=== PATIENT | female | born 1940 | race Caucasian/White ===

== ENCOUNTER → 2017-02-06 | Outpatient (REF) | payer MEDICARE ==
[2017-02-07 13:09] LABS: MEAN CORPUSCULAR HEMOGLOBIN 27.6 pg (27.0-33.0); MEAN CORPUSCULAR HGB CONC 31.8 g/dl (32.0-36.5); MEAN CORPUSCULAR VOLUME 86.9 fl (80.0-96.0); RED CELL DISTRIBUTION WIDTH 17.8 % (11.5-14.5); WHITE BLOOD COUNT 10.5 K/mm3 (4.0-10.0)
[2017-02-07 13:48] LABS: CALCIUM LEVEL 8.9 MG/DL (8.8-10.2); CREATININE FOR GFR 1.57 MG/DL (0.55-1.02); GLOMERULAR FILTRATION RATE 34.2 (>39); POTASSIUM SERUM 4.4 MEQ/L (3.5-5.1)
== END ==
LOC: M SFHCCLAY 14:14
PROVIDERS: ATTEND Family Medicine
DX: E11.9 Type 2 diabetes mellitus without complications (principal); I10 Essential (primary) hypertension; D50.9 Iron deficiency anemia, unspecified

== ENCOUNTER → 2017-02-07 | Outpatient (REF) | payer MEDICARE | LOC: M SFHCCLAY 17:15 | PROVIDERS: ATTEND Family Medicine | DX: E11.9 Type 2 diabetes mellitus without complications (principal); I10 Essential (primary) hypertension; D50.9 Iron deficiency anemia, unspecified ==

== ENCOUNTER → 2017-05-24 | Outpatient (CLI) | payer MEDICARE ==
--- NOTE | 2017-05-24 15:13 | REP ---
LUMBAR SPINE, FIVE VIEWS: HISTORY: Back pain. There is no acute fracture. There is an old compression fracture of the L2 vertebral body with minimal height loss. The lumbar intervertebral discs are decreased in height. Vacuum phenomenon is present at the L2-3 and L4-5 levels. These findings are consistent with disc degeneration. Osteophytes are present throughout the lumbar spine. There is narrowing of the L4-5 and L5-S1 facet joints. There are 4 mm of grade 1 spondylolisthesis of L3 on 4. A laminectomy defect is present on the L2-3 level. IMPRESSION: Degenerative change as described above.
== END ==
LOC: M CLY 13:57
PROVIDERS: ATTEND Family Medicine
DX: M25.78 Osteophyte, vertebrae (principal); M48.56XD Collapsed vertebra, not elsewhere classified, lumbar region, subsequent encounter for fracture with routine healing
CPT/HCPCS: 72110; G0463

== ENCOUNTER → 2017-05-28 | Outpatient (CLI) | payer MEDICARE, BC, OTHER | LOC: M SMT 10:37 | PROVIDERS: ATTEND Family Medicine | DX: M54.5 Low back pain (principal); Z53.8 Procedure and treatment not carried out for other reasons ==

== ENCOUNTER 2017-07-10 08:58 | Outpatient (RCR) | payer MEDICARE | END 2017-07-18 | LOC: M PT 08:58 | PROVIDERS: ATTEND Family Medicine | DX: Z51.89 Encounter for other specified aftercare (principal); M51.46 Schmorl's nodes, lumbar region | CPT/HCPCS: 97110; 97163; G8978; G8979 ==

== ENCOUNTER → 2017-07-15 | Outpatient (REF) | payer MEDICARE | LOC: M LAB REF 17:16 | PROVIDERS: ATTEND Physician Assistant | DX: N39.0 Urinary tract infection, site not specified (principal); R30.0 Dysuria ==

== ENCOUNTER 2017-07-16 09:01 | Emergency (ER) | payer MEDICARE ==
[~2017-07-16] VITALS: Ht 160 cm; Wt 102.3 kg
[2017-07-16 09:52] LABS: BASO # 0.1 10^3/uL (0.0-0.2); BASO % 0.9 % (0.0-1.0); EOS # 0.4 10^3/uL (0.0-0.50); EOS % 3.7 % (0.0-3.0); IMMATURE GRANULOCYTE % 0.4 % (0-0); LYMPH # 1.2 10^3/uL (1.5-4.5); LYMPH % 11.3 % (24.0-44.0); MEAN CORPUSCULAR HEMOGLOBIN 27.9 pg (27.0-33.0); MEAN CORPUSCULAR HGB CONC 32.5 g/dl (32.0-36.5); MEAN CORPUSCULAR VOLUME 85.7 fl (80.0-96.0); MONO # 0.9 10^3/uL (0.0-0.8); MONO % 8.4 % (0.0-5.0); NEUTROPHILS # 7.9 10^3/uL (1.8-7.7); NEUTROPHILS % 75.3 % (36.0-66.0); PLATELET COUNT, AUTOMATED 315 10^3/uL (150-450); RED CELL DISTRIBUTION WIDTH 13.7 % (11.5-14.5); WHITE BLOOD COUNT 10.5 10^3/uL (4.0-10.0)
[2017-07-16] MEDS ORDERED: ISOVUE-370 76% 100ML VIAL (Q9967) As Ordered ONE (10:02)
[2017-07-16 10:26] LABS: ALBUMIN 3.3 GM/DL (3.2-5.2); ALBUMIN/GLOBULIN RATIO 0.73 (1.00-1.93); BILIRUBIN,DIRECT 0.2 MG/DL (0.0-0.2); BILIRUBIN,TOTAL 0.7 MG/DL (0.2-1.0); CALCIUM LEVEL 9.1 MG/DL (8.8-10.2); CREATININE FOR GFR 1.32 MG/DL (0.55-1.02); GLOMERULAR FILTRATION RATE 41.8 (>39); POTASSIUM SERUM 3.2 MEQ/L (3.5-5.1); TOTAL PROTEIN 7.8 GM/DL (6.4-8.2)
--- NOTE | 2017-07-16 11:04 | REP ---
Clinical: Chest pain . Comparison: 07/27/2016 . Findings: The mediastinum and cardiac silhouette are stable and within normal limits for portable technique. The lung morgan are clear without acute consolidation, effusion, or pneumothorax. Skeletal structures are intact. Impression: No acute cardiopulmonary process appreciated. Signed by Ventura Griggs MD 07/16/2017 10:56 A
--- NOTE | 2017-07-16 11:09 | REP ---
Clinical: Diffuse abdominal and back pain. Technique: Axial contrast enhanced images from the lung bases to the pubic symphysis using the 100 ml Isovue 370 intravenous contrast material with coronal and sagittal re-formations. Findings: Lung bases demonstrate minimal lingular atelectasis and dependent changes. Cardiomegaly suggested. Liver, spleen, pancreas, bilateral adrenal glands and kidneys are relatively normal. Age-related renal cortical thinning and few small bilateral renal cysts identified measuring up to 2.3 cm. No perinephric stranding or hydroureteronephrosis. Cholelithiasis. The enteric system is without obstruction or acute inflammatory process. Colonic diverticula noted without acute diverticulitis. Pelvis demonstrates normal bladder and evidence for prior hysterectomy. No pelvic fluid or ascites. No adenopathy. No solitary mass lesion. Atherosclerotic changes of the aorta and vasculature without aneurysm. Musculoskeletal structures demonstrate age-related degenerative changes without focal osseous abnormality. Left hip replacement noted. Impression: 1. Trace lingular atelectasis. 2. Cholelithiasis without acute cholecystitis. 3. Chronic renal findings. 4. Colonic diverticula without acute diverticulitis. 5. No acute abdominopelvic pathology appreciated. No free fluid. Signed by Ventura Griggs MD 07/16/2017 11:00 A
--- NOTE | 2017-07-16 11:14 | REP ---
Clinical: Severe thoracic back pain. Technique: Axial contrast enhanced images from the thoracic inlet to the upper abdomen using 100 ml Isovue 370 intravenous contrast material using angiographic technique for maximal enhancement of the aorta with multiplanar MIP re-formations. Findings: Atherosclerotic changes of the aorta noted without evidence for aneurysm or dissection. Cardiomegaly is suggested without pericardial effusion. Pulmonary vasculature is satisfactorily enhanced and no filling defects are identified to suggest pulmonary embolus. Lung morgan demonstrate prominent pulmonary vasculature with subtle scattered ground-glass opacifications suggesting mild pulmonary vascular congestion. No consolidation, significant nodule or mass lesion. No pleural effusion/reaction or pneumothorax. Tracheobronchial tree is patent. No adenopathy. Musculoskeletal structures demonstrate degenerative changes. Impression: 1. Cardiomegaly and atherosclerotic changes of the aorta and branch vessels. 2. Mild possibly chronic pulmonary vascular congestion. 3. No pulmonary embolus. 4. No further acute mediastinal or pleuroparenchymal process. Signed by Ventura Griggs MD 07/16/2017 11:05 A
[2017-07-16] MEDS ORDERED: FUROSEMIDE 100 MG/10 ML VIAL (J1940) IV ONE (11:15)
[2017-07-16] MEDS ORDERED: POTASSIUM CHLORIDE 10 MEQ SR TABLET PO ONE (13:45)
[2017-07-16 15:40] VITALS: BP 123/69
--- NOTE | 2017-07-17 08:06 | ECGEPIP ---
Stationary ECG Study [facility] - ED Test Date: 2017-07-16 Pat Name: CHARLY TURCIOS Department: Room: - Gender: F Trade Analyst: REED : 1940 Requested By: CARMELINA Lange Order Number: [id number] Reading MD: Zaida Ravi Measurements Intervals [place] Rate: 100 P: [place]: 0 QRS: -2 QRSD: 93 T: -2 QT: 346 QTc: 448 Interpretive Statements ATRIAL FIBRILLATION WITH RAPID VENTRICULAR RESPONSE INFERIOR MYOCARDIAL INFARCTION, PROBABLY OLD NO PRIOR FOR COMPARISON Electronically Signed On 07-17-2017 8:06:35 EST by Zaida Ravi
== END 2017-07-16 15:45 | disposition home or self-care (01) ==
LOC: M ED 09:01 → EDBD 09:01 → M ED 15:45
DX: M54.9 Dorsalgia, unspecified (principal); R60.0 Localized edema; I48.91 Unspecified atrial fibrillation; E11.9 Type 2 diabetes mellitus without complications; I10 Essential (primary) hypertension; Z79.01 Long term (current) use of anticoagulants
CPT/HCPCS: 36415; 71010; 71275; 74177; 80048; 80076; 81001; 83690; 83880; 85025; 93005; 93041; 94760; 96374; 99285; J1940; Q9967

== ENCOUNTER → 2017-07-18 | Outpatient (REF) | payer MEDICARE ==
[2017-07-18 20:25] LABS: CALCIUM LEVEL 8.5 MG/DL (8.8-10.2); CREATININE FOR GFR 1.41 MG/DL (0.55-1.02); GLOMERULAR FILTRATION RATE 38.7 (>39); POTASSIUM SERUM 3.6 MEQ/L (3.5-5.1)
== END ==
LOC: M SFHCCLAY 12:16
PROVIDERS: ATTEND Nurse Practitioner Family
DX: R60.9 Edema, unspecified (principal); M54.9 Dorsalgia, unspecified
CPT/HCPCS: 80048; 83880; G0463

== ENCOUNTER → 2017-08-06 | Outpatient (REF) | payer MEDICARE ==
[2017-08-06 10:29] LABS: BASO # 0.1 10^3/uL (0.0-0.2); BASO % 0.8 % (0.0-1.0); EOS # 0.4 10^3/uL (0.0-0.50); EOS % 4.4 % (0.0-3.0); IMMATURE GRANULOCYTE % 0.2 % (0-0); LYMPH # 1.3 10^3/uL (1.5-4.5); LYMPH % 15.4 % (24.0-44.0); MEAN CORPUSCULAR HEMOGLOBIN 27.5 pg (27.0-33.0); MEAN CORPUSCULAR HGB CONC 31.7 g/dl (32.0-36.5); MEAN CORPUSCULAR VOLUME 86.6 fl (80.0-96.0); MONO # 0.9 10^3/uL (0.0-0.8); MONO % 10.4 % (0.0-5.0); NEUTROPHILS # 5.7 10^3/uL (1.8-7.7); NEUTROPHILS % 68.8 % (36.0-66.0); PLATELET COUNT, AUTOMATED 332 10^3/uL (150-450); RED CELL DISTRIBUTION WIDTH 13.8 % (11.5-14.5); WHITE BLOOD COUNT 8.3 10^3/uL (4.0-10.0)
[2017-08-06 10:53] LABS: ALBUMIN 3.4 GM/DL (3.2-5.2); ALBUMIN/GLOBULIN RATIO 0.97 (1.00-1.93); BILIRUBIN,TOTAL 0.6 MG/DL (0.2-1.0); CALCIUM LEVEL 8.9 MG/DL (8.8-10.2); CREATININE FOR GFR 1.36 MG/DL (0.55-1.02); GLOMERULAR FILTRATION RATE 40.4 (>39); POTASSIUM SERUM 3.7 MEQ/L (3.5-5.1); THYROXINE (T4) 8.3 UG/DL (4.5-12.0); TOTAL PROTEIN 6.9 GM/DL (6.4-8.2)
[2017-08-06 10:54] LABS: PERCENT SATURATION 15.6 % (13.2-45.0)
== END ==
PROVIDERS: ATTEND Nurse Practitioner Family
DX: N18.3 Chronic kidney disease, stage 3 (moderate) (principal); D50.9 Iron deficiency anemia, unspecified; E78.4 Other hyperlipidemia; E11.9 Type 2 diabetes mellitus without complications

== ENCOUNTER → 2017-09-18 | Outpatient (REF) | payer MEDICARE ==
[2017-09-18 09:26] LABS: FREE T4 0.99 NG/DL (0.76-1.46)
== END ==
DX: R94.6 Abnormal results of thyroid function studies (principal)
CPT/HCPCS: 84443

== ENCOUNTER → 2017-11-05 | Outpatient (REF) | payer MEDICARE ==
[2017-11-05 10:31] LABS: ALBUMIN 3.4 GM/DL (3.2-5.2); ALBUMIN/GLOBULIN RATIO 0.94 (1.00-1.93); ALKALINE PHOSPHATASE 122 U/L (45-117); ALT/SGPT 10 U/L (12-78); ANION GAP 6 MEQ/L (8-16); AST/SGOT 17 U/L (7-37); BILIRUBIN,TOTAL 0.4 MG/DL (0.2-1.0); BLOOD UREA NITROGEN 24 MG/DL (7-18); CALCIUM LEVEL 9.3 MG/DL (8.8-10.2); CARBON DIOXIDE LEVEL 35 MEQ/L (21-32); CHLORIDE LEVEL 98 MEQ/L (98-107); CREATININE FOR GFR 1.56 MG/DL (0.55-1.30); GLOMERULAR FILTRATION RATE 34.4 (>39); GLUCOSE, FASTING 194 MG/DL (70-100); POTASSIUM SERUM 4.4 MEQ/L (3.5-5.1); SODIUM LEVEL 139 MEQ/L (136-145)
[2017-11-05 11:52] LABS: ESTIMATED AVERAGE GLUCOSE 217 MG/DL (60-110); HEMOGLOBIN A1c 9.2 %
== END ==
DX: E11.9 Type 2 diabetes mellitus without complications (principal)
CPT/HCPCS: 80053

== ENCOUNTER → 2017-11-11 | Outpatient (CLI) | payer MEDICARE | LOC: M SMT 11:39 | DX: M11.232 Other chondrocalcinosis, left wrist (principal); M20.032 Swan-neck deformity of left finger(s) | CPT/HCPCS: 73130 ==

== ENCOUNTER → 2017-12-17 | Outpatient (REF) | payer MEDICARE, MEDICAID ==
[2017-12-17 11:03] LABS: ALBUMIN 3.2 GM/DL (3.2-5.2); ANION GAP 9 MEQ/L (8-16); BLOOD UREA NITROGEN 18 MG/DL (7-18); CALCIUM LEVEL 8.8 MG/DL (8.8-10.2); CARBON DIOXIDE LEVEL 31 MEQ/L (21-32); CHLORIDE LEVEL 98 MEQ/L (98-107); CREATININE FOR GFR 1.47 MG/DL (0.55-1.30); GLOMERULAR FILTRATION RATE 36.8 (>39); GLUCOSE, FASTING 140 MG/DL (70-100); PHOSPHORUS LEVEL 4.4 MG/DL (2.5-4.9); POTASSIUM SERUM 4.2 MEQ/L (3.5-5.1); SODIUM LEVEL 138 MEQ/L (136-145)
== END ==
DX: N18.3 Chronic kidney disease, stage 3 (moderate) (principal)
CPT/HCPCS: 80069

== ENCOUNTER → 2018-01-10 | Outpatient (REF) | payer MEDICARE, MEDICAID ==
[2018-01-10 09:55] LABS: ALBUMIN 3.3 GM/DL (3.2-5.2); ALBUMIN/GLOBULIN RATIO 0.87 (1.00-1.93); ALKALINE PHOSPHATASE 127 U/L (45-117); ALT/SGPT 11 U/L (12-78); ANION GAP 7 MEQ/L (8-16); AST/SGOT 22 U/L (7-37); BILIRUBIN,TOTAL 0.5 MG/DL (0.2-1.0); BLOOD UREA NITROGEN 24 MG/DL (7-18); CARBON DIOXIDE LEVEL 31 MEQ/L (21-32); CHLORIDE LEVEL 102 MEQ/L (98-107); CREATININE FOR GFR 1.48 MG/DL (0.55-1.30); GLOMERULAR FILTRATION RATE 36.5 (>39); GLUCOSE, FASTING 173 MG/DL (70-100); POTASSIUM SERUM 4.2 MEQ/L (3.5-5.1); SODIUM LEVEL 140 MEQ/L (136-145); TOTAL PROTEIN 7.1 GM/DL (6.4-8.2)
[2018-01-10 10:50] LABS: ESTIMATED AVERAGE GLUCOSE 183 MG/DL (60-110)
[2018-01-10 13:27] LABS: CREATININE, URINE 25.3 MG/DL; MALB URINE SIEMENS < 5.0 MG/L; MAU/CREAT RATIO 19.7 MCG/MG (0.0-30.0)
== END ==
DX: E11.9 Type 2 diabetes mellitus without complications (principal); I10 Essential (primary) hypertension
CPT/HCPCS: 80053

== ENCOUNTER → 2018-02-04 | Outpatient (REF) | payer MEDICARE, MEDICAID ==
[2018-02-04 10:20] LABS: TOTAL 25(OH) VITAMIN D 24.7 NG/ML (30.0-100.0)
== END ==
DX: M81.0 Age-related osteoporosis without current pathological fracture (principal)
CPT/HCPCS: 82306

== ENCOUNTER → 2018-02-11 | Outpatient (REF) | payer MEDICARE, MEDICAID ==
[2018-02-11 11:57] LABS: BASO # 0.1 10^3/uL (0.0-0.2); BASO % 0.7 % (0.0-1.0); EOS # 0.3 10^3/uL (0.0-0.50); EOS % 4.2 % (0.0-3.0); HEMATOCRIT 36.7 % (36.0-47.0); HEMOGLOBIN 11.6 g/dl (12.0-15.5); IMMATURE GRANULOCYTE % 0.5 % (0-3.0); LYMPH # 1.3 10^3/uL (1.5-4.5); LYMPH % 15.6 % (24.0-44.0); MEAN CORPUSCULAR HEMOGLOBIN 27.3 pg (27.0-33.0); MEAN CORPUSCULAR HGB CONC 31.6 g/dl (32.0-36.5); MEAN CORPUSCULAR VOLUME 86.4 fl (80.0-96.0); MONO # 0.9 10^3/uL (0.0-0.8); MONO % 10.9 % (0.0-5.0); NEUTROPHILS # 5.6 10^3/uL (1.8-7.7); NEUTROPHILS % 68.1 % (36.0-66.0); PLATELET COUNT, AUTOMATED 299 10^3/uL (150-450); RED BLOOD COUNT 4.25 10^6/uL (4.00-5.40); RED CELL DISTRIBUTION WIDTH 14.5 % (11.5-14.5); WHITE BLOOD COUNT 8.2 10^3/uL (4.0-10.0)
[2018-02-11 12:23] LABS: ALBUMIN 3.5 GM/DL (3.2-5.2); ANION GAP 10 MEQ/L (8-16); BLOOD UREA NITROGEN 24 MG/DL (7-18); CARBON DIOXIDE LEVEL 29 MEQ/L (21-32); CHLORIDE LEVEL 99 MEQ/L (98-107); CREATININE FOR GFR 1.62 MG/DL (0.55-1.30); GLOMERULAR FILTRATION RATE 32.9 (>39); GLUCOSE, FASTING 175 MG/DL (70-100); MAGNESIUM LEVEL 1.7 MG/DL (1.8-2.4); PHOSPHORUS LEVEL 3.9 MG/DL (2.5-4.9); POTASSIUM SERUM 4.2 MEQ/L (3.5-5.1); SODIUM LEVEL 138 MEQ/L (136-145); URIC ACID 7.5 MG/DL (2.6-6.0)
[2018-02-11 12:29] LABS: TOTAL 25(OH) VITAMIN D 27.6 NG/ML (30.0-100.0)
[2018-02-12 10:33] LABS: APPEARANCE, URINE CLEAR (CLEAR); BACTERIA, URINE AUTO NEGATIVE (NEGATIVE); BILIRUBIN, URINE AUTO NEGATIVE (NEGATIVE); BLOOD, URINE BLOOD NEGATIVE (NEGATIVE); COLOR, URINE STRAW (YELLOW); GLUCOSE, URINE (UA) AUTO NEGATIVE (NEGATIVE); KETONE, URINE AUTO NEGATIVE (NEGATIVE); LEUKOCYTE ESTERASE, URINE AUTO TRACE (NEGATIVE); NITRITE, URINE AUTO NEGATIVE (NEGATIVE); PROTEIN, URINE AUTO NEGATIVE (NEGATIVE); RBC, URINE AUTO 0 /HPF (0-3); SPECIFIC GRAVITY URINE AUTO 1.005 (1.002-1.035); SQUAMOUS EPITHELIAL CELL UR AU 0 /HPF (0-6); UROBILINOGEN, URINE AUTO 0.2 mg/dL (0.0-2.0); WBC, URINE AUTO 1 /HPF (0-3)
[2018-02-12 11:07] LABS: CREATININE,RANDOM URINE 17.5 MG/DL; TOTAL PROTEIN,RANDOM URINE < 5.0 MG/DL (0.0-12.0)
== END ==
DX: N18.3 Chronic kidney disease, stage 3 (moderate) (principal); I12.9 Hypertensive chronic kidney disease with stage 1 through stage 4 chronic kidney disease, or unspecified chronic kidney disease
CPT/HCPCS: 83735

== ENCOUNTER → 2018-02-24 | Outpatient (REF) | payer MEDICARE, MEDICAID ==
[2018-02-24 18:04] LABS: BASO # 0.1 10^3/uL (0.0-0.2); BASO % 0.8 % (0.0-1.0); EOS # 0.3 10^3/uL (0.0-0.50); EOS % 3.3 % (0.0-3.0); HEMATOCRIT 36.3 % (36.0-47.0); HEMOGLOBIN 11.6 g/dl (12.0-15.5); IMMATURE GRANULOCYTE % 0.5 % (0-3.0); LYMPH # 1.7 10^3/uL (1.5-4.5); LYMPH % 20.2 % (24.0-44.0); MEAN CORPUSCULAR HEMOGLOBIN 27.6 pg (27.0-33.0); MEAN CORPUSCULAR VOLUME 86.4 fl (80.0-96.0); MONO # 0.9 10^3/uL (0.0-0.8); MONO % 10.5 % (0.0-5.0); NEUTROPHILS # 5.3 10^3/uL (1.8-7.7); NEUTROPHILS % 64.7 % (36.0-66.0); PLATELET COUNT, AUTOMATED 304 10^3/uL (150-450); RED CELL DISTRIBUTION WIDTH 14.4 % (11.5-14.5); WHITE BLOOD COUNT 8.3 10^3/uL (4.0-10.0)
[2018-02-24 19:25] LABS: ALBUMIN 3.5 GM/DL (3.2-5.2); ALBUMIN/GLOBULIN RATIO 0.92 (1.00-1.93); ALKALINE PHOSPHATASE 125 U/L (45-117); ALT/SGPT 20 U/L (12-78); ANION GAP 8 MEQ/L (8-16); AST/SGOT 18 U/L (7-37); BILIRUBIN,TOTAL 0.5 MG/DL (0.2-1.0); BLOOD UREA NITROGEN 28 MG/DL (7-18); C REACTIVE PROTEIN QUANTITATIV 0.76 MG/DL (0.00-0.30); CARBON DIOXIDE LEVEL 31 MEQ/L (21-32); CHLORIDE LEVEL 96 MEQ/L (98-107); GLOMERULAR FILTRATION RATE 33.4 (>39); GLUCOSE, FASTING 159 MG/DL (70-100); SODIUM LEVEL 135 MEQ/L (136-145); TOTAL PROTEIN 7.3 GM/DL (6.4-8.2); URIC ACID 7.3 MG/DL (2.6-6.0)
[2018-02-24 19:27] LABS: ERYTHROCYTE SEDIMENTATION RATE 70 mm/hr (0-30)
[2018-02-25 11:42] LABS: ALBUMIN 3.83 GM/DL (3.29-5.55); ALBUMIN % 52.4 % (55.8-66.1); ALPHA-1-GLOBULIN % 4.8 % (2.9-4.9); ALPHA-1-GLOBULINS 0.35 GM/DL (0.17-0.41); ALPHA-2-GLOBULINS 1.01 GM/DL (0.42-0.99); ALPHA-2-GLOBULINS % 13.8 % (7.1-11.8); BETA-1-GLOBULINS 0.45 GM/DL (0.28-0.60); BETA-1-GLOBULINS % 6.2 % (4.7-7.2); BETA-2-GLOBULINS 0.46 GM/DL (0.19-0.55); BETA-2-GLOBULINS % 6.3 % (3.2-6.5); GAMMA GLOBULIN % 16.5 % (11.1-18.8)
[2018-02-26 14:58] LABS: ANTINUCLEAR ANTIBODIES DIRECT Negative (Negative)
[2018-02-27 00:09] LABS: FREE KAPPA LIGHT CHAINS SERUM 54.1 mg/L (3.3-19.4); FREE LAMBDA LIGHT CHAINS SERUM 29.5 mg/L (5.7-26.3); KAPPA/LAMBDA RATIO SERUM 1.83 (0.26-1.65)
== END ==
LOC: M SFHCPLAZ 15:20
DX: M25.50 Pain in unspecified joint (principal); N18.3 Chronic kidney disease, stage 3 (moderate)
CPT/HCPCS: 84165

== ENCOUNTER → 2018-02-27 | Outpatient (CLI) | payer MEDICARE, MEDICAID | LOC: M SMT 12:23 | DX: M19.011 Primary osteoarthritis, right shoulder (principal); M85.811 Other specified disorders of bone density and structure, right shoulder; M25.511 Pain in right shoulder | CPT/HCPCS: 73030 ==

== ENCOUNTER → 2018-02-28 | Outpatient (REF) | payer MEDICARE, MEDICAID ==
[2018-02-28 15:56] LABS: URINE TOTAL PROTEIN 5.4 MG/DL (0-12)
[2018-03-05 14:54] LABS: UPEP INTERPRETATION NO M-SPIKE NOTED; URINE VOLUME RANDOM ML
== END ==
DX: M25.50 Pain in unspecified joint (principal); R52 Pain, unspecified
CPT/HCPCS: 84166

== ENCOUNTER → 2018-03-13 | Outpatient (REF) | payer MEDICARE, MEDICAID ==
[2018-03-17 00:11] LABS: CYCLIC CITRULLINATED PEPTIDE 9 units (0-19)
== END ==
LOC: M SFHCPLAZ 09:55
DX: M25.50 Pain in unspecified joint (principal)
CPT/HCPCS: 36415

== ENCOUNTER → 2018-04-08 | Outpatient (REF) | payer MEDICARE, MEDICAID, BC, OTHER | LOC: M SFHCPLAZ 15:17 | DX: L02.91 Cutaneous abscess, unspecified (principal) | CPT/HCPCS: 87186; 87205 ==

== ENCOUNTER → 2018-05-23 | Outpatient (REF) | payer MEDICARE, MEDICAID | LOC: M SFHCPLAZ 16:49 | DX: L02.91 Cutaneous abscess, unspecified (principal) | CPT/HCPCS: 87205 ==

== ENCOUNTER → 2018-05-27 | Outpatient (REF) | payer MEDICARE, MEDICAID ==
[2018-05-27 09:53] LABS: BASO # 0.1 10^3/uL (0.0-0.2); BASO % 1.3 % (0.0-1.0); EOS # 0.3 10^3/uL (0.0-0.50); EOS % 4.1 % (0.0-3.0); HEMATOCRIT 37.5 % (36.0-47.0); HEMOGLOBIN 11.6 g/dl (12.0-15.5); IMMATURE GRANULOCYTE % 0.3 % (0-3.0); LYMPH # 1.6 10^3/uL (1.5-4.5); MEAN CORPUSCULAR HEMOGLOBIN 27.8 pg (27.0-33.0); MEAN CORPUSCULAR HGB CONC 30.9 g/dl (32.0-36.5); MEAN CORPUSCULAR VOLUME 89.9 fl (80.0-96.0); NEUTROPHILS # 4.9 10^3/uL (1.8-7.7); NEUTROPHILS % 62.3 % (36.0-66.0); PLATELET COUNT, AUTOMATED 297 10^3/uL (150-450); RED BLOOD COUNT 4.17 10^6/uL (4.00-5.40); RED CELL DISTRIBUTION WIDTH 13.9 % (11.5-14.5); WHITE BLOOD COUNT 7.9 10^3/uL (4.0-10.0)
[2018-05-27 10:08] LABS: ALBUMIN 3.4 GM/DL (3.2-5.2); ANION GAP 5 MEQ/L (8-16); BLOOD UREA NITROGEN 19 MG/DL (7-18); CARBON DIOXIDE LEVEL 35 MEQ/L (21-32); CHLORIDE LEVEL 99 MEQ/L (98-107); FERRITIN 23 NG/ML (8-252); GLOMERULAR FILTRATION RATE 35.9 (>39); GLUCOSE, FASTING 121 MG/DL (70-100); IRON (FE) 45 UG/DL (50-170); MAGNESIUM LEVEL 1.8 MG/DL (1.8-2.4); PERCENT SATURATION 13.3 % (13.2-45.0); PHOSPHORUS LEVEL 3.8 MG/DL (2.5-4.9); POTASSIUM SERUM 4.2 MEQ/L (3.5-5.1); SODIUM LEVEL 139 MEQ/L (136-145); TOTAL IRON BINDING CAPACITY 338 UG/DL (250-450); URIC ACID 8.5 MG/DL (2.6-6.0)
[2018-05-27 11:18] LABS: PTH INTACT 172.9 PG/ML (18.5-88.0); TOTAL 25(OH) VITAMIN D 30.9 NG/ML (30.0-100.0)
== END ==
DX: N18.3 Chronic kidney disease, stage 3 (moderate) (principal); I12.9 Hypertensive chronic kidney disease with stage 1 through stage 4 chronic kidney disease, or unspecified chronic kidney disease; D63.1 Anemia in chronic kidney disease
CPT/HCPCS: 83550

== ENCOUNTER → 2018-05-30 | Outpatient (REF) | payer MEDICARE, MEDICAID ==
[2018-05-30 16:23] LABS: BASO # 0.1 10^3/uL (0.0-0.2); BASO % 0.8 % (0.0-1.0); EOS # 0.3 10^3/uL (0.0-0.50); EOS % 3.7 % (0.0-3.0); HEMATOCRIT 37.4 % (36.0-47.0); HEMOGLOBIN 11.7 g/dl (12.0-15.5); IMMATURE GRANULOCYTE % 0.4 % (0-3.0); LYMPH # 1.7 10^3/uL (1.5-4.5); LYMPH % 20.2 % (24.0-44.0); MEAN CORPUSCULAR HEMOGLOBIN 27.7 pg (27.0-33.0); MEAN CORPUSCULAR HGB CONC 31.3 g/dl (32.0-36.5); MEAN CORPUSCULAR VOLUME 88.4 fl (80.0-96.0); MONO % 11.8 % (0.0-5.0); NEUTROPHILS # 5.3 10^3/uL (1.8-7.7); NEUTROPHILS % 63.1 % (36.0-66.0); PLATELET COUNT, AUTOMATED 317 10^3/uL (150-450); RED BLOOD COUNT 4.23 10^6/uL (4.00-5.40); RED CELL DISTRIBUTION WIDTH 14.1 % (11.5-14.5); WHITE BLOOD COUNT 8.5 10^3/uL (4.0-10.0)
[2018-05-30 16:30] LABS: INR 2.65; PROTHROMBIN TIME 28.8 SECONDS (12.1-14.4)
[2018-05-30 16:31] LABS: PARTIAL THROMBOPLASTIN TIME 50.7 SECONDS (25.4-37.6)
[2018-05-30 16:44] LABS: ALBUMIN 3.3 GM/DL (3.2-5.2); ALBUMIN/GLOBULIN RATIO 0.85 (1.00-1.93); ALKALINE PHOSPHATASE 115 U/L (45-117); ALT/SGPT 24 U/L (12-78); ANION GAP 9 MEQ/L (8-16); AST/SGOT 21 U/L (7-37); BILIRUBIN,TOTAL 0.6 MG/DL (0.2-1.0); BLOOD UREA NITROGEN 21 MG/DL (7-18); CALCIUM LEVEL 8.9 MG/DL (8.8-10.2); CARBON DIOXIDE LEVEL 31 MEQ/L (21-32); CHLORIDE LEVEL 100 MEQ/L (98-107); CREATININE FOR GFR 1.51 MG/DL (0.55-1.30); FREE T4 0.96 NG/DL (0.76-1.46); GLOMERULAR FILTRATION RATE 35.7 (>39); GLUCOSE, FASTING 100 MG/DL (70-100); SODIUM LEVEL 140 MEQ/L (136-145); TOTAL PROTEIN 7.2 GM/DL (6.4-8.2)
== END ==
LOC: M SFHCPLAZ 12:47
DX: Z01.818 Encounter for other preprocedural examination (principal); G56.01 Carpal tunnel syndrome, right upper limb; I48.91 Unspecified atrial fibrillation; Z79.01 Long term (current) use of anticoagulants
CPT/HCPCS: 84443

== ENCOUNTER → 2018-06-02 | Outpatient (CLI) | payer MEDICARE, MEDICAID ==
[2018-06-02 13:16] LABS: BASO # 0.1 10^3/uL (0.0-0.2); BASO % 1.1 % (0.0-1.0); EOS # 0.3 10^3/uL (0.0-0.50); EOS % 3.2 % (0.0-3.0); HEMATOCRIT 37.1 % (36.0-47.0); HEMOGLOBIN 11.6 g/dl (12.0-15.5); IMMATURE GRANULOCYTE % 0.4 % (0-3.0); LYMPH # 1.4 10^3/uL (1.5-4.5); LYMPH % 17.8 % (24.0-44.0); MEAN CORPUSCULAR HEMOGLOBIN 27.6 pg (27.0-33.0); MEAN CORPUSCULAR HGB CONC 31.3 g/dl (32.0-36.5); MEAN CORPUSCULAR VOLUME 88.3 fl (80.0-96.0); MONO # 0.8 10^3/uL (0.0-0.8); MONO % 9.9 % (0.0-5.0); NEUTROPHILS # 5.4 10^3/uL (1.8-7.7); NEUTROPHILS % 67.6 % (36.0-66.0); PLATELET COUNT, AUTOMATED 311 10^3/uL (150-450); RED CELL DISTRIBUTION WIDTH 13.9 % (11.5-14.5); WHITE BLOOD COUNT 8.1 10^3/uL (4.0-10.0)
[2018-06-02 13:29] LABS: INR 1.14; PARTIAL THROMBOPLASTIN TIME 32.4 SECONDS (25.4-37.6); PROTHROMBIN TIME 14.8 SECONDS (12.1-14.4)
[2018-06-02 13:47] LABS: ALBUMIN 3.2 GM/DL (3.2-5.2); ALKALINE PHOSPHATASE 123 U/L (45-117); ALT/SGPT 21 U/L (12-78); ANION GAP 13 MEQ/L (8-16); AST/SGOT 22 U/L (7-37); BILIRUBIN,TOTAL 0.4 MG/DL (0.2-1.0); BLOOD UREA NITROGEN 21 MG/DL (7-18); CALCIUM LEVEL 8.6 MG/DL (8.8-10.2); CARBON DIOXIDE LEVEL 28 MEQ/L (21-32); CHLORIDE LEVEL 99 MEQ/L (98-107); CREATININE FOR GFR 1.64 MG/DL (0.55-1.30); FREE T4 0.95 NG/DL (0.76-1.46); GLOMERULAR FILTRATION RATE 32.4 (>39); GLUCOSE, FASTING 190 MG/DL (70-100); POTASSIUM SERUM 3.9 MEQ/L (3.5-5.1); SODIUM LEVEL 140 MEQ/L (136-145); TOTAL PROTEIN 7.2 GM/DL (6.4-8.2)
== END ==
LOC: M SMT 09:25
DX: Z01.818 Encounter for other preprocedural examination (principal); Z79.01 Long term (current) use of anticoagulants; E07.9 Disorder of thyroid, unspecified
CPT/HCPCS: 84443

== ENCOUNTER → 2018-06-12 | Outpatient (REF) | payer MEDICARE, MEDICAID ==
[2018-06-12 16:45] LABS: ESTIMATED AVERAGE GLUCOSE 177 MG/DL (60-110); HEMOGLOBIN A1c 7.8 %
== END ==
LOC: M SFHCPLAZ 12:24
DX: E11.9 Type 2 diabetes mellitus without complications (principal)
CPT/HCPCS: 83036

== ENCOUNTER 2018-06-16 08:24 | Outpatient (CLI) | payer MEDICARE, MEDICAID ==
[2018-06-16] MEDS ORDERED: IRON SUCROSE 300 MG in NS 250 ML IV (09:00)
[2018-06-16] MEDS: IRON SUCROSE 25 MG in NS 50 ML IV (09:35)
[2018-06-16] MEDS: IRON SUCROSE 275 MG in NS 250 ML IV (11:02)
== END 2018-06-16 15:15 | disposition home or self-care (01) ==
LOC: M INFU 08:24
DX: D50.9 Iron deficiency anemia, unspecified (principal); N18.3 Chronic kidney disease, stage 3 (moderate); I12.9 Hypertensive chronic kidney disease with stage 1 through stage 4 chronic kidney disease, or unspecified chronic kidney disease; N25.81 Secondary hyperparathyroidism of renal origin; R60.0 Localized edema; Z79.4 Long term (current) use of insulin; Z79.899 Other long term (current) drug therapy
CPT/HCPCS: J1756

== ENCOUNTER → 2018-07-01 | Outpatient (REF) | payer MEDICARE, MEDICAID ==
[2018-07-01 13:56] LABS: ALBUMIN 3.7 GM/DL (3.2-5.2); ANION GAP 9 MEQ/L (8-16); BLOOD UREA NITROGEN 34 MG/DL (7-18); CALCIUM LEVEL 9.6 MG/DL (8.8-10.2); CARBON DIOXIDE LEVEL 31 MEQ/L (21-32); CHLORIDE LEVEL 98 MEQ/L (98-107); CREATININE FOR GFR 1.95 MG/DL (0.55-1.30); GLOMERULAR FILTRATION RATE 26.6 (>39); GLUCOSE, FASTING 151 MG/DL (70-100); PHOSPHORUS LEVEL 3.9 MG/DL (2.5-4.9); POTASSIUM SERUM 4.5 MEQ/L (3.5-5.1); SODIUM LEVEL 138 MEQ/L (136-145)
== END ==
DX: R60.9 Edema, unspecified (principal)
CPT/HCPCS: 80069

== ENCOUNTER → 2018-07-08 | Outpatient (REF) | payer MEDICARE, MEDICAID ==
[2018-07-08 11:11] LABS: ALBUMIN 3.4 GM/DL (3.2-5.2); ANION GAP 8 MEQ/L (8-16); BLOOD UREA NITROGEN 30 MG/DL (7-18); CALCIUM LEVEL 9.4 MG/DL (8.8-10.2); CARBON DIOXIDE LEVEL 32 MEQ/L (21-32); CHLORIDE LEVEL 101 MEQ/L (98-107); CREATININE FOR GFR 1.91 MG/DL (0.55-1.30); GLOMERULAR FILTRATION RATE 27.2 (>39); GLUCOSE, FASTING 162 MG/DL (70-100); PHOSPHORUS LEVEL 4.2 MG/DL (2.5-4.9); POTASSIUM SERUM 4.1 MEQ/L (3.5-5.1); SODIUM LEVEL 141 MEQ/L (136-145)
== END ==
DX: R60.9 Edema, unspecified (principal)
CPT/HCPCS: 80069

== ENCOUNTER → 2018-08-26 | Outpatient (REF) | payer MEDICARE, MEDICAID ==
[~2018-08-26] MED LIST: ALBU83IN NEB; AMMO12CR4 TOP; ATOR80TA59 PO; BACI1CAP PO; BUPR1TAB53 PO; CAPS0.1C2 TOP; CARB25TA9 PO; CLAR10CA3 PO; COLA100C5 PO; DULC5TAB PO; FLON1SPR NARES; GABA-1171 PO; IMOD2CAP PO; LEVE250T5 PO; METO100T5 PO; MIRA3350 PO; NYST10CR TOP; OMEP40CA2 PO; POTA10CA32 PO; PROAAER10 INH; REQU2TAB3 PO; ROZE8TAB16 PO; SENN8.6T28 PO; TORS20TA2 PO; TOUJ1.2I SC; TRUL10IN SC; TYLE500T78 PO; VITA100067 PO; XARE15TA PO
[2018-08-26 10:05] LABS: BASO # 0.1 10^3/uL (0.0-0.2); BASO % 1.3 % (0.0-1.0); EOS # 0.4 10^3/uL (0.0-0.50); EOS % 5.5 % (0.0-3.0); HEMOGLOBIN 11.6 g/dl (12.0-15.5); LYMPH # 1.4 10^3/uL (1.5-4.5); LYMPH % 19.9 % (24.0-44.0); MEAN CORPUSCULAR HGB CONC 31.4 g/dl (32.0-36.5); MEAN CORPUSCULAR VOLUME 89.2 fl (80.0-96.0); MONO # 0.9 10^3/uL (0.0-0.8); MONO % 12.7 % (0.0-5.0); NEUTROPHILS # 4.2 10^3/uL (1.8-7.7); NEUTROPHILS % 60.3 % (36.0-66.0); PLATELET COUNT, AUTOMATED 241 10^3/uL (150-450); RED BLOOD COUNT 4.15 10^6/uL (4.00-5.40); WHITE BLOOD COUNT 6.9 10^3/uL (4.0-10.0)
[2018-08-26 10:27] LABS: ALBUMIN 3.4 GM/DL (3.2-5.2); CALCIUM LEVEL 9.2 MG/DL (8.8-10.2); CREATININE FOR GFR 1.69 MG/DL (0.55-1.30); GLOMERULAR FILTRATION RATE 31.3 (>39); PERCENT SATURATION 14.1 % (13.2-45.0); PHOSPHORUS LEVEL 3.9 MG/DL (2.5-4.9); POTASSIUM SERUM 3.8 MEQ/L (3.5-5.1)
[2018-08-26 10:34] LABS: PTH INTACT 185.2 PG/ML (18.5-88.0); TOTAL 25(OH) VITAMIN D 33.8 NG/ML (30.0-100.0)
== END ==
PROVIDERS: ATTEND Internal Medicine Nephrology
DX: N18.9 Chronic kidney disease, unspecified (principal); I12.9 Hypertensive chronic kidney disease with stage 1 through stage 4 chronic kidney disease, or unspecified chronic kidney disease; D63.1 Anemia in chronic kidney disease; Z79.899 Other long term (current) drug therapy

== ENCOUNTER → 2018-09-01 | Outpatient (REF) | payer MEDICARE, MEDICAID ==
[2018-09-01 13:57] LABS: HEMATOCRIT 38.2 % (36.0-47.0); HEMOGLOBIN 12.2 g/dl (12.0-15.5); MEAN CORPUSCULAR HEMOGLOBIN 28.8 pg (27.0-33.0); MEAN CORPUSCULAR HGB CONC 31.9 g/dl (32.0-36.5); MEAN CORPUSCULAR VOLUME 90.1 fl (80.0-96.0); PLATELET COUNT, AUTOMATED 257 10^3/uL (150-450); RED BLOOD COUNT 4.24 10^6/uL (4.00-5.40); WHITE BLOOD COUNT 6.9 10^3/uL (4.0-10.0)
[2018-09-01 14:26] LABS: ALBUMIN 3.2 GM/DL (3.2-5.2); BILIRUBIN,TOTAL 0.5 MG/DL (0.2-1.0); CALCIUM LEVEL 9.1 MG/DL (8.8-10.2); CREATININE FOR GFR 1.75 MG/DL (0.55-1.30); GLOMERULAR FILTRATION RATE 30.1 (>39); POTASSIUM SERUM 4.3 MEQ/L (3.5-5.1); THYROID STIMULATING HORMONE 2.5 uIU/ML (0.358-3.740); TOTAL 25(OH) VITAMIN D 31.6 NG/ML (30.0-100.0); TOTAL PROTEIN 7.1 GM/DL (6.4-8.2)
== END ==
LOC: M SFHCPLAZ 11:04
PROVIDERS: ATTEND Family Medicine
DX: R53.83 Other fatigue (principal); N18.3 Chronic kidney disease, stage 3 (moderate); E55.9 Vitamin D deficiency, unspecified
CPT/HCPCS: 36415; 80053; 82306; 84443; 85027; G0463

== ENCOUNTER → 2018-09-23 | Outpatient (REF) | payer MEDICARE, MEDICAID ==
[~2018-09-23] MED LIST changes: -AMMO12CR4 TOP; +AMMO12CR7 TOP
[2018-09-23 10:35] LABS: HEMOGLOBIN A1c 9.7 %
[2018-09-23 10:44] LABS: CHOLESTEROL RISK RATIO 3.666 (<5)
== END ==
PROVIDERS: ATTEND Nurse Practitioner Family
DX: E11.9 Type 2 diabetes mellitus without complications (principal); E78.00 Pure hypercholesterolemia, unspecified

== ENCOUNTER → 2018-12-17 | Outpatient (REF) | payer MEDICARE, MEDICAID ==
[2018-12-17 19:07] LABS: CALCIUM LEVEL 8.9 MG/DL (8.8-10.2); CREATININE FOR GFR 1.84 MG/DL (0.55-1.30); GLOMERULAR FILTRATION RATE 28.3 (>39); POTASSIUM SERUM 4.5 MEQ/L (3.5-5.1)
== END ==
LOC: M SFHCPLAZ 15:45
PROVIDERS: ATTEND Nurse Practitioner Family
DX: E11.9 Type 2 diabetes mellitus without complications (principal)

== ENCOUNTER 2019-01-16 10:10 | Outpatient (CLI) | payer MEDICARE, MEDICAID ==
[~2019-01-16] VITALS: Ht 157.5 cm; Wt 107.7 kg
[2019-01-16 10:32] VITALS: BP 161/74
[2019-01-16] MEDS ORDERED: IRON SUCROSE 25 MG in NS 50 ML IV ONE (11:00)
[2019-01-16 11:25] VITALS: BP 104/58
[2019-01-16] MEDS ORDERED: IRON SUCROSE 275 MG in NS 250 ML IV ONE (12:00)
[2019-01-16] MEDS ORDERED: IRON SUCROSE 300 MG in NS 250 ML IV ONE (12:00)
[2019-01-16 12:10] VITALS: BP 109/55
[2019-01-16 13:15] VITALS: BP 141/97
[2019-01-16 14:24] VITALS: BP 131/92
[2019-01-16 15:15] VITALS: BP 132/74
== END 2019-01-16 15:30 | disposition home or self-care (01) ==
LOC: M INFU 10:10
PROVIDERS: ATTEND Internal Medicine Nephrology
DX: D50.9 Iron deficiency anemia, unspecified (principal); Z79.899 Other long term (current) drug therapy
CPT/HCPCS: 96365; 96366; J1756

== ENCOUNTER → 2019-02-11 | Outpatient (REF) | payer MEDICARE, MEDICAID ==
[2019-02-11 09:07] LABS: BASO # 0.1 10^3/uL (0.0-0.2); BASO % 1.2 % (0.0-1.0); EOS # 0.4 10^3/uL (0.0-0.50); EOS % 5.4 % (0.0-3.0); HEMATOCRIT 37.3 % (36.0-47.0); HEMOGLOBIN 11.6 g/dl (12.0-15.5); LYMPH # 1.4 10^3/uL (1.5-4.5); MEAN CORPUSCULAR HEMOGLOBIN 28.8 pg (27.0-33.0); MEAN CORPUSCULAR HGB CONC 31.1 g/dl (32.0-36.5); MEAN CORPUSCULAR VOLUME 92.6 fl (80.0-96.0); MONO # 0.8 10^3/uL (0.0-0.8); MONO % 12.1 % (0.0-5.0); NEUTROPHILS # 3.8 10^3/uL (1.8-7.7); PLATELET COUNT, AUTOMATED 234 10^3/uL (150-450); RED BLOOD COUNT 4.03 10^6/uL (4.00-5.40); WHITE BLOOD COUNT 6.4 10^3/uL (4.0-10.0)
[2019-02-11 09:35] LABS: ALBUMIN 3.3 GM/DL (3.2-5.2); CALCIUM LEVEL 9.1 MG/DL (8.8-10.2); CREATININE FOR GFR 1.68 MG/DL (0.55-1.30); GLOMERULAR FILTRATION RATE 31.5 (>39); MAGNESIUM LEVEL 1.8 MG/DL (1.8-2.4); PERCENT SATURATION 15.6 % (13.2-45.0); PHOSPHORUS LEVEL 3.9 MG/DL (2.5-4.9); POTASSIUM SERUM 4.2 MEQ/L (3.5-5.1); URIC ACID 6.6 MG/DL (2.6-6.0)
[2019-02-11 09:53] LABS: PTH INTACT 154.2 PG/ML (18.5-88.0); TOTAL 25(OH) VITAMIN D 27.2 NG/ML (30.0-100.0)
== END ==
PROVIDERS: ATTEND Internal Medicine Nephrology
DX: I10 Essential (primary) hypertension (principal); N18.3 Chronic kidney disease, stage 3 (moderate); D63.1 Anemia in chronic kidney disease

== ENCOUNTER → 2019-02-24 | Outpatient (REF) | payer MEDICARE, MEDICAID ==
[2019-02-24 09:07] LABS: BASO # 0.1 10^3/uL (0.0-0.2); EOS # 0.3 10^3/uL (0.0-0.50); EOS % 4.3 % (0.0-3.0); HEMATOCRIT 36.5 % (36.0-47.0); HEMOGLOBIN 11.5 g/dl (12.0-15.5); LYMPH # 1.6 10^3/uL (1.5-4.5); LYMPH % 23.6 % (24.0-44.0); MEAN CORPUSCULAR HGB CONC 31.5 g/dl (32.0-36.5); MEAN CORPUSCULAR VOLUME 92.2 fl (80.0-96.0); MONO # 0.8 10^3/uL (0.0-0.8); MONO % 11.4 % (0.0-5.0); NEUTROPHILS % 59.3 % (36.0-66.0); PLATELET COUNT, AUTOMATED 273 10^3/uL (150-450); RED BLOOD COUNT 3.96 10^6/uL (4.00-5.40); WHITE BLOOD COUNT 6.8 10^3/uL (4.0-10.0)
[2019-02-24 09:30] LABS: ALBUMIN 3.3 GM/DL (3.2-5.2); ALT/SGPT 17 U/L (12-78); BILIRUBIN,TOTAL 0.4 MG/DL (0.2-1.0); BLOOD UREA NITROGEN 23 MG/DL (7-18); CALCIUM LEVEL 9.3 MG/DL (8.8-10.2); CARBON DIOXIDE LEVEL 32 MEQ/L (21-32); CHLORIDE LEVEL 106 MEQ/L (98-107); CREATININE FOR GFR 1.74 MG/DL (0.55-1.30); GLOMERULAR FILTRATION RATE 30.2 (>39); GLUCOSE, FASTING 129 MG/DL (70-100); LDH LACTATE DEHYDROGENASE 158 U/L (84-246); POTASSIUM SERUM 4.1 MEQ/L (3.5-5.1); SODIUM LEVEL 134 MEQ/L (136-145)
[2019-02-25 11:42] LABS: ALBUMIN 3.66 GM/DL (3.29-5.55); ALBUMIN % 52.3 % (55.8-66.1); ALPHA-1-GLOBULIN % 5.4 % (2.9-4.9); ALPHA-1-GLOBULINS 0.38 GM/DL (0.17-0.41); ALPHA-2-GLOBULINS 0.99 GM/DL (0.42-0.99); ALPHA-2-GLOBULINS % 14.2 % (7.1-11.8); BETA-1-GLOBULINS % 5.7 % (4.7-7.2); BETA-2-GLOBULINS 0.45 GM/DL (0.19-0.55); BETA-2-GLOBULINS % 6.4 % (3.2-6.5); GAMMA GLOBULINS 1.12 GM/DL (0.65-1.58)
== END ==
PROVIDERS: ATTEND Internal Medicine Hematology & Oncology
DX: D47.2 Monoclonal gammopathy (principal)

== ENCOUNTER → 2019-03-05 | Outpatient (REF) | payer MEDICARE, MEDICAID ==
[2019-03-05 17:37] LABS: BASO # 0.1 10^3/uL (0.0-0.2); BASO % 1.1 % (0.0-1.0); EOS # 0.3 10^3/uL (0.0-0.50); EOS % 3.2 % (0.0-3.0); HEMOGLOBIN 12.5 g/dl (12.0-15.5); LYMPH # 1.6 10^3/uL (1.5-4.5); LYMPH % 18.4 % (24.0-44.0); MEAN CORPUSCULAR HEMOGLOBIN 29.7 pg (27.0-33.0); MEAN CORPUSCULAR HGB CONC 31.3 g/dl (32.0-36.5); MONO % 11.6 % (0.0-5.0); NEUTROPHILS # 5.7 10^3/uL (1.8-7.7); NEUTROPHILS % 65.4 % (36.0-66.0); PLATELET COUNT, AUTOMATED 281 10^3/uL (150-450); RED BLOOD COUNT 4.21 10^6/uL (4.00-5.40); WHITE BLOOD COUNT 8.8 10^3/uL (4.0-10.0)
[2019-03-05 18:15] LABS: ALBUMIN 3.6 GM/DL (3.2-5.2); BILIRUBIN,TOTAL 0.5 MG/DL (0.2-1.0); CALCIUM LEVEL 9.5 MG/DL (8.8-10.2); CREATININE FOR GFR 1.59 MG/DL (0.55-1.30); GLOMERULAR FILTRATION RATE 33.5 (>39); POTASSIUM SERUM 4.4 MEQ/L (3.5-5.1); TOTAL PROTEIN 7.3 GM/DL (6.4-8.2)
== END ==
LOC: M SFHCPLAZ 13:57
PROVIDERS: ATTEND Family Medicine
DX: R52 Pain, unspecified (principal); T50.905A Adverse effect of unspecified drugs, medicaments and biological substances, initial encounter
CPT/HCPCS: 36415; 80053; 82550; 85025; G0463

== ENCOUNTER → 2019-04-08 | Outpatient (REF) | payer MEDICARE, MEDICAID ==
[2019-04-08 17:26] LABS: HEMOGLOBIN A1c 8.2 %
[2019-04-08 17:28] LABS: FREE T4 0.79 NG/DL (0.76-1.46); THYROID STIMULATING HORMONE 2.15 uIU/ML (0.358-3.740)
[2019-04-08 17:32] LABS: BASO # 0.1 10^3/uL (0.0-0.2); BASO % 1.3 % (0.0-1.0); EOS # 0.4 10^3/uL (0.0-0.50); EOS % 5.2 % (0.0-3.0); HEMATOCRIT 37.9 % (36.0-47.0); HEMOGLOBIN 11.8 g/dl (12.0-15.5); LYMPH # 1.6 10^3/uL (1.5-4.5); LYMPH % 21.7 % (24.0-44.0); MEAN CORPUSCULAR HEMOGLOBIN 29.4 pg (27.0-33.0); MEAN CORPUSCULAR HGB CONC 31.1 g/dl (32.0-36.5); MEAN CORPUSCULAR VOLUME 94.3 fl (80.0-96.0); MONO # 0.7 10^3/uL (0.0-0.8); MONO % 9.8 % (0.0-5.0); NEUTROPHILS # 4.6 10^3/uL (1.8-7.7); NEUTROPHILS % 61.7 % (36.0-66.0); PLATELET COUNT, AUTOMATED 264 10^3/uL (150-450); RED BLOOD COUNT 4.02 10^6/uL (4.00-5.40); WHITE BLOOD COUNT 7.5 10^3/uL (4.0-10.0)
== END ==
LOC: M SFHCPLAZ 14:02
PROVIDERS: ATTEND Nurse Practitioner Family
DX: E11.29 Type 2 diabetes mellitus with other diabetic kidney complication (principal); R53.83 Other fatigue
CPT/HCPCS: 36415; 83036; 84439; 84443; 85025; G0463

== ENCOUNTER → 2019-06-02 | Outpatient (CLI) | payer MEDICARE, MEDICAID ==
[~2019-06-02] MED LIST changes: -OMEP40CA2 PO; +OMEP40CA97 PO
[2019-06-02 14:41] LABS: HEMATOCRIT 37.2 % (36.0-47.0); HEMOGLOBIN 11.6 g/dl (12.0-15.5); MEAN CORPUSCULAR HGB CONC 31.2 g/dl (32.0-36.5); MEAN CORPUSCULAR VOLUME 96.1 fl (80.0-96.0); PLATELET COUNT, AUTOMATED 268 10^3/uL (150-450); RED BLOOD COUNT 3.87 10^6/uL (4.00-5.40); WHITE BLOOD COUNT 8.6 10^3/uL (4.0-10.0)
[2019-06-02 14:44] LABS: ALBUMIN 3.3 GM/DL (3.2-5.2); CREATININE FOR GFR 1.76 MG/DL (0.55-1.30); GLOMERULAR FILTRATION RATE 29.8 (>39); PHOSPHORUS LEVEL 3.6 MG/DL (2.5-4.9); POTASSIUM SERUM 4.2 MEQ/L (3.5-5.1); URIC ACID 6.2 MG/DL (2.6-6.0)
== END ==
LOC: M SMT 09:27
PROVIDERS: ATTEND Nurse Practitioner Family
DX: N18.4 Chronic kidney disease, stage 4 (severe) (principal); E79.0 Hyperuricemia without signs of inflammatory arthritis and tophaceous disease; N25.81 Secondary hyperparathyroidism of renal origin; D50.9 Iron deficiency anemia, unspecified

== ENCOUNTER → 2019-07-08 | Outpatient (REF) | payer MEDICARE, MEDICAID ==
[2019-07-08 13:55] LABS: HEMOGLOBIN A1c 7.9 %
== END ==
LOC: M SFHCPLAZ 11:17
PROVIDERS: ATTEND Family Medicine
DX: E11.29 Type 2 diabetes mellitus with other diabetic kidney complication (principal)
CPT/HCPCS: 36415; 83036; G0463

== ENCOUNTER → 2019-09-15 | Outpatient (REF) | payer MEDICARE, MEDICAID ==
[~2019-09-15] MED LIST changes: +ALLO100T PO; +FERR325T3 PO
[2019-09-15 10:15] LABS: BASO # 0.1 10^3/uL (0.0-0.2); BASO % 1.1 % (0.0-1.0); EOS # 0.3 10^3/uL (0.0-0.5); EOS % 4.3 % (0.0-3.0); HEMATOCRIT 38.9 % (36.0-47.0); HEMOGLOBIN 11.6 g/dl (12.0-15.5); LYMPH # 1.5 10^3/uL (1.5-5.0); MEAN CORPUSCULAR HEMOGLOBIN 29.4 pg (27.0-33.0); MEAN CORPUSCULAR HGB CONC 29.8 g/dl (32.0-36.5); MEAN CORPUSCULAR VOLUME 98.5 fl (80.0-96.0); MONO # 0.8 10^3/uL (0.0-0.8); MONO % 11.1 % (0.0-5.0); NEUTROPHILS # 4.8 10^3/uL (1.5-8.5); NEUTROPHILS % 63.1 % (36.0-66.0); PLATELET COUNT, AUTOMATED 226 10^3/uL (150-450); RED BLOOD COUNT 3.95 10^6/uL (4.00-5.40); WHITE BLOOD COUNT 7.6 10^3/uL (4.0-10.0)
[2019-09-15 10:45] LABS: ALBUMIN 3.3 GM/DL (3.2-5.2); CALCIUM LEVEL 8.8 MG/DL (8.8-10.2); CREATININE FOR GFR 1.73 MG/DL (0.55-1.30); GLOMERULAR FILTRATION RATE 30.4 (>39); PERCENT SATURATION 10.3 % (13.2-45.0); PHOSPHORUS LEVEL 3.8 MG/DL (2.5-4.9); POTASSIUM SERUM 4.5 MEQ/L (3.5-5.1); URIC ACID 5.9 MG/DL (2.6-6.0)
[2019-09-15 10:57] LABS: PTH INTACT 205.3 PG/ML (18.5-88.0)
== END ==
PROVIDERS: ATTEND Nurse Practitioner Family
DX: N18.4 Chronic kidney disease, stage 4 (severe) (principal); D50.9 Iron deficiency anemia, unspecified; E79.0 Hyperuricemia without signs of inflammatory arthritis and tophaceous disease; N25.81 Secondary hyperparathyroidism of renal origin
CPT/HCPCS: 36415; 80069; 83550; 83970; 84550; 85025; G0463

== ENCOUNTER → 2019-10-09 | Outpatient (REF) | payer MEDICARE, MEDICAID ==
[2019-10-09 11:56] LABS: HEMOGLOBIN A1c 7.5 %
== END ==
PROVIDERS: ATTEND Family Medicine
DX: E11.29 Type 2 diabetes mellitus with other diabetic kidney complication (principal)

== ENCOUNTER 2019-10-27 11:46 | Emergency (ER) | payer MEDICARE, MEDICAID ==
[~2019-10-27] VITALS: Ht 160 cm; Wt 108.8 kg
[2019-10-27] MEDS ORDERED: VITAD1000T PO (12:53)
[2019-10-27] MEDS ORDERED: DOK1CAP7 PO (12:53)
[2019-10-27] MEDS ORDERED: CALC1CAP31 PO (12:53)
[2019-10-27] MEDS ORDERED: MUCI600T31 PO (12:53)
[2019-10-27] MEDS ORDERED: ACET-683 PO (12:53)
[2019-10-27] MEDS ORDERED: TRUL0.5I SC (12:53)
[2019-10-27] MEDS ORDERED: LEVE750T5 PO (12:53)
[2019-10-27] MEDS ORDERED: ROPI2TAB3 PO (12:53)
[2019-10-27] MEDS ORDERED: LOPE1CAP5 PO (12:53)
[2019-10-27] MEDS ORDERED: FERR325T3 PO (12:53)
[2019-10-27] MEDS ORDERED: WELLTAB38 PO (13:15)
[2019-10-27] MEDS ORDERED: GABA-843 PO (13:15)
[2019-10-27 13:20] LABS: BASO # 0.1 10^3/uL (0.0-0.2); EOS # 0.3 10^3/uL (0.0-0.5); EOS % 4.2 % (0.0-3.0); HEMATOCRIT 38.9 % (36.0-47.0); HEMOGLOBIN 12.3 g/dl (12.0-15.5); LYMPH # 1.4 10^3/uL (1.5-5.0); LYMPH % 17.4 % (24.0-44.0); MEAN CORPUSCULAR HEMOGLOBIN 30.5 pg (27.0-33.0); MEAN CORPUSCULAR HGB CONC 31.6 g/dl (32.0-36.5); MEAN CORPUSCULAR VOLUME 96.5 fl (80.0-96.0); MONO # 0.8 10^3/uL (0.0-0.8); MONO % 10.6 % (0.0-5.0); NEUTROPHILS # 5.2 10^3/uL (1.5-8.5); NEUTROPHILS % 66.5 % (36.0-66.0); PLATELET COUNT, AUTOMATED 237 10^3/uL (150-450); RED BLOOD COUNT 4.03 10^6/uL (4.00-5.40); WHITE BLOOD COUNT 7.8 10^3/uL (4.0-10.0)
[2019-10-27 13:32] LABS: INR 2.71; PROTHROMBIN TIME 28.7 SECONDS (11.8-14.0)
[2019-10-27 13:33] LABS: PARTIAL THROMBOPLASTIN TIME 45.6 SECONDS (25.0-38.4)
[2019-10-27 14:37] LABS: ALBUMIN 3.4 GM/DL (3.2-5.2); BILIRUBIN,DIRECT 0.2 MG/DL (0.0-0.2); BILIRUBIN,TOTAL 0.4 MG/DL (0.2-1.0); CALCIUM LEVEL 9.3 MG/DL (8.8-10.2); CREATININE FOR GFR 1.82 MG/DL (0.55-1.30); GLOMERULAR FILTRATION RATE 28.6 (>39); POTASSIUM SERUM 4.2 MEQ/L (3.5-5.1); TOTAL PROTEIN 7.2 GM/DL (6.4-8.2)
[2019-10-27 15:31] VITALS: BP 120/70
--- NOTE | 2019-10-28 20:47 | ECGEPIP ---
[facility] - ED Test Date: 2019-10-27 Pat Name: CHARLY TURCIOS Department: Room: - Gender: Female Child Care Director: : 1940 Requested By: ANGIE Clarke Order Number: [id number] Reading MD: Zaida Ravi Measurements Intervals [place] Rate: 91 P: [place]: 0 QRS: -9 QRSD: 94 T: 4 QT: 368 QTc: 454 Interpretive Statements ATRIAL FIBRILLATION INFERIOR MYOCARDIAL INFARCTION, PROBABLY OLD SIMILAR 07/16/17 Electronically Signed on 10-28-2019 20:47:20 EDT by Zaida Ravi
== END 2019-10-27 16:22 | disposition home or self-care (01) ==
LOC: M ED 11:46
DX: R19.5 Other fecal abnormalities (principal); I10 Essential (primary) hypertension; I48.92 Unspecified atrial flutter; E78.5 Hyperlipidemia, unspecified; F32.9 Major depressive disorder, single episode, unspecified; F41.9 Anxiety disorder, unspecified; G47.00 Insomnia, unspecified; K21.9 Gastro-esophageal reflux disease without esophagitis; M81.8 Other osteoporosis without current pathological fracture; N18.9 Chronic kidney disease, unspecified; D63.8 Anemia in other chronic diseases classified elsewhere; Z79.4 Long term (current) use of insulin; Z79.51 Long term (current) use of inhaled steroids; Z79.899 Other long term (current) drug therapy; Z87.891 Personal history of nicotine dependence

== ENCOUNTER → 2019-12-29 | Outpatient (REF) | payer MEDICARE, MEDICAID ==
[~2019-12-29] MED LIST changes: +ACET-683 PO; +CALC1CAP31 PO; +DOK1CAP7 PO; +GABA-843 PO; +LEVE750T5 PO; +LOPE1CAP5 PO; +MUCI600T31 PO; +ROPI2TAB3 PO; +TRUL0.5I SC; +VITAD1000T PO; +WELLTAB38 PO
[2019-12-30 10:31] LABS: APPEARANCE, URINE CLEAR (CLEAR); BACTERIA, URINE AUTO NEGATIVE (NEGATIVE); BILIRUBIN, URINE AUTO NEGATIVE (NEGATIVE); BLOOD, URINE BLOOD NEGATIVE (NEGATIVE); COLOR, URINE STRAW (YELLOW); GLUCOSE, URINE (UA) AUTO NEGATIVE (NEGATIVE); KETONE, URINE AUTO NEGATIVE (NEGATIVE); LEUKOCYTE ESTERASE, URINE AUTO NEGATIVE (NEGATIVE); MUCUS, URINE SMALL (NEGATIVE); NITRITE, URINE AUTO NEGATIVE (NEGATIVE); PROTEIN, URINE AUTO NEGATIVE (NEGATIVE); RBC, URINE AUTO 0 /HPF (0-3); SPECIFIC GRAVITY URINE AUTO 1.009 (1.002-1.035); SQUAMOUS EPITHELIAL CELL UR AU 0 /HPF (0-6); UROBILINOGEN, URINE AUTO 0.2 mg/dL (0.0-2.0); WBC, URINE AUTO 1 /HPF (0-3)
== END ==
PROVIDERS: ATTEND Nurse Practitioner Family
DX: N18.4 Chronic kidney disease, stage 4 (severe) (principal); D63.1 Anemia in chronic kidney disease; N25.81 Secondary hyperparathyroidism of renal origin; E79.0 Hyperuricemia without signs of inflammatory arthritis and tophaceous disease

== ENCOUNTER → 2019-12-30 | Outpatient (REF) | payer MEDICARE, MEDICAID ==
[2019-12-30 10:15] LABS: BASO # 0.1 10^3/uL (0.0-0.2); EOS # 0.4 10^3/uL (0.0-0.5); HEMATOCRIT 37.4 % (36.0-47.0); HEMOGLOBIN 11.5 g/dl (12.0-15.5); LYMPH # 1.2 10^3/uL (1.5-5.0); LYMPH % 16.2 % (24.0-44.0); MEAN CORPUSCULAR HEMOGLOBIN 30.4 pg (27.0-33.0); MEAN CORPUSCULAR HGB CONC 30.7 g/dl (32.0-36.5); MEAN CORPUSCULAR VOLUME 98.9 fl (80.0-96.0); MONO % 14.1 % (0.0-5.0); NEUTROPHILS # 4.7 10^3/uL (1.5-8.5); NEUTROPHILS % 63.4 % (36.0-66.0); PLATELET COUNT, AUTOMATED 223 10^3/uL (150-450); RED BLOOD COUNT 3.78 10^6/uL (4.00-5.40); WHITE BLOOD COUNT 7.3 10^3/uL (4.0-10.0)
[2019-12-30 10:47] LABS: ALBUMIN 3.2 GM/DL (3.2-5.2); CALCIUM LEVEL 9.3 MG/DL (8.8-10.2); CREATININE FOR GFR 1.82 MG/DL (0.55-1.30); GLOMERULAR FILTRATION RATE 28.6 (>39); PHOSPHORUS LEVEL 4.1 MG/DL (2.5-4.9); POTASSIUM SERUM 4.1 MEQ/L (3.5-5.1); URIC ACID 5.5 MG/DL (2.6-6.0)
[2019-12-30 10:57] LABS: PTH INTACT 93.3 PG/ML (18.5-88.0)
== END ==
PROVIDERS: ATTEND Nurse Practitioner Family
DX: N18.4 Chronic kidney disease, stage 4 (severe) (principal); D63.1 Anemia in chronic kidney disease; N25.81 Secondary hyperparathyroidism of renal origin; E79.0 Hyperuricemia without signs of inflammatory arthritis and tophaceous disease

== ENCOUNTER → 2020-03-07 | Outpatient (REF) | payer MEDICARE, MEDICAID ==
[2020-03-07 13:22] LABS: HEMATOCRIT 39.7 % (36.0-47.0); HEMOGLOBIN 12.1 g/dl (12.0-15.5); MEAN CORPUSCULAR HEMOGLOBIN 30.6 pg (27.0-33.0); MEAN CORPUSCULAR HGB CONC 30.5 g/dl (32.0-36.5); MEAN CORPUSCULAR VOLUME 100.5 fl (80.0-96.0); PLATELET COUNT, AUTOMATED 225 10^3/uL (150-450); RED BLOOD COUNT 3.95 10^6/uL (4.00-5.40); WHITE BLOOD COUNT 8.2 10^3/uL (4.0-10.0)
[2020-03-07 13:45] LABS: HEMOGLOBIN A1c 6.8 %
[2020-03-07 13:47] LABS: CALCIUM LEVEL 9.7 MG/DL (8.8-10.2); CHOLESTEROL RISK RATIO 3.692 (<5); CREATININE FOR GFR 1.88 MG/DL (0.55-1.30); GLOMERULAR FILTRATION RATE 27.6 (>39); POTASSIUM SERUM 4.7 MEQ/L (3.5-5.1)
[2020-03-07 14:21] LABS: TOTAL 25(OH) VITAMIN D 34.3 NG/ML (30.0-100.0)
== END ==
LOC: M SFHCPLAZ 11:57
PROVIDERS: ATTEND Family Medicine
DX: M51.36 Other intervertebral disc degeneration, lumbar region (principal); D63.1 Anemia in chronic kidney disease; E11.29 Type 2 diabetes mellitus with other diabetic kidney complication; E78.2 Mixed hyperlipidemia; I10 Essential (primary) hypertension; M81.0 Age-related osteoporosis without current pathological fracture; E55.9 Vitamin D deficiency, unspecified

== ENCOUNTER → 2020-03-30 | Outpatient (REF) | payer MEDICARE, MEDICAID ==
[~2020-03-30] MED LIST changes: +D31000TA2 PO; -VITAD1000T PO
[2020-05-17 13:01] LABS: BASO # 0.1 10^3/uL (0.0-0.2); BASO % 1.2 % (0.0-1.0); EOS # 0.4 10^3/uL (0.0-0.5); EOS % 6.1 % (0.0-3.0); HEMATOCRIT 38.5 % (36.0-47.0); HEMOGLOBIN 12.1 g/dl (12.0-15.5); LYMPH # 1.2 10^3/uL (1.5-5.0); LYMPH % 16.7 % (24.0-44.0); MEAN CORPUSCULAR HEMOGLOBIN 31.7 pg (27.0-33.0); MEAN CORPUSCULAR HGB CONC 31.4 g/dl (32.0-36.5); MEAN CORPUSCULAR VOLUME 100.8 fl (80.0-96.0); MONO # 0.8 10^3/uL (0.0-0.8); MONO % 11.7 % (0.0-5.0); NEUTROPHILS # 4.4 10^3/uL (1.5-8.5); PLATELET COUNT, AUTOMATED 274 10^3/uL (150-450); RED BLOOD COUNT 3.82 10^6/uL (4.00-5.40); WHITE BLOOD COUNT 6.9 10^3/uL (4.0-10.0)
[2020-06-07 14:26] LABS: APPEARANCE, URINE CLEAR (CLEAR); BACTERIA, URINE AUTO 1+ (NEGATIVE); BILIRUBIN, URINE AUTO NEGATIVE (NEGATIVE); BLOOD, URINE BLOOD NEGATIVE (NEGATIVE); COLOR, URINE YELLOW (YELLOW); GLUCOSE, URINE (UA) AUTO NEGATIVE (NEGATIVE); KETONE, URINE AUTO NEGATIVE (NEGATIVE); LEUKOCYTE ESTERASE, URINE AUTO 1+ (NEGATIVE); MUCUS, URINE SMALL (NEGATIVE); NITRITE, URINE AUTO NEGATIVE (NEGATIVE); PROTEIN, URINE AUTO NEGATIVE (NEGATIVE); RBC, URINE AUTO 0 /HPF (0-3); SPECIFIC GRAVITY URINE AUTO 1.006 (1.002-1.035); SQUAMOUS EPITHELIAL CELL UR AU 1 /HPF (0-6); UROBILINOGEN, URINE AUTO 0.2 mg/dL (0.0-2.0); WBC, URINE AUTO 8 /HPF (0-3)
[2020-06-25 12:41] LABS: MAGNESIUM LEVEL 2.1 MG/DL (1.8-2.4); PTH INTACT 112.2 PG/ML (18.5-88.0); TOTAL 25(OH) VITAMIN D 40.3 NG/ML (30.0-100.0)
== END ==
PROVIDERS: ATTEND Nurse Practitioner Family
DX: N18.4 Chronic kidney disease, stage 4 (severe) (principal); D50.9 Iron deficiency anemia, unspecified; N25.81 Secondary hyperparathyroidism of renal origin; E83.42 Hypomagnesemia; D63.1 Anemia in chronic kidney disease

== ENCOUNTER → 2020-05-31 | Outpatient (REF) | payer MEDICARE, MEDICAID ==
[2020-05-31 11:53] LABS: BASO # 0.1 10^3/uL (0.0-0.2); BASO % 0.9 % (0.0-1.0); EOS # 0.5 10^3/uL (0.0-0.5); EOS % 5.7 % (0.0-3.0); HEMATOCRIT 40.8 % (36.0-47.0); HEMOGLOBIN 12.5 g/dl (12.0-15.5); LYMPH # 1.3 10^3/uL (1.5-5.0); LYMPH % 16.8 % (24.0-44.0); MEAN CORPUSCULAR HEMOGLOBIN 30.5 pg (27.0-33.0); MEAN CORPUSCULAR HGB CONC 30.6 g/dl (32.0-36.5); MEAN CORPUSCULAR VOLUME 99.5 fl (80.0-96.0); MONO # 0.9 10^3/uL (0.0-0.8); NEUTROPHILS # 5.2 10^3/uL (1.5-8.5); NEUTROPHILS % 65.1 % (36.0-66.0); PLATELET COUNT, AUTOMATED 241 10^3/uL (150-450); WHITE BLOOD COUNT 7.9 10^3/uL (4.0-10.0)
[2020-05-31 12:20] LABS: ALBUMIN 3.3 GM/DL (3.2-5.2); BILIRUBIN,TOTAL 0.5 MG/DL (0.2-1.0); CALCIUM LEVEL 9.6 MG/DL (8.8-10.2); CREATININE FOR GFR 1.96 MG/DL (0.55-1.30); GLOMERULAR FILTRATION RATE 26.3 (>39); POTASSIUM SERUM 4.1 MEQ/L (3.5-5.1)
[2020-05-31 12:29] LABS: FOLATE 9.3 NG/ML (>5.4)
[2020-05-31 13:08] LABS: CA15-3 ANTIGEN 15.1 U/ML (<32.4)
== END ==
PROVIDERS: ATTEND Internal Medicine Hematology & Oncology
DX: D64.9 Anemia, unspecified (principal)

== ENCOUNTER → 2020-06-09 | Outpatient (REF) | payer MEDICARE, MEDICAID | LOC: M SFHCPLAZ 11:54 | PROVIDERS: ATTEND Family Medicine | DX: E11.29 Type 2 diabetes mellitus with other diabetic kidney complication (principal) | CPT/HCPCS: 36415; 83036; G0463 ==

== ENCOUNTER → 2020-06-27 | Outpatient (REF) | payer MEDICARE, MEDICAID ==
[2020-06-27 10:19] LABS: BASO # 0.1 10^3/uL (0.0-0.2); BASO % 0.9 % (0.0-1.0); EOS # 0.4 10^3/uL (0.0-0.5); EOS % 5.5 % (0.0-3.0); HEMATOCRIT 39.5 % (36.0-47.0); HEMOGLOBIN 12.1 g/dl (12.0-15.5); LYMPH # 1.3 10^3/uL (1.5-5.0); LYMPH % 16.5 % (24.0-44.0); MEAN CORPUSCULAR HEMOGLOBIN 30.5 pg (27.0-33.0); MEAN CORPUSCULAR HGB CONC 30.6 g/dl (32.0-36.5); MEAN CORPUSCULAR VOLUME 99.5 fl (80.0-96.0); MONO # 0.9 10^3/uL (0.0-0.8); MONO % 11.1 % (0.0-5.0); NEUTROPHILS # 5.2 10^3/uL (1.5-8.5); NEUTROPHILS % 65.6 % (36.0-66.0); PLATELET COUNT, AUTOMATED 229 10^3/uL (150-450); RED BLOOD COUNT 3.97 10^6/uL (4.00-5.40); WHITE BLOOD COUNT 7.9 10^3/uL (4.0-10.0)
[2020-06-27 11:32] LABS: ALBUMIN 3.4 GM/DL (3.2-5.2); CALCIUM LEVEL 9.7 MG/DL (8.8-10.2); CREATININE FOR GFR 1.87 MG/DL (0.55-1.30); GLOMERULAR FILTRATION RATE 27.7 (>39); MAGNESIUM LEVEL 2.1 MG/DL (1.8-2.4); PHOSPHORUS LEVEL 3.2 MG/DL (2.5-4.9); POTASSIUM SERUM 4.7 MEQ/L (3.5-5.1); PTH INTACT 146.8 PG/ML (18.5-88.0); URIC ACID 5.7 MG/DL (2.6-6.0)
== END ==
PROVIDERS: ATTEND Nurse Practitioner Family
DX: N25.81 Secondary hyperparathyroidism of renal origin (principal); D63.1 Anemia in chronic kidney disease; E83.42 Hypomagnesemia; E79.0 Hyperuricemia without signs of inflammatory arthritis and tophaceous disease; E11.40 Type 2 diabetes mellitus with diabetic neuropathy, unspecified; N18.9 Chronic kidney disease, unspecified

== ENCOUNTER 2020-08-03 13:12 | Inpatient (IN) | payer MEDICARE, MEDICAID ==
[~2020-08-03] VITALS: Ht 160 cm; Wt 102.2 kg
[~2020-08-03 13:12] MED LIST changes: -ACET650T15 PO; -GABA600T4 PO; -TRAM50TA2 PO
[2020-08-03 13:54] LABS: BASO % 0.7 % (0.0-1.0); EOS # 0.2 10^3/uL (0.0-0.5); EOS % 3.2 % (0.0-3.0); HEMOGLOBIN 11.8 g/dl (12.0-15.5); LYMPH # 1.4 10^3/uL (1.5-5.0); LYMPH % 22.9 % (24.0-44.0); MEAN CORPUSCULAR HEMOGLOBIN 30.3 pg (27.0-33.0); MEAN CORPUSCULAR HGB CONC 30.3 g/dl (32.0-36.5); MEAN CORPUSCULAR VOLUME 100.3 fl (80.0-96.0); MONO % 16.2 % (0.0-5.0); NEUTROPHILS # 3.4 10^3/uL (1.5-8.5); NEUTROPHILS % 56.7 % (36.0-66.0); PLATELET COUNT, AUTOMATED 170 10^3/uL (150-450); RED BLOOD COUNT 3.89 10^6/uL (4.00-5.40)
--- NOTE | 2020-08-03 13:59 | REP ---
INDICATION: DYSPNEA/COUGH. COMPARISON: Comparison chest x-ray July 16, 2017. TECHNIQUE: Portable upright AP chest radiograph. FINDINGS: The lungs are symmetrically aerated. No infiltrate is seen. Cardiac enlargement is observed. The thoracic aorta is calcific. No free pleural effusion is noted. Pulmonary vasculature is slightly cephalized although less so than on the July 16, 2017 study.. IMPRESSION: Prominent heart. Vascular cephalization. Otherwise no active disease.. <Electronically signed by Jamie Bingham > 08/03/20 [id number]
[2020-08-03 14:10] LABS: INR 2.45; PROTHROMBIN TIME 27.1 SECONDS (12.5-14.3)
[2020-08-03 14:23] LABS: ALT/SGPT 14 U/L (12-78); BILIRUBIN,DIRECT 0.3 MG/DL (0.0-0.2); BILIRUBIN,TOTAL 0.6 MG/DL (0.2-1.0); BLOOD UREA NITROGEN 29 MG/DL (7-18); CALCIUM LEVEL 8.4 MG/DL (8.8-10.2); CARBON DIOXIDE LEVEL 38 MEQ/L (21-32); CHLORIDE LEVEL 98 MEQ/L (98-107); CK-MB VALUE MASS 1.2 NG/ML (<3.6); CPK CREATINE PHOSPHOKINASE 47 U/L (26-192); CREATININE FOR GFR 2.05 MG/DL (0.55-1.30); GLOMERULAR FILTRATION RATE 24.9 (>39); GLUCOSE, FASTING 77 MG/DL (70-100); MB/CK RELATIVE INDEX 2.55 (< OR =4); NT-PRO BNP 1141 PG/ML (<450); POTASSIUM SERUM 3.8 MEQ/L (3.5-5.1); SODIUM LEVEL 140 MEQ/L (136-145); TOTAL PROTEIN 6.7 GM/DL (6.4-8.2); TROPONIN I < 0.02 NG/ML (< 0.10)
[2020-08-03] MEDS ORDERED: ACET650T15 PO (15:13)
[2020-08-03] MEDS ORDERED: GABA600T4 PO (15:13)
[2020-08-03] MEDS ORDERED: TRAM50TA2 PO (15:13)
[2020-08-03 15:37] LABS: D-DIMER QUANT 372.72 ng/ml (<500)
[2020-08-03 15:50] LABS: ABG BASE EXCESS 5.8 (-2.0-2.0); ABG HCO3 32.6 MEQ/L (22.0-26.0); ABG O2 SATURATION 96.3 % (95.0-99.0); ABG PARTIAL PRESSURE CO2 57.9 mmHg (35.0-45.0); ABG PARTIAL PRESSURE O2 90.5 mmHg (75.0-100.0); ABG STANDARD HCO3 29.7 MEQ/L (22.0-26.0); ABG TOTAL CO2 34.4 MEQ/L (23.0-31.0); ABG pH (ARTERIAL) 7.369 UNITS (7.350-7.450)
[2020-08-03] MEDS ORDERED: GLUCOSE 4GM CHEW TABLET PO PRN (16:00)
[2020-08-03] MEDS ORDERED: GLUCAGON INJ 1MG VIAL SC PRN (16:00)
[2020-08-03] MEDS ORDERED: DEXTROSE 50% 50 ML SYRINGE IV PRN (16:00)
[2020-08-03 16:01] LABS: C REACTIVE PROTEIN QUANTITATIV 5.25 MG/DL (0.00-0.30); FERRITIN 1492 NG/ML (8-252); LDH LACTATE DEHYDROGENASE 169 U/L (84-246)
[2020-08-03] MEDS: dexameTHASONE 4 MG/ML 1ML VIAL (J1100 PER 1MG) IV SCH (16:55)
[2020-08-03] MEDS ORDERED: TORSEMIDE 20 MG TAB PO SCH (17:00)
--- NOTE | 2020-08-03 17:03 | HPEPDOC ---
General Date of Admission 08/03/20 Date of Service: Aug 03, 2020 Chief Complaint The patient is a 79-year-old female admitted with a reason for visit of Diff Breathing. Source: Patient, RN/MD History of Present Illness 79 year old female from [facility] assisted living with DM, CKD stage 4, Bronchiectasis, Obesity, Parkinson's disease and many other medical comorbidities has been having cough and cold and congestion for 1 week. This am she complained of Increased Shortness of breath and dyspnea on exertion. She was noted to be hypoxic at 83% in room air. She had COVID testing done today at the [facility] and found to be COVID-19 positive. She was sent to the ED. In the ED she was afebrile, was hypoxic to 87% in room iar and was going down further so was placed on 4 L of oxygen with improvement of oxygenation to 96%. Her bicarb has been high since last year that leads me to believe that she has some degree of chronic respiratory failure with hypercarbia. ABG showed acute on chronic respiratory failure with hypercarbia and hypoxia due to COVID -19 pneumonitis/ pneumonia. Home Medications Scheduled Acetaminophen (Acetaminophen ER) 650 Mg Tablet.er, 650 MG PO Q8H, (Reported) Allopurinol (Allopurinol) 100 Mg Tablet, 200 MG PO DAILY, (Reported) Ammonium Lactate (Ammonium Lactate) 12 % Cre, 1 APLCT TOP QAM, (Reported) BOTH FEET Atorvastatin Calcium (Atorvastatin Calcium) 80 Mg Tab, 80 MG PO QHS, (Reported) Bacillus Coagulans (Bacid with Lactospore) 1 Cap Cap, 1 CAP PO BID, (Reported) Bupropion HCl (Wellbutrin Xl) 150 Mg Tab.er.24h, 150 MG PO DAILY, (Reported) Calcitriol (Calcitriol) 0.25 Mcg Capsule, 0.5 MCG PO DAILY, (Reported) Carbidopa/Levodopa (Carbidopa-Levodopa 25-100 Tab) 1 Tab Tab, 1 TAB PO QPM, (Reported) 1929 Cholecalciferol (Vitamin D3) (Vitamin D3) 1,000 Unit Tablet, 1,000 UNIT PO DAILY, (Reported) Docusate Sodium (Dok) 100 Mg Capsule, 100 MG PO BID, (Reported) Dulaglutide (Trulicity) 1.5 Mg/0.5 Ml Pen.injctr, 1.5 MG SC QWEEK, (Reported) SATURDAY EVENING Ferrous Sulfate (Ferrous Sulfate) 325 Mg Tablet.dr, 325 MG PO BID, (Reported) Fluticasone Propionate (Flonase Allergy Relief) 50 Mcg/Act Spr, 1 SPRAY NARES B ID, (Reported) Gabapentin (Gabapentin) 600 Mg Tablet, 600 MG PO TID, (Reported) Insulin Glargine,Hum.rec.anlog (Toujeo Solostar) 300 Unit/Ml Inj, 50 UNIT SC BID, (Reported) Levetiracetam (Levetiracetam) 750 Mg Tablet, 750 MG PO QHS, (Reported) Metoprolol Tartrate (Metoprolol Tartrate) 100 Mg Tab, 100 MG PO BID, (Reported) Omeprazole (Omeprazole) 40 Mg Cap, 40 MG PO DAILY, (Reported) Potassium Chloride (Potassium Chloride) 10 Meq Cap, 10 MEQ PO DAILY, (Reported) Rivaroxaban (Xarelto) 15 Mg Tab, 15 MG PO DAILY, (Reported) Ropinirole HCl (Ropinirole HCl) 2 Mg Tablet, 2 MG PO BID, (Reported) 1200 AND 2000 Torsemide (Torsemide) 20 Mg Tab, 40 MG PO BID, (Reported) 600 AND 1200 Tramadol HCl (Tramadol HCl) 50 Mg Tablet, 50 MG PO BID, (Reported) Scheduled PRN Albuterol Sulf (Albuterol Sulfate) 2.5 Mg/3 Ml Nebu, 1 VIAL NEB QID PRN for SHORTNESS OF BREATH, (Reported) Albuterol Sulfate (Proair Hfa) 108 Mcg/Act Aer, 2 PUFF INH Q4H PRN for SHORTNESS OF BREATH, (Reported) Loperamide HCl (Loperamide) 2 Mg Capsule, 4 MG PO QID PRN for DIARRHEA, (Reported) Loratadine (Claritin) 10 Mg Cap, 10 MG PO DAILY PRN for ALLERGY, (Reported) Nystatin (Nystatin) 100,000 Unit/Gm Cre, 1 APLCT TOP BID PRN for EXCORIATION, (Reported) APPLY TO ABDOMINAL FOLDS AND GROIN Polyethylene Glycol 3350 (Miralax) 1 Pow Pow, 17 GRAM PO DAILY PRN for CONSTIPATION, (Reported) dissolve in water Ramelteon (Rozerem) 8 Mg Tab, 8 MG PO QHS PRN for SLEEP, (Reported) Sennosides (Senna) 8.6 Mg Tab, 2 TAB PO QHS PRN for CONSTIPATION, (Reported) Allergies Coded Allergies: No Known Allergies (Unverified , 07/16/17) Past Medical History Medical History Diabetes Atrial fibrillation on Xarelto Chronic kidney disease stage 4 Hyperuricemia Metabolic Bone disease Secondary Hyperparathyroidism Hypertension Arthritis GERD-Hiatal hernia Osteoporosis Anemia of chronic disease, Iron deficiency Parkinson's disease HLD DEPRESSION/ANXIETY INSOMNIA RESTLESS LEG SYNDROME BRONCHIECTASIS POLYNEUROPATHY CHRONIC LOW BACK PAIN ELEVATED KAPPA/LAMBDA RATIO Surgical History carpal tunnel surgery TOTAL LEFT HIP REPLACEMENT 2013 TUMOR REMOVED FROM BACK PARATHYROID REMOVED T & A HYSTERECTOMY 1979 RIGHT MASTOID SURGERY 1994 BILATERAL CATARACTS 2014 NCOG 05/2018, RIGHT WRIST CP 2017 Family History FATHER: , DIAGNOSED WITH UNSPECIFIED HEART DISEASE MOTHER: SIBLINGS: BROTHER POS HEART DX. SON DX GLAUCOMA. Social History * Smoker: former Smoker Alcohol: Denies Drugs: denies A-FIB/CHADSVASC A-FIB History Current/History of A-Fib/PAF?: Yes Current PO Anticoag Therapy: Yes Review of Systems Constitutional: Reports: Malaise; Denies: Chills, Fever, Night Sweats Eyes: Denies: Pain, Vision change ENT: Reports: Sinus Congestion, Sore Throat; Denies: Head Aches, Ear Pain, Dysphagia Skin: Denies: Rash, Lesions, Breakdown Pulmonary: Reports: Dyspnea, Cough Cardiovascular: Denies: Chest Pain, Palpitations, Orthopnea, Paroxysmal Noc. Dyspnea, Lt Headedness Gastrointestinal: Denies: Nausea, Vomiting, Abdominal Pain, Diarrhea Genitourinary: Denies: Dysuria, Frequency, Incontinence, Retention Hematologic: Denies: Bruising, Bleeding Excessively Musculoskeletal: Reports: Back Pain, Leg Pain Physical Examination General Exam: Positive: Alert, Cooperative, No Acute Distress Eye Exam: Positive: PERRLA, Conjunctiva & lids normal, EOMI; Negative: Sclera icteric ENT Exam: Positive: Atraumatic, Mucous membr. moist/pink, Pharynx Normal Neck Exam: Positive: Supple; Negative: JVD, thyromegaly Chest Exam: Positive: Normal air movement, Diminished, Other (bilateral basal crackles) Heart Exam: Positive: Rate Normal, Irregular Rhythm, Normal S1, Normal S2; Negative: Murmurs, Rubs Telemetry: Positive: Atrial fibrillation Abdomen Exam: Positive: Normal bowel sounds, Soft; Negative: Tenderness, Hepatospenomegaly Extremity Exam: Negative: Clubbing, Cyanosis, Edema Skin Exam: Positive: Nl turgor and temperature; Negative: Breakdown, Lesion Vital Signs Vital Signs Date Time Temp Pulse Resp B/P (MAP) Pulse Ox O2 Delivery O2 Flow Rate FiO2 08/03/20 14:11 Room Air 4.0 08/03/20 13:45 87 08/03/20 13:35 98.8 08/03/20 13:31 26 08/03/20 13:31 84 170/91 (117) Laboratory Data Labs 24H Laboratory Tests 2 08/03/20 13:40: Immature Granulocyte % (Auto) 0.3, Neutrophils (%) (Auto) 56.7, Lymphocytes (%) (Auto) 22.9L, Monocytes (%) (Auto) 16.2H, Eosinophils (%) (Auto) 3.2H, Basophils (%) (Auto) 0.7, Neutrophils # (Auto) 3.4, Lymphocytes # (Auto) 1.4L, Monocytes # (Auto) 1.0H, Eosinophils # (Auto) 0.2, Basophils # (Auto) 0.0, Nucleated Red Blood Cells % (auto) 0.0, Prothrombin Time 27.1H, Prothromb Time International Ratio 2.45, Anion Gap 4L, Glomerular Filtration Rate 24.9L, Calcium Level 8.4L, Total Bilirubin 0.6, Direct Bilirubin 0.3H, Aspartate Amino Transf (AST/SGOT) 28, Alanine Aminotransferase (ALT/SGPT) 14, Alkaline Phosphatase 107, Total Creatine Kinase 47, Creatine Kinase MB 1.2, Creatine Kinase MB Relative Index 2.55, Troponin I < 0.02, SI-Vbo-U-Type Natriuretic Peptide 1141H, Total Protein 6.7, Albumin 3.0L, Albumin/Globulin Ratio 0.8L, Thyroid Stimulating Hormone (TSH) 2.360 CBC/BMP Laboratory Tests 08/03/20 13:40 Assessment/Plan 79 year old female from [facility] assisted living with DM, CKD stage 4, Bronchiectasis, Obesity, Parkinson's disease and many other medical comorbidities has been having cough and cold and congestion for 1 week. This am she complained of Increased Shortness of breath and dyspnea on exertion. She was noted to be hypoxic at 83% in room air. She had COVID testing done today at the [facility] and found to be COVID-19 positive. She was sent to the ED. In the ED she was afebrile, was hypoxic to 87% in room iar and was going down further so was placed on 4 L of oxygen with improvement of oxygenation to 96%. Her bicarb has been high since last year that leads me to believe that she has some degree of chronic respiratory failure with hypercarbia. ABG showed acute on chronic respiratory failure with hypercarbia and hypoxia due to COVID -19 pneumonitis/ pneumonia. COVID-19 pneumonitis/pneumonia inflammatory markers ordered. will start on dexamethasone oxygen supplementation will give ASA and continue on xarelto, albuterol prn Acute on chronic respiratory failure with hypoxia and hypercarbia due to above. ABG shows hypercarbia. ph normal . Her bicarb has been high from at least last year so i believe she has chronic hypercarbia. oxygen supplementation to maintain between 88% to 92% ABG tomorrow am. Afib rate controlled with metoprolol will continue continue xarelto. DM/ Neuropathy levemir and lispro, gabapentin FS Ac and HS. CKD stage 4/ Bone mineral disease/ chronic anemia/ hyperuricemia/ Secondary hyperparathyroidism creatinine slightly higher than baseline will reduce dose of gabapentin, will reduce dose of torsemide. continue allopurinol and calcitriol RLS continue requip HLD statin Depression Bupropion Parkinson's disease continue sinemet. Obesity BMI 39.0 Complicating care. GERD PPI Plan / VTE VTE Prophylaxis Ordered?: Yes COLTON BARNES MD Aug 03, 2020 15:06
[2020-08-03] MEDS ORDERED: HumaLOG INSULIN (NovoLOG) PER UNIT SC SCH ×2 (17:30→21:00)
[2020-08-03 18:00] VITALS: BP 141/65
[2020-08-03 18:27] LABS: TRIGLYCERIDES LEVEL 173 MG/DL (<150)
[2020-08-03 18:52] LABS: HEPATITIS B SURFACE ANTIGEN NEGATIVE (NEGATIVE)
[2020-08-03 19:20] LABS: HIV 1&2 SCREEN CENTAUR NEGATIVE (NEGATIVE)
[2020-08-03 19:55] VITALS: BP 142/65
[2020-08-03] MEDS: ALBUTEROL 90 MCG/ACT 8GM HFA INHALER INH SCH (20:00)
[2020-08-03] MEDS: GABAPENTIN 300 MG CAP PO SCH (20:56)
[2020-08-03] MEDS: DOCUSATE SODIUM 100MG CAPSULE PO SCH (20:56)
[2020-08-03] MEDS: SINEMET 25-100 MG TAB PO SCH (20:56)
[2020-08-03] MEDS: traMADol 50 MG TAB PO SCH (20:57)
[2020-08-03] MEDS: ATORVASTATIN 20 MG TAB PO SCH (20:58)
[2020-08-03] MEDS: levETIRAcetam 250MG TABLET (KEPPRA) PO SCH (20:58)
[2020-08-03] MEDS: rOPINIRole 2MG TAB PO SCH ×2 (20:59→21:40)
[2020-08-03] MEDS: METOPROLOL TARTRATE 100 MG TAB PO SCH ×2 (20:59→21:40)
[2020-08-03] MEDS: LEVEMIR (INSULIN DETEMIR) 1 UNITS/0.01ML SC SCH (21:00)
[2020-08-03] MEDS: HumaLOG INSULIN (NovoLOG) PER UNIT SC SCH (21:00)
[2020-08-03] MEDS: FLUTICASONE PROP 0.05% NASAL SPRAY 16 GM (FLONASE) NARES SCH (21:40)
[2020-08-04] VITALS (12 sets, daily range): BP systolic 118–136; BP diastolic 62–75; O2SAT 90–94
[2020-08-04] MEDS: ALBUTEROL 90 MCG/ACT 8GM HFA INHALER INH SCH ×4 (07:37→19:55)
[2020-08-04 08:12] LABS: BASO % 0.2 % (0.0-1.0); HEMATOCRIT 37.1 % (36.0-47.0); HEMOGLOBIN 11.8 g/dl (12.0-15.5); LYMPH # 0.8 10^3/uL (1.5-5.0); LYMPH % 15.7 % (24.0-44.0); MEAN CORPUSCULAR HEMOGLOBIN 31.5 pg (27.0-33.0); MEAN CORPUSCULAR HGB CONC 31.8 g/dl (32.0-36.5); MEAN CORPUSCULAR VOLUME 98.9 fl (80.0-96.0); MONO # 0.6 10^3/uL (0.0-0.8); MONO % 11.2 % (0.0-5.0); NEUTROPHILS # 3.8 10^3/uL (1.5-8.5); NEUTROPHILS % 72.7 % (36.0-66.0); PLATELET COUNT, AUTOMATED 169 10^3/uL (150-450); RED BLOOD COUNT 3.75 10^6/uL (4.00-5.40); WHITE BLOOD COUNT 5.3 10^3/uL (4.0-10.0)
[2020-08-04 08:18] LABS: ABG BASE EXCESS 7.5 (-2.0-2.0); ABG HCO3 34.8 MEQ/L (22.0-26.0); ABG PARTIAL PRESSURE O2 71.8 mmHg (75.0-100.0); ABG STANDARD HCO3 31.2 MEQ/L (22.0-26.0); ABG TOTAL CO2 36.7 MEQ/L (23.0-31.0); ABG pH (ARTERIAL) 7.364 UNITS (7.350-7.450)
[2020-08-04 08:26] LABS: ABG PARTIAL PRESSURE CO2 62.4 mmHg (35.0-45.0)
[2020-08-04 08:28] LABS: INR 1.61; PROTHROMBIN TIME 19.5 SECONDS (12.5-14.3)
[2020-08-04 08:34] LABS: PARTIAL THROMBOPLASTIN TIME 39.2 SECONDS (24.2-38.5)
[2020-08-04 08:37] LABS: ALBUMIN 2.8 GM/DL (3.2-5.2); BILIRUBIN,DIRECT 0.3 MG/DL (0.0-0.2); BILIRUBIN,TOTAL 0.6 MG/DL (0.2-1.0); CALCIUM LEVEL 8.2 MG/DL (8.8-10.2); CREATININE FOR GFR 2.03 MG/DL (0.55-1.30); GLOMERULAR FILTRATION RATE 25.2 (>39); MAGNESIUM LEVEL 1.9 MG/DL (1.8-2.4); POTASSIUM SERUM 3.9 MEQ/L (3.5-5.1); TOTAL PROTEIN 6.5 GM/DL (6.4-8.2)
[2020-08-04] MEDS: FLUTICASONE PROP 0.05% NASAL SPRAY 16 GM (FLONASE) NARES SCH ×2 (08:54→20:30)
[2020-08-04] MEDS: buPROPion **XL** TABLET 150MG (WELLBUTRIN XL) PO SCH (08:54)
[2020-08-04] MEDS: TORSEMIDE 20 MG TAB PO SCH (08:54)
[2020-08-04] MEDS: CALCITRIOL 0.25 MCG CAP (S0169) PO SCH (08:55)
[2020-08-04] MEDS: allopurinoL 100 MG TAB PO SCH (08:55)
[2020-08-04] MEDS: dexameTHASONE 4 MG/ML 1ML VIAL (J1100 PER 1MG) IV SCH (08:55)
[2020-08-04] MEDS: rOPINIRole 2MG TAB PO SCH ×2 (08:55→20:29)
[2020-08-04] MEDS: METOPROLOL TARTRATE 100 MG TAB PO SCH ×2 (08:56→20:30)
[2020-08-04] MEDS: GABAPENTIN 300 MG CAP PO SCH ×2 (08:56→20:29)
[2020-08-04] MEDS: traMADol 50 MG TAB PO SCH ×2 (08:56→20:46)
[2020-08-04] MEDS: OMEPRAZOLE 20 MG CAP PO SCH (08:57)
[2020-08-04] MEDS: LEVEMIR (INSULIN DETEMIR) 1 UNITS/0.01ML SC SCH ×2 (08:57→20:29)
[2020-08-04] MEDS: HumaLOG INSULIN (NovoLOG) PER UNIT SC SCH ×4 (08:58→20:29)
[2020-08-04] MEDS: DOCUSATE SODIUM 100MG CAPSULE PO SCH ×2 (08:58→20:30)
[2020-08-04] MEDS ORDERED: ASPIRIN 81 MG ENTERIC TAB PO SCH (09:00)
[2020-08-04] MEDS ORDERED: POTASSIUM CHLORIDE 10 MEQ SR TABLET PO SCH (09:00)
--- NOTE | 2020-08-04 13:19 | ECGEPIP ---
[facility] - ED Test Date: 2020-08-03 Pat Name: CHARLY TURCIOS Department: Room: - Gender: Female Outpatient Facility Physical Therapist: : 1940 Requested By: ANGIE Clarke Order Number: [id number] Reading MD: John Turner Measurements Intervals [place] Rate: 81 P: [place]: 0 QRS: -4 QRSD: 94 T: -9 QT: 370 QTc: 430 Interpretive Statements ATRIAL FIBRILLATION INFERIOR MYOCARDIAL INFARCTION, OF INDETERMINATE AGE SIMILAR TO 10/27/19 Electronically Signed on 08-04-2020 13:19:30 EST by John Turner
--- NOTE | 2020-08-04 13:47 | IPNPDOC ---
Subjective Date Seen The patient was seen on 08/04/20. Subjective Chief Complaint/HPI No acute events overnight. Off oxygen from this morning. Has some cough . No other complaints . Wants to go back to the [facility]. Objective Physical Examination General Exam: Positive: Alert, Cooperative, No Acute Distress Eye Exam: Positive: PERRLA, Conjunctiva & lids normal, EOMI; Negative: Sclera icteric ENT Exam: Positive: Atraumatic, Mucous membr. moist/pink, Pharynx Normal Neck Exam: Positive: Supple; Negative: JVD, thyromegaly Chest Exam: Positive: Normal air movement, Diminished, Other (few basal c rackles) Heart Exam: Positive: Rate Normal, Irregular Rhythm, Normal S1, Normal S2; Negative: Murmurs, Rubs Telemetry: Positive: Atrial fibrillation Abdomen Exam: Positive: Normal bowel sounds, Soft; Negative: Tenderness, Hepatospenomegaly Extremity Exam: Negative: Clubbing, Cyanosis, Edema Skin Exam: Positive: Nl turgor and temperature; Negative: Breakdown, Lesion Assessment /Plan Assessment 79 year old female from [facility] assisted living with DM, CKD stage 4, Bronchiectasis, Obesity, Parkinson's disease and many other medical comorbidities has been having cough and cold and congestion for 1 week. This am she complained of Increased Shortness of breath and dyspnea on exertion. She was noted to be hypoxic at 83% in room air. She had COVID testing done today at the [facility] and found to be COVID-19 positive. She was sent to the ED. In the ED she was afebrile, was hypoxic to 87% in room iar and was going down further so was placed on 4 L of oxygen with improvement of oxygenation to 96%. Her bicarb has been high since last year that leads me to believe that she has some degree of chronic respiratory failure with hypercarbia. ABG showed acute on chronic respiratory failure with hypercarbia and hypoxia due to COVID -19 pneumonitis/ pneumonia. COVID-19 pneumonitis/pneumonia inflammatory markers as per protocol Procalcitonin not increased. lactate normal. D dimer normal on dexamethasone oxygen supplementation will continue on xarelto, albuterol prn Acute on chronic respiratory failure with hypoxia and hypercarbia due to above. ABG shows hypercarbia. ph normal . Her bicarb has been high from at least last year so i believe she has chronic hypercarbia. Will reduce torsemide. oxygen supplementation to maintain between 88% to 92% ABG Probable chronic respiratory failure with hypercarbia. Due to undiagnosed RUFINO and obesity hypoventilation Afib rate controlled with metoprolol will continue continue xarelto. DM/ Neuropathy levemir and lispro, gabapentin FS Ac and HS. CKD stage 4/ Bone mineral disease/ chronic anemia/ hyperuricemia/ Secondary hyperparathyroidism creatinine slightly higher than baseline will reduce dose of gabapentin, will reduce dose of torsemide. continue allopurinol and calcitriol RLS continue requip HLD statin Depression Bupropion Parkinson's disease continue sinemet. Obesity BMI 39.0 Complicating care. GERD PPI Plan/VTE VTE Prophylaxis Ordered?: Yes VS, I&O, 24H, Fishbone Vital Signs/I&O Vital Signs Date Time Temp Pulse Resp B/P (MAP) Pulse Ox O2 Delivery O2 Flow Rate FiO2 08/04/20 05:00 93 Nasal Cannula 2.0 08/04/20 03:59 98.7 79 19 136/75 (95) I&O- Last 24 Hours up to 6 AM 08/04/20 07:00 Intake Total 120 ml Balance 120 ml Laboratory Data 24H LABS Laboratory Tests 2 08/03/20 13:40: Immature Granulocyte % (Auto) 0.3, Neutrophils (%) (Auto) 56.7, Lymphocytes (%) (Auto) 22.9L, Monocytes (%) (Auto) 16.2H, Eosinophils (%) (Auto) 3.2H, Basophils (%) (Auto) 0.7, Neutrophils # (Auto) 3.4, Lymphocytes # (Auto) 1.4L, Monocytes # (Auto) 1.0H, Eosinophils # (Auto) 0.2, Basophils # (Auto) 0.0, Nucleated Red Blood Cells % (auto) 0.0, Prothrombin Time 27.1H, Prothromb Time International Ratio 2.45, Fibrinogen 593H, D-Dimer, Quantitative 372.72, Anion Gap 4L, Glomerular Filtration Rate 24.9L, Lactic Acid Level 1.1, Calcium Level 8.4L, Ferritin 1492H, Total Bilirubin 0.6, Direct Bilirubin 0.3H, Aspartate Amino Transf (AST/SGOT) 28, Alanine Aminotransferase (ALT/SGPT) 14, Alkaline Phosphatase 107, Lactate Dehydrogenase 169, Total Creatine Kinase 47, Creatine Kinase MB 1.2, Creatine Kinase MB Relative Index 2.55, Troponin I < 0.02, C- Reactive Protein, Quantitative 5.25H, FD-Eul-N-Type Natriuretic Peptide 1141H, Total Protein 6.7, Albumin 3.0L, Albumin/Globulin Ratio 0.8L, Triglycerides Level 173H, Procalcitonin 0.05, Thyroid Stimulating Hormone (TSH) 2.360, Hepatitis B Surface Antigen NEGATIVE, HIV Antigen/Antibody Combo Qual NEGATIVE 08/03/20 15:32: Blood Gas Bicarbonate Standard 29.7H, Arterial Blood pH 7.369, Arterial Blood Partial Pressure CO2 57.9H, Arterial Blood Partial Pressure O2 90.5, Arterial Blood Total CO2 34.4H, Arterial Blood HCO3 32.6H, Arterial Blood Base Excess 5.8H, Arterial Blood Oxygen Saturation 96.3 08/03/20 17:59: Bedside Glucose (Misc Panel) 175H 08/03/20 18:30: Bedside Glucose (Misc Panel) 118H 08/03/20 19:53: Bedside Glucose (Misc Panel) 210H CBC/BMP Laboratory Tests 08/03/20 13:40 Microbiology Microbiology 08/03/20 Respiratory Virus Panel (PCR) ([facility]) - Final, Complete SARS-CoV-2 (COVID 19) COLTON BRANES MD Aug 04, 2020 06:09
[2020-08-04] MEDS: RIVAROXABAN 15 MG TAB (XARELTO) PO SCH (17:41)
[2020-08-04] MEDS: levETIRAcetam 250MG TABLET (KEPPRA) PO SCH (20:29)
[2020-08-04] MEDS: ATORVASTATIN 20 MG TAB PO SCH (20:30)
[2020-08-04] MEDS: SINEMET 25-100 MG TAB PO SCH (20:30)
[2020-08-04] MEDS: RAMELTEON 8 MG TAB (ROZEREM) PO PRN (22:53)
[2020-08-05] VITALS (9 sets, daily range): BP systolic 121–122; BP diastolic 64–66; O2SAT 92–96
[2020-08-05] MEDS: ALBUTEROL 90 MCG/ACT 8GM HFA INHALER INH SCH ×3 (08:00→21:04)
[2020-08-05] MEDS: GABAPENTIN 300 MG CAP PO SCH ×2 (08:43→21:02)
[2020-08-05] MEDS: allopurinoL 100 MG TAB PO SCH (08:44)
[2020-08-05] MEDS: OMEPRAZOLE 20 MG CAP PO SCH (08:44)
[2020-08-05] MEDS: CALCITRIOL 0.25 MCG CAP (S0169) PO SCH (08:44)
[2020-08-05] MEDS: buPROPion **XL** TABLET 150MG (WELLBUTRIN XL) PO SCH (08:44)
[2020-08-05] MEDS: dexameTHASONE 4 MG/ML 1ML VIAL (J1100 PER 1MG) IV SCH (08:44)
[2020-08-05] MEDS: rOPINIRole 2MG TAB PO SCH ×2 (08:44→21:02)
[2020-08-05] MEDS: TORSEMIDE 20 MG TAB PO SCH (08:44)
[2020-08-05] MEDS: traMADol 50 MG TAB PO SCH ×2 (08:45→21:03)
[2020-08-05] MEDS: METOPROLOL TARTRATE 100 MG TAB PO SCH ×2 (08:45→21:03)
[2020-08-05] MEDS: FLUTICASONE PROP 0.05% NASAL SPRAY 16 GM (FLONASE) NARES SCH ×2 (08:46→21:03)
[2020-08-05] MEDS: HumaLOG INSULIN (NovoLOG) PER UNIT SC SCH ×4 (08:46→21:00)
[2020-08-05] MEDS: DOCUSATE SODIUM 100MG CAPSULE PO SCH ×2 (08:47→21:00)
[2020-08-05] MEDS: LEVEMIR (INSULIN DETEMIR) 1 UNITS/0.01ML SC SCH ×2 (08:47→21:03)
[2020-08-05 09:39] LABS: INR 1.8; PROTHROMBIN TIME 21.3 SECONDS (12.5-14.3)
[2020-08-05 09:40] LABS: PARTIAL THROMBOPLASTIN TIME 34.9 SECONDS (24.2-38.5)
[2020-08-05 09:42] LABS: BASO % 0.1 % (0.0-1.0); HEMATOCRIT 37.6 % (36.0-47.0); HEMOGLOBIN 11.7 g/dl (12.0-15.5); LYMPH # 1.1 10^3/uL (1.5-5.0); LYMPH % 11.5 % (24.0-44.0); MEAN CORPUSCULAR HEMOGLOBIN 30.3 pg (27.0-33.0); MEAN CORPUSCULAR HGB CONC 31.1 g/dl (32.0-36.5); MEAN CORPUSCULAR VOLUME 97.4 fl (80.0-96.0); MONO # 1.1 10^3/uL (0.0-0.8); MONO % 11.3 % (0.0-5.0); NEUTROPHILS # 7.6 10^3/uL (1.5-8.5); NEUTROPHILS % 76.7 % (36.0-66.0); PLATELET COUNT, AUTOMATED 213 10^3/uL (150-450); RED BLOOD COUNT 3.86 10^6/uL (4.00-5.40); WHITE BLOOD COUNT 9.9 10^3/uL (4.0-10.0)
[2020-08-05 09:50] LABS: BILIRUBIN,DIRECT 0.3 MG/DL (0.0-0.2); BILIRUBIN,TOTAL 0.7 MG/DL (0.2-1.0); CALCIUM LEVEL 8.9 MG/DL (8.8-10.2); CREATININE FOR GFR 2.05 MG/DL (0.55-1.30); GLOMERULAR FILTRATION RATE 24.9 (>39); POTASSIUM SERUM 3.9 MEQ/L (3.5-5.1); TOTAL PROTEIN 6.7 GM/DL (6.4-8.2)
--- NOTE | 2020-08-05 11:42 | IPNPDOC ---
Subjective Date Seen The patient was seen on 08/05/20. Subjective Chief Complaint/HPI Feels well this morning. Cough improving. denies any SOB. Did need higher oxygen during sleep . This I think is due to undiagnosed RUFINO. I believe she also has Obesity hypoventilation so has chronic hypercarbia. Objective Physical Examination General Exam: Positive: Alert, Cooperative, No Acute Distress Eye Exam: Positive: PERRLA, Conjunctiva & lids normal, EOMI; Negative: Sclera icteric ENT Exam: Positive: Atraumatic, Mucous membr. moist/pink, Pharynx Normal Neck Exam: Positive: Supple; Negative: JVD, thyromegaly Chest Exam: Positive: Normal air movement, Diminished, Other (few basal crackles) Heart Exam: Positive: Rate Normal, Irregular Rhythm, Normal S1, Normal S2; Negative: Murmurs, Rubs Telemetry: Positive: Atrial fibrillation Abdomen Exam: Positive: Normal bowel sounds, Soft; Negative: Tenderness, Hepatospenomegaly Extremity Exam: Negative: Clubbing, Cyanosis, Edema Skin Exam: Positive: Nl turgor and temperature; Negative: Breakdown, Lesion Assessment /Plan Assessment 79 year old female from [facility] assisted living with DM, CKD stage 4, Bronchiectasis, Obesity, Parkinson's disease and many other medical comorbidities has been having cough and cold and congestion for 1 week. This am she complained of Increased Shortness of breath and dyspnea on exertion. She was noted to be hypoxic at 83% in room air. She had COVID testing done today at the [place] and found to be COVID-19 positive. She was sent to the ED. In the ED she was afebrile, was hypoxic to 87% in room iar and was going down further so was placed on 4 L of oxygen with improvement of oxygenation to 96%. Her bicarb has been high since last year that leads me to believe that she has some degree of chronic respiratory failure with hypercarbia. ABG showed acute on chronic re spiratory failure with hypercarbia and hypoxia due to COVID -19 pneumonitis/ pneumonia. COVID-19 pneumonitis/pneumonia inflammatory markers as per protocol Procalcitonin not increased. lactate normal. D dimer normal Ferritin improving. fibrinogen fluctuating around 400 to 500 range. on dexamethasone oxygen supplementation will continue on xarelto, albuterol prn Acute on chronic respiratory failure with hypoxia and hypercarbia due to above. ABG shows hypercarbia. ph normal . Her bicarb has been high from at least last year so i believe she has chronic hypercarbia. Will reduce torsemide. oxygen supplementation to maintain between 88% to 92% ABG Probable chronic respiratory failure with hypercarbia and hypoxia Due to undiagnosed RUFINO and obesity hypoventilation Afib rate controlled with metoprolol will continue continue xarelto. DM/ Neuropathy levemir and lispro, gabapentin FS Ac and HS. CKD stage 4/ Bone mineral disease/ chronic anemia/ hyperuricemia/ Secondary hyperparathyroidism creatinine slightly higher than baseline will reduce dose of gabapentin, will reduce dose of torsemide. continue allopurinol and calcitriol RLS continue requip HLD statin Depression Bupropion Parkinson's disease continue sinemet. Obesity BMI 39.0 Complicating care. GERD PPI Plan/VTE VTE Prophylaxis Ordered?: Yes VS, I&O, 24H, Fishbone Vital Signs/I&O Vital Signs Date Time Temp Pulse Resp B/P (MAP) Pulse Ox O2 Delivery O2 Flow Rate FiO2 08/05/20 08:45 80 138/72 08/05/20 08:45 18 08/05/20 04:00 96.5 95 Nasal Cannula 2.0 I&O- Last 24 Hours up to 6 AM 08/05/20 06:00 Intake Total 360 ml Output Total 2000 ml Balance -1640 ml Laboratory Data 24H LABS Laboratory Tests 2 08/04/20 12:42: Bedside Glucose (Misc Panel) 160H 08/04/20 16:40: Bedside Glucose (Misc Panel) 168H 08/04/20 20:25: Bedside Glucose (Misc Panel) 234H 08/05/20 07:27: Bedside Glucose (Misc Panel) 151H 08/05/20 08:35: Immature Granulocyte % (Auto) 0.4, Neutrophils (%) (Auto) 76.7H, Lymphocytes (%) (Auto) 11.5L, Monocytes (%) (Auto) 11.3H, Eosinophils (%) (Auto) 0.0, Basophils (%) (Auto) 0.1, Neutrophils # (Auto) 7.6, Lymphocytes # (Auto) 1.1L, Monocytes # (Auto) 1.1H, Eosinophils # (Auto) 0.0, Basophils # (Auto) 0.0, Nucleated Red Blood Cells % (auto) 0.0, Prothrombin Time 21.3H, Prothromb Time International Ratio 1.80, Activated Partial Thromboplast Time 34.9, Fibrinogen 586H, Anion Gap 8, Glomerular Filtration Rate 24.9L, Calcium Level 8.9, Magnesium Level 2.0, Ferritin 1290H, Total Bilirubin 0.7, Direct Bilirubin 0.3H, Aspartate Amino Transf (AST/SGOT) 27, Alanine Aminotransferase (ALT/SGPT) 14, Alkaline Phosphatase 98, ME-Oiy-I-Type Natriuretic Peptide 1381H, Total Protein 6.7, Albumin 3.0L, Albumin/Globulin Ratio 0.8L CBC/BMP Laboratory Tests 08/05/20 08:35 Microbiology Microbiology 08/03/20 Respiratory Virus Panel (PCR) ([facility]) - Final, Complete SARS-CoV-2 (COVID 19) COLTON BARNES MD Aug 05, 2020 11:42
[2020-08-05 16:08] LABS: HEPATITIS B CORE ANTIBODY IGG Negative (Negative); MYCOPLASMA PNEUMONIAE IgG <100 U/mL (0-99); MYCOPLASMA PNEUMONIAE IgM <770 U/mL (0-769)
[2020-08-05] MEDS: RIVAROXABAN 15 MG TAB (XARELTO) PO SCH (17:05)
[2020-08-05] MEDS: SINEMET 25-100 MG TAB PO SCH (21:02)
[2020-08-05] MEDS: RAMELTEON 8 MG TAB (ROZEREM) PO PRN (21:02)
[2020-08-05] MEDS: levETIRAcetam 250MG TABLET (KEPPRA) PO SCH (21:02)
[2020-08-05] MEDS: ATORVASTATIN 20 MG TAB PO SCH (21:03)
[2020-08-06 04:00] VITALS: BP 140/74
[2020-08-06 07:35] LABS: HEMATOCRIT 35.3 % (36.0-47.0); HEMOGLOBIN 11.4 g/dl (12.0-15.5); LYMPH # 1.3 10^3/uL (1.5-5.0); LYMPH % 11.8 % (24.0-44.0); MEAN CORPUSCULAR HEMOGLOBIN 31.2 pg (27.0-33.0); MEAN CORPUSCULAR HGB CONC 32.3 g/dl (32.0-36.5); MEAN CORPUSCULAR VOLUME 96.7 fl (80.0-96.0); MONO # 1.2 10^3/uL (0.0-0.8); MONO % 11.5 % (0.0-5.0); NEUTROPHILS # 8.2 10^3/uL (1.5-8.5); NEUTROPHILS % 76.3 % (36.0-66.0); PLATELET COUNT, AUTOMATED 207 10^3/uL (150-450); RED BLOOD COUNT 3.65 10^6/uL (4.00-5.40); WHITE BLOOD COUNT 10.7 10^3/uL (4.0-10.0)
[2020-08-06 07:47] LABS: INR 1.91; PROTHROMBIN TIME 22.3 SECONDS (12.5-14.3)
[2020-08-06 07:51] LABS: D-DIMER QUANT 298.86 ng/ml (<500)
[2020-08-06 08:14] LABS: ALBUMIN 2.8 GM/DL (3.2-5.2); BILIRUBIN,DIRECT 0.2 MG/DL (0.0-0.2); BILIRUBIN,TOTAL 0.6 MG/DL (0.2-1.0); CALCIUM LEVEL 8.9 MG/DL (8.8-10.2); CREATININE FOR GFR 1.89 MG/DL (0.55-1.30); GLOMERULAR FILTRATION RATE 27.4 (>39); MAGNESIUM LEVEL 1.9 MG/DL (1.8-2.4); POTASSIUM SERUM 3.5 MEQ/L (3.5-5.1); TOTAL PROTEIN 6.2 GM/DL (6.4-8.2)
[2020-08-06] MEDS: DOCUSATE SODIUM 100MG CAPSULE PO SCH ×2 (08:26→21:00)
[2020-08-06] MEDS: traMADol 50 MG TAB PO SCH ×2 (08:26→21:08)
[2020-08-06] MEDS: CALCITRIOL 0.25 MCG CAP (S0169) PO SCH (08:26)
[2020-08-06] MEDS: OMEPRAZOLE 20 MG CAP PO SCH (08:26)
[2020-08-06] MEDS: dexameTHASONE 4 MG/ML 1ML VIAL (J1100 PER 1MG) IV SCH (08:27)
[2020-08-06] MEDS: FLUTICASONE PROP 0.05% NASAL SPRAY 16 GM (FLONASE) NARES SCH ×2 (08:27→21:06)
[2020-08-06] MEDS: buPROPion **XL** TABLET 150MG (WELLBUTRIN XL) PO SCH (08:27)
[2020-08-06] MEDS: allopurinoL 100 MG TAB PO SCH (08:27)
[2020-08-06] MEDS: METOPROLOL TARTRATE 100 MG TAB PO SCH ×2 (08:27→21:07)
[2020-08-06] MEDS: rOPINIRole 2MG TAB PO SCH ×2 (08:27→21:08)
[2020-08-06] MEDS: GABAPENTIN 300 MG CAP PO SCH ×2 (08:27→21:07)
[2020-08-06] MEDS: TORSEMIDE 20 MG TAB PO SCH (08:27)
[2020-08-06] MEDS: HumaLOG INSULIN (NovoLOG) PER UNIT SC SCH ×4 (08:28→21:08)
[2020-08-06] MEDS: LEVEMIR (INSULIN DETEMIR) 1 UNITS/0.01ML SC SCH ×2 (08:28→21:09)
[2020-08-06] MEDS: ALBUTEROL 90 MCG/ACT 8GM HFA INHALER INH SCH ×4 (08:47→21:06)
--- NOTE | 2020-08-06 13:25 | IPNPDOC ---
Subjective Date Seen The patient was seen on 08/06/20. Subjective Chief Complaint/HPI feels much better, says the bothersome cough has resolved, Remains on 2 liters oxygen which i think is due to obesity hypoventilation so we cannot get her off it. will get an ABG without oxygen. Objective Physical Examination General Exam: Positive: Alert, Cooperative, No Acute Distress Eye Exam: Positive: PERRLA, Conjunctiva & lids normal, EOMI; Negative: Sclera icteric ENT Exam: Positive: Atraumatic, Mucous membr. moist/pink, Pharynx Normal Neck Exam: Positive: Supple; Negative: JVD, thyromegaly Chest Exam: Positive: Clear to auscultation, Normal air movement, Diminished, Other Heart Exam: Positive: Rate Normal, Irregular Rhythm, Normal S1, Normal S2; Negative: Murmurs, Rubs Telemetry: Positive: Atrial fibrillation Abdomen Exam: Positive: Normal bowel sounds, Soft; Negative: Tenderness, Hepatospenomegaly Extremity Exam: Negative: Clubbing, Cyanosis, Edema Skin Exam: Positive: Nl turgor and temperature; Negative: Breakdown, Lesion Assessment /Plan Assessment 79 year old female from [facility] assisted living with DM, CKD stage 4, Bronchiectasis , Obesity, Parkinson's disease and many other medical comorbidities has been having cough and cold and congestion for 1 week. This am she complained of Increased Shortness of breath and dyspnea on exertion. She was noted to be hypoxic at 83% in room air. She had COVID testing done today at the [place] and found to be COVID-19 positive. She was sent to the ED. In the ED she was afebrile, was hypoxic to 87% in room iar and was going down further so was placed on 4 L of oxygen with improvement of oxygenation to 96%. Her bicarb has been high since last year that leads me to believe that she has some degree of chronic respiratory failure with hypercarbia. ABG showed acute on chronic respiratory failure with hypercarbia and hypoxia due to COVID -19 pneumonitis/ pneumonia. COVID-19 pneumonitis/pneumonia inflammatory markers as per protocol Procalcitonin not increased. lactate normal. D dimer normal Ferritin improving. fibrinogen fluctuating around 400 to 500 range. on dexamethasone oxygen supplementation will continue on xarelto, albuterol prn Acute on chronic respiratory failure with hypoxia and hypercarbia due to above. ABG shows hypercarbia. ph normal . Her bicarb has been high from at least last year so i believe she has chronic hypercarbia. reduced torsemide. oxygen supplementation to maintain between 88% to 92% ABG Probable chronic respiratory failure with hypercarbia and hypoxia Due to undiagnosed RUFINO and obesity hypoventilation Afib rate controlled with metoprolol will continue continue xarelto. DM/ Neuropathy levemir and lispro, gabapentin FS Ac and HS. CKD stage 4/ Bone mineral disease/ chronic anemia/ hyperuricemia/ Secondary hyperparathyroidism creatinine at baseline will reduce dose of gabapentin, will reduce dose of torsemide. continue allopurinol and calcitriol RLS continue requip HLD statin Depression Bupropion Parkinson's disease continue sinemet. Obesity BMI 39.0 Complicating care. GERD PPI Plan/VTE VTE Prophylaxis Ordered?: Yes VS, I&O, 24H, Fishbone Vital Signs/I&O Vital Signs Date Time Temp Pulse Resp B/P (MAP) Pulse Ox O2 Delivery O2 Flow Rate FiO2 08/06/20 08:27 95 140/74 08/06/20 08:26 17 08/06/20 04:00 98.9 94 Nasal Cannula 2.0 I&O- Last 24 Hours up to 6 AM 08/06/20 06:00 Intake Total 1140 ml Balance 1140 ml Laboratory Data 24H LABS Laboratory Tests 2 08/05/20 16:33: Bedside Glucose (Misc Panel) 243H 08/06/20 07:15: Immature Granulocyte % (Auto) 0.4, Neutrophils (%) (Auto) 76.3H, Lymphocytes (%) (Auto) 11.8L, Monocytes (%) (Auto) 11.5H, Eosinophils (%) (Auto) 0.0, Basophils (%) (Auto) 0.0, Neutrophils # (Auto) 8.2, Lymphocytes # (Auto) 1.3L, Monocytes # (Auto) 1.2H, Eosinophils # (Auto) 0.0, Basophils # (Auto) 0.0, Nucleated Red Blood Cells % (auto) 0.0, Prothrombin Time 22.3H, Prothromb Time International Ratio 1.91, Activated Partial Thromboplast Time 35.0, Fibrinogen 511H, D-Dimer, Quantitative 298.86, Anion Gap 7L, Glomerular Filtration Rate 27.4L, Calcium Level 8.9, Magnesium Level 1.9, Ferritin 885H, Total Bilirubin 0.6, Direct Bilirubin 0.2, Aspartate Amino Transf (AST/SGOT) 26, Alanine Aminotransferase (ALT/SGPT) 9L, Alkaline Phosphatase 90, NF-Pio-O-Type Natriuretic Peptide 1055H, Total Protein 6.2L, Albumin 2.8L, Albumin/Globulin Ratio 0.8L, Procalcitonin <0.05 08/06/20 11:22: Bedside Glucose (Misc Panel) 203H CBC/BMP Laboratory Tests 08/06/20 07:15 Microbiology Microbiology 08/03/20 Respiratory Virus Panel (PCR) ([facility]) - Final, Complete SARS-CoV-2 (COVID 19) COLTON BARNES MD Aug 06, 2020 13:25
[2020-08-06] MEDS: RIVAROXABAN 15 MG TAB (XARELTO) PO SCH (17:29)
[2020-08-06] MEDS: SINEMET 25-100 MG TAB PO SCH (21:06)
[2020-08-06] MEDS: ATORVASTATIN 20 MG TAB PO SCH (21:07)
[2020-08-06] MEDS: levETIRAcetam 250MG TABLET (KEPPRA) PO SCH (21:07)
[2020-08-06] MEDS: RAMELTEON 8 MG TAB (ROZEREM) PO PRN (21:08)
[2020-08-07 04:00] VITALS: BP 148/72
[2020-08-07] MEDS: HumaLOG INSULIN (NovoLOG) PER UNIT SC SCH ×4 (07:30→21:00)
[2020-08-07] MEDS: ALBUTEROL 90 MCG/ACT 8GM HFA INHALER INH SCH ×5 (08:00→19:49)
[2020-08-07] MEDS: buPROPion **XL** TABLET 150MG (WELLBUTRIN XL) PO SCH (08:43)
[2020-08-07] MEDS: METOPROLOL TARTRATE 100 MG TAB PO SCH ×2 (08:43→22:12)
[2020-08-07] MEDS: CALCITRIOL 0.25 MCG CAP (S0169) PO SCH (08:43)
[2020-08-07] MEDS: LEVEMIR (INSULIN DETEMIR) 1 UNITS/0.01ML SC SCH ×2 (08:43→22:13)
[2020-08-07] MEDS: FLUTICASONE PROP 0.05% NASAL SPRAY 16 GM (FLONASE) NARES SCH ×2 (08:43→22:13)
[2020-08-07] MEDS: rOPINIRole 2MG TAB PO SCH ×2 (08:43→22:10)
[2020-08-07] MEDS: GABAPENTIN 300 MG CAP PO SCH ×2 (08:43→22:12)
[2020-08-07] MEDS: OMEPRAZOLE 20 MG CAP PO SCH (08:43)
[2020-08-07] MEDS: allopurinoL 100 MG TAB PO SCH (08:44)
[2020-08-07] MEDS: TORSEMIDE 20 MG TAB PO SCH (08:44)
[2020-08-07] MEDS: DOCUSATE SODIUM 100MG CAPSULE PO SCH ×2 (08:44→22:12)
[2020-08-07] MEDS: traMADol 50 MG TAB PO SCH ×2 (08:44→22:12)
[2020-08-07 09:30] LABS: BASO % 0.1 % (0.0-1.0); EOS % 0.1 % (0.0-3.0); HEMATOCRIT 35.9 % (36.0-47.0); HEMOGLOBIN 11.6 g/dl (12.0-15.5); LYMPH # 1.3 10^3/uL (1.5-5.0); LYMPH % 13.3 % (24.0-44.0); MEAN CORPUSCULAR HEMOGLOBIN 31.1 pg (27.0-33.0); MEAN CORPUSCULAR HGB CONC 32.3 g/dl (32.0-36.5); MEAN CORPUSCULAR VOLUME 96.2 fl (80.0-96.0); MONO # 1.2 10^3/uL (0.0-0.8); MONO % 12.7 % (0.0-5.0); NEUTROPHILS % 73.3 % (36.0-66.0); PLATELET COUNT, AUTOMATED 213 10^3/uL (150-450); RED BLOOD COUNT 3.73 10^6/uL (4.00-5.40); WHITE BLOOD COUNT 9.6 10^3/uL (4.0-10.0)
[2020-08-07 09:51] LABS: INR 1.59; PARTIAL THROMBOPLASTIN TIME 30.8 SECONDS (24.2-38.5); PROTHROMBIN TIME 19.3 SECONDS (12.5-14.3)
[2020-08-07 10:04] LABS: ALBUMIN 3.1 GM/DL (3.2-5.2); BILIRUBIN,DIRECT 0.3 MG/DL (0.0-0.2); BILIRUBIN,TOTAL 0.8 MG/DL (0.2-1.0); CALCIUM LEVEL 9.1 MG/DL (8.8-10.2); CREATININE FOR GFR 1.9 MG/DL (0.55-1.30); GLOMERULAR FILTRATION RATE 27.2 (>39); MAGNESIUM LEVEL 1.8 MG/DL (1.8-2.4); POTASSIUM SERUM 3.7 MEQ/L (3.5-5.1); TOTAL PROTEIN 6.6 GM/DL (6.4-8.2)
[2020-08-07 10:41] LABS: ABG BASE EXCESS 8.9 (-2.0-2.0); ABG HCO3 33.1 MEQ/L (22.0-26.0); ABG O2 SATURATION 90.7 % (95.0-99.0); ABG PARTIAL PRESSURE CO2 43.8 mmHg (35.0-45.0); ABG PARTIAL PRESSURE O2 57.9 mmHg (75.0-100.0); ABG STANDARD HCO3 32.5 MEQ/L (22.0-26.0); ABG TOTAL CO2 34.4 MEQ/L (23.0-31.0); ABG pH (ARTERIAL) 7.496 UNITS (7.350-7.450)
[2020-08-07] MEDS: RIVAROXABAN 15 MG TAB (XARELTO) PO SCH (16:54)
[2020-08-07 20:00] VITALS: BP 140/63
[2020-08-07] MEDS: SINEMET 25-100 MG TAB PO SCH (22:10)
[2020-08-07] MEDS: levETIRAcetam 250MG TABLET (KEPPRA) PO SCH (22:13)
[2020-08-07] MEDS: ATORVASTATIN 20 MG TAB PO SCH (22:13)
--- NOTE | 2020-08-08 03:12 | REPVR ---
PROCEDURE INFORMATION: Exam: CT Head Without Contrast Exam date and time: 08/08/2020 1:39 AM Age: 79 years old Clinical indication: Weakness, extremity; Right; Additional info: Sudden onset right leg weakness and confusion in covid PT TECHNIQUE: Imaging protocol: Computed tomography of the head without contrast. Radiation optimization: All CT scans at this facility use at least one of these dose optimization techniques: automated exposure control; mA and/or kV adjustment per patient size (includes targeted exams where dose is matched to clinical indication); or iterative reconstruction. COMPARISON: No relevant prior studies available. FINDINGS: Brain: There is mild cerebral atrophy. Changes of chronic white matter microvascular disease are present. No signs of a recent infarction or hemorrhage. Old lacunar infarct in the left lentiform nucleus. Cerebral ventricles: No ventriculomegaly. Bones/joints: Unremarkable. No acute fracture. Paranasal sinuses: Visualized sinuses are unremarkable. No fluid levels. Mastoid air cells: Prior right mastoidectomy. Right mastoid air cells and mastoidectomy bowl are opacified. Left mastoid air cells are clear. Soft tissues: Unremarkable. IMPRESSION: Atrophy and chronic white matter changes. No acute intracranial abnormality. Electronically signed by: Steven Cabral On 08/08/2020 03:11:42 AM
[2020-08-08 04:00] VITALS: BP 135/72
[2020-08-08 06:56] LABS: BASO % 0.1 % (0.0-1.0); EOS % 0.4 % (0.0-3.0); HEMATOCRIT 37.1 % (36.0-47.0); HEMOGLOBIN 11.8 g/dl (12.0-15.5); LYMPH # 1.1 10^3/uL (1.5-5.0); LYMPH % 13.1 % (24.0-44.0); MEAN CORPUSCULAR HEMOGLOBIN 30.8 pg (27.0-33.0); MEAN CORPUSCULAR HGB CONC 31.8 g/dl (32.0-36.5); MEAN CORPUSCULAR VOLUME 96.9 fl (80.0-96.0); MONO # 1.3 10^3/uL (0.0-0.8); MONO % 15.7 % (0.0-5.0); NEUTROPHILS # 5.8 10^3/uL (1.5-8.5); NEUTROPHILS % 69.4 % (36.0-66.0); PLATELET COUNT, AUTOMATED 203 10^3/uL (150-450); RED BLOOD COUNT 3.83 10^6/uL (4.00-5.40); WHITE BLOOD COUNT 8.3 10^3/uL (4.0-10.0)
[2020-08-08 07:14] LABS: INR 1.68; PROTHROMBIN TIME 20.2 SECONDS (12.5-14.3)
[2020-08-08 07:16] LABS: PARTIAL THROMBOPLASTIN TIME 36.7 SECONDS (24.2-38.5)
[2020-08-08 07:30] LABS: BILIRUBIN,DIRECT 0.3 MG/DL (0.0-0.2); BILIRUBIN,TOTAL 0.8 MG/DL (0.2-1.0); CALCIUM LEVEL 9.1 MG/DL (8.8-10.2); CREATININE FOR GFR 2.26 MG/DL (0.55-1.30); GLOMERULAR FILTRATION RATE 22.3 (>39); MAGNESIUM LEVEL 1.7 MG/DL (1.8-2.4); POTASSIUM SERUM 3.6 MEQ/L (3.5-5.1); TOTAL PROTEIN 7.3 GM/DL (6.4-8.2)
[2020-08-08] MEDS: ALBUTEROL 90 MCG/ACT 8GM HFA INHALER INH SCH ×4 (07:54→23:09)
[2020-08-08] MEDS: HumaLOG INSULIN (NovoLOG) PER UNIT SC SCH ×4 (07:59→21:00)
[2020-08-08] MEDS: GABAPENTIN 300 MG CAP PO SCH ×2 (07:59→21:50)
[2020-08-08] MEDS: LEVEMIR (INSULIN DETEMIR) 1 UNITS/0.01ML SC SCH ×2 (07:59→21:50)
[2020-08-08] MEDS: TORSEMIDE 20 MG TAB PO SCH ×2 (08:00→17:06)
[2020-08-08] MEDS: CALCITRIOL 0.25 MCG CAP (S0169) PO SCH (08:00)
[2020-08-08] MEDS: allopurinoL 100 MG TAB PO SCH (08:00)
[2020-08-08] MEDS: OMEPRAZOLE 20 MG CAP PO SCH (08:00)
[2020-08-08] MEDS: DOCUSATE SODIUM 100MG CAPSULE PO SCH ×2 (08:00→21:00)
[2020-08-08] MEDS: buPROPion **XL** TABLET 150MG (WELLBUTRIN XL) PO SCH (08:00)
[2020-08-08] MEDS: rOPINIRole 2MG TAB PO SCH ×2 (08:01→21:50)
[2020-08-08] MEDS: METOPROLOL TARTRATE 100 MG TAB PO SCH ×2 (08:01→21:50)
[2020-08-08] MEDS: traMADol 50 MG TAB PO SCH ×2 (08:01→21:50)
[2020-08-08] MEDS: FLUTICASONE PROP 0.05% NASAL SPRAY 16 GM (FLONASE) NARES SCH ×2 (08:02→21:50)
[2020-08-08] MEDS: RIVAROXABAN 15 MG TAB (XARELTO) PO SCH (17:06)
[2020-08-08 20:09] VITALS: BP 136/82
[2020-08-08] MEDS: SINEMET 25-100 MG TAB PO SCH (21:50)
[2020-08-08] MEDS: levETIRAcetam 250MG TABLET (KEPPRA) PO SCH (21:50)
[2020-08-08] MEDS: ATORVASTATIN 20 MG TAB PO SCH (21:50)
[2020-08-09 04:11] VITALS: BP 130/76
[2020-08-09] MEDS: HumaLOG INSULIN (NovoLOG) PER UNIT SC SCH ×4 (07:15→21:00)
[2020-08-09] MEDS: OMEPRAZOLE 20 MG CAP PO SCH (08:08)
[2020-08-09] MEDS: TORSEMIDE 20 MG TAB PO SCH ×2 (08:08→16:55)
[2020-08-09] MEDS: GABAPENTIN 300 MG CAP PO SCH ×2 (08:09→22:06)
[2020-08-09] MEDS: rOPINIRole 2MG TAB PO SCH ×2 (08:09→22:06)
[2020-08-09] MEDS: traMADol 50 MG TAB PO SCH ×2 (08:09→22:07)
[2020-08-09] MEDS: buPROPion **XL** TABLET 150MG (WELLBUTRIN XL) PO SCH (08:09)
[2020-08-09] MEDS: allopurinoL 100 MG TAB PO SCH (08:10)
[2020-08-09] MEDS: LEVEMIR (INSULIN DETEMIR) 1 UNITS/0.01ML SC SCH ×2 (08:10→22:07)
[2020-08-09] MEDS: METOPROLOL TARTRATE 100 MG TAB PO SCH ×2 (08:10→22:07)
[2020-08-09] MEDS: FLUTICASONE PROP 0.05% NASAL SPRAY 16 GM (FLONASE) NARES SCH ×2 (08:10→22:07)
[2020-08-09] MEDS: CALCITRIOL 0.25 MCG CAP (S0169) PO SCH (08:10)
[2020-08-09] MEDS: ALBUTEROL 90 MCG/ACT 8GM HFA INHALER INH SCH ×5 (08:15→21:56)
[2020-08-09] MEDS: DOCUSATE SODIUM 100MG CAPSULE PO SCH ×2 (08:23→21:00)
[2020-08-09] MEDS: RIVAROXABAN 15 MG TAB (XARELTO) PO SCH (16:54)
--- NOTE | 2020-08-09 19:57 | IPNPDOC ---
Date Seen The patient was seen on 08/09/20. Progress Note SUBJECTIVE: Seen and examined at bedside this morning. Doing well. No acute events overnight. On 2L NC. OBJECTIVE PHYSICAL EXAMINATION: VITAL SIGNS: please see below General: NAD, comfortable HEENT: PERRLA, EOMI, sclerae clear Neck: supple, normal ROM, no JVD Respiratory: lungs CTAB, no wheeze, no rales, no crackles CVS: RRR, normal S1, S2, no murmurs Abdo: soft, no masses, no hepatosplenomegaly, BS+, no rebound tenderness Extremities: no edema, pulses 2+ MSK: no joint deformities, normal ROM Neuro: no focal neuro deficits, moving all 4 extremities, CN2-12 intact. Strength 5/5 in all 4 extremities. No nystagmus. Psych: calm, cooperative, AAO x 3 LABORATORY DATA, IMAGING STUDIES, MICROBIOLOGY: Please see below. DVT prophylaxis ordered?: Y 79 year old female from [facility] assisted living with DM, CKD stage 4, Bronchiectasis, Obesity, Parkinson's disease, admitted for management of COVID- 19 pneumonia. COVID-19 pneumonitis/pneumonia inflammatory markers as per protocol Procalcitonin not increased. lactate normal. D dimer normal Ferritin improving. fibrinogen fluctuating around 400 to 500 range. on dexamethasone oxygen supplementation will continue on xarelto, albuterol prn Acute on chronic respiratory failure with hypoxia and hypercarbia - chronic - maintain O2 88-92% Probable chronic respiratory failure with hypercarbia and hypoxia Due to undiagnosed RUFINO and obesity hypoventilation Afib rate controlled with metoprolol will continue continue xarelto. DM/ Neuropathy levemir and lispro, gabapentin FS Ac and HS. CKD stage 4/ Bone mineral disease/ chronic anemia/ hyperuricemia/ Secondary hyperparathyroidism creatinine at baseline will reduce dose of gabapentin, will reduce dose of torsemide. continue allopurinol and calcitriol RLS continue requip HLD statin Depression Bupropion Parkinson's disease continue sinemet. Obesity BMI 39.0 Complicating care. GERD PPI DVT ppx: on xarelto Dispo: pending transfer to [facility] VS, I&O, 24H, Fishbone Vital Signs/I&O Vital Signs Date Time Temp Pulse Resp B/P (MAP) Pulse Ox O2 Delivery O2 Flow Rate FiO2 08/09/20 08:10 65 130/76 08/09/20 08:09 18 08/09/20 04:11 98.6 91 Nasal Cannula 2.0 I&O- Last 24 Hours up to 6 AM 08/09/20 06:00 Intake Total 660 ml Balance 660 ml Laboratory Data 24H LABS Laboratory Tests 2 08/08/20 21:01: Bedside Glucose (Misc Panel) 132H 08/09/20 07:03: Bedside Glucose (Misc Panel) 95 08/09/20 12:00: Bedside Glucose (Misc Panel) 113H 08/09/20 16:20: Bedside Glucose (Misc Panel) 87 Microbiology Microbiology 08/03/20 Respiratory Virus Panel (PCR) ([facility]) - Final, Complete SARS-CoV-2 (COVID 19) BOO BOURNE MD Aug 09, 2020 19:57
[2020-08-09] MEDS ORDERED: MAG SULF 1GM/100ML (MAG RUN) 1 GM in IV 1 EA IV ONE (20:00)
[2020-08-09] MEDS: SINEMET 25-100 MG TAB PO SCH (22:06)
[2020-08-09] MEDS: ATORVASTATIN 20 MG TAB PO SCH (22:06)
[2020-08-09] MEDS: levETIRAcetam 250MG TABLET (KEPPRA) PO SCH (22:06)
[2020-08-10 04:17] VITALS: BP 129/82
[2020-08-10] MEDS: ALBUTEROL 90 MCG/ACT 8GM HFA INHALER INH SCH ×4 (07:59→21:44)
[2020-08-10] MEDS: DOCUSATE SODIUM 100MG CAPSULE PO SCH ×2 (08:21→23:05)
[2020-08-10] MEDS: FLUTICASONE PROP 0.05% NASAL SPRAY 16 GM (FLONASE) NARES SCH ×2 (08:21→23:04)
[2020-08-10] MEDS: OMEPRAZOLE 20 MG CAP PO SCH (08:22)
[2020-08-10] MEDS: traMADol 50 MG TAB PO SCH ×2 (08:22→23:00)
[2020-08-10] MEDS: allopurinoL 100 MG TAB PO SCH (08:22)
[2020-08-10] MEDS: buPROPion **XL** TABLET 150MG (WELLBUTRIN XL) PO SCH (08:23)
[2020-08-10] MEDS: rOPINIRole 2MG TAB PO SCH ×2 (08:23→22:59)
[2020-08-10] MEDS: CALCITRIOL 0.25 MCG CAP (S0169) PO SCH (08:23)
[2020-08-10] MEDS: GABAPENTIN 300 MG CAP PO SCH ×2 (08:23→22:58)
[2020-08-10] MEDS: TORSEMIDE 20 MG TAB PO SCH ×2 (08:23→17:51)
[2020-08-10] MEDS: METOPROLOL TARTRATE 100 MG TAB PO SCH ×2 (08:25→23:04)
[2020-08-10] MEDS: HumaLOG INSULIN (NovoLOG) PER UNIT SC SCH ×4 (08:27→21:00)
[2020-08-10] MEDS: LEVEMIR (INSULIN DETEMIR) 1 UNITS/0.01ML SC SCH ×2 (08:27→21:00)
[2020-08-10] MEDS: RIVAROXABAN 15 MG TAB (XARELTO) PO SCH (17:50)
[2020-08-10] MEDS: SINEMET 25-100 MG TAB PO SCH (22:58)
[2020-08-10] MEDS: ATORVASTATIN 20 MG TAB PO SCH (22:59)
[2020-08-10] MEDS: levETIRAcetam 250MG TABLET (KEPPRA) PO SCH (22:59)
[2020-08-11 06:32] VITALS: BP 115/53
[2020-08-11] MEDS: ALBUTEROL 90 MCG/ACT 8GM HFA INHALER INH SCH ×4 (07:49→20:15)
[2020-08-11] MEDS: HumaLOG INSULIN (NovoLOG) PER UNIT SC SCH ×4 (08:31→20:52)
[2020-08-11] MEDS: FLUTICASONE PROP 0.05% NASAL SPRAY 16 GM (FLONASE) NARES SCH ×2 (08:32→20:52)
[2020-08-11] MEDS: LEVEMIR (INSULIN DETEMIR) 1 UNITS/0.01ML SC SCH ×2 (08:32→20:52)
[2020-08-11] MEDS: OMEPRAZOLE 20 MG CAP PO SCH (08:32)
[2020-08-11] MEDS: traMADol 50 MG TAB PO SCH ×2 (08:33→20:48)
[2020-08-11] MEDS: DOCUSATE SODIUM 100MG CAPSULE PO SCH ×2 (08:33→20:51)
[2020-08-11] MEDS: allopurinoL 100 MG TAB PO SCH (08:33)
[2020-08-11] MEDS: CALCITRIOL 0.25 MCG CAP (S0169) PO SCH (08:33)
[2020-08-11] MEDS: rOPINIRole 2MG TAB PO SCH ×2 (08:33→20:50)
[2020-08-11] MEDS: buPROPion **XL** TABLET 150MG (WELLBUTRIN XL) PO SCH (08:34)
[2020-08-11] MEDS: TORSEMIDE 20 MG TAB PO SCH ×2 (08:34→17:25)
[2020-08-11] MEDS: METOPROLOL TARTRATE 100 MG TAB PO SCH ×2 (08:34→20:57)
[2020-08-11] MEDS: GABAPENTIN 300 MG CAP PO SCH ×2 (08:34→20:51)
--- NOTE | 2020-08-11 15:13 | IPNPDOC ---
Date Seen The patient was seen on 08/11/20. Progress Note SUBJECTIVE: Seen and examined at bedside this morning. Doing well. No acute events overnight. On room air now, 90%. OBJECTIVE PHYSICAL EXAMINATION: VITAL SIGNS: please see below General: NAD, comfortable HEENT: PERRLA, EOMI, sclerae clear Neck: supple, normal ROM, no JVD Respiratory: lungs CTAB, no wheeze, no rales, no crackles CVS: RRR, normal S1, S2, no murmurs Abdo: soft, no masses, no hepatosplenomegaly, BS+, no rebound tenderness Extremities: no edema, pulses 2+ MSK: no joint deformities, normal ROM Neuro: no focal neuro deficits, moving all 4 extremities, CN2-12 intact. Strength 5/5 in all 4 extremities. No nystagmus. Psych: calm, cooperative, AAO x 3 LABORATORY DATA, IMAGING STUDIES, MICROBIOLOGY: Please see below. DVT prophylaxis ordered?: Y 79 year old female from [facility] assisted living with DM, CKD stage 4, Bronchiectasis, Obesity, Parkinson's disease, admitted for management of COVID- 19 pneumonia. COVID-19 pneumonitis/pneumonia inflammatory markers as per protocol Procalcitonin not increased. lactate normal. D dimer normal Ferritin improving. fibrinogen fluctuating around 400 to 500 range. on dexamethasone oxygen supplementation will continue on xarelto, albuterol prn Acute on chronic respiratory failure with hypoxia and hypercarbia - chronic - maintain O2 88-92% Probable chronic respiratory failure with hypercarbia and hypoxia Due to undiagnosed RUFINO and obesity hypoventilation Afib rate controlled with metoprolol will continue continue xarelto. DM/ Neuropathy levemir and lispro, gabapentin FS Ac and HS. CKD stage 4/ Bone mineral disease/ chronic anemia/ hyperuricemia/ Secondary hyperparathyroidism creatinine at baseline will reduce dose of gabapentin, will reduce dose of torsemide. continue allopurinol and calcitriol RLS continue requip HLD statin Depression Bupropion Parkinson's disease continue sinemet. Obesity BMI 39.0 Complicating care. GERD PPI DVT ppx: on xarelto Dispo: pending transfer to [facility] VS, I&O, 24H, Fishbone Vital Signs/I&O Vital Signs Date Time Temp Pulse Resp B/P (MAP) Pulse Ox O2 Delivery O2 Flow Rate FiO2 08/11/20 08:34 93 115/53 08/11/20 08:33 20 Room Air 08/11/20 06:32 98.4 90 08/10/20 04:17 2.0 I&O- Last 24 Hours up to 6 AM 08/11/20 06:00 Intake Total 360 ml Balance 360 ml Laboratory Data 24H LABS Laboratory Tests 2 08/10/20 16:27: Bedside Glucose (Misc Panel) 121H 08/10/20 20:59: Bedside Glucose (Misc Panel) 89 08/11/20 06:28: Bedside Glucose (Misc Panel) 102 08/11/20 11:31: Bedside Glucose (Misc Panel) 153H Microbiology Microbiology 08/03/20 Respiratory Virus Panel (PCR) ([facility]) - Final, Complete SARS-CoV-2 (COVID 19) BOO BOURNE MD Aug 11, 2020 15:13
[2020-08-11] MEDS: RIVAROXABAN 15 MG TAB (XARELTO) PO SCH (17:24)
[2020-08-11] MEDS: RAMELTEON 8 MG TAB (ROZEREM) PO PRN (20:48)
[2020-08-11] MEDS: levETIRAcetam 250MG TABLET (KEPPRA) PO SCH (20:48)
[2020-08-11] MEDS: ATORVASTATIN 20 MG TAB PO SCH (20:51)
[2020-08-11] MEDS: SINEMET 25-100 MG TAB PO SCH (20:51)
[2020-08-12 04:00] VITALS: BP 140/50
[2020-08-12] MEDS: ALBUTEROL 90 MCG/ACT 8GM HFA INHALER INH SCH ×4 (08:09→20:41)
[2020-08-12] MEDS: OMEPRAZOLE 20 MG CAP PO SCH (08:23)
[2020-08-12] MEDS: GABAPENTIN 300 MG CAP PO SCH ×2 (08:23→20:43)
[2020-08-12] MEDS: DOCUSATE SODIUM 100MG CAPSULE PO SCH ×2 (08:23→20:43)
[2020-08-12] MEDS: CALCITRIOL 0.25 MCG CAP (S0169) PO SCH (08:23)
[2020-08-12] MEDS: buPROPion **XL** TABLET 150MG (WELLBUTRIN XL) PO SCH (08:23)
[2020-08-12] MEDS: rOPINIRole 2MG TAB PO SCH ×2 (08:24→20:42)
[2020-08-12] MEDS: TORSEMIDE 20 MG TAB PO SCH ×2 (08:24→16:42)
[2020-08-12] MEDS: allopurinoL 100 MG TAB PO SCH (08:24)
[2020-08-12] MEDS: traMADol 50 MG TAB PO SCH ×2 (08:25→20:44)
[2020-08-12] MEDS: LEVEMIR (INSULIN DETEMIR) 1 UNITS/0.01ML SC SCH ×2 (08:26→22:19)
[2020-08-12] MEDS: HumaLOG INSULIN (NovoLOG) PER UNIT SC SCH ×4 (08:26→20:44)
[2020-08-12] MEDS: FLUTICASONE PROP 0.05% NASAL SPRAY 16 GM (FLONASE) NARES SCH ×2 (08:27→20:44)
[2020-08-12] MEDS: METOPROLOL TARTRATE 100 MG TAB PO SCH ×2 (08:40→20:50)
--- NOTE | 2020-08-12 10:39 | IPNPDOC ---
Date Seen The patient was seen on 08/12/20. Progress Note SUBJECTIVE: Seen and examined at bedside this morning. Doing well. No acute events overnight. On room air now, 90%. OBJECTIVE PHYSICAL EXAMINATION: VITAL SIGNS: please see below General: NAD, comfortable HEENT: PERRLA, EOMI, sclerae clear Neck: supple, normal ROM, no JVD Respiratory: lungs CTAB, no wheeze, no rales, no crackles CVS: RRR, normal S1, S2, no murmurs Abdo: soft, no masses, no hepatosplenomegaly, BS+, no rebound tenderness Extremities: no edema, pulses 2+ MSK: no joint deformities, normal ROM Neuro: no focal neuro deficits, moving all 4 extremities, CN2-12 intact. Strength 5/5 in all 4 extremities. No nystagmus. Psych: calm, cooperative, AAO x 3 LABORATORY DATA, IMAGING STUDIES, MICROBIOLOGY: Please see below. DVT prophylaxis ordered?: Y 79 year old female from [facility] assisted living with DM, CKD stage 4, Bronchiectasis, Obesity, Parkinson's disease, admitted for management of COVID- 19 pneumonia. COVID-19 pneumonitis/pneumonia inflammatory markers as per protocol Procalcitonin not increased. lactate normal. D dimer normal Ferritin improving. fibrinogen fluctuating around 400 to 500 range. on dexamethasone oxygen supplementation will continue on xarelto, albuterol prn Acute on chronic respiratory failure with hypoxia and hypercarbia - chronic - maintain O2 88-92% Probable chronic respiratory failure with hypercarbia and hypoxia Due to undiagnosed RUFINO and obesity hypoventilation Afib rate controlled with metoprolol will continue continue xarelto. DM/ Neuropathy levemir and lispro, gabapentin FS Ac and HS. CKD stage 4/ Bone mineral disease/ chronic anemia/ hyperuricemia/ Secondary hyperparathyroidism creatinine at baseline will reduce dose of gabapentin, will reduce dose of torsemide. continue allopurinol and calcitriol RLS continue requip HLD statin Depression Bupropion Parkinson's disease continue sinemet. Obesity BMI 39.0 Complicating care. GERD PPI DVT ppx: on xarelto Dispo: pending transfer to [facility] VS, I&O, 24H, Fishbone Vital Signs/I&O Vital Signs Date Time Temp Pulse Resp B/P (MAP) Pulse Ox O2 Delivery O2 Flow Rate FiO2 08/12/20 08:40 80 140/68 08/12/20 08:25 16 08/12/20 04:00 99.4 88 Room Air 08/10/20 04:17 2.0 I&O- Last 24 Hours up to 6 AM 08/12/20 06:00 Intake Total 0 ml Output Total 0 ml Balance 0 ml Laboratory Data 24H LABS Laboratory Tests 2 08/11/20 11:31: Bedside Glucose (Misc Panel) 153H 08/11/20 17:06: Bedside Glucose (Misc Panel) 126H 08/11/20 20:45: Bedside Glucose (Misc Panel) 187H 08/12/20 07:03: Bedside Glucose (Misc Panel) 117H Microbiology Microbiology 08/03/20 Respiratory Virus Panel (PCR) ([facility]) - Final, Complete SARS-CoV-2 (COVID 19) BOO BOURNE MD Aug 12, 2020 10:39
[2020-08-12] MEDS: RIVAROXABAN 15 MG TAB (XARELTO) PO SCH ×2 (17:39→17:41)
[2020-08-12] MEDS: SINEMET 25-100 MG TAB PO SCH (20:42)
[2020-08-12] MEDS: ATORVASTATIN 20 MG TAB PO SCH (20:43)
[2020-08-12] MEDS: levETIRAcetam 250MG TABLET (KEPPRA) PO SCH (20:43)
[2020-08-13 04:00] VITALS: BP 142/66
[2020-08-13] MEDS: LEVEMIR (INSULIN DETEMIR) 1 UNITS/0.01ML SC SCH ×2 (08:28→21:14)
[2020-08-13] MEDS: CALCITRIOL 0.25 MCG CAP (S0169) PO SCH (08:29)
[2020-08-13] MEDS: HumaLOG INSULIN (NovoLOG) PER UNIT SC SCH ×4 (08:29→21:00)
[2020-08-13] MEDS: GABAPENTIN 300 MG CAP PO SCH ×2 (08:30→21:15)
[2020-08-13] MEDS: rOPINIRole 2MG TAB PO SCH ×2 (08:30→21:15)
[2020-08-13] MEDS: DOCUSATE SODIUM 100MG CAPSULE PO SCH ×2 (08:30→21:15)
[2020-08-13] MEDS: buPROPion **XL** TABLET 150MG (WELLBUTRIN XL) PO SCH (08:30)
[2020-08-13] MEDS: METOPROLOL TARTRATE 100 MG TAB PO SCH ×2 (08:31→21:18)
[2020-08-13] MEDS: allopurinoL 100 MG TAB PO SCH (08:31)
[2020-08-13] MEDS: OMEPRAZOLE 20 MG CAP PO SCH (08:32)
[2020-08-13] MEDS: traMADol 50 MG TAB PO SCH ×2 (08:32→21:16)
[2020-08-13] MEDS: TORSEMIDE 20 MG TAB PO SCH ×2 (08:32→17:40)
[2020-08-13] MEDS: FLUTICASONE PROP 0.05% NASAL SPRAY 16 GM (FLONASE) NARES SCH ×2 (08:33→21:14)
[2020-08-13] MEDS: ALBUTEROL 90 MCG/ACT 8GM HFA INHALER INH SCH ×3 (11:13→20:15)
[2020-08-13] MEDS: RIVAROXABAN 15 MG TAB (XARELTO) PO SCH (17:39)
[2020-08-13 19:56] VITALS: BP 108/68
[2020-08-13] MEDS: ATORVASTATIN 20 MG TAB PO SCH (21:15)
[2020-08-13] MEDS: SINEMET 25-100 MG TAB PO SCH (21:15)
[2020-08-13] MEDS: levETIRAcetam 250MG TABLET (KEPPRA) PO SCH (21:15)
[2020-08-14 04:00] VITALS: BP 102/70
[2020-08-14] MEDS: HumaLOG INSULIN (NovoLOG) PER UNIT SC SCH ×4 (07:30→20:00)
[2020-08-14] MEDS: ALBUTEROL 90 MCG/ACT 8GM HFA INHALER INH SCH ×3 (07:42→20:00)
[2020-08-14] MEDS: buPROPion **XL** TABLET 150MG (WELLBUTRIN XL) PO SCH (08:59)
[2020-08-14] MEDS: rOPINIRole 2MG TAB PO SCH ×2 (08:59→21:00)
[2020-08-14] MEDS: CALCITRIOL 0.25 MCG CAP (S0169) PO SCH (08:59)
[2020-08-14] MEDS: GABAPENTIN 300 MG CAP PO SCH ×2 (08:59→21:00)
[2020-08-14] MEDS: DOCUSATE SODIUM 100MG CAPSULE PO SCH ×2 (08:59→21:00)
[2020-08-14] MEDS: allopurinoL 100 MG TAB PO SCH (08:59)
[2020-08-14] MEDS: METOPROLOL TARTRATE 100 MG TAB PO SCH ×2 (09:00→21:00)
[2020-08-14] MEDS: TORSEMIDE 20 MG TAB PO SCH (09:00)
[2020-08-14] MEDS: LEVEMIR (INSULIN DETEMIR) 1 UNITS/0.01ML SC SCH ×2 (09:00→21:00)
[2020-08-14] MEDS: OMEPRAZOLE 20 MG CAP PO SCH (09:01)
[2020-08-14] MEDS: traMADol 50 MG TAB PO SCH ×2 (09:01→21:00)
[2020-08-14] MEDS: FLUTICASONE PROP 0.05% NASAL SPRAY 16 GM (FLONASE) NARES SCH ×2 (09:01→21:00)
[2020-08-14 09:22] LABS: CALCIUM LEVEL 8.6 MG/DL (8.8-10.2); CREATININE FOR GFR 2.61 MG/DL (0.55-1.30); GLOMERULAR FILTRATION RATE 18.9 (>39); POTASSIUM SERUM 3.3 MEQ/L (3.5-5.1)
--- NOTE | 2020-08-14 11:16 | IPNPDOC ---
Date Seen The patient was seen on 08/14/20. Progress Note SUBJECTIVE: Seen and examined at bedside this morning. Doing well. No acute events overnight. On room air now, 90%. OBJECTIVE PHYSICAL EXAMINATION: VITAL SIGNS: please see below General: NAD, comfortable HEENT: PERRLA, EOMI, sclerae clear Neck: supple, normal ROM, no JVD Respiratory: lungs CTAB, no wheeze, no rales, no crackles CVS: RRR, normal S1, S2, no murmurs Abdo: soft, no masses, no hepatosplenomegaly, BS+, no rebound tenderness Extremities: no edema, pulses 2+ MSK: no joint deformities, normal ROM Neuro: no focal neuro deficits, moving all 4 extremities, CN2-12 intact. Strength 5/5 in all 4 extremities. No nystagmus. Psych: calm, cooperative, AAO x 3 LABORATORY DATA, IMAGING STUDIES, MICROBIOLOGY: Please see below. DVT prophylaxis ordered?: Y 79 year old female from [facility] assisted living with DM, CKD stage 4, Bronchiectasis, Obesity, Parkinson's disease, admitted for management of COVID- 19 pneumonia. COVID-19 pneumonitis/pneumonia - completed dex - now on RA - will continue on xarelto, albuterol prn Acute on chronic respiratory failure with hypoxia and hypercarbia - chronic - maintain O2 88-92% Probable chronic respiratory failure with hypercarbia and hypoxia: RUFINO and obesity hypoventilation Afib: rate controlled w/ metoprolol. Xarelto renal dosing (15 mg daily) DM/ Neuropathy: ISS. FSBS AC and HS. Hypoglycemic precautions. MARICRUZ on CKD: Cr. 2.61 (base 2.0). Hold torsemide for today. encourage PO hydration. Reduce dose of torsemide to 20 mg BID on 08/13/20. RLS: c/w requip HLD: statin Depression: Bupropion Parkinson's disease: c/w sinemet. Obesity: bmi 39.0. complicating care GERD:PPI DVT ppx: on xarelto Dispo: pending transfer to [facility] VS, I&O, 24H, Fishbone Vital Signs/I&O Vital Signs Date Time Temp Pulse Resp B/P (MAP) Pulse Ox O2 Delivery O2 Flow Rate FiO2 08/14/20 09:01 20 08/14/20 09:00 94 110/62 08/14/20 04:00 97.3 92 Room Air 08/10/20 04:17 2.0 I&O- Last 24 Hours up to 6 AM 08/14/20 06:00 Intake Total 720 ml Balance 720 ml Laboratory Data 24H LABS Laboratory Tests 2 08/13/20 11:53: Bedside Glucose (Misc Panel) 105 08/13/20 16:40: Bedside Glucose (Misc Panel) 106 08/13/20 20:10: Bedside Glucose (Misc Panel) 123H 08/14/20 06:52: Bedside Glucose (Misc Panel) 64L 08/14/20 08:41: Anion Gap 9, Glomerular Filtration Rate 18.9L, Calcium Level 8.6L CBC/BMP Laboratory Tests 08/14/20 08:41 BOO BOURNE MD Aug 14, 2020 11:16
[2020-08-14] MEDS: RIVAROXABAN 15 MG TAB (XARELTO) PO SCH (17:40)
[2020-08-14] MEDS: SINEMET 25-100 MG TAB PO SCH (21:00)
[2020-08-14] MEDS: levETIRAcetam 250MG TABLET (KEPPRA) PO SCH (21:00)
[2020-08-14] MEDS: ATORVASTATIN 20 MG TAB PO SCH (21:00)
[2020-08-15 04:00] VITALS: BP 138/70
[2020-08-15] MEDS ORDERED: TORSEMIDE 20 MG TAB PO SCH (06:00)
[2020-08-15] MEDS: ALBUTEROL 90 MCG/ACT 8GM HFA INHALER INH SCH ×4 (08:06→19:36)
[2020-08-15 08:09] LABS: CALCIUM LEVEL 8.6 MG/DL (8.8-10.2); CREATININE FOR GFR 2.6 MG/DL (0.55-1.30); POTASSIUM SERUM 3.3 MEQ/L (3.5-5.1)
[2020-08-15] MEDS: DOCUSATE SODIUM 100MG CAPSULE PO SCH ×2 (09:17→21:00)
[2020-08-15] MEDS: rOPINIRole 2MG TAB PO SCH ×2 (09:17→21:00)
[2020-08-15] MEDS: GABAPENTIN 300 MG CAP PO SCH ×2 (09:17→21:00)
[2020-08-15] MEDS: buPROPion **XL** TABLET 150MG (WELLBUTRIN XL) PO SCH (09:17)
[2020-08-15] MEDS: CALCITRIOL 0.25 MCG CAP (S0169) PO SCH (09:17)
[2020-08-15] MEDS: allopurinoL 100 MG TAB PO SCH (09:17)
[2020-08-15] MEDS: OMEPRAZOLE 20 MG CAP PO SCH (09:17)
[2020-08-15] MEDS: FLUTICASONE PROP 0.05% NASAL SPRAY 16 GM (FLONASE) NARES SCH ×2 (09:19→21:00)
[2020-08-15] MEDS: traMADol 50 MG TAB PO SCH ×2 (09:19→21:00)
[2020-08-15] MEDS: METOPROLOL TARTRATE 100 MG TAB PO SCH ×2 (09:20→21:00)
[2020-08-15] MEDS: HumaLOG INSULIN (NovoLOG) PER UNIT SC SCH ×4 (09:20→20:02)
[2020-08-15] MEDS: LEVEMIR (INSULIN DETEMIR) 1 UNITS/0.01ML SC SCH ×2 (09:20→21:00)
[2020-08-15] MEDS: NS 1,000 ML IV SCH ×2 (09:21→18:16)
--- NOTE | 2020-08-15 15:06 | IPNPDOC ---
Date Seen The patient was seen on 08/15/20. Progress Note SUBJECTIVE: Seen and examined at bedside this morning. Doing well. No acute events overnight. On room air now, 90%. OBJECTIVE PHYSICAL EXAMINATION: VITAL SIGNS: please see below General: NAD, comfortable HEENT: PERRLA, EOMI, sclerae clear Neck: supple, normal ROM, no JVD Respiratory: lungs CTAB, no wheeze, no rales, no crackles CVS: RRR, normal S1, S2, no murmurs Abdo: soft, no masses, no hepatosplenomegaly, BS+, no rebound tenderness Extremities: no edema, pulses 2+ MSK: no joint deformities, normal ROM Neuro: no focal neuro deficits, moving all 4 extremities, CN2-12 intact. Strength 5/5 in all 4 extremities. No nystagmus. Psych: calm, cooperative, AAO x 3 LABORATORY DATA, IMAGING STUDIES, MICROBIOLOGY: Please see below. DVT prophylaxis ordered?: Y 79 year old female from [facility] assisted living with DM, CKD stage 4, Bronchiectasis, Obesity, Parkinson's disease, admitted for management of COVID- 19 pneumonia. COVID-19 pneumonitis/pneumonia - completed dex - now on RA - will continue on xarelto, albuterol prn Acute on chronic respiratory failure with hypoxia and hypercarbia - chronic - maintain O2 88-92% Probable chronic respiratory failure with hypercarbia and hypoxia: RUFINO and obesity hypoventilation Afib: rate controlled w/ metoprolol. Xarelto renal dosing (15 mg daily) DM/ Neuropathy: ISS. FSBS AC and HS. Hypoglycemic precautions. MARICRUZ on CKD: Cr. 2.61 (base 2.0). Hold torsemide. IV placed. ivf . will reduce dose of torsemide 20 mg po bid RLS: c/w requip HLD: statin Depression: Bupropion Parkinson's disease: c/w sinemet. Obesity: bmi 39.0. complicating care GERD:PPI DVT ppx: on xarelto Dispo: pending transfer to [facility] VS, I&O, 24H, Fishbone Vital Signs/I&O Vital Signs Date Time Temp Pulse Resp B/P (MAP) Pulse Ox O2 Delivery O2 Flow Rate FiO2 08/15/20 09:20 121 122/58 08/15/20 09:19 16 08/15/20 04:00 98.4 93 Room Air 08/10/20 04:17 2.0 I&O- Last 24 Hours up to 6 AM 08/15/20 06:00 Intake Total 750 ml Output Total 0 ml Balance 750 ml Laboratory Data 24H LABS Laboratory Tests 2 08/14/20 16:54: Bedside Glucose (Misc Panel) 94 08/14/20 19:24: Bedside Glucose (Misc Panel) 181H 08/15/20 07:06: Anion Gap 9, Glomerular Filtration Rate 19.0L, Calcium Level 8.6L CBC/BMP Laboratory Tests 08/15/20 07:06 BOO BOURNE MD Aug 15, 2020 15:06
[2020-08-15] MEDS ORDERED: NYSTATIN 100,000 UNITS/GM TOPICAL PWD 15 GM TOP PRN (18:15)
[2020-08-15] MEDS: NYSTATIN 100,000 UNITS/GM TOPICAL PWD 15 GM TOP SCH (18:16)
[2020-08-15] MEDS: RIVAROXABAN 15 MG TAB (XARELTO) PO SCH (18:16)
[2020-08-15] MEDS: levETIRAcetam 250MG TABLET (KEPPRA) PO SCH (21:00)
[2020-08-15] MEDS: SINEMET 25-100 MG TAB PO SCH (21:00)
[2020-08-15] MEDS: ATORVASTATIN 20 MG TAB PO SCH (21:00)
[2020-08-16] MEDS: NS 1,000 ML IV SCH ×2 (01:50→09:54)
[2020-08-16 04:00] VITALS: BP 121/65
[2020-08-16] MEDS: HumaLOG INSULIN (NovoLOG) PER UNIT SC SCH ×4 (07:30→21:00)
[2020-08-16 08:01] LABS: CALCIUM LEVEL 8.5 MG/DL (8.8-10.2); CREATININE FOR GFR 1.98 MG/DL (0.55-1.30); POTASSIUM SERUM 3.3 MEQ/L (3.5-5.1)
[2020-08-16] MEDS: ALBUTEROL 90 MCG/ACT 8GM HFA INHALER INH SCH ×4 (08:10→20:25)
[2020-08-16] MEDS: LEVEMIR (INSULIN DETEMIR) 1 UNITS/0.01ML SC SCH ×2 (09:47→21:00)
[2020-08-16] MEDS: NYSTATIN 100,000 UNITS/GM TOPICAL PWD 15 GM TOP SCH ×2 (09:47→21:14)
[2020-08-16] MEDS: FLUTICASONE PROP 0.05% NASAL SPRAY 16 GM (FLONASE) NARES SCH ×2 (09:47→21:14)
[2020-08-16] MEDS: CALCITRIOL 0.25 MCG CAP (S0169) PO SCH (09:48)
[2020-08-16] MEDS: GABAPENTIN 300 MG CAP PO SCH ×2 (09:48→21:11)
[2020-08-16] MEDS: DOCUSATE SODIUM 100MG CAPSULE PO SCH ×2 (09:48→21:11)
[2020-08-16] MEDS: rOPINIRole 2MG TAB PO SCH ×2 (09:48→21:12)
[2020-08-16] MEDS: buPROPion **XL** TABLET 150MG (WELLBUTRIN XL) PO SCH (09:48)
[2020-08-16] MEDS: allopurinoL 100 MG TAB PO SCH (09:48)
[2020-08-16] MEDS: OMEPRAZOLE 20 MG CAP PO SCH (09:48)
[2020-08-16] MEDS: traMADol 50 MG TAB PO SCH ×2 (09:49→21:12)
[2020-08-16] MEDS: METOPROLOL TARTRATE 100 MG TAB PO SCH ×2 (09:53→21:12)
[2020-08-16] MEDS ORDERED: POTASSIUM CHLORIDE 10 MEQ SR TABLET PO ONE (15:30)
[2020-08-16 16:34] LABS: HEMATOCRIT 33.2 % (36.0-47.0); HEMOGLOBIN 10.2 g/dl (12.0-15.5); MEAN CORPUSCULAR HEMOGLOBIN 29.9 pg (27.0-33.0); MEAN CORPUSCULAR HGB CONC 30.7 g/dl (32.0-36.5); MEAN CORPUSCULAR VOLUME 97.4 fl (80.0-96.0); PLATELET COUNT, AUTOMATED 353 10^3/uL (150-450); RED BLOOD COUNT 3.41 10^6/uL (4.00-5.40)
[2020-08-16] MEDS: RIVAROXABAN 15 MG TAB (XARELTO) PO SCH (18:06)
--- NOTE | 2020-08-16 20:20 | IPNPDOC ---
Date Seen The patient was seen on 08/16/20. Progress Note SUBJECTIVE: Vika was seen and examined this morning by the hospitalist service at the bedside. She continues to do well and had no adverse events overnight. She is denying any dyspnea, and is saturating at 92% on room air. She is a [facility] patient in order to be discharged home, she needs a negative covid test. A repeat code test was scheduled for today. She denies any chest p ain, chest pressure, abdominal pain, nausea, vomiting, fever or chills. OBJECTIVE PHYSICAL EXAMINATION: VITAL SIGNS: Please see below. GENERAL: Pleasant elderly female in no acute distress. Alert and oriented 3. HEENT: Normocephalic, atraumatic. Noninjected, anicteric sclera. CARDIOVASCULAR: Rate, regular rhythm. Normal S1, S2. No murmurs or rubs were appreciated. RESPIRATORY: Clear to endoscopy bilaterally, both anteriorly and posteriorly. No adventitious breath sounds were appreciated. Symmetric chest expansion. Breathing room air and speaking full senses. ABDOMINAL: Soft, nontender, nondistended. No rigidity appreciated. Normoactive bowel sounds. EXTREMITIES: Bilateral lower extremities are free of edema. No signs of clubbing or cyanosis. NEUROLOGICAL: Awake, alert and oriented 3. No focal neurologic deficits. No dysarthric speech. PSYCHOLOGICAL: Mood and affect appear appropriate. LABORATORY DATA, IMAGING STUDIES, MICROBIOLOGY: Please see below. ASSESSMENT AND PLAN: This is a 79 yo female from [facility] assisted living with notable history of diabetes, bronchiectasis, see CKD stage IV, Parkinson's disease, and obesity who was admitted for management of Covid 19. Pneumonia. #Covid 19. Pneumonia/pneumonitis -She is status post dexamethasone administration. She has had multiple days of low to mid 90s. Saturations on room air. She is denying any dyspnea at this time and upon a negative Covid test will be discharged back to [facility]. -A repeat Covid test today was ordered and unfortunately she still tested positive, so we are working on a plane with the nursing supervisor fiberglass boat assembly to get patient a swing bed for tomorrow, 08/17 #Acute respiratory failure with history of bronchiectasis and chronic respiratory failure -02 titration orders 88-92% -Doing well saturating in the low 90s on room air -Continue with prn albuterol inhaler #CKD -Per review of patient's records, her presenting creatinine is actually near her recent baseline of 2, therefore this was not an acute kidney injury -We have stopped torsemide dosing altogether. -Patient is status post IV fluids. We stop the fluids and are encouraging continued good oral intake #Diabetes mellitus with neuropathy -Continue sliding scale insulin and fingerstick checks ac & HS #History of Parkinson's disease -Continue with home carbidopa/levodopa, as well as ropinirole, gabapentin, and Keppra #HLD -Home statin continued #History of atrial fibrillation on Xarelto -Her rate and rhythm are both regular on exam today -Home Xarelto was continued #History of depression -Home bupropion continued #DVT prophylaxis: Continue with patient's home Xarelto DISPOSITION With today's repeat positive Covid test, patient cannot go back to [facility] so we're working with nursing supervisor fiberglass boat assembly to find a swing bed tomorrow to ensure transfer off of [facility]. VS, I&O, 24H, [facility] Vital Signs/I&O Vital Signs Date Time Temp Pulse Resp B/P (MAP) Pulse Ox O2 Delivery O2 Flow Rate FiO2 08/16/20 09:53 116 129/61 08/16/20 09:49 15 08/16/20 04:00 98.8 92 Room Air 08/10/20 04:17 2.0 I&O- Last 24 Hours up to 6 AM 08/16/20 06:00 Intake Total 720 ml Output Total 0 ml Balance 720 ml Laboratory Data 24H LABS Laboratory Tests 2 08/16/20 07:15: Anion Gap 6L, Glomerular Filtration Rate 26.0L, Calcium Level 8.5L 08/16/20 12:18: Coronavirus (COVID-19)(PCR) POSITIVEA 08/16/20 15:52: Nucleated Red Blood Cells % (auto) 0.0 CBC/BMP Laboratory Tests 08/16/20 07:15 08/16/20 15:52 KARAN BECERRA D.O. Aug 16, 2020 20:20
[2020-08-16] MEDS: levETIRAcetam 250MG TABLET (KEPPRA) PO SCH (21:11)
[2020-08-16] MEDS: ATORVASTATIN 20 MG TAB PO SCH (21:11)
[2020-08-16] MEDS: SINEMET 25-100 MG TAB PO SCH (21:12)
[2020-08-17 04:00] VITALS: BP 128/62
[2020-08-17 06:05] LABS: HEMATOCRIT 31.1 % (36.0-47.0); HEMOGLOBIN 9.6 g/dl (12.0-15.5); MEAN CORPUSCULAR HEMOGLOBIN 30.2 pg (27.0-33.0); MEAN CORPUSCULAR HGB CONC 30.9 g/dl (32.0-36.5); MEAN CORPUSCULAR VOLUME 97.8 fl (80.0-96.0); PLATELET COUNT, AUTOMATED 325 10^3/uL (150-450); RED BLOOD COUNT 3.18 10^6/uL (4.00-5.40); WHITE BLOOD COUNT 8.2 10^3/uL (4.0-10.0)
[2020-08-17 06:40] LABS: CALCIUM LEVEL 8.7 MG/DL (8.8-10.2); CREATININE FOR GFR 1.53 MG/DL (0.55-1.30); GLOMERULAR FILTRATION RATE 34.9 (>39); MAGNESIUM LEVEL 1.8 MG/DL (1.8-2.4); POTASSIUM SERUM 3.6 MEQ/L (3.5-5.1)
[2020-08-17] MEDS: HumaLOG INSULIN (NovoLOG) PER UNIT SC SCH ×2 (07:27→12:30)
[2020-08-17] MEDS: ALBUTEROL 90 MCG/ACT 8GM HFA INHALER INH SCH ×2 (08:33→12:30)
[2020-08-17] MEDS: DOCUSATE SODIUM 100MG CAPSULE PO SCH (08:59)
[2020-08-17] MEDS: rOPINIRole 2MG TAB PO SCH (08:59)
[2020-08-17] MEDS: buPROPion **XL** TABLET 150MG (WELLBUTRIN XL) PO SCH (08:59)
[2020-08-17 09:00] VITALS: BP 128/62
[2020-08-17] MEDS: OMEPRAZOLE 20 MG CAP PO SCH (09:00)
[2020-08-17] MEDS: FLUTICASONE PROP 0.05% NASAL SPRAY 16 GM (FLONASE) NARES SCH (09:00)
[2020-08-17] MEDS: CALCITRIOL 0.25 MCG CAP (S0169) PO SCH (09:00)
[2020-08-17] MEDS: traMADol 50 MG TAB PO SCH (09:00)
[2020-08-17] MEDS: METOPROLOL TARTRATE 100 MG TAB PO SCH (09:00)
[2020-08-17] MEDS: GABAPENTIN 300 MG CAP PO SCH (09:01)
[2020-08-17] MEDS: LEVEMIR (INSULIN DETEMIR) 1 UNITS/0.01ML SC SCH (09:01)
[2020-08-17] MEDS: NYSTATIN 100,000 UNITS/GM TOPICAL PWD 15 GM TOP SCH (09:01)
[2020-08-17] MEDS: allopurinoL 100 MG TAB PO SCH (09:01)
== END 2020-08-17 13:56 | disposition swing bed (61) | DRG 177 ==
LOC: EDBD 13:12 → M ED 13:12 → M ED INP 15:58 → ENRESERV 16:52 → M 4MAIN 18:32
PROVIDERS: ADMIT Internal Medicine Nephrology; ATTEND Internal Medicine Nephrology
DX: U07.1 COVID-19 (principal); J12.89 Other viral pneumonia; J96.21 Acute and chronic respiratory failure with hypoxia; J96.22 Acute and chronic respiratory failure with hypercapnia; N18.4 Chronic kidney disease, stage 4 (severe); N25.81 Secondary hyperparathyroidism of renal origin; E66.2 Morbid (severe) obesity with alveolar hypoventilation; G20 Parkinson's disease; I48.91 Unspecified atrial fibrillation; E11.51 Type 2 diabetes mellitus with diabetic peripheral angiopathy without gangrene; Z79.899 Other long term (current) drug therapy; Z79.01 Long term (current) use of anticoagulants; M19.90 Unspecified osteoarthritis, unspecified site; D63.8 Anemia in other chronic diseases classified elsewhere; K21.9 Gastro-esophageal reflux disease without esophagitis; K44.9 Diaphragmatic hernia without obstruction or gangrene; F32.9 Major depressive disorder, single episode, unspecified; F41.9 Anxiety disorder, unspecified; M81.0 Age-related osteoporosis without current pathological fracture; G25.81 Restless legs syndrome; G47.00 Insomnia, unspecified; Z68.39 Body mass index [BMI] 39.0-39.9, adult

== ENCOUNTER → 2020-08-03 | Outpatient (REF) | payer MEDICARE, MEDICAID ==
[~2020-08-03] MED LIST changes: +ACET650T15 PO; +GABA600T4 PO; +TRAM50TA2 PO
== END ==
PROVIDERS: ATTEND Internal Medicine
DX: Z20.828 Contact with and (suspected) exposure to other viral communicable diseases (principal)

== ENCOUNTER → 2020-10-03 | Outpatient (REF) | payer MEDICARE, MEDICAID ==
[~2020-10-03] MED LIST changes: +ACET650T15 PO; +GABA-282 PO; -GABA-843 PO; +GABA600T4 PO; +TRAM50TA2 PO
== END ==
PROVIDERS: ATTEND Internal Medicine
DX: Z53.9 Procedure and treatment not carried out, unspecified reason (principal)

== ENCOUNTER → 2020-10-03 | Outpatient (REF) | payer MEDICARE, MEDICAID ==
[2020-10-03 19:38] LABS: BACTERIA, URINE AUTO NEGATIVE (NEGATIVE); BILIRUBIN, URINE AUTO NEGATIVE (NEGATIVE); BLOOD, URINE BLOOD NEGATIVE (NEGATIVE); COLOR, URINE YELLOW (YELLOW); GLUCOSE, URINE (UA) AUTO NEGATIVE (NEGATIVE); KETONE, URINE AUTO NEGATIVE (NEGATIVE); LEUKOCYTE ESTERASE, URINE AUTO 2+ (NEGATIVE); MUCUS, URINE SMALL (NEGATIVE); NITRITE, URINE AUTO NEGATIVE (NEGATIVE); PROTEIN, URINE AUTO NEGATIVE (NEGATIVE); RBC, URINE AUTO 1 /HPF (0-3); SQUAMOUS EPITHELIAL CELL UR AU 2 /HPF (0-6); UROBILINOGEN, URINE AUTO 0.2 mg/dL (0.0-2.0); WBC, URINE AUTO 12 /HPF (0-3)
[2020-10-04 06:35] LABS: APPEARANCE, URINE CLEAR (CLEAR)
== END ==
LOC: M LAB REF 18:36
PROVIDERS: ATTEND Nurse Practitioner Family
DX: N18.4 Chronic kidney disease, stage 4 (severe) (principal)

== ENCOUNTER → 2020-10-04 | Outpatient (REF) | payer MEDICARE, MEDICAID ==
[2020-10-04 11:29] LABS: BASO # 0.1 10^3/uL (0.0-0.2); BASO % 1.4 % (0.0-1.0); EOS # 0.5 10^3/uL (0.0-0.5); EOS % 7.5 % (0.0-3.0); HEMOGLOBIN 11.6 g/dl (12.0-15.5); LYMPH # 1.1 10^3/uL (1.5-5.0); LYMPH % 16.5 % (24.0-44.0); MEAN CORPUSCULAR HEMOGLOBIN 30.8 pg (27.0-33.0); MEAN CORPUSCULAR HGB CONC 30.5 g/dl (32.0-36.5); MEAN CORPUSCULAR VOLUME 100.8 fl (80.0-96.0); MONO # 0.8 10^3/uL (0.0-0.8); MONO % 11.7 % (2.0-8.0); NEUTROPHILS # 4.3 10^3/uL (1.5-8.5); NEUTROPHILS % 62.6 % (36.0-66.0); PLATELET COUNT, AUTOMATED 251 10^3/uL (150-450); RED BLOOD COUNT 3.77 10^6/uL (4.00-5.40); WHITE BLOOD COUNT 6.9 10^3/uL (4.0-10.0)
[2020-10-04 11:58] LABS: HEMOGLOBIN A1c 6.6 %
[2020-10-04 12:03] LABS: ALBUMIN 3.2 GM/DL (3.2-5.2); CALCIUM LEVEL 9.2 MG/DL (8.8-10.2); GLOMERULAR FILTRATION RATE 25.6 (>39); PHOSPHORUS LEVEL 3.6 MG/DL (2.5-4.9); POTASSIUM SERUM 4.3 MEQ/L (3.5-5.1); URIC ACID 5.5 MG/DL (2.6-6.0)
[2020-10-04 12:10] LABS: PTH INTACT 116.6 PG/ML (18.5-88.0)
== END ==
PROVIDERS: ATTEND Family Medicine
DX: E11.29 Type 2 diabetes mellitus with other diabetic kidney complication (principal)

== ENCOUNTER → 2020-11-16 | Outpatient (REF) | payer MEDICARE, MEDICAID ==
[~2020-11-16] MED LIST changes: +MILKSUS3 PO
[2020-11-16 15:02] LABS: PERCENT SATURATION 24.9 % (13.2-45.0)
== END ==
LOC: M SFHCPLAZ 10:23
PROVIDERS: ATTEND Family Medicine
DX: D50.9 Iron deficiency anemia, unspecified (principal)
CPT/HCPCS: 36415; 82728; 83550; G0463

== ENCOUNTER → 2021-01-26 | Outpatient (REF) | payer MEDICARE, MEDICAID ==
[2021-01-26 10:11] LABS: HEMATOCRIT 35.1 % (36.0-47.0); MEAN CORPUSCULAR HEMOGLOBIN 30.5 pg (27.0-33.0); MEAN CORPUSCULAR HGB CONC 31.3 g/dl (32.0-36.5); MEAN CORPUSCULAR VOLUME 97.2 fl (80.0-96.0); PLATELET COUNT, AUTOMATED 268 10^3/uL (150-450); RED BLOOD COUNT 3.61 10^6/uL (4.00-5.40); WHITE BLOOD COUNT 8.3 10^3/uL (4.0-10.0)
[2021-01-26 10:49] LABS: ALBUMIN 3.3 GM/DL (3.2-5.2); BILIRUBIN,DIRECT 0.2 MG/DL (0.0-0.2); BILIRUBIN,TOTAL 0.5 MG/DL (0.2-1.0); CALCIUM LEVEL 9.3 MG/DL (8.8-10.2); CREATININE FOR GFR 1.83 MG/DL (0.55-1.30); GLOMERULAR FILTRATION RATE 28.3 (>39); PHOSPHORUS LEVEL 3.5 MG/DL (2.5-4.9); POTASSIUM SERUM 4.6 MEQ/L (3.5-5.1); URIC ACID 5.1 MG/DL (2.6-6.0)
[2021-01-26 10:53] LABS: PTH INTACT 172.3 PG/ML (18.5-88.0)
[2021-01-26 19:17] LABS: APPEARANCE, URINE CLEAR (CLEAR); BACTERIA, URINE AUTO NEGATIVE (NEGATIVE); BILIRUBIN, URINE AUTO NEGATIVE (NEGATIVE); BLOOD, URINE BLOOD NEGATIVE (NEGATIVE); COLOR, URINE YELLOW (YELLOW); GLUCOSE, URINE (UA) AUTO NEGATIVE (NEGATIVE); KETONE, URINE AUTO NEGATIVE (NEGATIVE); LEUKOCYTE ESTERASE, URINE AUTO 2+ (NEGATIVE); NITRITE, URINE AUTO NEGATIVE (NEGATIVE); PROTEIN, URINE AUTO NEGATIVE (NEGATIVE); RBC, URINE AUTO 0 /HPF (0-3); SPECIFIC GRAVITY URINE AUTO 1.008 (1.002-1.035); SQUAMOUS EPITHELIAL CELL UR AU 1 /HPF (0-6); UROBILINOGEN, URINE AUTO 0.2 mg/dL (0.0-2.0); WBC, URINE AUTO 15 /HPF (0-3)
== END ==
PROVIDERS: ATTEND Nurse Practitioner Family
DX: N18.4 Chronic kidney disease, stage 4 (severe) (principal); N25.81 Secondary hyperparathyroidism of renal origin; D50.9 Iron deficiency anemia, unspecified; D63.1 Anemia in chronic kidney disease; E79.0 Hyperuricemia without signs of inflammatory arthritis and tophaceous disease; N39.0 Urinary tract infection, site not specified

== ENCOUNTER → 2021-03-13 | Outpatient (CLI) | payer MEDICARE, MEDICAID ==
[~2021-03-13] MED LIST changes: +OMEP40CA4 PO; -OMEP40CA97 PO
[2021-03-13 14:14] LABS: HEMOGLOBIN A1c 7.3 %
== END ==
LOC: M PLALAB 11:00
PROVIDERS: ATTEND Family Medicine
DX: E11.29 Type 2 diabetes mellitus with other diabetic kidney complication (principal)

== ENCOUNTER → 2021-03-27 | Outpatient (REF) | payer MEDICARE, MEDICAID ==
[~2021-03-27] MED LIST changes: +DOK1CAP4 PO; -DOK1CAP7 PO
[2021-03-27 12:34] LABS: BASO # 0.1 10^3/uL (0.0-0.2); BASO % 1.1 % (0.0-1.0); EOS # 0.4 10^3/uL (0.0-0.5); EOS % 4.6 % (0.0-3.0); HEMATOCRIT 35.4 % (36.0-47.0); HEMOGLOBIN 10.8 g/dl (12.0-15.5); LYMPH # 1.3 10^3/uL (1.5-5.0); LYMPH % 16.5 % (24.0-44.0); MEAN CORPUSCULAR HEMOGLOBIN 30.8 pg (27.0-33.0); MEAN CORPUSCULAR HGB CONC 30.5 g/dl (32.0-36.5); MEAN CORPUSCULAR VOLUME 100.9 fl (80.0-96.0); MONO % 12.7 % (2.0-8.0); NEUTROPHILS # 4.9 10^3/uL (1.5-8.5); NEUTROPHILS % 64.7 % (36.0-66.0); PLATELET COUNT, AUTOMATED 204 10^3/uL (150-450); RED BLOOD COUNT 3.51 10^6/uL (4.00-5.40); WHITE BLOOD COUNT 7.6 10^3/uL (4.0-10.0)
[2021-03-27 13:00] LABS: ALBUMIN 3.1 GM/DL (3.2-5.2); CALCIUM LEVEL 9.1 MG/DL (8.8-10.2); CREATININE FOR GFR 1.99 MG/DL (0.55-1.30); GLOMERULAR FILTRATION RATE 25.7 (>39); PERCENT SATURATION 16.9 % (13.2-45.0); PHOSPHORUS LEVEL 3.7 MG/DL (2.5-4.9); POTASSIUM SERUM 4.3 MEQ/L (3.5-5.1); URIC ACID 5.3 MG/DL (2.6-6.0)
[2021-03-27 13:08] LABS: PTH INTACT 103.7 PG/ML (18.5-88.0)
== END ==
PROVIDERS: ATTEND Nurse Practitioner Family
DX: N18.4 Chronic kidney disease, stage 4 (severe) (principal); D63.1 Anemia in chronic kidney disease; N25.81 Secondary hyperparathyroidism of renal origin; E50.9 Vitamin A deficiency, unspecified; E79.0 Hyperuricemia without signs of inflammatory arthritis and tophaceous disease

== ENCOUNTER 2021-05-29 13:27 | Emergency (ER) | payer MEDICARE, MEDICAID ==
--- NOTE | 2021-05-29 14:50 | REP ---
INDICATION: Altered Mental Status COMPARISON: 08/08/2020 TECHNIQUE: Axial noncontrast images from the skull base to the thoracic inlet with coronal reformations. This CT examination was performed using the following dose reduction techniques: Automated exposure control, adjustment of mA and/or kv according to the patient's size, and use of iterative reconstruction technique. FINDINGS: Atrophy with periventricular leukomalacia and microvascular ischemic changes are appreciated. The ventricles and sulci are symmetric. Morocho-white differentiation is maintained. There is no evidence for acute intracranial hemorrhage, mass/mass effect, pathology or infarction. No extra-axial fluid collection. Calvarium is intact. Paranasal sinuses and mastoid air cells are clear. IMPRESSION: Atrophy and microvascular ischemic changes. No acute intracranial hemorrhage, infarction, or mass/mass effect. <Electronically signed by Ventura Griggs > 05/29/21 [id number]
--- NOTE | 2021-05-29 15:05 | REP ---
INDICATION: Altered Mental Status COMPARISON: 08/03/2020 TECHNIQUE: Portable AP view of the chest FINDINGS: The mediastinum and cardiac silhouette are stable and within normal limits for portable technique. The lung morgan are clear without acute consolidation, effusion, or pneumothorax. Skeletal structures are intact. IMPRESSION: No acute cardiopulmonary process appreciated. <Electronically signed by Ventura Griggs > 05/29/21 [id number]
[2021-05-29 15:38] LABS: BASO # 0.1 10^3/uL (0.0-0.2); BASO % 0.8 % (0.0-1.0); EOS # 0.4 10^3/uL (0.0-0.5); EOS % 5.1 % (0.0-3.0); HEMATOCRIT 33.7 % (36.0-47.0); HEMOGLOBIN 10.4 g/dl (12.0-15.5); LYMPH # 1.2 10^3/uL (1.5-5.0); LYMPH % 15.5 % (24.0-44.0); MEAN CORPUSCULAR HEMOGLOBIN 30.8 pg (27.0-33.0); MEAN CORPUSCULAR HGB CONC 30.9 g/dl (32.0-36.5); MEAN CORPUSCULAR VOLUME 99.7 fl (80.0-96.0); NEUTROPHILS % 65.5 % (36.0-66.0); PLATELET COUNT, AUTOMATED 162 10^3/uL (150-450); RED BLOOD COUNT 3.38 10^6/uL (4.00-5.40); WHITE BLOOD COUNT 7.6 10^3/uL (4.0-10.0)
[2021-05-29 16:18] LABS: ALBUMIN 3.3 GM/DL (3.2-5.2); ALT/SGPT 23 U/L (12-78); BILIRUBIN,DIRECT 0.3 MG/DL (0.0-0.2); BILIRUBIN,TOTAL 0.7 MG/DL (0.2-1.0); BLOOD UREA NITROGEN 48 MG/DL (7-18); CARBON DIOXIDE LEVEL 35 MEQ/L (21-32); CHLORIDE LEVEL 109 MEQ/L (98-107); CPK CREATINE PHOSPHOKINASE 107 U/L (26-192); CREATININE FOR GFR 2.26 MG/DL (0.55-1.30); GLOMERULAR FILTRATION RATE 22.2 (>39); GLUCOSE, FASTING 99 MG/DL (70-100); MB/CK RELATIVE INDEX 3.74 (< OR =4); POTASSIUM SERUM 4.3 MEQ/L (3.5-5.1); SODIUM LEVEL 146 MEQ/L (136-145); TOTAL PROTEIN 7.5 GM/DL (6.4-8.2); TROPONIN I < 0.02 NG/ML (< 0.10)
[2021-05-29 18:52] VITALS: BP 179/94
--- NOTE | 2021-05-29 19:28 | ECGEPIP ---
[facility] - ED Test Date: 2021-05-29 Pat Name: CHARLY TURCIOS Department: Room: - Gender: Female Drafter Marine: ENDY : 1940 Requested By: ANGIE Clarke Order Number: [id number] Reading MD: Makayla May Measurements Intervals Moca Rate: 70 P: IL: QRS: -3 QRSD: 88 T: 4 QT: 402 QTc: 434 Interpretive Statements Atrial fibrillation Inferior infarct , age undetermined Delayed R wave progression Nonspecific ST T wave changes 08/03/20 - rate decreased Nonspecific ST T wave changes Electronically Signed on 05-29-2021 19:28:21 EDT by Makayla May
== END 2021-05-29 19:21 | disposition home or self-care (01) ==
LOC: M ED 13:27
DX: N18.9 Chronic kidney disease, unspecified (principal); I48.91 Unspecified atrial fibrillation; E11.9 Type 2 diabetes mellitus without complications; I10 Essential (primary) hypertension; K21.9 Gastro-esophageal reflux disease without esophagitis; D64.9 Anemia, unspecified; F32.9 Major depressive disorder, single episode, unspecified; G47.00 Insomnia, unspecified; F41.9 Anxiety disorder, unspecified; G25.81 Restless legs syndrome; M54.9 Dorsalgia, unspecified; Z87.891 Personal history of nicotine dependence; Z79.01 Long term (current) use of anticoagulants; Z79.4 Long term (current) use of insulin; Z79.899 Other long term (current) drug therapy

== ENCOUNTER → 2021-05-31 | Outpatient (REF) | payer MEDICARE, MEDICAID | PROVIDERS: ATTEND Family Medicine | DX: Z51.81 Encounter for therapeutic drug level monitoring (principal); Z79.899 Other long term (current) drug therapy ==

== ENCOUNTER → 2021-06-01 | Outpatient (CLI) | payer MEDICARE, MEDICAID ==
[2021-06-01 16:04] LABS: FREE T4 0.87 NG/DL (0.76-1.46); THYROID STIMULATING HORMONE 5.16 uIU/ML (0.358-3.740)
== END ==
LOC: M PLALAB 14:38
PROVIDERS: ATTEND Family Medicine
DX: R79.89 Other specified abnormal findings of blood chemistry (principal); F51.04 Psychophysiologic insomnia; Z79.51 Long term (current) use of inhaled steroids; Z79.899 Other long term (current) drug therapy; R53.83 Other fatigue; G25.81 Restless legs syndrome
CPT/HCPCS: 36415; 82140; 84439; 84443; G0463

== ENCOUNTER → 2021-06-05 | Outpatient (REF) | payer MEDICARE, MEDICAID ==
[2021-06-05 10:39] LABS: BASO # 0.1 10^3/uL (0.0-0.2); BASO % 0.9 % (0.0-1.0); EOS # 0.3 10^3/uL (0.0-0.5); EOS % 4.3 % (0.0-3.0); HEMATOCRIT 31.3 % (36.0-47.0); HEMOGLOBIN 9.6 g/dl (12.0-15.5); LYMPH # 1.1 10^3/uL (1.5-5.0); LYMPH % 13.4 % (24.0-44.0); MEAN CORPUSCULAR HEMOGLOBIN 30.4 pg (27.0-33.0); MEAN CORPUSCULAR HGB CONC 30.7 g/dl (32.0-36.5); MEAN CORPUSCULAR VOLUME 99.1 fl (80.0-96.0); MONO % 12.6 % (2.0-8.0); NEUTROPHILS # 5.5 10^3/uL (1.5-8.5); NEUTROPHILS % 68.3 % (36.0-66.0); PLATELET COUNT, AUTOMATED 200 10^3/uL (150-450); RED BLOOD COUNT 3.16 10^6/uL (4.00-5.40)
[2021-06-05 11:06] LABS: ALBUMIN 3.3 GM/DL (3.2-5.2); CALCIUM LEVEL 10.3 MG/DL (8.8-10.2); CREATININE FOR GFR 2.51 MG/DL (0.55-1.30); GLOMERULAR FILTRATION RATE 19.7 (>39); MAGNESIUM LEVEL 2.1 MG/DL (1.8-2.4); PHOSPHORUS LEVEL 3.1 MG/DL (2.5-4.9); POTASSIUM SERUM 4.9 MEQ/L (3.5-5.1); URIC ACID 4.4 MG/DL (2.6-6.0)
[2021-06-05 11:17] LABS: PTH INTACT 130.9 PG/ML (18.5-88.0)
== END ==
PROVIDERS: ATTEND Nurse Practitioner Family
DX: N18.4 Chronic kidney disease, stage 4 (severe) (principal); D50.0 Iron deficiency anemia secondary to blood loss (chronic); N25.81 Secondary hyperparathyroidism of renal origin; E79.9 Disorder of purine and pyrimidine metabolism, unspecified

== ENCOUNTER → 2021-06-16 | Outpatient (CLI) | payer MEDICARE, MEDICAID ==
[2021-06-16 14:15] LABS: HEMOGLOBIN A1c 6.6 %
== END ==
LOC: M PLALAB 09:21
PROVIDERS: ATTEND Family Medicine
DX: E11.29 Type 2 diabetes mellitus with other diabetic kidney complication (principal)
CPT/HCPCS: 36415; 83036; G0463

== ENCOUNTER → 2021-06-26 | Outpatient (REF) | payer MEDICARE, MEDICAID ==
[2021-06-26 11:06] LABS: BASO # 0.1 10^3/uL (0.0-0.2); BASO % 1.4 % (0.0-1.0); EOS # 0.4 10^3/uL (0.0-0.5); EOS % 6.8 % (0.0-3.0); HEMATOCRIT 30.5 % (36.0-47.0); HEMOGLOBIN 9.2 g/dl (12.0-15.5); LYMPH # 1.1 10^3/uL (1.5-5.0); LYMPH % 17.3 % (24.0-44.0); MEAN CORPUSCULAR HEMOGLOBIN 30.6 pg (27.0-33.0); MEAN CORPUSCULAR HGB CONC 30.2 g/dl (32.0-36.5); MEAN CORPUSCULAR VOLUME 101.3 fl (80.0-96.0); MONO # 0.7 10^3/uL (0.0-0.8); MONO % 11.7 % (2.0-8.0); NEUTROPHILS # 3.9 10^3/uL (1.5-8.5); NEUTROPHILS % 62.5 % (36.0-66.0); PLATELET COUNT, AUTOMATED 224 10^3/uL (150-450); RED BLOOD COUNT 3.01 10^6/uL (4.00-5.40); WHITE BLOOD COUNT 6.3 10^3/uL (4.0-10.0)
[2021-06-26 11:33] LABS: ALBUMIN 2.8 GM/DL (3.2-5.2); CALCIUM LEVEL 9.7 MG/DL (8.8-10.2); CREATININE FOR GFR 2.6 MG/DL (0.55-1.30); GLOMERULAR FILTRATION RATE 18.9 (>39); PERCENT SATURATION 14.8 % (13.2-45.0); PHOSPHORUS LEVEL 3.6 MG/DL (2.5-4.9); POTASSIUM SERUM 4.6 MEQ/L (3.5-5.1)
== END ==
PROVIDERS: ATTEND Nurse Practitioner Family
DX: N18.4 Chronic kidney disease, stage 4 (severe) (principal); D50.9 Iron deficiency anemia, unspecified

== ENCOUNTER 2021-07-07 07:22 | Outpatient (CLI) | payer MEDICARE, MEDICAID ==
[~2021-07-07] VITALS: Ht 160 cm; Wt 104.5 kg
[2021-07-07 07:51] VITALS: BP 120/57
[2021-07-07] MEDS ORDERED: IRON SUCROSE 300 MG in NS 250 ML OVER 90 MIN. IV ONE (08:00)
[2021-07-07 09:00] VITALS: BP 110/56
[2021-07-07 10:32] VITALS: BP 132/59
== END 2021-07-07 10:40 | disposition home or self-care (01) ==
LOC: M INFU 07:22
PROVIDERS: ATTEND Internal Medicine Nephrology
DX: D50.9 Iron deficiency anemia, unspecified (principal); R06.02 Shortness of breath
CPT/HCPCS: 71046; 96365; 96366; J1756

== ENCOUNTER → 2021-07-07 | Outpatient (CLI) | payer MEDICARE, MEDICAID ==
--- NOTE | 2021-07-07 11:34 | REP ---
INDICATION: DYSPNEA PT IS IN INF. INF WILL LET U KNOW WHEN SHE IS DONE COMPARISON: 05/29/2021 TECHNIQUE: PA and lateral. FINDINGS: The mediastinum and cardiac silhouette are stable. Mild pulmonary vascular congestion cannot be excluded. No consolidation or effusion. No pneumothorax. Skeletal structures intact. IMPRESSION: Cannot exclude mild pulmonary vascular congestion. <Electronically signed by Ventura Griggs > 07/07/21 0837
== END ==
LOC: M RAD 09:02
PROVIDERS: ATTEND Nurse Practitioner Family
DX: R06.02 Shortness of breath (principal)

== ENCOUNTER → 2021-07-21 | Outpatient (REF) | payer MEDICARE, MEDICAID ==
[~2021-07-21] MED LIST changes: +BUPR15TA PO; +CINA30TA4 PO; +KEPP250T5 PO; +METO25TA PO; +ONDA-83 PO; +RISATAB3 PO
[2021-07-21 11:44] LABS: BASO # 0.1 10^3/uL (0.0-0.2); BASO % 0.9 % (0.0-1.0); EOS # 0.5 10^3/uL (0.0-0.5); EOS % 6.1 % (0.0-3.0); HEMATOCRIT 33.3 % (36.0-47.0); HEMOGLOBIN 10.1 g/dl (12.0-15.5); LYMPH # 1.3 10^3/uL (1.5-5.0); LYMPH % 15.9 % (24.0-44.0); MEAN CORPUSCULAR HEMOGLOBIN 30.6 pg (27.0-33.0); MEAN CORPUSCULAR HGB CONC 30.3 g/dl (32.0-36.5); MEAN CORPUSCULAR VOLUME 100.9 fl (80.0-96.0); MONO # 0.8 10^3/uL (0.0-0.8); MONO % 9.6 % (2.0-8.0); NEUTROPHILS # 5.3 10^3/uL (1.5-8.5); NEUTROPHILS % 67.1 % (36.0-66.0); PLATELET COUNT, AUTOMATED 154 10^3/uL (150-450); WHITE BLOOD COUNT 7.9 10^3/uL (4.0-10.0)
[2021-07-21 12:16] LABS: ALBUMIN 2.9 GM/DL (3.2-5.2); BILIRUBIN,TOTAL 0.4 MG/DL (0.2-1.0); CALCIUM LEVEL 7.8 MG/DL (8.8-10.2); CREATININE FOR GFR 2.75 MG/DL (0.55-1.30); GLOMERULAR FILTRATION RATE 17.7 (>39); POTASSIUM SERUM 4.9 MEQ/L (3.5-5.1); TOTAL PROTEIN 6.7 GM/DL (6.4-8.2)
== END ==
PROVIDERS: ATTEND Physician Assistant Medical
DX: D64.9 Anemia, unspecified (principal)

== ENCOUNTER → 2021-07-24 | Outpatient (REF) | payer MEDICARE, MEDICAID ==
[~2021-07-24] MED LIST changes: +ELIQ2.5T PO; +LOPR1TAB6 PO; +LOPR1TAB7 PO
[2021-07-24 11:11] LABS: BASO # 0.1 10^3/uL (0.0-0.2); EOS # 0.4 10^3/uL (0.0-0.5); EOS % 5.1 % (0.0-3.0); HEMATOCRIT 32.1 % (36.0-47.0); HEMOGLOBIN 10.1 g/dl (12.0-15.5); LYMPH # 1.4 10^3/uL (1.5-5.0); LYMPH % 19.5 % (24.0-44.0); MEAN CORPUSCULAR HEMOGLOBIN 31.6 pg (27.0-33.0); MEAN CORPUSCULAR HGB CONC 31.5 g/dl (32.0-36.5); MEAN CORPUSCULAR VOLUME 100.3 fl (80.0-96.0); MONO # 0.8 10^3/uL (0.0-0.8); MONO % 10.7 % (2.0-8.0); NEUTROPHILS # 4.6 10^3/uL (1.5-8.5); NEUTROPHILS % 63.4 % (36.0-66.0); PLATELET COUNT, AUTOMATED 154 10^3/uL (150-450); WHITE BLOOD COUNT 7.2 10^3/uL (4.0-10.0)
[2021-07-24 11:56] LABS: ALBUMIN 3.1 GM/DL (3.2-5.2); CALCIUM LEVEL 7.9 MG/DL (8.8-10.2); CREATININE FOR GFR 2.68 MG/DL (0.55-1.30); GLOMERULAR FILTRATION RATE 18.3 (>39); PHOSPHORUS LEVEL 4.7 MG/DL (2.5-4.9); POTASSIUM SERUM 4.8 MEQ/L (3.5-5.1); PTH INTACT 318.8 PG/ML (18.5-88.0); TOTAL 25(OH) VITAMIN D 45.5 NG/ML (30.0-100.0)
== END ==
PROVIDERS: ATTEND Nurse Practitioner Family
DX: N18.4 Chronic kidney disease, stage 4 (severe) (principal); D63.1 Anemia in chronic kidney disease; E55.9 Vitamin D deficiency, unspecified; N25.81 Secondary hyperparathyroidism of renal origin

== ENCOUNTER → 2021-08-08 | Outpatient (CLI) | payer MEDICARE, MEDICAID ==
[~2021-08-08] MED LIST changes: -BUPR15TA PO; -CINA30TA4 PO; -ELIQ2.5T PO; -KEPP250T5 PO; -LOPR1TAB6 PO; -LOPR1TAB7 PO; -METO25TA PO; -ONDA-83 PO; -RISATAB3 PO
[2021-08-08 15:20] LABS: BASO # 0.1 10^3/uL (0.0-0.2); BASO % 0.8 % (0.0-1.0); EOS # 0.4 10^3/uL (0.0-0.5); HEMATOCRIT 31.9 % (36.0-47.0); HEMOGLOBIN 9.7 g/dl (12.0-15.5); LYMPH # 1.1 10^3/uL (1.5-5.0); LYMPH % 17.9 % (24.0-44.0); MEAN CORPUSCULAR HEMOGLOBIN 30.7 pg (27.0-33.0); MEAN CORPUSCULAR HGB CONC 30.4 g/dl (32.0-36.5); MEAN CORPUSCULAR VOLUME 100.9 fl (80.0-96.0); MONO # 0.8 10^3/uL (0.0-0.8); MONO % 12.2 % (2.0-8.0); NEUTROPHILS # 3.8 10^3/uL (1.5-8.5); NEUTROPHILS % 61.9 % (36.0-66.0); PLATELET COUNT, AUTOMATED 154 10^3/uL (150-450); RED BLOOD COUNT 3.16 10^6/uL (4.00-5.40); WHITE BLOOD COUNT 6.1 10^3/uL (4.0-10.0)
[2021-08-08 16:05] LABS: ALBUMIN 3.2 GM/DL (3.2-5.2); BILIRUBIN,TOTAL 0.6 MG/DL (0.2-1.0); CALCIUM LEVEL 7.8 MG/DL (8.8-10.2); CREATININE FOR GFR 2.4 MG/DL (0.55-1.30); GLOMERULAR FILTRATION RATE 20.7 (>39); MAGNESIUM LEVEL 1.9 MG/DL (1.8-2.4); POTASSIUM SERUM 4.2 MEQ/L (3.5-5.1)
== END ==
LOC: M PLALAB 12:37
PROVIDERS: ATTEND Physician Assistant
DX: E16.2 Hypoglycemia, unspecified (principal); R50.9 Fever, unspecified; E11.29 Type 2 diabetes mellitus with other diabetic kidney complication; D63.1 Anemia in chronic kidney disease; N18.4 Chronic kidney disease, stage 4 (severe); Z79.51 Long term (current) use of inhaled steroids; Z79.899 Other long term (current) drug therapy

== ENCOUNTER 2021-08-12 07:01 | Inpatient (IN) | payer MEDICARE, MEDICAID ==
[~2021-08-12] VITALS: Ht 160 cm; Wt 105.0 kg
[2021-08-12] MEDS ORDERED: IPRATROPIUM 0.5MG/ALBUTEROL 2.5MG INH SOL UD 3ML (DUONEB) NEB ONE (07:25)
[2021-08-12] MEDS ORDERED: ALBUTEROL SULFATE 2.5 MG/0.5 ML INH NEB SOLN INH ONE (07:25)
[2021-08-12 07:47] LABS: BASO % 0.6 % (0.0-1.0); EOS # 0.3 10^3/uL (0.0-0.5); HEMATOCRIT 29.2 % (36.0-47.0); HEMOGLOBIN 9.3 g/dl (12.0-15.5); LYMPH # 0.9 10^3/uL (1.5-5.0); LYMPH % 13.4 % (24.0-44.0); MEAN CORPUSCULAR HEMOGLOBIN 31.7 pg (27.0-33.0); MEAN CORPUSCULAR HGB CONC 31.8 g/dl (32.0-36.5); MEAN CORPUSCULAR VOLUME 99.7 fl (80.0-96.0); MONO # 0.8 10^3/uL (0.0-0.8); MONO % 13.1 % (2.0-8.0); NEUTROPHILS # 4.4 10^3/uL (1.5-8.5); NEUTROPHILS % 68.6 % (36.0-66.0); PLATELET COUNT, AUTOMATED 144 10^3/uL (150-450); RED BLOOD COUNT 2.93 10^6/uL (4.00-5.40); WHITE BLOOD COUNT 6.4 10^3/uL (4.0-10.0)
[2021-08-12 07:47] LABS: ABG BASE EXCESS 5.7 (-2.0-2.0); ABG HCO3 31.6 MEQ/L (22.0-26.0); ABG O2 SATURATION 95.8 % (95.0-99.0); ABG PARTIAL PRESSURE CO2 53.7 mmHg (35.0-45.0); ABG PARTIAL PRESSURE O2 89.1 mmHg (75.0-100.0); ABG STANDARD HCO3 29.6 MEQ/L (22.0-26.0); ABG TOTAL CO2 33.3 MEQ/L (23.0-31.0); ABG pH (ARTERIAL) 7.388 UNITS (7.350-7.450)
[2021-08-12 08:03] LABS: INR 1.7; PROTHROMBIN TIME 20.4 SECONDS (12.7-14.5)
[2021-08-12 08:05] LABS: D-DIMER QUANT 686.8 ng/ml (<500)
[2021-08-12 08:34] LABS: ALBUMIN 3.1 GM/DL (3.2-5.2); BILIRUBIN,DIRECT 0.2 MG/DL (0.0-0.2); BILIRUBIN,TOTAL 0.5 MG/DL (0.2-1.0); THYROID STIMULATING HORMONE 7.49 uIU/ML (0.358-3.740); TOTAL PROTEIN 6.9 GM/DL (6.4-8.2)
[2021-08-12] MEDS ORDERED: CINA30TA4 PO (08:44)
[2021-08-12] MEDS ORDERED: BUPR15TA PO (08:44)
[2021-08-12] MEDS ORDERED: AMMO12CR7 TOP (08:44)
[2021-08-12] MEDS ORDERED: FUROSEMIDE 20MG/2ML VIAL (J1940) IV ONE (08:45)
--- NOTE | 2021-08-12 08:46 | REP ---
INDICATION: DYSPNEA/COUGH COMPARISON: 07/07/2021 TECHNIQUE: Portable AP view of the chest FINDINGS: Examination is limited by poor inspiratory effort and underpenetration/portable technique. Diffuse bilateral airspace disease is suspected. No obvious effusion. No pneumothorax. IMPRESSION: Diffuse bilateral opacities suggested. <Electronically signed by Ventura Griggs > 08/12/21 [id number]
[2021-08-12 08:56] LABS: CALCIUM LEVEL 6.9 MG/DL (8.8-10.2); CREATININE FOR GFR 2.42 MG/DL (0.55-1.30); GLOMERULAR FILTRATION RATE 20.5 (>39); POTASSIUM SERUM 4.3 MEQ/L (3.5-5.1)
[2021-08-12] MEDS ORDERED: GABA-282 PO (09:02)
[2021-08-12] MEDS ORDERED: ONDA-83 PO (09:02)
[2021-08-12] MEDS ORDERED: KEPP250T5 PO (09:02)
[2021-08-12] MEDS ORDERED: RISATAB3 PO (09:02)
[2021-08-12] MEDS ORDERED: TORS20TA2 PO (09:12)
[2021-08-12] MEDS ORDERED: TOUJ1.2I SC (09:12)
[2021-08-12] MEDS ORDERED: HOME MED LIST COMPLETE! XX SCH (09:25)
--- NOTE | 2021-08-12 09:40 | HPEPDOC ---
General Date of Admission 08/12/21 Date of Service: Aug 12, 2021 Chief Complaint The patient is a 80-year-old female admitted with a reason for visit of SOB. Source: Patient History of Present Illness 80-year-old female resident of [facility] living with past medical history of CKD stage IV, diabetes with polyneuropathy, bronchiectasis, A. fib, presented to the emergency room with gradually increasing shortness of breath over the past 3 weeks and worsened over the past 2 days. Patient also reported that she has noticed a weight gain of about 20 pounds in the past 2 to 3 months. She also noticed increased swelling of her legs and swelling and distention of her abd omen. Patient was noted to be saturating at 88% in room air at the [facility] so EMS was called for hypoxia and she was brought to the ED for evaluation. In the ED she had chest x-ray which showed diffuse bilateral opacities. Also noted fluid in the fissure. Labs showed elevated BNP. An rigo vated creatinine which is at her baseline. Patient was admitted for CHF exacerbation. Home Medications Scheduled Acetaminophen (Acetaminophen ER) 650 Mg Tablet.er, 650 MG PO Q8H, (Reported) Allopurinol (Allopurinol) 100 Mg Tablet, 200 MG PO DAILY, (Reported) Ammonium Lactate (Ammonium Lactate) 12% Cream..g., 1 DOSE TOP DAILY, (Reported) supervised self-administration to both feet prior to putting on stockings Atorvastatin Calcium (Atorvastatin Calcium) 80 Mg Tab, 80 MG PO QHS, (Reported) Bupropion HCl (Wellbutrin Sr) 150 Mg Tab.sr.12h, 150 MG PO DAILY, (Reported) Carbidopa/Levodopa (Carbidopa-Levodopa 25-100 Tab) 1 Tab Tab, 1 TAB PO QPM, (Reported) 1929 Cinacalcet (Sensipar) 30 Mg Tablet, 30 MG PO 3XW, (Reported) MWF Docusate Sodium (Dok) 100 Mg Capsule, 100 MG PO BID, (Reported) Dulaglutide (Trulicity) 1.5 Mg/0.5 Ml Pen.injctr, 1.5 MG SC QWEEK, (Reported) TUES EVENING Ferrous Sulfate (Ferrous Sulfate) 325 Mg Tablet.dr, 325 MG PO QHS, (Reported) Fluticasone Propionate (Flonase Allergy Relief) 50 Mcg/Act Spr, 1 SPRAY NARES BID, (Reported) Gabapentin (Gabapentin) 300 Mg Capsule, 300 MG PO Q8H, (Reported) Insulin Glargine,Hum.rec.anlog (Toujeo Solostar) 300 Unit/Ml Inj, 20 UNIT SC DAILY, (Reported) Insulin Glargine,Hum.rec.anlog (Toujeo Solostar) 300 Unit/1 Ml Insuln.pen, 15 UNIT SC QHS, (Reported) L.acidoph/L.bulg/B.bif/S.therm (Clarisa-Bid Caplet) 1 Each Tablet, 1 TAB PO BID, (Reported) Levetiracetam (Levetiracetam) 750 Mg Tablet, 750 MG PO QHS, (Reported) Levetiracetam (Keppra) 250 Mg Tablet, 250 MG PO QPM, (Reported) Magnesium Hydroxide (Milk of Magnesia) 400 Mg/5 Ml Oral.susp, 5 ML PO Q6H, (Reported) Metolazone (Metolazone) 2.5 Mg Tablet, 1 TAB PO DAILY Metoprolol Tartrate (Metoprolol Tartrate) 100 Mg Tab, 100 MG PO BID, (Reported) Nystatin (Nystatin) 100,000 Unit/Gm Cre, 1 APLCT TOP BID, (Reported) APPLY TO ABDOMINAL FOLDS Omeprazole (Omeprazole) 40 Mg Cap, 40 MG PO DAILY, (Reported) Potassium Chloride (Potassium Chloride) 10 Meq Cap, 10 MEQ PO DAILY, (Reported) Rivaroxaban (Xarelto) 15 Mg Tab, 15 MG PO DAILY, (Reported) Ropinirole HCl (Ropinirole HCl) 2 Mg Tablet, 2 MG PO BID, (Reported) 1200 AND 2000 Torsemide (Torsemide) 20 Mg Tablet, 60 MG PO BID At 0900 and 1400 Tramadol HCl (Tramadol HCl) 50 Mg Tablet, 50 MG PO BID, (Reported) Scheduled PRN Albuterol Sulf (Albuterol Sulfate) 2.5 Mg/3 Ml Nebu, 1 VIAL NEB QID PRN for SHORTNESS OF BREATH, (Reported) Albuterol Sulfate (Proair Hfa) 108 Mcg/Act Aer, 2 PUFF INH Q4H PRN for SHORTNESS OF BREATH, (Reported) Loperamide HCl (Loperamide) 2 Mg Capsule, 4 MG PO QID PRN for DIARRHEA, (Reported) Loratadine (Claritin) 10 Mg Cap, 10 MG PO DAILY PRN for ALLERGY, (Reported) Ondansetron HCl (Ondansetron HCl) 4 Mg Tablet, 4 MG PO Q6H PRN for NAUSEA OR VOMITING, (Reported) Polyethylene Glycol 3350 (Miralax) 1 Pow Pow, 17 GRAM PO DAILY PRN for CONSTIPATION, (Reported) dissolve in water Allergies Coded Allergies: No Known Allergies (Unverified , 07/16/17) Past Medical History Medical History Covid 19 infection in July 2020 Diabetes Atrial fibrillation on Xarelto Chronic kidney disease stage 4 Hyperuricemia Metabolic Bone disease Secondary Hyperparathyroidism Hypertension Arthritis GERD-Hiatal hernia Osteoporosis Anemia of chronic disease, Iron deficiency Parkinson's disease HLD Depression and anxiety Insomnia Restless leg syndrome Bronchiectasis Polyneuropathy Chronic low back pain Elevated La Carla/lambda ratio Morbid obesity BMI of 43.3 Diabetes Hypertension Intertriginous candidiasis under the abdominal folds in both groin Surgical History Carpal tunnel surgery Left total hip replacement in 2039 Tumor removed from back Parathyroidectomy Tonsillectomy and adenoidectomy Hysterectomy 1917 Right mastoid surgery 1994 Bilateral cataract surgery in 2014 Family History Father diagnosed with heart disease Mother unknown cause Brother history of heart disease Son history of glaucoma A-FIB/CHADSVASC A-FIB History Current/History of A-Fib/PAF?: Yes Current PO Anticoag Therapy: Yes Review of Systems Constitutional: Denies: Chills, Fever, Night Sweats Eyes: Denies: Pain, Vision change ENT: Denies: Head Aches, Ear Pain, Dysphagia Skin: Reports: Rash Pulmonary: Reports: Dyspnea Cardiovascular: Denies: Chest Pain, Palpitations, Orthopnea, Paroxysmal Noc. Dyspnea Gastrointestinal: Denies: Nausea, Vomiting, Abdominal Pain, Diarrhea Genitourinary: Denies: Dysuria, Frequency, Incontinence Hematologic: Denies: Bruising, Bleeding Excessively Musculoskeletal: Reports: Back Pain, Joint Pain; Denies: Neck Pain Neurological: Denies: Weakness, Numbness, Change in speech, Confusion Physical Examination General Exam: Positive: Alert, Cooperative, No Acute Distress Eye Exam: Positive: PERRLA, Conjunctiva & lids normal, EOMI; Negative: Sclera icteric ENT Exam: Positive: Atraumatic, Mucous membr. moist/pink, Pharynx Normal Neck Exam: Positive: Supple; Negative: JVD, thyromegaly Chest Exam: Positive: Diminished, Other (Bilateral diffuse crackles from the base to the mid of the chest at the back); Negative: Rhonchi, Wheezing Heart Exam: Positive: Rate Normal, Regular Rhythm, Irregular Rhythm, Normal S1, Normal S2; Negative: Murmurs, Rubs Abdomen Exam: Positive: Normal bowel sounds, Soft, Other (Bilateral redness in both the groin and under the abdominal folds); Negative: Tenderness, Hepatospenomegaly, Mass, Hernia Extremity Exam: Positive: Edema; Negative: Clubbing, Cyanosis Skin Exam: Positive: Rash (Under the abdominal folds in both groin) Psych Exam: Positive: Memory Intact, Oriented x 3 Vital Signs Vital Signs Date Time Temp Pulse Resp B/P (MAP) Pulse Ox O2 Delivery O2 Flow Rate FiO2 08/12/21 08:16 76 94 08/12/21 08:15 24 113/56 (75) 08/12/21 07:38 Nasal Cannula 3.0 92 08/12/21 07:13 96.1 Laboratory Data Labs 24H Laboratory Tests 2 08/12/21 07:29: Immature Granulocyte % (Auto) 0.3, Neutrophils (%) (Auto) 68.6H, Lymphocytes (%) (Auto) 13.4L, Monocytes (%) (Auto) 13.1H, Eosinophils (%) (Auto) 4.0H, Basophils (%) (Auto) 0.6, Neutrophils # (Auto) 4.4, Lymphocytes # (Auto) 0.9L, Monocytes # (Auto) 0.8, Eosinophils # (Auto) 0.3, Basophils # (Auto) 0.0, Nucleated Red Blood Cells % (auto) 0.0, Prothrombin Time 20.4H, Prothromb Time International Ratio 1.70, D-Dimer, Quantitative 686.80H, Anion Gap 8, Glomerular Filtration Ra te 20.5L, Lactic Acid Level 1.1, Calcium Level 6.9L, Total Bilirubin 0.5, Direct Bilirubin 0.2, Aspartate Amino Transf (AST/SGOT) 33, Alanine Aminotransferase (ALT/SGPT) 14, Alkaline Phosphatase 191H, PR-Wah-V-Type Natriuretic Peptide 1824H, Total Protein 6.9, Albumin 3.1L, Albumin/Globulin Ratio 0.8L, Thyroid Stimulating Hormone (TSH) 7.490H, Thyroxine (T4) 6.0 08/12/21 07:31: Blood Gas Bicarbonate Standard 29.6H, Arterial Blood pH 7.388, Arterial Blood Partial Pressure CO2 53.7H, Arterial Blood Partial Pressure O2 89.1, Arterial Blood Total CO2 33.3H, Arterial Blood HCO3 31.6H, Arterial Blood Base Excess 5.7H, Arterial Blood Oxygen Saturation 95.8 08/12/21 07:40: POC Glucose (Misc Panel) 92, POC Sodium (Misc Panel) 145, POC Potassium (Misc Panel) 4.1, POC Chloride (Misc Panel) 102, POC Total CO2 (Misc Panel) 30.0H, POC Blood Urea Nitrogen (Misc Panel 42H, POC Ionized Calcium (Misc Panel) 3.8L, POC Creatinine (Misc Panel) 2.3H, POC Hematocrit (Misc Panel) 32.0L 08/12/21 07:42: POC Troponin I (Misc) 0.01 CBC/BMP Laboratory Tests 08/12/21 07:29 Microbiology Microbiology 08/12/21 Respiratory Virus Panel (PCR) (BRUNO) - Final, Complete 08/12/21 Blood Culture, Received Pending 08/12/21 Blood Culture, Received Pending Assessment/Plan 80-year-old female resident of [facility] with past medical history of CKD stage IV, diabetes with polyneuropathy, bronchiectasis, A. fib, presented to the emergency room with gradually increasing shortness of breath over the past 3 weeks and worsened over the past 2 days. Patient also reported that she has noticed a weight gain of about 20 pounds in the past 2 to 3 months. She also noticed increased swelling of her legs and swelling and distention of her abdomen. Patient was noted to be saturating at 88% in room air at the [facility] so EMS was called for hypoxia and she was brought to the ED for evaluation. In the ED she had chest x-ray which showed diffuse bilateral opacities. Also noted fluid in the fissure. Labs showed elevated BNP. An elevated creatinine which is at her baseline. Patient was admitted for CHF exacerbation. CHF exacerbation Undetermined type of CHF as no echo in the system We will order an echo We will start the patient on IV Lasix 1.8 L fluid restriction Daily weights, intake and output monitor CKD stage IV Creatinine seems to be at baseline We will continue to monitor may worsen with diuresis Diabetes We will continue with lispro as per sliding scale and Levemir Fingerstick as per before meals and at bedtime Asthma/bronchiectasis We will continue with home inhalers and nebulizers. Chronic A. fib EKG shows A. fib rate is controlled We will continue with anticoagulation. Plan / VTE VTE Prophylaxis Ordered?: Yes Dorota Santiago MD Aug 12, 2021 09:40
--- NOTE | 2021-08-12 09:58 | ECGEPIP ---
[facility] - ED Test Date: 2021-08-12 Pat Name: CHARLY TURCIOS Department: Room: - Gender: Female Drying Machine Tender: PRICILA : 1940 Requested By: Makayla May Order Number: [id number] Reading MD: Makayla May Measurements Intervals Perkins Rate: 74 P: TN: QRS: 9 QRSD: 88 T: 63 QT: 424 QTc: 470 Interpretive Statements Atrial fibrillation Nonspecific ST T wave changes INFERIOR INFARCT, AGE INDETERMINATE Delayed R wave progression cw 05/29/[address] T wave changes Electronically Signed on 08-12-2021 9:58:12 EST by Makayla May
--- NOTE | 2021-08-12 09:59 | REP ---
INDICATION: ro dvt COMPARISON: None. TECHNIQUE: Morocho scale and color Doppler evaluation using linear high frequency transducer. FINDINGS: Ultrasound examination of the lower extremity deep venous structures from the common femoral vein through the popliteal vein demonstrates normal compressibility, flow and wave patterns in response to respiration and augmentation. There is no evidence for deep venous thrombosis. Evaluation of the calf veins is incomplete due to edema. IMPRESSION: No evidence for deep venous thrombosis bilateral common femoral vein through popliteal vein. <Electronically signed by Ventura Griggs > 08/12/21 [id number]
[2021-08-12 10:40] VITALS: BP 146/71
[2021-08-12] MEDS ORDERED: DEXTROSE 50% 50 ML SYRINGE IV PRN (11:35)
[2021-08-12] MEDS ORDERED: GLUCOSE 4GM CHEW TABLET PO PRN (11:35)
[2021-08-12] MEDS ORDERED: GLUCAGON INJ 1MG VIAL SC PRN (11:35)
[2021-08-12] MEDS: allopurinoL 100 MG TAB PO SCH (11:54)
[2021-08-12] MEDS: POTASSIUM CHLORIDE 10MEQ SR TABLET PO SCH (11:54)
[2021-08-12] MEDS: METOPROLOL TART 50 MG TAB PO SCH ×2 (13:02→20:12)
[2021-08-12] MEDS: HumaLOG INSULIN (NovoLOG) PER UNIT SC SCH ×3 (13:02→20:02)
[2021-08-12] MEDS: rOPINIRole 2MG TAB PO SCH ×2 (13:41→20:11)
[2021-08-12] MEDS: ACETAMINOPHEN 650MG ER TAB (TYLENOL ARTHRITIS) PO SCH ×2 (13:41→21:16)
[2021-08-12] MEDS: GABAPENTIN 300 MG CAP PO SCH ×2 (13:41→21:16)
[2021-08-12] MEDS: NYSTATIN 100,000 UNITS/GM TOPICAL PWD 15 GM TOP SCH ×2 (13:41→20:12)
[2021-08-12 14:00] VITALS: BP 142/78
[2021-08-12] MEDS ORDERED: FLUCONAZOLE 50MG TABLET PO ONE (14:00)
[2021-08-12] MEDS: levETIRAcetam 250MG TABLET (KEPPRA) PO SCH ×2 (16:26→20:12)
[2021-08-12] MEDS: FUROSEMIDE 40MG/4ML VIAL (J1940) IV SCH ×2 (16:26→23:21)
[2021-08-12] MEDS: FERROUS SULFATE 325MG TAB PO SCH (20:12)
[2021-08-12] MEDS: ATORVASTATIN 20 MG TAB PO SCH (20:12)
[2021-08-12] MEDS: SENOKOT S TAB PO SCH (20:12)
[2021-08-12] MEDS: LEVEMIR (INSULIN DETEMIR) 1 UNITS/0.01ML SC SCH (20:13)
[2021-08-12] MEDS: SINEMET 25-100 MG TAB PO SCH (20:13)
[2021-08-12] MEDS ORDERED: METOPROLOL TARTRATE 100 MG TAB PO SCH (21:00)
[2021-08-12 22:00] VITALS: BP 138/79
[2021-08-13] MEDS: ACETAMINOPHEN 650MG ER TAB (TYLENOL ARTHRITIS) PO SCH ×3 (05:28→21:11)
[2021-08-13] MEDS: GABAPENTIN 300 MG CAP PO SCH ×3 (05:28→21:11)
[2021-08-13 06:00] VITALS: BP 139/78
[2021-08-13 06:42] LABS: BASO % 0.1 % (0.0-1.0); HEMATOCRIT 28.5 % (36.0-47.0); HEMOGLOBIN 8.9 g/dl (12.0-15.5); LYMPH # 0.7 10^3/uL (1.5-5.0); LYMPH % 8.8 % (24.0-44.0); MEAN CORPUSCULAR HEMOGLOBIN 31.4 pg (27.0-33.0); MEAN CORPUSCULAR HGB CONC 31.2 g/dl (32.0-36.5); MEAN CORPUSCULAR VOLUME 100.7 fl (80.0-96.0); MONO # 0.7 10^3/uL (0.0-0.8); MONO % 8.8 % (2.0-8.0); NEUTROPHILS # 6.7 10^3/uL (1.5-8.5); NEUTROPHILS % 81.8 % (36.0-66.0); PLATELET COUNT, AUTOMATED 153 10^3/uL (150-450); RED BLOOD COUNT 2.83 10^6/uL (4.00-5.40); WHITE BLOOD COUNT 8.1 10^3/uL (4.0-10.0)
[2021-08-13 07:11] LABS: CALCIUM LEVEL 7.7 MG/DL (8.8-10.2); CREATININE FOR GFR 2.44 MG/DL (0.55-1.30); GLOMERULAR FILTRATION RATE 20.3 (>39); POTASSIUM SERUM 4.3 MEQ/L (3.5-5.1)
[2021-08-13] MEDS: buPROPion **SR TABLET** (ZYBAN) 150MG PO SCH (08:06)
[2021-08-13] MEDS: METOPROLOL TART 50 MG TAB PO SCH ×2 (08:06→21:11)
[2021-08-13] MEDS: POTASSIUM CHLORIDE 10MEQ SR TABLET PO SCH (08:06)
[2021-08-13] MEDS: OMEPRAZOLE 20 MG CAP PO SCH (08:06)
[2021-08-13] MEDS: RIVAROXABAN 15 MG TAB (XARELTO) PO SCH (08:06)
[2021-08-13] MEDS: SENOKOT S TAB PO SCH ×2 (08:06→20:34)
[2021-08-13] MEDS: FUROSEMIDE 40MG/4ML VIAL (J1940) IV SCH ×3 (08:06→23:34)
[2021-08-13] MEDS: allopurinoL 100 MG TAB PO SCH (08:07)
[2021-08-13] MEDS: LEVEMIR (INSULIN DETEMIR) 1 UNITS/0.01ML SC SCH ×2 (08:07→21:11)
[2021-08-13] MEDS: NYSTATIN 100,000 UNITS/GM TOPICAL PWD 15 GM TOP SCH ×2 (08:08→21:15)
[2021-08-13] MEDS: HumaLOG INSULIN (NovoLOG) PER UNIT SC SCH ×4 (08:08→21:00)
--- NOTE | 2021-08-13 12:14 | IPNPDOC ---
Subjective Date Seen The patient was seen on 08/13/21. Subjective Chief Complaint/HPI Patient feels better today however complains of abdominal distention and bloating. Her legs are less swollen today. She has been off oxygen. Objective Physical Examination General Exam: Positive: Alert, Cooperative, No Acute Distress Eye Exam: Positive: PERRLA, Conjunctiva & lids normal, EOMI; Negative: Sclera icteric ENT Exam: Positive: Atraumatic, Mucous membr. moist/pink, Pharynx Normal Neck Exam: Positive: Supple; Negative: JVD, thyromegaly Chest Exam: Positive: Diminished, Other (Bilateral diffuse crackles from the base to the mid of the chest at the back); Negative: Rhonchi, Wheezing Heart Exam: Positive: Rate Normal, Irregular Rhythm, Normal S1, Normal S2; Negative: Murmurs, Rubs Abdomen Exam: Positive: Normal bowel sounds, Soft, Other (Bilateral redness in both the groin and under the abdominal folds); Negative: Tenderness, Hepatospenomegaly, Mass, Hernia Extremity Exam: Positive: Edema; Negative: Clubbing, Cyanosis Skin Exam: Positive: Rash (Under the abdominal folds in both groin) Psych Exam: Positive: Memory Intact, Oriented x 3 Assessment /Plan Assessment 80-year-old female resident of [facility] with past medical history of CKD stage IV, diabetes with polyneuropathy, bronchiectasis, A. fib, presented to the emergency room with gradually increasing shortness of breath over the past 3 weeks and worsened over the past 2 days. Patient also reported that she has noticed a weight gain of about 20 pounds in the past 2 to 3 months. She also noticed increased swelling of her legs and swelling and distention of her abdomen. Patient was noted to be saturating at 88% in room air at the assisted living so EMS was called for hypoxia and she was brought to the ED for evaluation. In the ED she had chest x-ray which showed diffuse bilateral opacities. Also noted fluid in the fissure. Labs showed elevated BNP. An elevated creatinine which is at her baseline. Patient was admitted for CHF exacerbation. CHF exacerbation Undetermined type of CHF as no echo in the system Echo ordered Continue on IV Lasix 1.8 L fluid restriction Daily weights, intake and output monitor CKD stage IV Creatinine seems to be at baseline We will continue to monitor may worsen with diuresis Diabetes with neuropathy We will continue with lispro as per sliding scale and Levemir Fingerstick as per before meals and at bedtime Continue gabapentin Asthma/bronchiectasis We will continue with home inhalers and nebulizers. Chronic A. fib EKG shows A. fib rate is controlled We will continue with Xarelto Continue metoprolol at lower dose Parkinson Continue home med Restless leg syndrome Continue ropinirole GERD continue omeprazole Intertriginous candidiasis continue nystatin powder will also give oral fluconazole History of seizure disorder Continue Keppra Hyperlipidemia Continue Lipitor Depression Continue bupropion Hyperuricemia/gout Continue allopurinol Morbid obesity BMI of 42.8 Complicating care Plan/VTE VTE Prophylaxis Ordered?: Yes VS, I&O, 24H, Fishbone Vital Signs/I&O Vital Signs Date Time Temp Pulse Resp B/P (MAP) Pulse Ox O2 Delivery O2 Flow Rate FiO2 08/13/21 08:06 78 139/78 08/13/21 06:00 97.8 19 95 Nasal Cannula 1.0 08/12/21 07:38 92 I&O- Last 24 Hours up to 6 AM 08/13/21 05:59 Intake Total 720 ml Output Total 1600 ml Balance -880 ml Laboratory Data 24H LABS Laboratory Tests 2 08/12/21 16:26: Bedside Glucose (Misc Panel) 205H 08/12/21 19:58: Bedside Glucose (Misc Panel) 185H 08/13/21 06:09: Immature Granulocyte % (Auto) 0.5, Neutrophils (%) (Auto) 81.8H, Lymphocytes (%) (Auto) 8.8L, Monocytes (%) (Auto) 8.8H, Eosinophils (%) (Auto) 0.0, Basophils (%) (Auto) 0.1, Neutrophils # (Auto) 6.7, Lymphocytes # (Auto) 0.7L, Monocytes # (Auto) 0.7, Eosinophils # (Auto) 0.0, Basophils # (Auto) 0.0, Nucleated Red Blood Cells % (auto) 0.2H, Anion Gap 6L, Glomerular Filtration Rate 20.3L, Calcium Level 7.7L 08/13/21 11:31: Bedside Glucose (Misc Panel) 153H CBC/BMP Laboratory Tests 08/13/21 06:09 Microbiology Microbiology 08/12/21 Respiratory Virus Panel (PCR) ([facility]) - Final, Complete 08/12/21 Blood Culture - Preliminary, Resulted No growth after 24 hours . All specim... 08/12/21 Blood Culture - Preliminary, Resulted No growth after 24 hours . All specim... Dorota Santiago MD Aug 13, 2021 12:14
[2021-08-13] MEDS: rOPINIRole 2MG TAB PO SCH ×2 (13:07→20:34)
[2021-08-13 14:00] VITALS: BP 136/78
[2021-08-13] MEDS: levETIRAcetam 250MG TABLET (KEPPRA) PO SCH ×2 (17:07→20:33)
[2021-08-13] MEDS: ATORVASTATIN 20 MG TAB PO SCH (20:34)
[2021-08-13] MEDS: SINEMET 25-100 MG TAB PO SCH (20:34)
[2021-08-13] MEDS: FERROUS SULFATE 325MG TAB PO SCH (20:34)
[2021-08-13 22:00] VITALS: BP 141/85
--- NOTE | 2021-08-13 23:32 | ECHO ---
ECHOCARDIOGRAM DATE OF PROCEDURE: 08/13/2021 Age: 80 Gender: Female Height: 63 inches Weight: 245 pounds REFERRING PHYSICIAN: Dr. Dorota Santiago INDICATION: Congestive heart failure, chronic renal disease MEASUREMENTS: IVS 1.1 cm LV 4.7 cm LVPW 1.2 cm LA 5.5 cm Aorta 3.3 cm RV 3.7 cm IVC 2.7 cm FINDINGS: This study is of acceptable technical quality. There are good views but fairly poor apical and subcostal views. Patient is in atrial fibrillation with ventricular rate averaging around 60 BPM. Left ventricle has normal size. Borderline LVH is noted. Overall estimated LVEF is approximately 55-60% based on the above mentioned views. Right ventricle is has normal size and systolic function. There is severe biatrial enlargement. Aortic valve is tricuspid. It is sclerotic but mobility seems to be only mildly impaired based on 2D imaging. There are also degenerative abnormalities of the mitral valve with mitral annular calcifications, but mobility of leaflets is preserved. Tricuspid valve appears normal. The pulmonic valve was not well seen. No pericardial effusion is noted. Inferior vena cava is dilated and has no appreciable collapse with inspiration, indicative of very high central venous pressure. Aortic root is normal. Aortic arch and abdominal aorta were not well seen. Doppler interrogation of the aortic valve reveals no insufficiency and fairly trivial stenosis with mean gradient only 7 mmHg. There is mild mitral and tricuspid insufficiency. Calculated pulmonary artery pressure is around 50 mmHg, corresponding to moderate pulmonary hypertension. Evaluation of diastolic function is inconclusive due to underlying atrial fibrillation. CONCLUSIONS: 1. The study is of acceptable technical quality, underlying atrial fibrillation with ventricular rate around 50 BPM. 2. Normal LV size with borderline LVH and grossly preserved LV systolic function. 3. Severe biatrial enlargement. 4. Prominent aortic sclerosis with trivial stenosis and no insufficiency. 5. Mild mitral and tricuspid insufficiency. 6. Very high central venous pressure and at least moderate pulmonary hypertension.
[2021-08-14] MEDS: ACETAMINOPHEN 650MG ER TAB (TYLENOL ARTHRITIS) PO SCH ×3 (05:07→23:00)
[2021-08-14] MEDS: GABAPENTIN 300 MG CAP PO SCH ×3 (05:08→23:00)
[2021-08-14 06:00] VITALS: BP 136/80
[2021-08-14 06:20] LABS: BASO % 0.4 % (0.0-1.0); EOS # 0.2 10^3/uL (0.0-0.5); EOS % 1.9 % (0.0-3.0); HEMATOCRIT 28.8 % (36.0-47.0); HEMOGLOBIN 9.1 g/dl (12.0-15.5); LYMPH # 1.6 10^3/uL (1.5-5.0); LYMPH % 16.7 % (24.0-44.0); MEAN CORPUSCULAR HEMOGLOBIN 31.3 pg (27.0-33.0); MEAN CORPUSCULAR HGB CONC 31.6 g/dl (32.0-36.5); MONO % 11.1 % (2.0-8.0); NEUTROPHILS # 6.5 10^3/uL (1.5-8.5); NEUTROPHILS % 69.6 % (36.0-66.0); PLATELET COUNT, AUTOMATED 180 10^3/uL (150-450); RED BLOOD COUNT 2.91 10^6/uL (4.00-5.40); WHITE BLOOD COUNT 9.4 10^3/uL (4.0-10.0)
[2021-08-14 06:52] LABS: CREATININE FOR GFR 2.58 MG/DL (0.55-1.30); GLOMERULAR FILTRATION RATE 19.1 (>39); POTASSIUM SERUM 4.1 MEQ/L (3.5-5.1)
[2021-08-14] MEDS: FUROSEMIDE 40MG/4ML VIAL (J1940) IV SCH ×3 (08:09→23:56)
[2021-08-14] MEDS: LEVEMIR (INSULIN DETEMIR) 1 UNITS/0.01ML SC SCH ×2 (08:10→20:23)
[2021-08-14] MEDS: allopurinoL 100 MG TAB PO SCH (08:11)
[2021-08-14] MEDS: HumaLOG INSULIN (NovoLOG) PER UNIT SC SCH ×4 (08:11→20:23)
[2021-08-14] MEDS: buPROPion **SR TABLET** (ZYBAN) 150MG PO SCH (08:11)
[2021-08-14] MEDS: POTASSIUM CHLORIDE 10MEQ SR TABLET PO SCH (08:12)
[2021-08-14] MEDS: METOPROLOL TART 50 MG TAB PO SCH ×2 (08:12→20:21)
[2021-08-14] MEDS: OMEPRAZOLE 20 MG CAP PO SCH (08:12)
[2021-08-14] MEDS: SENOKOT S TAB PO SCH ×2 (08:12→20:21)
[2021-08-14] MEDS: RIVAROXABAN 15 MG TAB (XARELTO) PO SCH (08:12)
[2021-08-14] MEDS: NYSTATIN 100,000 UNITS/GM TOPICAL PWD 15 GM TOP SCH ×2 (08:13→20:24)
--- NOTE | 2021-08-14 10:24 | IPNPDOC ---
Subjective Date Seen The patient was seen on 08/14/21. Subjective Chief Complaint/HPI Patient seen at bedside this morning. No complaints this morning. Does not have any shortness of breath. 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 And also feels her abdomen is less distended. Reports that she is making lots of urine. Objective Physical Examination General Exam: Positive: Alert, Cooperative, No Acute Distress Eye Exam: Positive: PERRLA, Conjunctiva & lids normal, EOMI; Negative: Sclera icteric ENT Exam: Positive: Atraumatic, Mucous membr. moist/pink, Pharynx Normal Neck Exam: Positive: Supple; Negative: JVD, thyromegaly Chest Exam: Positive: Diminished, Other (Bilateral basal crackles improved from before); Negative: Rhonchi, Wheezing Heart Exam: Positive: Rate Normal, Irregular Rhythm, Normal S1, Normal S2; Negative: Murmurs, Rubs Abdomen Exam: Positive: Normal bowel sounds, Soft, Other (Bilateral redness in both the groin and under the abdominal folds); Negative: Tenderness, Hepatospenomegaly, Mass, Hernia Extremity Exam: Positive: Edema; Negative: Clubbing, Cyanosis Skin Exam: Positive: Rash (Under the abdominal folds in both groin) Psych Exam: Positive: Memory Intact, Oriented x 3 Assessment /Plan Assessment 80-year-old female resident of [facility] living with past medical history of CKD stage IV, diabetes with polyneuropathy, bronchiectasis, A. fib, presented to the emergency room with gradually increasing shortness of breath over the past 3 weeks and worsened over the past 2 days. Patient also reported that she has noticed a weight gain of about 20 pounds in the past 2 to 3 months. She also noticed increased swelling of her legs and swelling and distention of her abdomen. Patient was noted to be saturating at 88% in room air at the assisted living so EMS was called for hypoxia and she was brought to the ED for evaluation. In the ED she had chest x-ray which showed diffuse bilateral opacities. Also noted fluid in the fissure. Labs showed elevated BNP. An elevated creatinine which is at her baseline. Patient was admitted for CHF exacerbation. Exacerbation of CHF with preserved EF with moderate pulmonary hypertension Likely diastolic CHF however diastolic function could not be determined as the patient is in chronic A. fib. Continue on IV Lasix 1.8 L fluid restriction Daily weights, intake and output monitor CKD stage IV Creatinine close to baseline We will continue to monitor may worsen with diuresis Diabetes with neuropathy We will continue with lispro as per sliding scale and Levemir Fingerstick as per before meals and at bedtime Continue gabapentin Asthma/bronchiectasis We will continue with home inhalers and nebulizers. Chronic A. fib EKG shows A. fib rate is controlled We will continue with Xarelto Continue metoprolol at lower dose Parkinson disease Continue home med Restless leg syndrome Continue ropinirole GERD continue omeprazole Intertriginous candidiasis continue nystatin powder will also give oral fluconazole History of seizure disorder Continue Keppra Hyperlipidemia Continue Lipitor Depression Continue bupropion Hyperuricemia/gout Continue allopurinol Morbid obesity BMI of 42.8 Complicating care Plan/VTE VTE Prophylaxis Ordered?: Yes VS, I&O, 24H, Fishbone Vital Signs/I&O Vital Signs Date Time Temp Pulse Resp B/P (MAP) Pulse Ox O2 Delivery O2 Flow Rate FiO2 08/14/21 08:12 83 124/61 08/14/21 06:00 98.2 20 90 Nasal Cannula 1.0 08/12/21 07:38 92 I&O- Last 24 Hours up to 6 AM 08/14/21 06:00 Intake Total 655 ml Output Total 1550 ml Balance -895 ml Laboratory Data 24H LABS Laboratory Tests 2 08/13/21 11:31: Bedside Glucose (Misc Panel) 153H 08/13/21 16:39: Bedside Glucose (Misc Panel) 80L 08/13/21 21:02: Bedside Glucose (Misc Panel) 119H 08/14/21 06:05: Immature Granulocyte % (Auto) 0.3, Neutrophils (%) (Auto) 69.6H, Lymphocytes (%) (Auto) 16.7L, Monocytes (%) (Auto) 11.1H, Eosinophils (%) (Auto) 1.9, Basophils (%) (Auto) 0.4, Neutrophils # (Auto) 6.5, Lymphocytes # (Auto) 1.6, Monocytes # (Auto) 1.0H, Eosinophils # (Auto) 0.2, Basophils # (Auto) 0.0, Nucleated Red Blood Cells % (auto) 0.2H, Anion Gap 4L, Glomerular Filtration Rate 19.1L, Calcium Level 8.0L CBC/BMP Laboratory Tests 08/14/21 06:05 Microbiology Microbiology 08/12/21 Respiratory Virus Panel (PCR) ([facility]) - Final, Complete 08/12/21 Blood Culture - Preliminary, Resulted No Growth after 48 hours. All Specime... 08/12/21 Blood Culture - Preliminary, Resulted No Growth after 48 hours. All Specime... Dorota Santiago MD Aug 14, 2021 10:24
[2021-08-14] MEDS: rOPINIRole 2MG TAB PO SCH ×2 (12:04→20:22)
[2021-08-14 14:00] VITALS: BP 120/63
[2021-08-14] MEDS: levETIRAcetam 250MG TABLET (KEPPRA) PO SCH ×2 (17:27→20:23)
[2021-08-14 20:00] VITALS: BP 134/78
[2021-08-14] MEDS: SINEMET 25-100 MG TAB PO SCH (20:22)
[2021-08-14] MEDS: FERROUS SULFATE 325MG TAB PO SCH (20:22)
[2021-08-14] MEDS: ATORVASTATIN 20 MG TAB PO SCH (20:22)
[2021-08-15] MEDS: ACETAMINOPHEN 650MG ER TAB (TYLENOL ARTHRITIS) PO SCH ×3 (05:41→22:19)
[2021-08-15] MEDS: GABAPENTIN 300 MG CAP PO SCH ×3 (05:41→22:19)
[2021-08-15 06:00] VITALS: BP 129/63
[2021-08-15 06:09] LABS: BASO # 0.1 10^3/uL (0.0-0.2); BASO % 0.8 % (0.0-1.0); EOS # 0.3 10^3/uL (0.0-0.5); EOS % 4.3 % (0.0-3.0); HEMATOCRIT 28.6 % (36.0-47.0); HEMOGLOBIN 8.9 g/dl (12.0-15.5); LYMPH # 1.4 10^3/uL (1.5-5.0); LYMPH % 17.8 % (24.0-44.0); MEAN CORPUSCULAR HGB CONC 31.1 g/dl (32.0-36.5); MEAN CORPUSCULAR VOLUME 99.7 fl (80.0-96.0); MONO # 1.1 10^3/uL (0.0-0.8); MONO % 13.7 % (2.0-8.0); NEUTROPHILS # 4.9 10^3/uL (1.5-8.5); PLATELET COUNT, AUTOMATED 180 10^3/uL (150-450); RED BLOOD COUNT 2.87 10^6/uL (4.00-5.40); WHITE BLOOD COUNT 7.8 10^3/uL (4.0-10.0)
[2021-08-15 06:31] LABS: CALCIUM LEVEL 7.7 MG/DL (8.8-10.2); CREATININE FOR GFR 2.45 MG/DL (0.55-1.30); GLOMERULAR FILTRATION RATE 20.2 (>39)
[2021-08-15] MEDS: HumaLOG INSULIN (NovoLOG) PER UNIT SC SCH ×4 (07:30→20:16)
[2021-08-15] MEDS: SENOKOT S TAB PO SCH ×2 (10:10→20:16)
[2021-08-15] MEDS: LEVEMIR (INSULIN DETEMIR) 1 UNITS/0.01ML SC SCH ×2 (10:10→20:16)
[2021-08-15] MEDS: POTASSIUM CHLORIDE 10MEQ SR TABLET PO SCH (10:11)
[2021-08-15] MEDS: buPROPion **SR TABLET** (ZYBAN) 150MG PO SCH (10:14)
[2021-08-15] MEDS: FUROSEMIDE 40MG/4ML VIAL (J1940) IV SCH ×3 (10:14→23:42)
[2021-08-15] MEDS: OMEPRAZOLE 20 MG CAP PO SCH (10:14)
[2021-08-15] MEDS: RIVAROXABAN 15 MG TAB (XARELTO) PO SCH (10:14)
[2021-08-15] MEDS: allopurinoL 100 MG TAB PO SCH (10:15)
[2021-08-15] MEDS: NYSTATIN 100,000 UNITS/GM TOPICAL PWD 15 GM TOP SCH ×2 (10:15→20:18)
[2021-08-15] MEDS: METOPROLOL TART 50 MG TAB PO SCH ×2 (10:15→20:18)
[2021-08-15] MEDS ORDERED: TORS20TA2 PO (10:30)
[2021-08-15] MEDS ORDERED: METO25TA PO (10:30)
[2021-08-15] MEDS ORDERED: metOLazone 5 MG TAB PO ONE (10:35)
--- NOTE | 2021-08-15 11:44 | IPNPDOC ---
Subjective Date Seen The patient was seen on 08/15/21. Subjective Chief Complaint/HPI Feeling well today no complaints. Patient has been diuresing about 750 cc negative balance every day. 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 Patient has worked with physical therapy and has cleared to go back to assisted living. Objective Physical Examination General Exam: Positive: Alert, Cooperative, No Acute Distress Eye Exam: Positive: PERRLA, Conjunctiva & lids normal, EOMI; Negative: Sclera icteric ENT Exam: Positive: Atraumatic, Mucous membr. moist/pink, Pharynx Normal Neck Exam: Positive: Supple; Negative: JVD, thyromegaly Chest Exam: Positive: Diminished, Other (Bilateral basal crackles improved from before); Negative: Rhonchi, Wheezing Heart Exam: Positive: Rate Normal, Irregular Rhythm, Normal S1, Normal S2; Negative: Murmurs, Rubs Abdomen Exam: Positive: Normal bowel sounds, Soft, Other (Bilateral redness in both the groin and under the abdominal folds); Negative: Tenderness, Hepatospenomegaly, Mass, Hernia Extremity Exam: Positive: Edema; Negative: Clubbing, Cyanosis Skin Exam: Positive: Rash (Under the abdominal folds in both groin) Psych Exam: Positive: Memory Intact, Oriented x 3 Assessment /Plan Assessment 80-year-old female resident of [facility] with past medical history of CKD stage IV, diabetes with polyneuropathy, bronchiectasis, A. fib, presented to the emergency room with gradually increasing shortness of breath over the past 3 weeks and worsened over the past 2 days. Patient also reported that she has noticed a weight gain of about 20 pounds in the past 2 to 3 months. She also noticed increased swelling of her legs and swelling and distention of her abdomen. Patient was noted to be saturating at 88% in room air at the assisted living so EMS was called for hypoxia and she was brought to the ED for evaluation. In the ED she had chest x-ray which showed diffuse bilateral opacities. Also noted fluid in the fissure. Labs showed elevated BNP. An elevated creatinine which is at her baseline. Patient was admitted for CHF exa cerbation. Exacerbation of CHF with preserved EF with moderate pulmonary hypertension Likely diastolic CHF however diastolic function could not be determined as the patient is in chronic A. fib. will start on torsemide and metolazone. 1.8 L fluid restriction Daily weights, intake and output monitor CKD stage IV Creatinine close to baseline We will continue to monitor may worsen with diuresis Follow up with nephrology as an outpatient Diabetes with neuropathy We will continue with lispro as per sliding scale and Levemir Fingerstick as per before meals and at bedtime Continue gabapentin Asthma/bronchiectasis We will continue with home inhalers and nebulizers. Chronic A. fib EKG shows A. fib rate is controlled We will continue with Xarelto Continue metoprolol Parkinson disease Continue home med Restless leg syndrome Continue ropinirole GERD continue omeprazole Intertriginous candidiasis continue nystatin powder will also give oral fluconazole History of seizure disorder Continue Keppra Hyperlipidemia Continue Lipitor Depression Continue bupropion Hyperuricemia/gout Continue allopurinol Morbid obesity BMI of 42.8 Complicating care Plan/VTE VTE Prophylaxis Ordered?: Yes VS, I&O, 24H, Fishbone Vital Signs/I&O Vital Signs Date Time Temp Pulse Resp B/P (MAP) Pulse Ox O2 Delivery O2 Flow Rate FiO2 08/15/21 10:15 80 126/64 08/15/21 06:00 97.2 17 94 Nasal Cannula 1.0 08/12/21 07:38 92 I&O- Last 24 Hours up to 6 AM 08/15/21 06:00 Intake Total 1220 ml Output Total 1300 ml Balance -80 ml Laboratory Data 24H LABS Laboratory Tests 2 08/14/21 16:21: Bedside Glucose (Misc Panel) 110 08/14/21 20:20: Bedside Glucose (Misc Panel) 132H 08/15/21 05:25: Immature Granulocyte % (Auto) 0.4, Neutrophils (%) (Auto) 63.0, Lymphocytes (%) (Auto) 17.8L, Monocytes (%) (Auto) 13.7H, Eosinophils (%) (Auto) 4.3H, Basophils (%) (Auto) 0.8, Neutrophils # (Auto) 4.9, Lymphocytes # (Auto) 1.4L, Monocytes # (Auto) 1.1H, Eosinophils # (Auto) 0.3, Basophils # (Auto) 0.1, Nucleated Red Blood Cells % (auto) 0.3H, Anion Gap 6L, Glomerular Filtration Rate 20.2L, Calcium Level 7.7L CBC/BMP Laboratory Tests 08/15/21 05:25 Microbiology Microbiology 08/12/21 Respiratory Virus Panel (PCR) ([facility]) - Final, Complete 08/12/21 Blood Culture - Preliminary, Resulted No Growth after 72 hours. All specime... 08/12/21 Blood Culture - Preliminary, Resulted No Growth after 72 hours. All specime... Dorota Santiago MD Aug 15, 2021 11:44
[2021-08-15] MEDS: rOPINIRole 2MG TAB PO SCH ×2 (12:55→20:17)
[2021-08-15 14:00] VITALS: BP 129/69
[2021-08-15] MEDS: levETIRAcetam 250MG TABLET (KEPPRA) PO SCH ×2 (16:44→20:16)
[2021-08-15] MEDS: SINEMET 25-100 MG TAB PO SCH (18:45)
[2021-08-15] MEDS: ATORVASTATIN 20 MG TAB PO SCH (20:17)
[2021-08-15] MEDS: FERROUS SULFATE 325MG TAB PO SCH (20:18)
[2021-08-15 22:00] VITALS: BP 131/69
[2021-08-16] MEDS: ACETAMINOPHEN 650MG ER TAB (TYLENOL ARTHRITIS) PO SCH (05:03)
[2021-08-16] MEDS: GABAPENTIN 300 MG CAP PO SCH (05:03)
[2021-08-16 06:00] VITALS: BP 130/68
[2021-08-16 06:47] LABS: BASO # 0.1 10^3/uL (0.0-0.2); BASO % 0.7 % (0.0-1.0); EOS # 0.4 10^3/uL (0.0-0.5); EOS % 4.4 % (0.0-3.0); HEMATOCRIT 30.7 % (36.0-47.0); HEMOGLOBIN 9.7 g/dl (12.0-15.5); LYMPH # 1.2 10^3/uL (1.5-5.0); LYMPH % 12.9 % (24.0-44.0); MEAN CORPUSCULAR HEMOGLOBIN 31.7 pg (27.0-33.0); MEAN CORPUSCULAR HGB CONC 31.6 g/dl (32.0-36.5); MEAN CORPUSCULAR VOLUME 100.3 fl (80.0-96.0); MONO # 1.2 10^3/uL (0.0-0.8); MONO % 13.5 % (2.0-8.0); NEUTROPHILS # 6.2 10^3/uL (1.5-8.5); NEUTROPHILS % 68.2 % (36.0-66.0); PLATELET COUNT, AUTOMATED 179 10^3/uL (150-450); RED BLOOD COUNT 3.06 10^6/uL (4.00-5.40); WHITE BLOOD COUNT 9.1 10^3/uL (4.0-10.0)
[2021-08-16 07:16] LABS: CALCIUM LEVEL 8.2 MG/DL (8.8-10.2); CREATININE FOR GFR 2.55 MG/DL (0.55-1.30); GLOMERULAR FILTRATION RATE 19.3 (>39); POTASSIUM SERUM 3.7 MEQ/L (3.5-5.1)
[2021-08-16] MEDS: NYSTATIN 100,000 UNITS/GM TOPICAL PWD 15 GM TOP SCH (08:29)
[2021-08-16] MEDS: FUROSEMIDE 40MG/4ML VIAL (J1940) IV SCH (08:29)
[2021-08-16] MEDS: LEVEMIR (INSULIN DETEMIR) 1 UNITS/0.01ML SC SCH (08:30)
[2021-08-16] MEDS: HumaLOG INSULIN (NovoLOG) PER UNIT SC SCH (08:30)
[2021-08-16 08:31] VITALS: BP 126/86
[2021-08-16] MEDS: buPROPion **SR TABLET** (ZYBAN) 150MG PO SCH (08:31)
[2021-08-16] MEDS: OMEPRAZOLE 20 MG CAP PO SCH (08:31)
[2021-08-16] MEDS: POTASSIUM CHLORIDE 10MEQ SR TABLET PO SCH (08:31)
[2021-08-16] MEDS: RIVAROXABAN 15 MG TAB (XARELTO) PO SCH (08:31)
[2021-08-16] MEDS: METOPROLOL TART 50 MG TAB PO SCH (08:31)
[2021-08-16] MEDS: allopurinoL 100 MG TAB PO SCH (08:31)
[2021-08-16] MEDS: SENOKOT S TAB PO SCH (08:31)
[2021-08-16] MEDS ORDERED: metOLazone 5 MG TAB PO ONE (09:35)
[2021-08-16] MEDS: rOPINIRole 2MG TAB PO SCH (10:56)
--- NOTE | 2021-08-16 13:04 | DS.PDOC ---
Discharge Summary General Date of Admission Aug 12, 2021 at 09:16 Date of Discharge 08/16/21 Discharge Summary PROCEDURES PERFORMED DURING STAY: [None]. 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 Moderate Pulmonary hypertension. COMPLICATIONS/CHIEF COMPLAINT: Chf, Chronic Kidney Disease. HOSPITAL COURSE: 80-year-old female resident of [facility] with past medical history of CKD stage IV, diabetes with polyneuropathy, bronchiectasis, A. fib, presented to the emergency room with gradually increasing shortness of breath over the past 3 weeks and worsened over the past 2 days. Patient also reported that she has noticed a weight gain of about 20 pounds in the past 2 to 3 months. She also noticed increased swelling of her legs and swelling and distention of her abdomen. Patient was noted to be saturating at 88% in room air at the [facility] living so EMS was called for hypoxia and she was brought to the ED for evaluation. In the ED she had chest x-ray which showed diffuse bilateral opacities. Also noted fluid in the fissure. Labs showed elevated BNP. An elevated creatinine which is at her baseline. Patient was admitted for CHF exacerbation. Exacerbation of CHF with preserved EF with moderate pulmonary hypertension and r ight heart failure. Likely diastolic CHF however diastolic function could not be determined as the patient is in chronic A. fib. Torsemide 60 mg bid and metolazone. Daily weights. Patient instructed to limit fluid intake to 55- 60 ounces. CKD stage IV Creatinine close to baseline Follow up with nephrology as an outpatient Diabetes with neuropathy We will continue with lispro as per sliding scale and Levemir Fingerstick as per before meals and at bedtime Continue gabapentin Asthma/bronchiectasis We will continue with home inhalers and nebulizers. Chronic A. fib EKG shows A. fib rate is controlled We will continue with Xarelto Continue metoprolol Parkinson disease Continue home med Restless leg syndrome Continue ropinirole GERD continue omeprazole Intertriginous candidiasis continue nystatin powder will also give oral fluconazole History of seizure disorder Continue Keppra Hyperlipidemia Continue Lipitor Depression Continue bupropion Hyperuricemia/gout Continue allopurinol Morbid obesity BMI of 42.8 Complicating care DISCHARGE MEDICATIONS: Please see below. ALLERGIES: Please see below. PHYSICAL EXAMINATION ON DISCHARGE: VITAL SIGNS: Please see below. General Exam: Positive: Alert, Cooperative, No Acute Distress Eye Exam: Positive: PERRLA, Conjunctiva & lids normal, EOMI; Negative: Sclera icteric ENT Exam: Positive: Atraumatic, Mucous membr. moist/pink, Pharynx Normal Neck Exam: Positive: Supple; Negative: JVD, thyromegaly Chest Exam: Positive: Diminished, Other (Bilateral basal crackles improved from before); Negative: Rhonchi, Wheezing Heart Exam: Positive: Rate Normal, Irregular Rhythm, Normal S1, Normal S2; Negative: Murmurs, Rubs Abdomen Exam: Positive: Normal bowel sounds, Soft, Other (Bilateral redness in both the groin and under the abdominal folds); Negative: Tenderness, Hepatosplenomegaly, Mass, Hernia Extremity Exam: Positive: Edema in the upper thighs and buttocks. Edema in the legs has improved. Negative: Clubbing, Cyanosis Skin Exam: Positive: Rash (Under the abdominal folds in both groin) Psych Exam: Positive: Memory Intact, Oriented x 3 LABORATORY DATA: Please see below. IMAGING: ECHO: This study is of acceptable technical quality. There are good views but fairly poor apical and subcostal views. Patient is in atrial fibrillation with ventricular rate averaging around 60 BPM. Left ventricle has normal size. Borderline LVH is noted. Overall estimated LVEF is approximately 55-60% based on the above mentioned views. Right ventricle is has normal size and systolic function. There is severe biatrial enlargement. Aortic valve is tricuspid. It is sclerotic but mobility seems to be only mildly impaired based on 2D imaging. There are also degenerative abnormalities of the mitral valve with mitral annular calcifications, but mobility of leaflets is preserved. Tricuspid valve appears normal. The pulmonic valve was not well seen. No pericardial effusion is noted. Inferior vena cava is dilated and has no appreciable collapse with inspiration, indicative of very high central venous pressure. Aortic root is normal. Aortic arch and abdominal aorta were not well seen. Doppler interrogation of the aortic valve reveals no insufficiency and fairly trivial stenosis with mean gradient only 7 mmHg. There is mild mitral and tricuspid insufficiency. Calculated pulmonary artery pressure is around 50 mmHg, corresponding to moderate pulmonary hypertension. Evaluation of diastolic function is inconclusive due to underlying atrial fibrillation. CONCLUSIONS: 1. The study is of acceptable technical quality, underlying atrial fibrillation with ventricular rate around 50 BPM. 2. Normal LV size with borderline LVH and grossly preserved LV systolic function. 3. Severe biatrial enlargement. 4. Prominent aortic sclerosis with trivial stenosis and no insufficiency. 5. Mild mitral and tricuspid insufficiency. 6. Very high central venous pressure and at least moderate pulmonary hypertension. ACTIVITY: [As tolerated]. DIET: as tolerated. DISCHARGE PLAN: JOANA BARRETT DISCHARGE INSTRUCTIONS: Follow up with nephrology in 1 week Follow-up with PMD in 1 week DISCHARGE CONDITION: [Stable]. TIME SPENT ON DISCHARGE: 35 minutes. Vital Signs/I&Os Vital Signs Date Time Temp Pulse Resp B/P (MAP) Pulse Ox O2 Delivery O2 Flow Rate FiO2 08/16/21 08:31 96 126/86 08/16/21 06:00 97.5 20 93 Nasal Cannula 1.0 08/12/21 07:38 92 I&O- Last 24 Hours up to 6 AM 08/16/21 05:59 Intake Total 636 ml Output Total 3400 ml Balance -2764 ml Laboratory Data Labs 24H Laboratory Tests 2 08/15/21 16:27: Bedside Glucose (Misc Panel) 109 08/15/21 20:15: Bedside Glucose (Misc Panel) 161H 08/16/21 05:58: Coronavirus (COVID-19)(PCR) NEGATIVE 08/16/21 06:16: Immature Granulocyte % (Auto) 0.3, Neutrophils (%) (Auto) 68.2H, Lymphocytes (%) (Auto) 12.9L, Monocytes (%) (Auto) 13.5H, Eosinophils (%) (Auto) 4.4H, Basophils (%) (Auto) 0.7, Neutrophils # (Auto) 6.2, Lymphocytes # (Auto) 1.2L, Monocytes # (Auto) 1.2H, Eosinophils # (Auto) 0.4, Basophils # (Auto) 0.1, Nu cleated Red Blood Cells % (auto) 0.0, Anion Gap 7L, Glomerular Filtration Rate 19.3L, Calcium Level 8.2L 08/16/21 11:20: Bedside Glucose (Misc Panel) 167H CBC/BMP Laboratory Tests 08/16/21 06:16 FSBS Laboratory Tests Test 08/15/21 16:27 08/15/21 20:15 08/16/21 11:20 Range/Units Bedside Glucose (Misc Panel) 109 161 167 83-110 MG/DL Microbiology Microbiology 08/12/21 Respiratory Virus Panel (PCR) ([facility]) - Final, Complete 08/12/21 Blood Culture - Preliminary, Resulted No Growth after 72 hours. All specime... 08/12/21 Blood Culture - Preliminary, Resulted No Growth after 72 hours. All specime... Discharge Medications Scheduled Acetaminophen (Acetaminophen ER) 650 Mg Tablet.er, 650 MG PO Q8H, (Reported) Allopurinol (Allopurinol) 100 Mg Tablet, 200 MG PO DAILY, (Reported) Ammonium Lactate (Ammonium Lactate) 12% Cream..g., 1 DOSE TOP DAILY, (Reported) supervised self-administration to both feet prior to putting on stockings Atorvastatin Calcium (Atorvastatin Calcium) 80 Mg Tab, 80 MG PO QHS, (Reported) Bupropion HCl (Wellbutrin Sr) 150 Mg Tab.sr.12h, 150 MG PO DAILY, (Reported) Carbidopa/Levodopa (Carbidopa-Levodopa 25-100 Tab) 1 Tab Tab, 1 TAB PO QPM, (Reported) 1929 Cinacalcet (Sensipar) 30 Mg Tablet, 30 MG PO 3XW, (Reported) MW Docusate Sodium (Dok) 100 Mg Capsule, 100 MG PO BID, (Reported) Dulaglutide (Trulicity) 1.5 Mg/0.5 Ml Pen.injctr, 1.5 MG SC QWEEK, (Reported) TUES EVENING Ferrous Sulfate (Ferrous Sulfate) 325 Mg Tablet.dr, 325 MG PO QHS, (Reported) Fluticasone Propionate (Flonase Allergy Relief) 50 Mcg/Act Spr, 1 SPRAY NARES BID, (Reported) Gabapentin (Gabapentin) 300 Mg Capsule, 300 MG PO Q8H, (Reported) Insulin Glargine,Hum.rec.anlog (Toujeo Solostar) 300 Unit/Ml Inj, 20 UNIT SC DAILY, (Reported) Insulin Glargine,Hum.rec.anlog (Toujeo Solostar) 300 Unit/1 Ml Insuln.pen, 15 UNIT SC QHS, (Reported) L.acidoph/L.bulg/B.bif/S.therm (Clarisa-Bid Caplet) 1 Each Tablet, 1 TAB PO BID, (Reported) Levetiracetam (Levetiracetam) 750 Mg Tablet, 750 MG PO QHS, (Reported) Levetiracetam (Keppra) 250 Mg Tablet, 250 MG PO QPM, (Reported) Magnesium Hydroxide (Milk of Magnesia) 400 Mg/5 Ml Oral.susp, 5 ML PO Q6H, (Reported) Metolazone (Metolazone) 2.5 Mg Tablet, 1 TAB PO DAILY Metoprolol Tartrate (Metoprolol Tartrate) 100 Mg Tab, 100 MG PO BID, (Reported) Nystatin (Nystatin) 100,000 Unit/Gm Cre, 1 APLCT TOP BID, (Reported) APPLY TO ABDOMINAL FOLDS Omeprazole (Omeprazole) 40 Mg Cap, 40 MG PO DAILY, (Reported) Potassium Chloride (Potassium Chloride) 10 Meq Cap, 10 MEQ PO DAILY, (Reported) Rivaroxaban (Xarelto) 15 Mg Tab, 15 MG PO DAILY, (Reported) Ropinirole HCl (Ropinirole HCl) 2 Mg Tablet, 2 MG PO BID, (Reported) 1200 AND 2000 Torsemide (Torsemide) 20 Mg Tablet, 60 MG PO BID At 0900 and 1400 Tramadol HCl (Tramadol HCl) 50 Mg Tablet, 50 MG PO BID, (Reported) Scheduled PRN Albuterol Sulf (Albuterol Sulfate) 2.5 Mg/3 Ml Nebu, 1 VIAL NEB QID PRN for SHORTNESS OF BREATH, (Reported) Albuterol Sulfate (Proair Hfa) 108 Mcg/Act Aer, 2 PUFF INH Q4H PRN for SHORTNESS OF BREATH, (Reported) Loperamide HCl (Loperamide) 2 Mg Capsule, 4 MG PO QID PRN for DIARRHEA, (Reported) Loratadine (Claritin) 10 Mg Cap, 10 MG PO DAILY PRN for ALLERGY, (Reported) Ondansetron HCl (Ondansetron HCl) 4 Mg Tablet, 4 MG PO Q6H PRN for NAUSEA OR VOMITING, (Reported) Polyethylene Glycol 3350 (Miralax) 1 Pow Pow, 17 GRAM PO DAILY PRN for CONSTIPATION, (Reported) dissolve in water Allergies Coded Allergies: No Known Allergies (Unverified , 07/16/17) Dorota Santiago MD Aug 16, 2021 13:04
[2021-08-16] MEDS ORDERED: TORS20TA2 PO (14:51)
[2021-08-16] MEDS ORDERED: METO25TA PO (14:51)
== END 2021-08-16 12:45 | DRG 291 ==
LOC: EDBD 07:01 → M ED 07:01 → M ED INP 09:16 → ENRESERV 10:16 → M MSPAV 10:39
PROVIDERS: ADMIT Internal Medicine Nephrology; ATTEND Internal Medicine Nephrology
DX: I13.0 Hypertensive heart and chronic kidney disease with heart failure and stage 1 through stage 4 chronic kidney disease, or unspecified chronic kidney disease (principal); I50.33 Acute on chronic diastolic (congestive) heart failure; N18.4 Chronic kidney disease, stage 4 (severe); I48.20 Chronic atrial fibrillation, unspecified; Z68.41 Body mass index [BMI] 40.0-44.9, adult; N25.81 Secondary hyperparathyroidism of renal origin; E66.01 Morbid (severe) obesity due to excess calories; E11.42 Type 2 diabetes mellitus with diabetic polyneuropathy; I27.29 Other secondary pulmonary hypertension; J45.909 Unspecified asthma, uncomplicated; G25.81 Restless legs syndrome; G20 Parkinson's disease; K21.9 Gastro-esophageal reflux disease without esophagitis; G40.909 Epilepsy, unspecified, not intractable, without status epilepticus; E78.5 Hyperlipidemia, unspecified; F32.A Depression, unspecified; B37.2 Candidiasis of skin and nail; M10.9 Gout, unspecified; Z79.899 Other long term (current) drug therapy; Z79.01 Long term (current) use of anticoagulants; M19.90 Unspecified osteoarthritis, unspecified site; K44.9 Diaphragmatic hernia without obstruction or gangrene; D50.9 Iron deficiency anemia, unspecified; Z98.41 Cataract extraction status, right eye; Z98.42 Cataract extraction status, left eye; Z96.642 Presence of left artificial hip joint

== ENCOUNTER → 2021-09-12 | Outpatient (REF) ==
[~2021-09-12] MED LIST changes: +BUPR15TA PO; +CINA30TA4 PO; -D31000TA2 PO; +ELIQ2.5T PO; +KEPP250T5 PO; +LOPR1TAB6 PO; +LOPR1TAB7 PO; +METO25TA PO; +ONDA-83 PO; +RISATAB3 PO; +VITA100093 PO
[2021-09-12 08:13] LABS: HEMOGLOBIN A1c 6.8 %
[2021-09-12 08:52] LABS: ALBUMIN 2.9 GM/DL (3.2-5.2); CALCIUM LEVEL 8.5 MG/DL (8.8-10.2); CREATININE FOR GFR 2.26 MG/DL (0.55-1.30); GLOMERULAR FILTRATION RATE 22.2 (>39); POTASSIUM SERUM 3.3 MEQ/L (3.5-5.1)
== END ==
LOC: SKLAB3 07:00
PROVIDERS: ATTEND Internal Medicine
DX: E11.22 Type 2 diabetes mellitus with diabetic chronic kidney disease (principal)

== ENCOUNTER → 2021-09-19 | Outpatient (REF) ==
[2021-09-19 10:38] LABS: ALBUMIN 2.9 GM/DL (3.2-5.2); CALCIUM LEVEL 8.1 MG/DL (8.8-10.2); CREATININE FOR GFR 2.46 MG/DL (0.55-1.30); GLOMERULAR FILTRATION RATE 20.1 (>39); MAGNESIUM LEVEL 1.4 MG/DL (1.8-2.4); PHOSPHORUS LEVEL 3.1 MG/DL (2.5-4.9); POTASSIUM SERUM 4.2 MEQ/L (3.5-5.1)
== END ==
LOC: SKLAB4 09:28
PROVIDERS: ATTEND Internal Medicine
DX: E87.6 Hypokalemia (principal)

== ENCOUNTER → 2021-09-24 | Outpatient (REF) | payer MEDICARE, MEDICAID | LOC: SKLAB3 09:28 | PROVIDERS: ATTEND Internal Medicine | DX: E83.42 Hypomagnesemia (principal) ==

== ENCOUNTER → 2021-09-27 | Outpatient (REF) | payer MEDICARE, MEDICAID ==
[2021-09-27 08:51] LABS: CALCIUM LEVEL 7.9 MG/DL (8.8-10.2); CREATININE FOR GFR 1.84 MG/DL (0.55-1.30); GLOMERULAR FILTRATION RATE 28.2 (>39); POTASSIUM SERUM 4.2 MEQ/L (3.5-5.1)
[2021-09-27 15:05] LABS: MAGNESIUM LEVEL 1.5 MG/DL (1.7-2.2)
== END ==
LOC: SKLAB3 07:00
PROVIDERS: ATTEND Internal Medicine
DX: E83.42 Hypomagnesemia (principal)

== ENCOUNTER → 2021-10-09 | Outpatient (REF) | payer MEDICARE, MEDICAID | PROVIDERS: ATTEND Nurse Practitioner Family | DX: N18.4 Chronic kidney disease, stage 4 (severe) (principal); D63.1 Anemia in chronic kidney disease; N25.81 Secondary hyperparathyroidism of renal origin; E55.9 Vitamin D deficiency, unspecified ==

== ENCOUNTER → 2021-10-23 | Outpatient (REF) | payer MEDICARE, MEDICAID ==
[~2021-10-23] MED LIST changes: +K-TA10TA2 PO
[2021-10-23 11:03] LABS: ALBUMIN 2.9 GM/DL (3.2-5.2); CALCIUM LEVEL 7.7 MG/DL (8.8-10.2); CREATININE FOR GFR 1.91 MG/DL (0.55-1.30); GLOMERULAR FILTRATION RATE 26.9 (>32); MAGNESIUM LEVEL 1.4 MG/DL (1.8-2.4); PHOSPHORUS LEVEL 3.7 MG/DL (2.5-4.9); POTASSIUM SERUM 3.6 MEQ/L (3.5-5.1)
[2021-10-25 09:59] LABS: PTH INTACT 155.1 PG/ML (18.5-88.0)
== END ==
PROVIDERS: ATTEND Nurse Practitioner Family
DX: N18.4 Chronic kidney disease, stage 4 (severe) (principal); N25.81 Secondary hyperparathyroidism of renal origin; E83.42 Hypomagnesemia

== ENCOUNTER 2021-10-31 15:39 | Inpatient (IN) | payer MEDICARE, MEDICAID ==
[~2021-10-31] VITALS: Ht 160 cm; Wt 94.0 kg
[~2021-10-31 15:39] MED LIST changes: -K-TA10TA2 PO
[2021-10-31] MEDS ORDERED: MORPHINE 4 MG/ML 1ML VIAL/SYRINGE IV ONE ×3 (17:15→18:00)
[2021-10-31 17:43] LABS: BASO # 0.1 10^3/uL (0.0-0.2); EOS # 0.2 10^3/uL (0.0-0.5); EOS % 3.2 % (0.0-3.0); HEMATOCRIT 30.8 % (36.0-47.0); HEMOGLOBIN 9.6 g/dl (12.0-15.5); LYMPH % 14.1 % (24.0-44.0); MEAN CORPUSCULAR HEMOGLOBIN 31.4 pg (27.0-33.0); MEAN CORPUSCULAR HGB CONC 31.2 g/dl (32.0-36.5); MEAN CORPUSCULAR VOLUME 100.7 fl (80.0-96.0); MONO # 0.8 10^3/uL (0.0-0.8); MONO % 11.8 % (2.0-8.0); NEUTROPHILS # 4.9 10^3/uL (1.5-8.5); NEUTROPHILS % 69.6 % (36.0-66.0); PLATELET COUNT, AUTOMATED 207 10^3/uL (150-450); RED BLOOD COUNT 3.06 10^6/uL (4.00-5.40); WHITE BLOOD COUNT 7.1 10^3/uL (4.0-10.0)
[2021-10-31 17:55] LABS: D-DIMER QUANT 1085.26 ng/ml (<500)
[2021-10-31 18:09] LABS: CK-MB VALUE MASS 4.7 NG/ML (<3.6); MB/CK RELATIVE INDEX 3.51 (< OR =4)
[2021-10-31 18:12] LABS: ALBUMIN 3.1 GM/DL (3.2-5.2); BILIRUBIN,DIRECT 0.3 MG/DL (0.0-0.2); BILIRUBIN,TOTAL 0.6 MG/DL (0.2-1.0); CALCIUM LEVEL 7.7 MG/DL (8.8-10.2); CREATININE FOR GFR 2.15 MG/DL (0.55-1.30); GLOMERULAR FILTRATION RATE 23.5 (>32); POTASSIUM SERUM 4.4 MEQ/L (3.5-5.1); TOTAL PROTEIN 6.9 GM/DL (6.4-8.2)
[2021-10-31] MEDS ORDERED: NS 500 ML IV ONE (18:45)
[2021-10-31] MEDS ORDERED: FUROSEMIDE 40MG/4ML VIAL (J1940) IV ONE (19:25)
[2021-10-31 19:42] LABS: MB/CK RELATIVE INDEX 3.03 (< OR =4)
[2021-10-31 19:52] LABS: INR 1.42; PROTHROMBIN TIME 17.8 SECONDS (12.7-14.5)
[2021-10-31] MEDS ORDERED: K-TA10TA2 PO (20:56)
[2021-10-31] MEDS ORDERED: TORS20TA2 PO (20:59)
[2021-10-31] MEDS ORDERED: HOME MED LIST COMPLETE! XX SCH (21:00)
[2021-10-31] MEDS: FLUTICASONE PROP 0.05% NASAL SPRAY 16 GM (FLONASE) NARES SCH (21:00)
[2021-10-31] MEDS ORDERED: ALBUTEROL SULFATE 2.5 MG/0.5 ML INH NEB SOLN NEB PRN (21:05)
[2021-10-31] MEDS ORDERED: ALBUTEROL 90 MCG/ACT 8GM HFA INHALER INH PRN (21:05)
[2021-10-31] MEDS: METOPROLOL TARTRATE 100MG TAB PO SCH (21:38)
[2021-10-31] MEDS: ATORVASTATIN 20 MG TAB PO SCH (21:39)
[2021-10-31] MEDS: FERROUS SULFATE 325MG TAB PO SCH (21:41)
[2021-10-31] MEDS: APIXABAN 2.5 MG TAB (ELIQUIS) PO SCH (21:41)
[2021-10-31] MEDS: levETIRAcetam 250MG TABLET (KEPPRA) PO SCH (21:42)
[2021-10-31] MEDS: POTASSIUM CHLORIDE 10MEQ SR TABLET PO SCH (21:43)
[2021-10-31] MEDS ORDERED: hydrALAZINE 20MG/ML 1ML VIAL (J0360 PER 20MG) IV ONE (22:00)
[2021-10-31 23:15] VITALS: BP 138/72
[2021-10-31] MEDS: PERCOCET 5MG/325MG TAB PO PRN (23:58)
[2021-11-01] VITALS (7 sets, daily range): BP systolic 93–128; BP diastolic 43–69; O2SAT 94–96
[2021-11-01] MEDS: FUROSEMIDE 40MG/4ML VIAL (J1940) IV SCH ×2 (05:07→18:25)
[2021-11-01] MEDS: PERCOCET 5MG/325MG TAB PO PRN ×2 (08:02→14:42)
[2021-11-01] MEDS: allopurinoL 100 MG TAB PO SCH (08:38)
[2021-11-01] MEDS: APIXABAN 2.5 MG TAB (ELIQUIS) PO SCH ×2 (08:38→20:10)
[2021-11-01] MEDS: OMEPRAZOLE 20MG CAP PO SCH (08:38)
[2021-11-01] MEDS: POTASSIUM CHLORIDE 10MEQ SR TABLET PO SCH ×2 (08:38→20:10)
[2021-11-01] MEDS: LIDOCAINE 5% (LIDODERM) PATCH TD SCH (08:39)
[2021-11-01] MEDS: FLUTICASONE PROP 0.05% NASAL SPRAY 16 GM (FLONASE) NARES SCH ×2 (08:39→20:10)
[2021-11-01] MEDS: METOPROLOL TART 50 MG TAB PO SCH (08:40)
[2021-11-01 09:00] LABS: HEMATOCRIT 29.8 % (36.0-47.0); HEMOGLOBIN 9.3 g/dl (12.0-15.5); MEAN CORPUSCULAR HEMOGLOBIN 32.1 pg (27.0-33.0); MEAN CORPUSCULAR HGB CONC 31.2 g/dl (32.0-36.5); MEAN CORPUSCULAR VOLUME 102.8 fl (80.0-96.0); PLATELET COUNT, AUTOMATED 196 10^3/uL (150-450); WHITE BLOOD COUNT 6.8 10^3/uL (4.0-10.0)
[2021-11-01 09:23] LABS: CALCIUM LEVEL 7.7 MG/DL (8.8-10.2); CREATININE FOR GFR 2.07 MG/DL (0.55-1.30); GLOMERULAR FILTRATION RATE 24.5 (>32); MAGNESIUM LEVEL 1.5 MG/DL (1.8-2.4); POTASSIUM SERUM 4.4 MEQ/L (3.5-5.1)
[2021-11-01] MEDS: rOPINIRole 1MG TAB PO SCH ×2 (12:36→20:10)
[2021-11-01] MEDS: levETIRAcetam 250MG TABLET (KEPPRA) PO SCH ×2 (12:36→20:10)
[2021-11-01] MEDS ORDERED: DEXTROSE 50% 50 ML SYRINGE IV PRN (17:30)
[2021-11-01] MEDS ORDERED: GLUCAGON INJ 1MG VIAL SC PRN (17:30)
[2021-11-01] MEDS ORDERED: GLUCOSE 4GM CHEW TABLET PO PRN (17:30)
[2021-11-01] MEDS: HumaLOG INSULIN (NovoLOG) PER UNIT SC SCH ×2 (17:43→19:40)
[2021-11-01] MEDS: SINEMET 25-100 MG TAB PO SCH (18:27)
[2021-11-01] MEDS: ATORVASTATIN 20 MG TAB PO SCH (20:09)
[2021-11-01] MEDS: METOPROLOL TARTRATE 100MG TAB PO SCH (20:10)
[2021-11-01] MEDS: FERROUS SULFATE 325MG TAB PO SCH (20:10)
[2021-11-01] MEDS: ACETAMINOPHEN TAB 650MG DOSE (2X325MG) PO PRN (20:10)
[2021-11-01] MEDS: **NOTE PATIENT COMMENT** MISC XX SCH (20:11)
[2021-11-02 05:28] VITALS: BP 113/62
[2021-11-02] MEDS: FUROSEMIDE 40MG/4ML VIAL (J1940) IV SCH ×2 (05:29→18:29)
[2021-11-02 08:25] LABS: HEMATOCRIT 26.1 % (36.0-47.0); HEMOGLOBIN 8.2 g/dl (12.0-15.5); MEAN CORPUSCULAR HEMOGLOBIN 32.3 pg (27.0-33.0); MEAN CORPUSCULAR HGB CONC 31.4 g/dl (32.0-36.5); MEAN CORPUSCULAR VOLUME 102.8 fl (80.0-96.0); PLATELET COUNT, AUTOMATED 180 10^3/uL (150-450); RED BLOOD COUNT 2.54 10^6/uL (4.00-5.40); WHITE BLOOD COUNT 7.7 10^3/uL (4.0-10.0)
[2021-11-02 08:47] LABS: CALCIUM LEVEL 7.5 MG/DL (8.8-10.2); CREATININE FOR GFR 2.37 MG/DL (0.55-1.30); MAGNESIUM LEVEL 1.5 MG/DL (1.8-2.4); POTASSIUM SERUM 4.7 MEQ/L (3.5-5.1)
[2021-11-02 09:00] VITALS: BP 113/64
[2021-11-02] MEDS: OMEPRAZOLE 20MG CAP PO SCH (09:01)
[2021-11-02] MEDS: APIXABAN 2.5 MG TAB (ELIQUIS) PO SCH ×2 (09:01→21:51)
[2021-11-02] MEDS: POTASSIUM CHLORIDE 10MEQ SR TABLET PO SCH ×2 (09:01→21:47)
[2021-11-02] MEDS: allopurinoL 100 MG TAB PO SCH (09:01)
[2021-11-02] MEDS: FLUTICASONE PROP 0.05% NASAL SPRAY 16 GM (FLONASE) NARES SCH ×2 (09:02→21:51)
[2021-11-02] MEDS: LIDOCAINE 5% (LIDODERM) PATCH TD SCH (09:02)
[2021-11-02] MEDS: METOPROLOL TART 50 MG TAB PO SCH (09:04)
[2021-11-02] MEDS: HumaLOG INSULIN (NovoLOG) PER UNIT SC SCH ×4 (09:04→21:00)
[2021-11-02] MEDS ORDERED: FUROSEMIDE 40MG/4ML VIAL (J1940) IV ONE (10:30)
[2021-11-02] MEDS: PERCOCET 5MG/325MG TAB PO PRN ×2 (10:50→18:50)
[2021-11-02] MEDS ORDERED: MAG SULF 1GM/100ML (MAG RUN) 1 GM in IV 1 EA IV ONE (11:30)
[2021-11-02] MEDS: levETIRAcetam 250MG TABLET (KEPPRA) PO SCH ×2 (12:29→21:51)
[2021-11-02] MEDS: rOPINIRole 1MG TAB PO SCH ×2 (12:29→21:51)
[2021-11-02 14:00] VITALS: BP 111/64
[2021-11-02] MEDS: SINEMET 25-100 MG TAB PO SCH (18:31)
[2021-11-02 19:16] VITALS: BP 111/64
[2021-11-02] MEDS: FERROUS SULFATE 325MG TAB PO SCH (21:47)
[2021-11-02] MEDS: METOPROLOL TARTRATE 100MG TAB PO SCH (21:49)
[2021-11-02] MEDS: ATORVASTATIN 20 MG TAB PO SCH (21:51)
[2021-11-02] MEDS: **NOTE PATIENT COMMENT** MISC XX SCH (21:52)
[2021-11-02 22:00] VITALS: BP 111/64
[2021-11-03] MEDS: PERCOCET 5MG/325MG TAB PO PRN ×2 (01:42→15:40)
[2021-11-03] MEDS: FUROSEMIDE 40MG/4ML VIAL (J1940) IV SCH ×3 (05:50→21:10)
[2021-11-03 06:00] VITALS: BP 110/58
[2021-11-03 06:46] LABS: HEMATOCRIT 27.1 % (36.0-47.0); HEMOGLOBIN 8.2 g/dl (12.0-15.5); MEAN CORPUSCULAR HEMOGLOBIN 31.3 pg (27.0-33.0); MEAN CORPUSCULAR HGB CONC 30.3 g/dl (32.0-36.5); MEAN CORPUSCULAR VOLUME 103.4 fl (80.0-96.0); PLATELET COUNT, AUTOMATED 182 10^3/uL (150-450); RED BLOOD COUNT 2.62 10^6/uL (4.00-5.40)
[2021-11-03 07:17] LABS: CREATININE FOR GFR 2.34 MG/DL (0.55-1.30); GLOMERULAR FILTRATION RATE 21.3 (>32); MAGNESIUM LEVEL 1.8 MG/DL (1.8-2.4); POTASSIUM SERUM 4.7 MEQ/L (3.5-5.1)
[2021-11-03] MEDS: POTASSIUM CHLORIDE 10MEQ SR TABLET PO SCH ×2 (08:01→20:11)
[2021-11-03] MEDS: allopurinoL 100 MG TAB PO SCH (08:02)
[2021-11-03] MEDS: OMEPRAZOLE 20MG CAP PO SCH (08:02)
[2021-11-03] MEDS: APIXABAN 2.5 MG TAB (ELIQUIS) PO SCH ×2 (08:03→20:11)
[2021-11-03] MEDS: FLUTICASONE PROP 0.05% NASAL SPRAY 16 GM (FLONASE) NARES SCH ×2 (08:04→20:13)
[2021-11-03] MEDS: LIDOCAINE 5% (LIDODERM) PATCH TD SCH (08:04)
[2021-11-03] MEDS: HumaLOG INSULIN (NovoLOG) PER UNIT SC SCH ×4 (08:04→20:13)
[2021-11-03] MEDS: METOPROLOL TART 50 MG TAB PO SCH (08:05)
[2021-11-03] MEDS: levETIRAcetam 250MG TABLET (KEPPRA) PO SCH ×2 (12:36→20:12)
[2021-11-03] MEDS: rOPINIRole 1MG TAB PO SCH ×2 (12:36→20:13)
[2021-11-03 14:00] VITALS: BP 114/62
[2021-11-03] MEDS: SINEMET 25-100 MG TAB PO SCH (20:11)
[2021-11-03] MEDS: FERROUS SULFATE 325MG TAB PO SCH (20:11)
[2021-11-03] MEDS: METOPROLOL TARTRATE 100MG TAB PO SCH (20:12)
[2021-11-03] MEDS: ATORVASTATIN 20 MG TAB PO SCH (20:13)
[2021-11-03] MEDS: **NOTE PATIENT COMMENT** MISC XX SCH (20:17)
[2021-11-03 22:00] VITALS: BP 114/59
[2021-11-04] MEDS: FUROSEMIDE 40MG/4ML VIAL (J1940) IV SCH ×5 (04:58→23:50)
[2021-11-04 06:00] VITALS: BP 119/64
[2021-11-04 06:24] LABS: HEMATOCRIT 25.7 % (36.0-47.0); HEMOGLOBIN 7.9 g/dl (12.0-15.5); MEAN CORPUSCULAR HEMOGLOBIN 31.6 pg (27.0-33.0); MEAN CORPUSCULAR HGB CONC 30.7 g/dl (32.0-36.5); MEAN CORPUSCULAR VOLUME 102.8 fl (80.0-96.0); PLATELET COUNT, AUTOMATED 181 10^3/uL (150-450); WHITE BLOOD COUNT 7.1 10^3/uL (4.0-10.0)
[2021-11-04 06:56] LABS: CALCIUM LEVEL 7.9 MG/DL (8.8-10.2); CREATININE FOR GFR 2.23 MG/DL (0.55-1.30); GLOMERULAR FILTRATION RATE 22.5 (>32); MAGNESIUM LEVEL 1.9 MG/DL (1.8-2.4); POTASSIUM SERUM 4.4 MEQ/L (3.5-5.1)
[2021-11-04 08:00] VITALS: BP_SYST 117; BP_DIAS 54; BP_DIAS 64
[2021-11-04] MEDS: HumaLOG INSULIN (NovoLOG) PER UNIT SC SCH ×4 (08:05→20:04)
[2021-11-04] MEDS ORDERED: MAG SULF 1GM/100ML (MAG RUN) 1 GM in IV 1 EA IV ONE (09:00)
[2021-11-04] MEDS: PERCOCET 5MG/325MG TAB PO PRN ×2 (09:52→16:16)
[2021-11-04] MEDS: LIDOCAINE 5% (LIDODERM) PATCH TD SCH (11:24)
[2021-11-04] MEDS: rOPINIRole 1MG TAB PO SCH ×2 (11:24→20:02)
[2021-11-04] MEDS: OMEPRAZOLE 20MG CAP PO SCH (11:24)
[2021-11-04] MEDS: levETIRAcetam 250MG TABLET (KEPPRA) PO SCH ×2 (11:25→20:01)
[2021-11-04] MEDS: APIXABAN 2.5 MG TAB (ELIQUIS) PO SCH ×2 (11:25→20:03)
[2021-11-04] MEDS: allopurinoL 100 MG TAB PO SCH (11:25)
[2021-11-04] MEDS: POTASSIUM CHLORIDE 10MEQ SR TABLET PO SCH ×2 (11:25→20:01)
[2021-11-04] MEDS: FLUTICASONE PROP 0.05% NASAL SPRAY 16 GM (FLONASE) NARES SCH ×2 (11:27→20:04)
[2021-11-04] MEDS: METOPROLOL TART 50 MG TAB PO SCH (11:27)
[2021-11-04 14:00] VITALS: BP_SYST 117; BP_SYST 119; BP_DIAS 63; BP_DIAS 64
[2021-11-04 16:00] VITALS: BP 127/57
[2021-11-04] MEDS: ATORVASTATIN 20 MG TAB PO SCH (20:03)
[2021-11-04] MEDS: SINEMET 25-100 MG TAB PO SCH (20:03)
[2021-11-04] MEDS: METOPROLOL TARTRATE 100MG TAB PO SCH (20:03)
[2021-11-04] MEDS: FERROUS SULFATE 325MG TAB PO SCH (20:03)
[2021-11-04] MEDS: **NOTE PATIENT COMMENT** MISC XX SCH (20:04)
[2021-11-04 22:00] VITALS: BP 123/58
[2021-11-05] MEDS: FUROSEMIDE 40MG/4ML VIAL (J1940) IV SCH ×6 (03:51→19:47)
[2021-11-05 06:00] VITALS: BP 110/72
[2021-11-05 06:23] LABS: HEMATOCRIT 26.4 % (36.0-47.0); HEMOGLOBIN 8.1 g/dl (12.0-15.5); MEAN CORPUSCULAR HEMOGLOBIN 31.8 pg (27.0-33.0); MEAN CORPUSCULAR HGB CONC 30.7 g/dl (32.0-36.5); MEAN CORPUSCULAR VOLUME 103.5 fl (80.0-96.0); PLATELET COUNT, AUTOMATED 172 10^3/uL (150-450); RED BLOOD COUNT 2.55 10^6/uL (4.00-5.40); WHITE BLOOD COUNT 7.4 10^3/uL (4.0-10.0)
[2021-11-05 06:45] LABS: CREATININE FOR GFR 2.18 MG/DL (0.55-1.30); GLOMERULAR FILTRATION RATE 23.1 (>32); MAGNESIUM LEVEL 1.9 MG/DL (1.8-2.4); POTASSIUM SERUM 4.4 MEQ/L (3.5-5.1)
[2021-11-05] MEDS: allopurinoL 100 MG TAB PO SCH (08:12)
[2021-11-05] MEDS: POTASSIUM CHLORIDE 10MEQ SR TABLET PO SCH ×2 (08:13→19:48)
[2021-11-05] MEDS: OMEPRAZOLE 20MG CAP PO SCH (08:14)
[2021-11-05] MEDS: LIDOCAINE 5% (LIDODERM) PATCH TD SCH (08:14)
[2021-11-05] MEDS: APIXABAN 2.5 MG TAB (ELIQUIS) PO SCH ×2 (08:14→19:48)
[2021-11-05] MEDS: METOPROLOL TART 50 MG TAB PO SCH (08:14)
[2021-11-05] MEDS: HumaLOG INSULIN (NovoLOG) PER UNIT SC SCH ×4 (08:15→19:53)
[2021-11-05] MEDS: FLUTICASONE PROP 0.05% NASAL SPRAY 16 GM (FLONASE) NARES SCH ×2 (08:16→19:47)
[2021-11-05] MEDS: rOPINIRole 1MG TAB PO SCH ×2 (12:12→19:47)
[2021-11-05] MEDS: levETIRAcetam 250MG TABLET (KEPPRA) PO SCH ×2 (12:12→19:49)
[2021-11-05] MEDS: PERCOCET 5MG/325MG TAB PO PRN (12:19)
[2021-11-05 13:52] VITALS: BP 108/64
[2021-11-05] MEDS: ATORVASTATIN 20 MG TAB PO SCH (19:47)
[2021-11-05] MEDS: SINEMET 25-100 MG TAB PO SCH (19:48)
[2021-11-05] MEDS: FERROUS SULFATE 325MG TAB PO SCH (19:48)
[2021-11-05] MEDS: METOPROLOL TARTRATE 100MG TAB PO SCH (19:52)
[2021-11-05] MEDS: **NOTE PATIENT COMMENT** MISC XX SCH (19:54)
[2021-11-05 21:00] VITALS: BP 111/65
[2021-11-06] MEDS: FUROSEMIDE 40MG/4ML VIAL (J1940) IV SCH ×6 (00:05→23:42)
[2021-11-06] MEDS: PERCOCET 5MG/325MG TAB PO PRN ×2 (00:05→17:25)
[2021-11-06 06:00] VITALS: BP 125/64
[2021-11-06 06:38] LABS: HEMATOCRIT 24.7 % (36.0-47.0); HEMOGLOBIN 7.8 g/dl (12.0-15.5); MEAN CORPUSCULAR HEMOGLOBIN 32.5 pg (27.0-33.0); MEAN CORPUSCULAR HGB CONC 31.6 g/dl (32.0-36.5); MEAN CORPUSCULAR VOLUME 102.9 fl (80.0-96.0); PLATELET COUNT, AUTOMATED 169 10^3/uL (150-450); WHITE BLOOD COUNT 7.1 10^3/uL (4.0-10.0)
[2021-11-06 07:19] LABS: CALCIUM LEVEL 7.9 MG/DL (8.8-10.2); CREATININE FOR GFR 2.17 MG/DL (0.55-1.30); GLOMERULAR FILTRATION RATE 23.2 (>32); MAGNESIUM LEVEL 1.8 MG/DL (1.8-2.4); POTASSIUM SERUM 3.8 MEQ/L (3.5-5.1)
[2021-11-06] MEDS: HumaLOG INSULIN (NovoLOG) PER UNIT SC SCH ×4 (08:10→19:38)
[2021-11-06] MEDS: METOPROLOL TART 50 MG TAB PO SCH (08:13)
[2021-11-06] MEDS: POTASSIUM CHLORIDE 10MEQ SR TABLET PO SCH ×2 (08:13→20:52)
[2021-11-06] MEDS: OMEPRAZOLE 20MG CAP PO SCH (08:13)
[2021-11-06] MEDS: allopurinoL 100 MG TAB PO SCH (08:13)
[2021-11-06] MEDS: APIXABAN 2.5 MG TAB (ELIQUIS) PO SCH ×2 (08:13→20:52)
[2021-11-06] MEDS: LIDOCAINE 5% (LIDODERM) PATCH TD SCH (08:14)
[2021-11-06] MEDS: FLUTICASONE PROP 0.05% NASAL SPRAY 16 GM (FLONASE) NARES SCH ×2 (08:14→20:56)
[2021-11-06] MEDS ORDERED: FUROSEMIDE 100MG/10ML VIAL (J1940) IV ONE (12:00)
[2021-11-06] MEDS: rOPINIRole 1MG TAB PO SCH ×2 (12:10→20:52)
[2021-11-06] MEDS: levETIRAcetam 250MG TABLET (KEPPRA) PO SCH ×2 (12:10→20:52)
[2021-11-06 14:00] VITALS: BP 108/63
[2021-11-06] MEDS: SINEMET 25-100 MG TAB PO SCH (18:48)
[2021-11-06 19:12] VITALS: O2SAT 83
[2021-11-06 19:15] VITALS: O2SAT 91
[2021-11-06 20:00] VITALS: BP 103/56
[2021-11-06] MEDS: ATORVASTATIN 20 MG TAB PO SCH (20:52)
[2021-11-06] MEDS: FERROUS SULFATE 325MG TAB PO SCH (20:52)
[2021-11-06] MEDS: METOPROLOL TARTRATE 100MG TAB PO SCH (20:54)
[2021-11-06] MEDS: **NOTE PATIENT COMMENT** MISC XX SCH (20:56)
[2021-11-07] MEDS: FUROSEMIDE 40MG/4ML VIAL (J1940) IV SCH ×2 (03:26→08:52)
[2021-11-07 05:00] VITALS: BP 127/72
[2021-11-07 07:30] VITALS: BP 120/72
[2021-11-07] MEDS: HumaLOG INSULIN (NovoLOG) PER UNIT SC SCH ×4 (07:53→21:00)
[2021-11-07 08:04] LABS: HEMOGLOBIN 8.4 g/dl (12.0-15.5); MEAN CORPUSCULAR HEMOGLOBIN 31.9 pg (27.0-33.0); MEAN CORPUSCULAR HGB CONC 31.1 g/dl (32.0-36.5); MEAN CORPUSCULAR VOLUME 102.7 fl (80.0-96.0); PLATELET COUNT, AUTOMATED 180 10^3/uL (150-450); RED BLOOD COUNT 2.63 10^6/uL (4.00-5.40); WHITE BLOOD COUNT 8.4 10^3/uL (4.0-10.0)
[2021-11-07 08:34] LABS: CALCIUM LEVEL 8.4 MG/DL (8.8-10.2); CREATININE FOR GFR 2.14 MG/DL (0.55-1.30); GLOMERULAR FILTRATION RATE 23.6 (>32); MAGNESIUM LEVEL 1.7 MG/DL (1.8-2.4); POTASSIUM SERUM 3.9 MEQ/L (3.5-5.1)
[2021-11-07] MEDS: OMEPRAZOLE 20MG CAP PO SCH (08:52)
[2021-11-07] MEDS: APIXABAN 2.5 MG TAB (ELIQUIS) PO SCH ×2 (08:53→20:14)
[2021-11-07] MEDS: allopurinoL 100 MG TAB PO SCH (08:53)
[2021-11-07] MEDS: METOPROLOL TART 50 MG TAB PO SCH (08:53)
[2021-11-07] MEDS: LIDOCAINE 5% (LIDODERM) PATCH TD SCH (08:54)
[2021-11-07] MEDS: POTASSIUM CHLORIDE 10MEQ SR TABLET PO SCH ×2 (08:54→20:12)
[2021-11-07] MEDS: FLUTICASONE PROP 0.05% NASAL SPRAY 16 GM (FLONASE) NARES SCH ×2 (09:00→10:03)
[2021-11-07] MEDS: MAG SULF 1GM/100ML (MAG RUN) 1 GM in IV 1 EA IV SCH ×2 (09:56→11:22)
[2021-11-07] MEDS: TORSEMIDE 20 MG TAB PO SCH ×2 (09:57→17:22)
[2021-11-07] MEDS: PERCOCET 5MG/325MG TAB PO PRN (11:10)
[2021-11-07] MEDS: rOPINIRole 1MG TAB PO SCH ×2 (12:21→20:11)
[2021-11-07] MEDS: levETIRAcetam 250MG TABLET (KEPPRA) PO SCH ×2 (12:21→20:11)
[2021-11-07 14:00] VITALS: BP 116/68
[2021-11-07] MEDS: FERROUS SULFATE 325MG TAB PO SCH (20:11)
[2021-11-07] MEDS: SINEMET 25-100 MG TAB PO SCH (20:12)
[2021-11-07] MEDS: ATORVASTATIN 20 MG TAB PO SCH (20:14)
[2021-11-07] MEDS: **NOTE PATIENT COMMENT** MISC XX SCH (20:15)
[2021-11-07] MEDS: METOPROLOL TARTRATE 100MG TAB PO SCH (20:16)
[2021-11-07 22:00] VITALS: BP 123/67
[2021-11-08 06:00] VITALS: BP 120/65
[2021-11-08 06:22] LABS: BASO # 0.1 10^3/uL (0.0-0.2); EOS # 0.5 10^3/uL (0.0-0.5); EOS % 5.9 % (0.0-3.0); HEMATOCRIT 26.3 % (36.0-47.0); HEMOGLOBIN 8.2 g/dl (12.0-15.5); LYMPH % 11.8 % (24.0-44.0); MEAN CORPUSCULAR HGB CONC 31.2 g/dl (32.0-36.5); MEAN CORPUSCULAR VOLUME 102.7 fl (80.0-96.0); MONO # 1.1 10^3/uL (0.0-0.8); NEUTROPHILS # 5.6 10^3/uL (1.5-8.5); NEUTROPHILS % 68.1 % (36.0-66.0); PLATELET COUNT, AUTOMATED 178 10^3/uL (150-450); RED BLOOD COUNT 2.56 10^6/uL (4.00-5.40); WHITE BLOOD COUNT 8.3 10^3/uL (4.0-10.0)
[2021-11-08 06:46] LABS: CALCIUM LEVEL 9.1 MG/DL (8.8-10.2); CREATININE FOR GFR 1.99 MG/DL (0.55-1.30); GLOMERULAR FILTRATION RATE 25.7 (>32); POTASSIUM SERUM 3.5 MEQ/L (3.5-5.1)
[2021-11-08] MEDS: HumaLOG INSULIN (NovoLOG) PER UNIT SC SCH ×4 (08:11→20:19)
[2021-11-08 09:05] LABS: MAGNESIUM LEVEL 2.1 MG/DL (1.8-2.4)
[2021-11-08] MEDS: rOPINIRole 1MG TAB PO SCH ×2 (10:46→20:17)
[2021-11-08] MEDS: allopurinoL 100 MG TAB PO SCH (10:46)
[2021-11-08] MEDS: OMEPRAZOLE 20MG CAP PO SCH (10:47)
[2021-11-08] MEDS: levETIRAcetam 250MG TABLET (KEPPRA) PO SCH ×2 (10:47→20:19)
[2021-11-08] MEDS: POTASSIUM CHLORIDE 10MEQ SR TABLET PO SCH ×2 (10:47→20:17)
[2021-11-08] MEDS: APIXABAN 2.5 MG TAB (ELIQUIS) PO SCH ×2 (10:47→20:19)
[2021-11-08] MEDS: METOPROLOL TART 50 MG TAB PO SCH (10:48)
[2021-11-08] MEDS: LIDOCAINE 5% (LIDODERM) PATCH TD SCH (10:51)
[2021-11-08] MEDS: FLUTICASONE PROP 0.05% NASAL SPRAY 16 GM (FLONASE) NARES SCH ×2 (10:52→20:20)
[2021-11-08 12:11] VITALS: O2SAT 93
[2021-11-08] MEDS: TORSEMIDE 100 MG TAB PO SCH ×2 (12:56→17:04)
[2021-11-08 13:52] VITALS: BP 119/67
[2021-11-08] MEDS: SINEMET 25-100 MG TAB PO SCH (18:34)
[2021-11-08 19:13] VITALS: BP 113/68
[2021-11-08] MEDS: METOPROLOL TARTRATE 100MG TAB PO SCH (20:18)
[2021-11-08] MEDS: FERROUS SULFATE 325MG TAB PO SCH (20:18)
[2021-11-08] MEDS: ATORVASTATIN 20 MG TAB PO SCH (20:19)
[2021-11-08] MEDS: **NOTE PATIENT COMMENT** MISC XX SCH (20:20)
[2021-11-08] MEDS: PERCOCET 5MG/325MG TAB PO PRN (20:36)
[2021-11-08 22:00] VITALS: BP 133/74
[2021-11-09 00:27] VITALS: O2SAT 91
[2021-11-09 06:00] VITALS: BP 117/60
[2021-11-09 06:13] LABS: BASO # 0.1 10^3/uL (0.0-0.2); BASO % 0.7 % (0.0-1.0); EOS # 0.5 10^3/uL (0.0-0.5); EOS % 6.4 % (0.0-3.0); HEMATOCRIT 25.8 % (36.0-47.0); HEMOGLOBIN 8.1 g/dl (12.0-15.5); LYMPH # 1.2 10^3/uL (1.5-5.0); LYMPH % 15.1 % (24.0-44.0); MEAN CORPUSCULAR HGB CONC 31.4 g/dl (32.0-36.5); MONO % 13.1 % (2.0-8.0); NEUTROPHILS # 4.9 10^3/uL (1.5-8.5); NEUTROPHILS % 64.3 % (36.0-66.0); PLATELET COUNT, AUTOMATED 187 10^3/uL (150-450); RED BLOOD COUNT 2.53 10^6/uL (4.00-5.40); WHITE BLOOD COUNT 7.7 10^3/uL (4.0-10.0)
[2021-11-09 06:24] LABS: CALCIUM LEVEL 8.9 MG/DL (8.8-10.2); CREATININE FOR GFR 1.98 MG/DL (0.55-1.30); GLOMERULAR FILTRATION RATE 25.8 (>32); POTASSIUM SERUM 3.5 MEQ/L (3.5-5.1)
[2021-11-09] MEDS: LIDOCAINE 5% (LIDODERM) PATCH TD SCH (09:09)
[2021-11-09] MEDS: FLUTICASONE PROP 0.05% NASAL SPRAY 16 GM (FLONASE) NARES SCH ×2 (09:09→20:53)
[2021-11-09] MEDS: OMEPRAZOLE 20MG CAP PO SCH (09:09)
[2021-11-09] MEDS: APIXABAN 2.5 MG TAB (ELIQUIS) PO SCH ×2 (09:09→20:51)
[2021-11-09] MEDS: allopurinoL 100 MG TAB PO SCH (09:10)
[2021-11-09] MEDS: METOPROLOL TART 50 MG TAB PO SCH (09:10)
[2021-11-09] MEDS: TORSEMIDE 100 MG TAB PO SCH ×2 (09:10→17:18)
[2021-11-09] MEDS: POTASSIUM CHLORIDE 10MEQ SR TABLET PO SCH ×2 (09:11→20:53)
[2021-11-09] MEDS: HumaLOG INSULIN (NovoLOG) PER UNIT SC SCH ×4 (09:11→20:53)
[2021-11-09] MEDS: PERCOCET 5MG/325MG TAB PO PRN (09:47)
[2021-11-09 12:01] VITALS: O2SAT 93
[2021-11-09] MEDS: rOPINIRole 1MG TAB PO SCH ×2 (13:19→20:51)
[2021-11-09] MEDS: levETIRAcetam 250MG TABLET (KEPPRA) PO SCH ×2 (13:20→20:52)
[2021-11-09 14:00] VITALS: BP 108/49
[2021-11-09] MEDS: SINEMET 25-100 MG TAB PO SCH (18:50)
[2021-11-09 19:11] VITALS: BP 115/64
[2021-11-09] MEDS: ATORVASTATIN 20 MG TAB PO SCH (20:52)
[2021-11-09] MEDS: METOPROLOL TARTRATE 100MG TAB PO SCH (20:52)
[2021-11-09] MEDS: FERROUS SULFATE 325MG TAB PO SCH (20:52)
[2021-11-09] MEDS: **NOTE PATIENT COMMENT** MISC XX SCH (20:54)
[2021-11-09] MEDS: NYSTATIN 100,000 UNITS/GM TOPICAL PWD 15 GM TOP SCH (20:54)
[2021-11-09] MEDS: ACETAMINOPHEN TAB 650MG DOSE (2X325MG) PO PRN (20:55)
[2021-11-09 22:00] VITALS: BP 123/62
[2021-11-10] MEDS: PERCOCET 5MG/325MG TAB PO PRN ×2 (02:47→13:32)
[2021-11-10 04:04] VITALS: O2SAT 91
[2021-11-10 05:58] LABS: BASO # 0.1 10^3/uL (0.0-0.2); BASO % 0.7 % (0.0-1.0); EOS # 0.5 10^3/uL (0.0-0.5); EOS % 6.3 % (0.0-3.0); HEMATOCRIT 25.2 % (36.0-47.0); HEMOGLOBIN 7.9 g/dl (12.0-15.5); LYMPH # 1.1 10^3/uL (1.5-5.0); LYMPH % 14.6 % (24.0-44.0); MEAN CORPUSCULAR HGB CONC 31.3 g/dl (32.0-36.5); MONO % 13.4 % (2.0-8.0); NEUTROPHILS # 4.7 10^3/uL (1.5-8.5); NEUTROPHILS % 64.5 % (36.0-66.0); PLATELET COUNT, AUTOMATED 189 10^3/uL (150-450); RED BLOOD COUNT 2.47 10^6/uL (4.00-5.40); WHITE BLOOD COUNT 7.3 10^3/uL (4.0-10.0)
[2021-11-10 06:00] VITALS: BP 96/57
[2021-11-10 06:22] LABS: CALCIUM LEVEL 8.4 MG/DL (8.8-10.2); CREATININE FOR GFR 1.97 MG/DL (0.55-1.30); MAGNESIUM LEVEL 1.9 MG/DL (1.8-2.4); POTASSIUM SERUM 3.6 MEQ/L (3.5-5.1)
[2021-11-10] MEDS: FLUTICASONE PROP 0.05% NASAL SPRAY 16 GM (FLONASE) NARES SCH ×2 (08:21→20:28)
[2021-11-10] MEDS: APIXABAN 2.5 MG TAB (ELIQUIS) PO SCH ×2 (08:21→20:27)
[2021-11-10] MEDS: allopurinoL 100 MG TAB PO SCH (08:21)
[2021-11-10] MEDS: LIDOCAINE 5% (LIDODERM) PATCH TD SCH (08:21)
[2021-11-10] MEDS: NYSTATIN 100,000 UNITS/GM TOPICAL PWD 15 GM TOP SCH ×2 (08:21→20:29)
[2021-11-10] MEDS: OMEPRAZOLE 20MG CAP PO SCH (08:21)
[2021-11-10] MEDS: POTASSIUM CHLORIDE 10MEQ SR TABLET PO SCH ×2 (08:22→20:28)
[2021-11-10] MEDS: METOPROLOL TART 50 MG TAB PO SCH (08:27)
[2021-11-10] MEDS: TORSEMIDE 100 MG TAB PO SCH ×2 (08:27→17:19)
[2021-11-10] MEDS: HumaLOG INSULIN (NovoLOG) PER UNIT SC SCH ×4 (08:28→20:28)
[2021-11-10 09:00] VITALS: O2SAT 92
[2021-11-10] MEDS: rOPINIRole 1MG TAB PO SCH ×2 (13:31→20:27)
[2021-11-10] MEDS: levETIRAcetam 250MG TABLET (KEPPRA) PO SCH ×2 (13:31→20:27)
[2021-11-10 14:00] VITALS: BP 123/68
[2021-11-10] MEDS: SINEMET 25-100 MG TAB PO SCH (18:55)
[2021-11-10 20:13] VITALS: BP 113/63
[2021-11-10] MEDS: FERROUS SULFATE 325MG TAB PO SCH (20:27)
[2021-11-10] MEDS: METOPROLOL TARTRATE 100MG TAB PO SCH (20:28)
[2021-11-10] MEDS: ATORVASTATIN 20 MG TAB PO SCH (20:28)
[2021-11-10] MEDS: **NOTE PATIENT COMMENT** MISC XX SCH (20:29)
[2021-11-10] MEDS: ACETAMINOPHEN TAB 650MG DOSE (2X325MG) PO PRN (20:29)
[2021-11-10] MEDS ORDERED: BISACODYL 5 MG TAB PO PRN (20:45)
[2021-11-10] MEDS: DOCUSATE SODIUM 100MG CAPSULE PO SCH (22:17)
[2021-11-11] MEDS: PERCOCET 5MG/325MG TAB PO PRN ×2 (04:10→14:26)
[2021-11-11 05:28] VITALS: BP 110/58
[2021-11-11 06:16] VITALS: O2SAT 93
[2021-11-11 06:18] LABS: BASO # 0.1 10^3/uL (0.0-0.2); BASO % 0.9 % (0.0-1.0); EOS # 0.5 10^3/uL (0.0-0.5); EOS % 7.4 % (0.0-3.0); HEMATOCRIT 25.3 % (36.0-47.0); HEMOGLOBIN 7.9 g/dl (12.0-15.5); LYMPH # 0.9 10^3/uL (1.5-5.0); LYMPH % 13.1 % (24.0-44.0); MEAN CORPUSCULAR HEMOGLOBIN 31.9 pg (27.0-33.0); MEAN CORPUSCULAR HGB CONC 31.2 g/dl (32.0-36.5); MONO # 0.9 10^3/uL (0.0-0.8); MONO % 13.9 % (2.0-8.0); NEUTROPHILS # 4.3 10^3/uL (1.5-8.5); NEUTROPHILS % 64.1 % (36.0-66.0); PLATELET COUNT, AUTOMATED 190 10^3/uL (150-450); RED BLOOD COUNT 2.48 10^6/uL (4.00-5.40); WHITE BLOOD COUNT 6.7 10^3/uL (4.0-10.0)
[2021-11-11 06:44] LABS: CALCIUM LEVEL 8.4 MG/DL (8.8-10.2); CREATININE FOR GFR 2.01 MG/DL (0.55-1.30); GLOMERULAR FILTRATION RATE 25.4 (>32); MAGNESIUM LEVEL 1.8 MG/DL (1.8-2.4); POTASSIUM SERUM 3.2 MEQ/L (3.5-5.1)
[2021-11-11] MEDS ORDERED: POTASSIUM CHLORIDE 10MEQ SR TABLET PO ONE ×2 (07:15→13:00)
[2021-11-11 08:00] VITALS: BP 119/70
[2021-11-11] MEDS: HumaLOG INSULIN (NovoLOG) PER UNIT SC SCH ×4 (08:17→20:37)
[2021-11-11] MEDS: TORSEMIDE 100 MG TAB PO SCH ×3 (08:18→17:05)
[2021-11-11] MEDS: allopurinoL 100 MG TAB PO SCH (08:18)
[2021-11-11] MEDS: OMEPRAZOLE 20MG CAP PO SCH (08:18)
[2021-11-11] MEDS: APIXABAN 2.5 MG TAB (ELIQUIS) PO SCH ×2 (08:18→20:36)
[2021-11-11] MEDS: LIDOCAINE 5% (LIDODERM) PATCH TD SCH (08:19)
[2021-11-11] MEDS: METOPROLOL TART 50 MG TAB PO SCH (08:19)
[2021-11-11] MEDS: FLUTICASONE PROP 0.05% NASAL SPRAY 16 GM (FLONASE) NARES SCH ×2 (08:20→20:38)
[2021-11-11] MEDS: NYSTATIN 100,000 UNITS/GM TOPICAL PWD 15 GM TOP SCH ×2 (08:20→20:38)
[2021-11-11] MEDS: POTASSIUM CHLORIDE 10MEQ SR TABLET PO SCH ×2 (10:18→20:37)
[2021-11-11 11:56] VITALS: BP 110/59
[2021-11-11] MEDS: levETIRAcetam 250MG TABLET (KEPPRA) PO SCH ×2 (12:00→20:36)
[2021-11-11] MEDS: rOPINIRole 1MG TAB PO SCH ×2 (12:00→20:36)
[2021-11-11 14:00] VITALS: BP 116/61
[2021-11-11 16:46] LABS: CALCIUM LEVEL 8.4 MG/DL (8.8-10.2); CREATININE FOR GFR 2.1 MG/DL (0.55-1.30); GLOMERULAR FILTRATION RATE 24.1 (>32); POTASSIUM SERUM 3.6 MEQ/L (3.5-5.1)
[2021-11-11] MEDS: SINEMET 25-100 MG TAB PO SCH (18:34)
[2021-11-11 19:46] VITALS: BP 115/63
[2021-11-11] MEDS: FERROUS SULFATE 325MG TAB PO SCH (20:36)
[2021-11-11] MEDS: DOCUSATE SODIUM 100MG CAPSULE PO SCH (20:36)
[2021-11-11] MEDS: ATORVASTATIN 20 MG TAB PO SCH (20:37)
[2021-11-11] MEDS: **NOTE PATIENT COMMENT** MISC XX SCH (20:38)
[2021-11-11] MEDS: METOPROLOL TARTRATE 100MG TAB PO SCH (20:38)
[2021-11-11] MEDS: ACETAMINOPHEN TAB 650MG DOSE (2X325MG) PO PRN (20:39)
[2021-11-12] MEDS: PERCOCET 5MG/325MG TAB PO PRN ×2 (02:52→14:56)
[2021-11-12 03:01] VITALS: O2SAT 91
[2021-11-12 05:19] VITALS: BP 117/62
[2021-11-12 06:39] LABS: BASO # 0.1 10^3/uL (0.0-0.2); EOS # 0.5 10^3/uL (0.0-0.5); EOS % 6.6 % (0.0-3.0); HEMATOCRIT 26.5 % (36.0-47.0); HEMOGLOBIN 8.2 g/dl (12.0-15.5); LYMPH # 0.8 10^3/uL (1.5-5.0); LYMPH % 11.5 % (24.0-44.0); MEAN CORPUSCULAR HEMOGLOBIN 31.8 pg (27.0-33.0); MEAN CORPUSCULAR HGB CONC 30.9 g/dl (32.0-36.5); MEAN CORPUSCULAR VOLUME 102.7 fl (80.0-96.0); MONO % 13.9 % (2.0-8.0); NEUTROPHILS # 4.8 10^3/uL (1.5-8.5); NEUTROPHILS % 66.6 % (36.0-66.0); PLATELET COUNT, AUTOMATED 216 10^3/uL (150-450); RED BLOOD COUNT 2.58 10^6/uL (4.00-5.40); WHITE BLOOD COUNT 7.1 10^3/uL (4.0-10.0)
[2021-11-12 07:10] LABS: CALCIUM LEVEL 8.8 MG/DL (8.8-10.2); CREATININE FOR GFR 2.06 MG/DL (0.55-1.30); GLOMERULAR FILTRATION RATE 24.7 (>32)
[2021-11-12] MEDS: LIDOCAINE 5% (LIDODERM) PATCH TD SCH (08:22)
[2021-11-12] MEDS: FLUTICASONE PROP 0.05% NASAL SPRAY 16 GM (FLONASE) NARES SCH ×2 (08:22→21:04)
[2021-11-12] MEDS: NYSTATIN 100,000 UNITS/GM TOPICAL PWD 15 GM TOP SCH ×2 (08:22→21:04)
[2021-11-12] MEDS: HumaLOG INSULIN (NovoLOG) PER UNIT SC SCH ×4 (08:23→21:00)
[2021-11-12] MEDS: TORSEMIDE 100 MG TAB PO SCH ×2 (08:24→16:27)
[2021-11-12] MEDS: allopurinoL 100 MG TAB PO SCH (08:24)
[2021-11-12] MEDS: OMEPRAZOLE 20MG CAP PO SCH (08:24)
[2021-11-12] MEDS: METOPROLOL TART 50 MG TAB PO SCH (08:24)
[2021-11-12] MEDS: POTASSIUM CHLORIDE 10MEQ SR TABLET PO SCH ×2 (08:24→20:59)
[2021-11-12] MEDS: APIXABAN 2.5 MG TAB (ELIQUIS) PO SCH ×2 (08:25→21:00)
[2021-11-12] MEDS ORDERED: TORSEMIDE 20 MG TAB PO ONE (09:30)
[2021-11-12] MEDS ORDERED: POTASSIUM CHLORIDE 10MEQ SR TABLET PO ONE (11:00)
[2021-11-12] MEDS: levETIRAcetam 250MG TABLET (KEPPRA) PO SCH ×2 (12:00→21:00)
[2021-11-12 14:00] VITALS: BP 119/63
[2021-11-12 15:08] LABS: APPEARANCE, URINE CLOUDY (CLEAR); BACTERIA, URINE AUTO 3+ (NEGATIVE); BILIRUBIN, URINE AUTO NEGATIVE (NEGATIVE); BLOOD, URINE BLOOD 1+ (NEGATIVE); COLOR, URINE YELLOW (YELLOW); GLUCOSE, URINE (UA) AUTO NEGATIVE (NEGATIVE); KETONE, URINE AUTO NEGATIVE (NEGATIVE); LEUKOCYTE ESTERASE, URINE AUTO 3+ (NEGATIVE); NITRITE, URINE AUTO POSITIVE (NEGATIVE); PROTEIN, URINE AUTO NEGATIVE (NEGATIVE); RBC, URINE AUTO 2 /HPF (0-3); SPECIFIC GRAVITY URINE AUTO 1.006 (1.002-1.035); SQUAMOUS EPITHELIAL CELL UR AU 1 /HPF (0-6); WBC, URINE AUTO TNTC /HPF (0-3)
[2021-11-12] MEDS: rOPINIRole 1MG TAB PO SCH ×2 (16:26→21:00)
[2021-11-12] MEDS: TORSEMIDE 20 MG TAB PO SCH (16:27)
[2021-11-12 18:00] VITALS: BP 128/69
[2021-11-12] MEDS: ATORVASTATIN 20 MG TAB PO SCH (20:58)
[2021-11-12] MEDS: DOCUSATE SODIUM 100MG CAPSULE PO SCH (20:58)
[2021-11-12] MEDS: cefTRIAXone SOD 1 GM in D5W MINI-BAG PLUS 50 ML IV SCH (20:58)
[2021-11-12] MEDS: FERROUS SULFATE 325MG TAB PO SCH (20:59)
[2021-11-12] MEDS: SINEMET 25-100 MG TAB PO SCH (21:00)
[2021-11-12] MEDS: METOPROLOL TARTRATE 100MG TAB PO SCH (21:01)
[2021-11-12] MEDS: **NOTE PATIENT COMMENT** MISC XX SCH (21:04)
[2021-11-12 22:00] VITALS: O2SAT 91
[2021-11-12 23:09] VITALS: BP 128/69
[2021-11-13 06:00] VITALS: BP 147/66
[2021-11-13 06:06] LABS: BASO # 0.1 10^3/uL (0.0-0.2); BASO % 0.9 % (0.0-1.0); EOS # 0.5 10^3/uL (0.0-0.5); EOS % 6.3 % (0.0-3.0); HEMATOCRIT 27.7 % (36.0-47.0); HEMOGLOBIN 8.5 g/dl (12.0-15.5); LYMPH # 1.2 10^3/uL (1.5-5.0); LYMPH % 13.6 % (24.0-44.0); MEAN CORPUSCULAR HEMOGLOBIN 31.6 pg (27.0-33.0); MEAN CORPUSCULAR HGB CONC 30.7 g/dl (32.0-36.5); MONO # 1.1 10^3/uL (0.0-0.8); MONO % 12.9 % (2.0-8.0); NEUTROPHILS # 5.6 10^3/uL (1.5-8.5); NEUTROPHILS % 66.1 % (36.0-66.0); PLATELET COUNT, AUTOMATED 237 10^3/uL (150-450); RED BLOOD COUNT 2.69 10^6/uL (4.00-5.40); WHITE BLOOD COUNT 8.5 10^3/uL (4.0-10.0)
[2021-11-13 06:34] LABS: CALCIUM LEVEL 9.2 MG/DL (8.8-10.2); CREATININE FOR GFR 2.17 MG/DL (0.55-1.30); GLOMERULAR FILTRATION RATE 23.2 (>32); POTASSIUM SERUM 3.7 MEQ/L (3.5-5.1)
[2021-11-13 07:15] VITALS: BP 127/68
[2021-11-13] MEDS: LIDOCAINE 5% (LIDODERM) PATCH TD SCH (08:25)
[2021-11-13] MEDS: HumaLOG INSULIN (NovoLOG) PER UNIT SC SCH ×4 (08:25→20:30)
[2021-11-13] MEDS: allopurinoL 100 MG TAB PO SCH (08:26)
[2021-11-13] MEDS: TORSEMIDE 100 MG TAB PO SCH ×2 (08:26→17:28)
[2021-11-13] MEDS: rOPINIRole 1MG TAB PO SCH ×3 (08:26→20:20)
[2021-11-13] MEDS: TORSEMIDE 20 MG TAB PO SCH ×2 (08:26→17:28)
[2021-11-13] MEDS: OMEPRAZOLE 20MG CAP PO SCH (08:26)
[2021-11-13] MEDS: METOPROLOL TART 50 MG TAB PO SCH (08:27)
[2021-11-13] MEDS: APIXABAN 2.5 MG TAB (ELIQUIS) PO SCH ×2 (08:27→20:20)
[2021-11-13] MEDS: FLUTICASONE PROP 0.05% NASAL SPRAY 16 GM (FLONASE) NARES SCH ×2 (08:27→20:21)
[2021-11-13] MEDS: POTASSIUM CHLORIDE 10MEQ SR TABLET PO SCH ×2 (08:27→20:20)
[2021-11-13] MEDS: NYSTATIN 100,000 UNITS/GM TOPICAL PWD 15 GM TOP SCH ×2 (08:28→20:21)
[2021-11-13] MEDS: levETIRAcetam 250MG TABLET (KEPPRA) PO SCH ×2 (11:49→20:20)
[2021-11-13 13:56] VITALS: BP 133/67
[2021-11-13] MEDS: SINEMET 25-100 MG TAB PO SCH (18:49)
[2021-11-13] MEDS: cefTRIAXone SOD 1 GM in D5W MINI-BAG PLUS 50 ML IV SCH (20:19)
[2021-11-13] MEDS: FERROUS SULFATE 325MG TAB PO SCH (20:20)
[2021-11-13] MEDS: ATORVASTATIN 20 MG TAB PO SCH (20:20)
[2021-11-13] MEDS: METOPROLOL TARTRATE 100MG TAB PO SCH (20:20)
[2021-11-13] MEDS: DOCUSATE SODIUM 100MG CAPSULE PO SCH (20:21)
[2021-11-13 20:37] VITALS: BP 129/68
[2021-11-13] MEDS: **NOTE PATIENT COMMENT** MISC XX SCH (21:00)
[2021-11-13 23:40] VITALS: BP 129/68
[2021-11-14 04:47] VITALS: BP 113/65
[2021-11-14 06:25] LABS: BASO # 0.1 10^3/uL (0.0-0.2); EOS # 0.6 10^3/uL (0.0-0.5); EOS % 6.8 % (0.0-3.0); HEMATOCRIT 28.2 % (36.0-47.0); HEMOGLOBIN 8.6 g/dl (12.0-15.5); LYMPH # 0.9 10^3/uL (1.5-5.0); LYMPH % 10.1 % (24.0-44.0); MEAN CORPUSCULAR HEMOGLOBIN 31.7 pg (27.0-33.0); MEAN CORPUSCULAR HGB CONC 30.5 g/dl (32.0-36.5); MEAN CORPUSCULAR VOLUME 104.1 fl (80.0-96.0); MONO # 1.3 10^3/uL (0.0-0.8); MONO % 14.1 % (2.0-8.0); NEUTROPHILS # 6.1 10^3/uL (1.5-8.5); NEUTROPHILS % 67.6 % (36.0-66.0); PLATELET COUNT, AUTOMATED 245 10^3/uL (150-450); RED BLOOD COUNT 2.71 10^6/uL (4.00-5.40)
[2021-11-14 06:53] LABS: CALCIUM LEVEL 9.3 MG/DL (8.8-10.2); CREATININE FOR GFR 2.25 MG/DL (0.55-1.30); GLOMERULAR FILTRATION RATE 22.3 (>32); POTASSIUM SERUM 4.4 MEQ/L (3.5-5.1)
[2021-11-14 08:00] VITALS: BP 125/70
[2021-11-14] MEDS: HumaLOG INSULIN (NovoLOG) PER UNIT SC SCH ×5 (08:00→21:00)
[2021-11-14] MEDS: LIDOCAINE 5% (LIDODERM) PATCH TD SCH (09:34)
[2021-11-14] MEDS: rOPINIRole 1MG TAB PO SCH ×3 (09:35→20:25)
[2021-11-14] MEDS: TORSEMIDE 20 MG TAB PO SCH ×2 (09:35→16:27)
[2021-11-14] MEDS: OMEPRAZOLE 20MG CAP PO SCH (09:35)
[2021-11-14] MEDS: TORSEMIDE 100 MG TAB PO SCH ×2 (09:36→16:26)
[2021-11-14] MEDS: POTASSIUM CHLORIDE 10MEQ SR TABLET PO SCH ×2 (09:36→20:25)
[2021-11-14] MEDS: allopurinoL 100 MG TAB PO SCH (09:36)
[2021-11-14] MEDS: APIXABAN 2.5 MG TAB (ELIQUIS) PO SCH ×2 (09:37→20:25)
[2021-11-14] MEDS: METOPROLOL TART 50 MG TAB PO SCH (09:37)
[2021-11-14] MEDS: NYSTATIN 100,000 UNITS/GM TOPICAL PWD 15 GM TOP SCH ×2 (09:37→20:32)
[2021-11-14] MEDS: FLUTICASONE PROP 0.05% NASAL SPRAY 16 GM (FLONASE) NARES SCH ×2 (09:38→20:31)
[2021-11-14] MEDS: levETIRAcetam 250MG TABLET (KEPPRA) PO SCH ×2 (12:10→20:25)
[2021-11-14 13:31] LABS: PERCENT SATURATION 14.7 % (13.2-45.0)
[2021-11-14 14:00] VITALS: BP 120/60
[2021-11-14 18:20] VITALS: BP 116/64
[2021-11-14] MEDS: DOCUSATE SODIUM 100MG CAPSULE PO SCH (20:24)
[2021-11-14] MEDS: FERROUS SULFATE 325MG TAB PO SCH (20:24)
[2021-11-14] MEDS: SINEMET 25-100 MG TAB PO SCH (20:24)
[2021-11-14] MEDS: ATORVASTATIN 20 MG TAB PO SCH (20:26)
[2021-11-14] MEDS: METOPROLOL TARTRATE 100MG TAB PO SCH (20:29)
[2021-11-14] MEDS: cefTRIAXone SOD 1 GM in D5W MINI-BAG PLUS 50 ML IV SCH (20:29)
[2021-11-14] MEDS: **NOTE PATIENT COMMENT** MISC XX SCH (20:32)
[2021-11-15 06:00] VITALS: BP 116/61
[2021-11-15 06:26] LABS: BASO # 0.1 10^3/uL (0.0-0.2); BASO % 1.1 % (0.0-1.0); EOS # 0.6 10^3/uL (0.0-0.5); HEMOGLOBIN 8.6 g/dl (12.0-15.5); LYMPH % 11.1 % (24.0-44.0); MEAN CORPUSCULAR HGB CONC 30.7 g/dl (32.0-36.5); MEAN CORPUSCULAR VOLUME 104.1 fl (80.0-96.0); MONO # 1.2 10^3/uL (0.0-0.8); MONO % 13.2 % (2.0-8.0); NEUTROPHILS # 5.9 10^3/uL (1.5-8.5); NEUTROPHILS % 67.1 % (36.0-66.0); PLATELET COUNT, AUTOMATED 257 10^3/uL (150-450); RED BLOOD COUNT 2.69 10^6/uL (4.00-5.40); WHITE BLOOD COUNT 8.7 10^3/uL (4.0-10.0)
[2021-11-15 06:48] LABS: CREATININE FOR GFR 2.21 MG/DL (0.55-1.30); GLOMERULAR FILTRATION RATE 22.7 (>32); POTASSIUM SERUM 3.8 MEQ/L (3.5-5.1)
[2021-11-15] MEDS: OMEPRAZOLE 20MG CAP PO SCH (09:47)
[2021-11-15] MEDS: APIXABAN 2.5 MG TAB (ELIQUIS) PO SCH ×2 (09:47→20:13)
[2021-11-15] MEDS: TORSEMIDE 100 MG TAB PO SCH ×2 (09:48→17:20)
[2021-11-15] MEDS: rOPINIRole 1MG TAB PO SCH ×3 (09:49→20:12)
[2021-11-15] MEDS: HumaLOG INSULIN (NovoLOG) PER UNIT SC SCH ×4 (09:49→20:17)
[2021-11-15] MEDS: allopurinoL 100 MG TAB PO SCH (09:49)
[2021-11-15] MEDS: POTASSIUM CHLORIDE 10MEQ SR TABLET PO SCH ×2 (09:49→20:13)
[2021-11-15] MEDS: LIDOCAINE 5% (LIDODERM) PATCH TD SCH (09:50)
[2021-11-15] MEDS: FLUTICASONE PROP 0.05% NASAL SPRAY 16 GM (FLONASE) NARES SCH ×2 (09:50→20:18)
[2021-11-15] MEDS: NYSTATIN 100,000 UNITS/GM TOPICAL PWD 15 GM TOP SCH ×2 (09:50→20:18)
[2021-11-15] MEDS: METOPROLOL TART 50 MG TAB PO SCH (09:52)
[2021-11-15] MEDS ORDERED: SPIRONOLACTONE 25 MG TAB PO ONE (10:05)
[2021-11-15] MEDS: levETIRAcetam 250MG TABLET (KEPPRA) PO SCH ×2 (12:57→20:15)
[2021-11-15 14:00] VITALS: BP 119/62
[2021-11-15] MEDS ORDERED: FERRIC CARBOXYMALTOSE INJ 750 MG, VIAL MATE ADAPTER 1 EACH in NS 250 ML IV ONE (14:00)
[2021-11-15] MEDS: CEFDINIR 300 MG CAP (OMNICEF) PO SCH (15:42)
[2021-11-15] MEDS: SPIRONOLACTONE 25 MG TAB PO SCH (17:19)
[2021-11-15 18:30] VITALS: BP 119/64
[2021-11-15] MEDS: SINEMET 25-100 MG TAB PO SCH (20:11)
[2021-11-15] MEDS: DOCUSATE SODIUM 100MG CAPSULE PO SCH (20:12)
[2021-11-15] MEDS: FERROUS SULFATE 325MG TAB PO SCH (20:13)
[2021-11-15] MEDS: ATORVASTATIN 20 MG TAB PO SCH (20:15)
[2021-11-15] MEDS: METOPROLOL TARTRATE 100MG TAB PO SCH (20:16)
[2021-11-15] MEDS: **NOTE PATIENT COMMENT** MISC XX SCH (20:23)
[2021-11-16 06:00] VITALS: BP 122/67
[2021-11-16 07:48] LABS: BASO # 0.1 10^3/uL (0.0-0.2); BASO % 1.2 % (0.0-1.0); EOS # 0.6 10^3/uL (0.0-0.5); EOS % 7.5 % (0.0-3.0); HEMATOCRIT 28.2 % (36.0-47.0); HEMOGLOBIN 8.7 g/dl (12.0-15.5); MEAN CORPUSCULAR HGB CONC 30.9 g/dl (32.0-36.5); MEAN CORPUSCULAR VOLUME 103.7 fl (80.0-96.0); MONO % 12.2 % (2.0-8.0); NEUTROPHILS # 5.5 10^3/uL (1.5-8.5); NEUTROPHILS % 66.7 % (36.0-66.0); PLATELET COUNT, AUTOMATED 268 10^3/uL (150-450); RED BLOOD COUNT 2.72 10^6/uL (4.00-5.40); WHITE BLOOD COUNT 8.2 10^3/uL (4.0-10.0)
[2021-11-16 08:06] LABS: ALBUMIN 2.7 GM/DL (3.2-5.2); CALCIUM LEVEL 9.4 MG/DL (8.8-10.2); CREATININE FOR GFR 2.24 MG/DL (0.55-1.30); GLOMERULAR FILTRATION RATE 22.4 (>32); PHOSPHORUS LEVEL 3.6 MG/DL (2.5-4.9); POTASSIUM SERUM 3.8 MEQ/L (3.5-5.1)
[2021-11-16 08:12] LABS: CREATININE FOR GFR 2.23 MG/DL (0.55-1.30); GLOMERULAR FILTRATION RATE 22.5 (>32); MAGNESIUM LEVEL 2.2 MG/DL (1.8-2.4); POTASSIUM SERUM 3.7 MEQ/L (3.5-5.1)
[2021-11-16] MEDS: NYSTATIN 100,000 UNITS/GM TOPICAL PWD 15 GM TOP SCH ×2 (08:30→20:29)
[2021-11-16] MEDS: METOPROLOL TART 50 MG TAB PO SCH (08:31)
[2021-11-16] MEDS: LIDOCAINE 5% (LIDODERM) PATCH TD SCH (08:31)
[2021-11-16] MEDS: TORSEMIDE 100 MG TAB PO SCH (08:31)
[2021-11-16] MEDS: FLUTICASONE PROP 0.05% NASAL SPRAY 16 GM (FLONASE) NARES SCH ×2 (08:31→20:29)
[2021-11-16] MEDS: allopurinoL 100 MG TAB PO SCH (08:32)
[2021-11-16] MEDS: CEFDINIR 300 MG CAP (OMNICEF) PO SCH (08:32)
[2021-11-16] MEDS: OMEPRAZOLE 20MG CAP PO SCH (08:32)
[2021-11-16] MEDS: APIXABAN 2.5 MG TAB (ELIQUIS) PO SCH ×2 (08:32→20:26)
[2021-11-16] MEDS: POTASSIUM CHLORIDE 10MEQ SR TABLET PO SCH ×2 (08:32→20:27)
[2021-11-16] MEDS: SPIRONOLACTONE 25 MG TAB PO SCH ×2 (08:32→17:47)
[2021-11-16] MEDS: rOPINIRole 1MG TAB PO SCH ×3 (08:32→20:26)
[2021-11-16] MEDS: HumaLOG INSULIN (NovoLOG) PER UNIT SC SCH ×4 (08:33→21:00)
[2021-11-16 11:32] VITALS: O2SAT 90
[2021-11-16] MEDS: levETIRAcetam 250MG TABLET (KEPPRA) PO SCH ×2 (12:17→20:25)
[2021-11-16 14:00] VITALS: BP 110/59
[2021-11-16] MEDS: PERCOCET 5MG/325MG TAB PO PRN (14:27)
[2021-11-16] MEDS: BUMETANIDE 1 MG TAB PO SCH (17:47)
[2021-11-16 18:00] VITALS: BP 111/44
[2021-11-16] MEDS: SINEMET 25-100 MG TAB PO SCH (20:23)
[2021-11-16] MEDS: DOCUSATE SODIUM 100MG CAPSULE PO SCH (20:24)
[2021-11-16] MEDS: FERROUS SULFATE 325MG TAB PO SCH (20:26)
[2021-11-16] MEDS: ATORVASTATIN 20 MG TAB PO SCH (20:27)
[2021-11-16] MEDS: METOPROLOL TARTRATE 100MG TAB PO SCH (20:28)
[2021-11-16] MEDS: **NOTE PATIENT COMMENT** MISC XX SCH (21:12)
[2021-11-16 22:00] VITALS: BP 110/59
[2021-11-16 23:58] VITALS: O2SAT 93
[2021-11-17 06:00] VITALS: BP 113/61
[2021-11-17 06:16] LABS: BASO # 0.1 10^3/uL (0.0-0.2); BASO % 1.3 % (0.0-1.0); EOS # 0.6 10^3/uL (0.0-0.5); HEMATOCRIT 28.8 % (36.0-47.0); HEMOGLOBIN 8.9 g/dl (12.0-15.5); LYMPH # 0.9 10^3/uL (1.5-5.0); LYMPH % 11.5 % (24.0-44.0); MEAN CORPUSCULAR HEMOGLOBIN 31.7 pg (27.0-33.0); MEAN CORPUSCULAR HGB CONC 30.9 g/dl (32.0-36.5); MEAN CORPUSCULAR VOLUME 102.5 fl (80.0-96.0); MONO # 0.9 10^3/uL (0.0-0.8); MONO % 12.1 % (2.0-8.0); NEUTROPHILS % 66.7 % (36.0-66.0); PLATELET COUNT, AUTOMATED 271 10^3/uL (150-450); RED BLOOD COUNT 2.81 10^6/uL (4.00-5.40); WHITE BLOOD COUNT 7.5 10^3/uL (4.0-10.0)
[2021-11-17 06:38] LABS: CREATININE FOR GFR 2.32 MG/DL (0.55-1.30); GLOMERULAR FILTRATION RATE 21.5 (>32); MAGNESIUM LEVEL 2.1 MG/DL (1.8-2.4)
[2021-11-17] MEDS: SPIRONOLACTONE 25 MG TAB PO SCH ×2 (08:04→17:04)
[2021-11-17] MEDS: OMEPRAZOLE 20MG CAP PO SCH (08:04)
[2021-11-17] MEDS: LIDOCAINE 5% (LIDODERM) PATCH TD SCH (08:04)
[2021-11-17] MEDS: APIXABAN 2.5 MG TAB (ELIQUIS) PO SCH ×2 (08:04→20:04)
[2021-11-17] MEDS: NYSTATIN 100,000 UNITS/GM TOPICAL PWD 15 GM TOP SCH ×2 (08:04→20:04)
[2021-11-17] MEDS: FLUTICASONE PROP 0.05% NASAL SPRAY 16 GM (FLONASE) NARES SCH ×2 (08:04→20:04)
[2021-11-17] MEDS: HumaLOG INSULIN (NovoLOG) PER UNIT SC SCH ×4 (08:05→19:55)
[2021-11-17] MEDS: allopurinoL 100 MG TAB PO SCH (08:05)
[2021-11-17] MEDS: BUMETANIDE 1 MG TAB PO SCH ×2 (08:05→17:04)
[2021-11-17] MEDS: rOPINIRole 1MG TAB PO SCH ×3 (08:05→20:03)
[2021-11-17] MEDS: CEFDINIR 300 MG CAP (OMNICEF) PO SCH (08:06)
[2021-11-17] MEDS: METOPROLOL TART 50 MG TAB PO SCH (08:06)
[2021-11-17] MEDS: POTASSIUM CHLORIDE 10MEQ SR TABLET PO SCH ×2 (08:06→20:04)
[2021-11-17] MEDS ORDERED: DARBEPOETIN 100 MCG/0.5 ML *NON-DIALYSIS* SYRINGE (J0881) SC SCH (09:00)
[2021-11-17] MEDS: PERCOCET 5MG/325MG TAB PO PRN ×2 (10:07→19:18)
[2021-11-17] MEDS: levETIRAcetam 250MG TABLET (KEPPRA) PO SCH ×2 (12:04→20:03)
[2021-11-17 14:00] VITALS: BP 111/58
[2021-11-17 18:36] VITALS: BP 136/70
[2021-11-17] MEDS: SINEMET 25-100 MG TAB PO SCH (19:17)
[2021-11-17] MEDS: ATORVASTATIN 20 MG TAB PO SCH (20:03)
[2021-11-17] MEDS: DOCUSATE SODIUM 100MG CAPSULE PO SCH (20:03)
[2021-11-17] MEDS: FERROUS SULFATE 325MG TAB PO SCH (20:03)
[2021-11-17] MEDS: METOPROLOL TARTRATE 100MG TAB PO SCH (20:04)
[2021-11-17] MEDS: **NOTE PATIENT COMMENT** MISC XX SCH (21:01)
[2021-11-17 22:42] VITALS: O2SAT 93
[2021-11-18 06:00] VITALS: BP 112/44
[2021-11-18 06:46] LABS: BASO # 0.1 10^3/uL (0.0-0.2); BASO % 1.5 % (0.0-1.0); EOS # 0.7 10^3/uL (0.0-0.5); HEMATOCRIT 30.8 % (36.0-47.0); HEMOGLOBIN 9.3 g/dl (12.0-15.5); LYMPH # 1.2 10^3/uL (1.5-5.0); LYMPH % 13.4 % (24.0-44.0); MEAN CORPUSCULAR HEMOGLOBIN 31.6 pg (27.0-33.0); MEAN CORPUSCULAR HGB CONC 30.2 g/dl (32.0-36.5); MEAN CORPUSCULAR VOLUME 104.8 fl (80.0-96.0); MONO # 1.2 10^3/uL (0.0-0.8); MONO % 13.5 % (2.0-8.0); NEUTROPHILS # 5.7 10^3/uL (1.5-8.5); NEUTROPHILS % 62.9 % (36.0-66.0); PLATELET COUNT, AUTOMATED 309 10^3/uL (150-450); RED BLOOD COUNT 2.94 10^6/uL (4.00-5.40); WHITE BLOOD COUNT 9.1 10^3/uL (4.0-10.0)
[2021-11-18 07:15] LABS: CALCIUM LEVEL 9.2 MG/DL (8.8-10.2); CREATININE FOR GFR 2.32 MG/DL (0.55-1.30); GLOMERULAR FILTRATION RATE 21.5 (>32); MAGNESIUM LEVEL 2.4 MG/DL (1.8-2.4); POTASSIUM SERUM 4.8 MEQ/L (3.5-5.1)
[2021-11-18] MEDS: HumaLOG INSULIN (NovoLOG) PER UNIT SC SCH ×4 (08:26→21:00)
[2021-11-18] MEDS: LIDOCAINE 5% (LIDODERM) PATCH TD SCH (08:27)
[2021-11-18] MEDS: OMEPRAZOLE 20MG CAP PO SCH (08:27)
[2021-11-18] MEDS: POTASSIUM CHLORIDE 10MEQ SR TABLET PO SCH (08:27)
[2021-11-18] MEDS: CEFDINIR 300 MG CAP (OMNICEF) PO SCH (08:28)
[2021-11-18] MEDS: APIXABAN 2.5 MG TAB (ELIQUIS) PO SCH ×2 (08:28→20:07)
[2021-11-18] MEDS: BUMETANIDE 1 MG TAB PO SCH (08:28)
[2021-11-18] MEDS: SPIRONOLACTONE 25 MG TAB PO SCH ×2 (08:28→17:21)
[2021-11-18] MEDS: rOPINIRole 1MG TAB PO SCH ×3 (08:28→20:06)
[2021-11-18] MEDS: allopurinoL 100 MG TAB PO SCH (08:28)
[2021-11-18] MEDS: METOPROLOL TART 50 MG TAB PO SCH (08:29)
[2021-11-18] MEDS: FLUTICASONE PROP 0.05% NASAL SPRAY 16 GM (FLONASE) NARES SCH ×2 (08:32→20:09)
[2021-11-18] MEDS: NYSTATIN 100,000 UNITS/GM TOPICAL PWD 15 GM TOP SCH ×2 (08:33→20:09)
[2021-11-18 08:45] VITALS: O2SAT 95
[2021-11-18] MEDS: levETIRAcetam 250MG TABLET (KEPPRA) PO SCH ×2 (11:57→20:07)
[2021-11-18] MEDS ORDERED: metOLazone 5 MG TAB PO ONE (12:00)
[2021-11-18 14:00] VITALS: BP 112/50
[2021-11-18] MEDS: PERCOCET 5MG/325MG TAB PO PRN (19:14)
[2021-11-18] MEDS: ATORVASTATIN 20 MG TAB PO SCH (20:06)
[2021-11-18] MEDS: FERROUS SULFATE 325MG TAB PO SCH (20:07)
[2021-11-18] MEDS: DOCUSATE SODIUM 100MG CAPSULE PO SCH (20:07)
[2021-11-18] MEDS: SINEMET 25-100 MG TAB PO SCH (20:07)
[2021-11-18] MEDS: BUMETANIDE 1MG/4ML VIAL IV SCH (20:08)
[2021-11-18] MEDS: METOPROLOL TARTRATE 100MG TAB PO SCH (21:00)
[2021-11-18] MEDS: **NOTE PATIENT COMMENT** MISC XX SCH (21:24)
[2021-11-18 22:00] VITALS: BP 118/54
[2021-11-18 22:01] VITALS: O2SAT 93
[2021-11-19 05:38] VITALS: BP 123/61
[2021-11-19 05:48] LABS: BASO # 0.1 10^3/uL (0.0-0.2); BASO % 1.3 % (0.0-1.0); EOS # 0.7 10^3/uL (0.0-0.5); HEMATOCRIT 28.3 % (36.0-47.0); HEMOGLOBIN 8.7 g/dl (12.0-15.5); LYMPH # 1.1 10^3/uL (1.5-5.0); LYMPH % 12.6 % (24.0-44.0); MEAN CORPUSCULAR HEMOGLOBIN 32.1 pg (27.0-33.0); MEAN CORPUSCULAR HGB CONC 30.7 g/dl (32.0-36.5); MEAN CORPUSCULAR VOLUME 104.4 fl (80.0-96.0); MONO # 1.1 10^3/uL (0.0-0.8); MONO % 13.1 % (2.0-8.0); NEUTROPHILS # 5.6 10^3/uL (1.5-8.5); NEUTROPHILS % 64.4 % (36.0-66.0); PLATELET COUNT, AUTOMATED 283 10^3/uL (150-450); RED BLOOD COUNT 2.71 10^6/uL (4.00-5.40); WHITE BLOOD COUNT 8.6 10^3/uL (4.0-10.0)
[2021-11-19 06:06] LABS: CALCIUM LEVEL 9.1 MG/DL (8.8-10.2); CREATININE FOR GFR 2.32 MG/DL (0.55-1.30); GLOMERULAR FILTRATION RATE 21.5 (>32); MAGNESIUM LEVEL 2.4 MG/DL (1.8-2.4); POTASSIUM SERUM 4.2 MEQ/L (3.5-5.1)
[2021-11-19] MEDS: LIDOCAINE 5% (LIDODERM) PATCH TD SCH (08:04)
[2021-11-19] MEDS: BUMETANIDE 1MG/4ML VIAL IV SCH ×2 (08:05→20:29)
[2021-11-19] MEDS: LEVEMIR (INSULIN DETEMIR) 1 UNITS/0.01ML SC SCH (08:05)
[2021-11-19] MEDS: OMEPRAZOLE 20MG CAP PO SCH (08:05)
[2021-11-19] MEDS: HumaLOG INSULIN (NovoLOG) PER UNIT SC SCH ×4 (08:06→19:38)
[2021-11-19] MEDS: PERCOCET 5MG/325MG TAB PO PRN (08:06)
[2021-11-19] MEDS: CEFDINIR 300 MG CAP (OMNICEF) PO SCH (08:06)
[2021-11-19] MEDS: SPIRONOLACTONE 25 MG TAB PO SCH ×2 (08:07→17:05)
[2021-11-19] MEDS: rOPINIRole 1MG TAB PO SCH ×3 (08:07→20:27)
[2021-11-19] MEDS: APIXABAN 2.5 MG TAB (ELIQUIS) PO SCH ×2 (08:08→20:28)
[2021-11-19] MEDS: POTASSIUM CHLORIDE 10MEQ SR TABLET PO SCH (08:08)
[2021-11-19] MEDS: allopurinoL 100 MG TAB PO SCH (08:08)
[2021-11-19] MEDS: NYSTATIN 100,000 UNITS/GM TOPICAL PWD 15 GM TOP SCH ×2 (08:09→20:29)
[2021-11-19] MEDS: METOPROLOL TART 50 MG TAB PO SCH (08:09)
[2021-11-19] MEDS: FLUTICASONE PROP 0.05% NASAL SPRAY 16 GM (FLONASE) NARES SCH ×2 (08:09→20:29)
[2021-11-19 10:39] VITALS: O2SAT 91
[2021-11-19] MEDS: levETIRAcetam 250MG TABLET (KEPPRA) PO SCH ×2 (12:28→20:27)
[2021-11-19 14:00] VITALS: BP 120/71
[2021-11-19 18:00] VITALS: BP 118/71
[2021-11-19] MEDS: ATORVASTATIN 20 MG TAB PO SCH (20:27)
[2021-11-19] MEDS: DOCUSATE SODIUM 100MG CAPSULE PO SCH (20:28)
[2021-11-19] MEDS: METOPROLOL TARTRATE 100MG TAB PO SCH (20:28)
[2021-11-19] MEDS: SINEMET 25-100 MG TAB PO SCH (20:28)
[2021-11-19] MEDS: FERROUS SULFATE 325MG TAB PO SCH (20:28)
[2021-11-19] MEDS: **NOTE PATIENT COMMENT** MISC XX SCH (21:19)
[2021-11-19 22:00] VITALS: BP 110/50
[2021-11-20 03:59] VITALS: O2SAT 89
[2021-11-20 06:00] VITALS: BP 120/60
[2021-11-20] MEDS: rOPINIRole 1MG TAB PO SCH ×3 (06:13→20:30)
[2021-11-20 06:37] LABS: BASO # 0.1 10^3/uL (0.0-0.2); BASO % 1.2 % (0.0-1.0); EOS # 0.7 10^3/uL (0.0-0.5); EOS % 6.8 % (0.0-3.0); HEMATOCRIT 29.5 % (36.0-47.0); HEMOGLOBIN 9.1 g/dl (12.0-15.5); LYMPH # 1.1 10^3/uL (1.5-5.0); LYMPH % 10.8 % (24.0-44.0); MEAN CORPUSCULAR HEMOGLOBIN 32.3 pg (27.0-33.0); MEAN CORPUSCULAR HGB CONC 30.8 g/dl (32.0-36.5); MEAN CORPUSCULAR VOLUME 104.6 fl (80.0-96.0); MONO # 1.2 10^3/uL (0.0-0.8); NEUTROPHILS % 68.7 % (36.0-66.0); PLATELET COUNT, AUTOMATED 303 10^3/uL (150-450); RED BLOOD COUNT 2.82 10^6/uL (4.00-5.40); WHITE BLOOD COUNT 10.2 10^3/uL (4.0-10.0)
[2021-11-20 07:07] LABS: CALCIUM LEVEL 9.8 MG/DL (8.8-10.2); CREATININE FOR GFR 2.51 MG/DL (0.55-1.30); GLOMERULAR FILTRATION RATE 19.6 (>32); MAGNESIUM LEVEL 2.5 MG/DL (1.8-2.4); POTASSIUM SERUM 4.4 MEQ/L (3.5-5.1)
[2021-11-20] MEDS: HumaLOG INSULIN (NovoLOG) PER UNIT SC SCH ×4 (08:38→20:32)
[2021-11-20] MEDS: LEVEMIR (INSULIN DETEMIR) 1 UNITS/0.01ML SC SCH (08:38)
[2021-11-20] MEDS: allopurinoL 100 MG TAB PO SCH (08:39)
[2021-11-20] MEDS: OMEPRAZOLE 20MG CAP PO SCH (08:39)
[2021-11-20] MEDS: APIXABAN 2.5 MG TAB (ELIQUIS) PO SCH ×2 (08:40→20:30)
[2021-11-20] MEDS: POTASSIUM CHLORIDE 10MEQ SR TABLET PO SCH (08:40)
[2021-11-20] MEDS: METOPROLOL TART 50 MG TAB PO SCH (08:45)
[2021-11-20] MEDS: SPIRONOLACTONE 25 MG TAB PO SCH (08:45)
[2021-11-20] MEDS: LIDOCAINE 5% (LIDODERM) PATCH TD SCH (08:47)
[2021-11-20] MEDS: FLUTICASONE PROP 0.05% NASAL SPRAY 16 GM (FLONASE) NARES SCH ×2 (08:49→20:34)
[2021-11-20] MEDS: NYSTATIN 100,000 UNITS/GM TOPICAL PWD 15 GM TOP SCH ×2 (08:50→20:34)
[2021-11-20] MEDS ORDERED: metOLazone 5 MG TAB PO ONE (11:00)
[2021-11-20] MEDS: PERCOCET 5MG/325MG TAB PO PRN ×2 (11:49→20:31)
[2021-11-20] MEDS: levETIRAcetam 250MG TABLET (KEPPRA) PO SCH ×2 (11:49→20:31)
[2021-11-20] MEDS: BUMETANIDE 1MG/4ML VIAL IV SCH (11:50)
[2021-11-20 14:00] VITALS: BP 88/46
[2021-11-20] MEDS: SINEMET 25-100 MG TAB PO SCH (20:30)
[2021-11-20] MEDS: DOCUSATE SODIUM 100MG CAPSULE PO SCH (20:31)
[2021-11-20] MEDS: FERROUS SULFATE 325MG TAB PO SCH (20:31)
[2021-11-20] MEDS: ATORVASTATIN 20 MG TAB PO SCH (20:31)
[2021-11-20] MEDS: **NOTE PATIENT COMMENT** MISC XX SCH (20:32)
[2021-11-20] MEDS: METOPROLOL TARTRATE 100MG TAB PO SCH (20:32)
[2021-11-20 22:00] VITALS: BP 109/68
[2021-11-20 23:35] VITALS: O2SAT 94
[2021-11-21 05:07] VITALS: BP 132/69
[2021-11-21 06:07] LABS: BASO # 0.1 10^3/uL (0.0-0.2); BASO % 1.3 % (0.0-1.0); EOS # 0.6 10^3/uL (0.0-0.5); EOS % 7.5 % (0.0-3.0); HEMATOCRIT 30.1 % (36.0-47.0); HEMOGLOBIN 9.1 g/dl (12.0-15.5); LYMPH # 0.9 10^3/uL (1.5-5.0); LYMPH % 10.7 % (24.0-44.0); MEAN CORPUSCULAR HEMOGLOBIN 31.9 pg (27.0-33.0); MEAN CORPUSCULAR HGB CONC 30.2 g/dl (32.0-36.5); MEAN CORPUSCULAR VOLUME 105.6 fl (80.0-96.0); MONO % 11.9 % (2.0-8.0); NEUTROPHILS # 5.8 10^3/uL (1.5-8.5); NEUTROPHILS % 68.1 % (36.0-66.0); PLATELET COUNT, AUTOMATED 309 10^3/uL (150-450); RED BLOOD COUNT 2.85 10^6/uL (4.00-5.40); WHITE BLOOD COUNT 8.5 10^3/uL (4.0-10.0)
[2021-11-21] MEDS: rOPINIRole 1MG TAB PO SCH (06:18)
[2021-11-21 06:34] LABS: CALCIUM LEVEL 9.7 MG/DL (8.8-10.2); CREATININE FOR GFR 2.65 MG/DL (0.55-1.30); GLOMERULAR FILTRATION RATE 18.4 (>32); MAGNESIUM LEVEL 2.7 MG/DL (1.8-2.4); POTASSIUM SERUM 4.8 MEQ/L (3.5-5.1)
[2021-11-21] MEDS ORDERED: BUME1TAB3 PO (08:24)
[2021-11-21] MEDS ORDERED: K-TA10TA2 PO (08:24)
[2021-11-21] MEDS ORDERED: ALDA25TA2 PO (08:24)
[2021-11-21] MEDS: HumaLOG INSULIN (NovoLOG) PER UNIT SC SCH (08:50)
[2021-11-21] MEDS: FLUTICASONE PROP 0.05% NASAL SPRAY 16 GM (FLONASE) NARES SCH (08:51)
[2021-11-21] MEDS: LEVEMIR (INSULIN DETEMIR) 1 UNITS/0.01ML SC SCH (08:51)
[2021-11-21] MEDS: LIDOCAINE 5% (LIDODERM) PATCH TD SCH (08:55)
[2021-11-21] MEDS: POTASSIUM CHLORIDE 10MEQ SR TABLET PO SCH (08:56)
[2021-11-21] MEDS: allopurinoL 100 MG TAB PO SCH (08:56)
[2021-11-21] MEDS: OMEPRAZOLE 20MG CAP PO SCH (08:56)
[2021-11-21] MEDS: NYSTATIN 100,000 UNITS/GM TOPICAL PWD 15 GM TOP SCH (08:57)
[2021-11-21] MEDS: SPIRONOLACTONE 25 MG TAB PO SCH (08:57)
[2021-11-21] MEDS: APIXABAN 2.5 MG TAB (ELIQUIS) PO SCH (08:57)
[2021-11-21 08:59] VITALS: BP 124/62
[2021-11-21] MEDS: METOPROLOL TART 50 MG TAB PO SCH (08:59)
[2021-11-21] MEDS ORDERED: BUMETANIDE 1 MG TAB PO SCH (09:00)
[2021-11-21 10:36] VITALS: O2SAT 92
== END 2021-11-21 11:37 | DRG 291 ==
LOC: M ED 15:39 → EDBD 15:39 → M ED INP 19:23 → M MSPAV 22:58
PROVIDERS: ADMIT Internal Medicine; ATTEND Internal Medicine Nephrology
DX: I13.0 Hypertensive heart and chronic kidney disease with heart failure and stage 1 through stage 4 chronic kidney disease, or unspecified chronic kidney disease (principal); I50.33 Acute on chronic diastolic (congestive) heart failure; N18.4 Chronic kidney disease, stage 4 (severe); I48.19 Other persistent atrial fibrillation; E87.0 Hyperosmolality and hypernatremia; J98.11 Atelectasis; N39.0 Urinary tract infection, site not specified; N17.9 Acute kidney failure, unspecified; G20 Parkinson's disease; G40.909 Epilepsy, unspecified, not intractable, without status epilepticus; E78.5 Hyperlipidemia, unspecified; J45.909 Unspecified asthma, uncomplicated; Z66 Do not resuscitate; M81.0 Age-related osteoporosis without current pathological fracture; E11.22 Type 2 diabetes mellitus with diabetic chronic kidney disease; E83.42 Hypomagnesemia; M25.552 Pain in left hip; M10.9 Gout, unspecified; E11.42 Type 2 diabetes mellitus with diabetic polyneuropathy; R09.02 Hypoxemia; J47.9 Bronchiectasis, uncomplicated; D50.9 Iron deficiency anemia, unspecified; I27.20 Pulmonary hypertension, unspecified; K21.9 Gastro-esophageal reflux disease without esophagitis; B96.89 Other specified bacterial agents as the cause of diseases classified elsewhere; I36.1 Nonrheumatic tricuspid (valve) insufficiency; G47.33 Obstructive sleep apnea (adult) (pediatric); Z79.899 Other long term (current) drug therapy; Z87.891 Personal history of nicotine dependence; Z96.642 Presence of left artificial hip joint; Z98.42 Cataract extraction status, left eye; Z98.41 Cataract extraction status, right eye; Z79.01 Long term (current) use of anticoagulants; Z79.4 Long term (current) use of insulin

== ENCOUNTER → 2021-11-27 | Outpatient (REF) | payer MEDICARE, MEDICAID ==
[~2021-11-27] MED LIST changes: +ALDA25TA2 PO; +BUME1TAB3 PO; +K-TA10TA2 PO
[2021-11-27 12:28] LABS: BASO # 0.1 10^3/uL (0.0-0.2); BASO % 1.3 % (0.0-1.0); EOS # 0.5 10^3/uL (0.0-0.5); EOS % 6.8 % (0.0-3.0); HEMOGLOBIN 10.6 g/dl (12.0-15.5); LYMPH % 11.9 % (24.0-44.0); MEAN CORPUSCULAR HEMOGLOBIN 32.6 pg (27.0-33.0); MEAN CORPUSCULAR HGB CONC 32.1 g/dl (32.0-36.5); MEAN CORPUSCULAR VOLUME 101.5 fl (80.0-96.0); MONO # 1.1 10^3/uL (0.0-0.8); MONO % 13.6 % (2.0-8.0); NEUTROPHILS # 5.3 10^3/uL (1.5-8.5); NEUTROPHILS % 66.1 % (36.0-66.0); PLATELET COUNT, AUTOMATED 310 10^3/uL (150-450); RED BLOOD COUNT 3.25 10^6/uL (4.00-5.40)
[2021-11-27 13:09] LABS: ALBUMIN 3.3 GM/DL (3.2-5.2); CALCIUM LEVEL 8.6 MG/DL (8.8-10.2); CREATININE FOR GFR 3.2 MG/DL (0.55-1.30); GLOMERULAR FILTRATION RATE 14.8 (>32); PHOSPHORUS LEVEL 5.9 MG/DL (2.5-4.9); POTASSIUM SERUM 4.2 MEQ/L (3.5-5.1); PTH INTACT 436.9 PG/ML (18.5-88.0); TOTAL 25(OH) VITAMIN D 30.3 NG/ML (30.0-100.0)
[2021-11-27 15:08] LABS: APPEARANCE, URINE CLEAR (CLEAR); BACTERIA, URINE AUTO NEGATIVE (NEGATIVE); BILIRUBIN, URINE AUTO NEGATIVE (NEGATIVE); BLOOD, URINE BLOOD NEGATIVE (NEGATIVE); COLOR, URINE YELLOW (YELLOW); GLUCOSE, URINE (UA) AUTO NEGATIVE (NEGATIVE); KETONE, URINE AUTO NEGATIVE (NEGATIVE); LEUKOCYTE ESTERASE, URINE AUTO NEGATIVE (NEGATIVE); NITRITE, URINE AUTO NEGATIVE (NEGATIVE); PROTEIN, URINE AUTO NEGATIVE (NEGATIVE); RBC, URINE AUTO 0 /HPF (0-3); SPECIFIC GRAVITY URINE AUTO 1.013 (1.002-1.035); SQUAMOUS EPITHELIAL CELL UR AU 1 /HPF (0-6); WBC, URINE AUTO 1 /HPF (0-3)
== END ==
PROVIDERS: ATTEND Nurse Practitioner Family
DX: N18.4 Chronic kidney disease, stage 4 (severe) (principal); D63.1 Anemia in chronic kidney disease; N25.81 Secondary hyperparathyroidism of renal origin; E55.9 Vitamin D deficiency, unspecified

== ENCOUNTER → 2021-12-11 | Outpatient (REF) | payer MEDICARE, MEDICAID ==
[2021-12-11 12:35] LABS: ALBUMIN 3.5 GM/DL (3.2-5.2); CREATININE FOR GFR 2.26 MG/DL (0.55-1.30); GLOMERULAR FILTRATION RATE 22.2 (>32); MAGNESIUM LEVEL 1.7 MG/DL (1.8-2.4); PHOSPHORUS LEVEL 4.9 MG/DL (2.5-4.9); POTASSIUM SERUM 5.4 MEQ/L (3.5-5.1)
== END ==
PROVIDERS: ATTEND Nurse Practitioner Family
DX: N18.4 Chronic kidney disease, stage 4 (severe) (principal); E83.42 Hypomagnesemia

== ENCOUNTER → 2021-12-19 | Outpatient (REF) | payer MEDICARE, MEDICAID | PROVIDERS: ATTEND Family Medicine | DX: Z20.822 Contact with and (suspected) exposure to COVID-19 (principal) ==

== ENCOUNTER → 2021-12-20 | Outpatient (REF) | payer MEDICARE, MEDICAID ==
[2021-12-20 13:09] LABS: BASO # 0.1 10^3/uL (0.0-0.2); BASO % 0.9 % (0.0-1.0); EOS # 0.5 10^3/uL (0.0-0.5); EOS % 7.2 % (0.0-3.0); HEMATOCRIT 34.8 % (36.0-47.0); HEMOGLOBIN 10.7 g/dl (12.0-15.5); LYMPH # 1.1 10^3/uL (1.5-5.0); LYMPH % 16.4 % (24.0-44.0); MEAN CORPUSCULAR HEMOGLOBIN 31.8 pg (27.0-33.0); MEAN CORPUSCULAR HGB CONC 30.7 g/dl (32.0-36.5); MEAN CORPUSCULAR VOLUME 103.3 fl (80.0-96.0); MONO # 0.7 10^3/uL (0.0-0.8); NEUTROPHILS # 4.3 10^3/uL (1.5-8.5); NEUTROPHILS % 64.2 % (36.0-66.0); PLATELET COUNT, AUTOMATED 163 10^3/uL (150-450); RED BLOOD COUNT 3.37 10^6/uL (4.00-5.40); WHITE BLOOD COUNT 6.7 10^3/uL (4.0-10.0)
[2021-12-20 14:13] LABS: ALBUMIN 3.4 GM/DL (3.2-5.2); CALCIUM LEVEL 8.5 MG/DL (8.8-10.2); CREATININE FOR GFR 2.1 MG/DL (0.55-1.30); GLOMERULAR FILTRATION RATE 24.1 (>32); MAGNESIUM LEVEL 1.6 MG/DL (1.8-2.4); PHOSPHORUS LEVEL 4.7 MG/DL (2.5-4.9); POTASSIUM SERUM 5.4 MEQ/L (3.5-5.1)
[2021-12-20 14:24] LABS: PTH INTACT 125.5 PG/ML (18.5-88.0)
== END ==
PROVIDERS: ATTEND Nurse Practitioner Family
DX: D50.9 Iron deficiency anemia, unspecified (principal); E79.0 Hyperuricemia without signs of inflammatory arthritis and tophaceous disease; N25.81 Secondary hyperparathyroidism of renal origin

== ENCOUNTER → 2022-01-04 | Outpatient (CLI) | payer MEDICARE, MEDICAID ==
[~2022-01-04] MED LIST changes: +ALBU2.5V10 NEB; -ALBU83IN NEB
[2022-01-04 16:04] LABS: ALBUMIN 3.4 GM/DL (3.2-5.2); BILIRUBIN,TOTAL 0.4 MG/DL (0.2-1.0); CALCIUM LEVEL 8.2 MG/DL (8.8-10.2); CREATININE FOR GFR 2.31 MG/DL (0.55-1.30); GLOMERULAR FILTRATION RATE 21.6 (>32); POTASSIUM SERUM 5.5 MEQ/L (3.5-5.1); THYROID STIMULATING HORMONE 3.82 uIU/ML (0.358-3.740); TOTAL PROTEIN 7.3 GM/DL (6.4-8.2)
[2022-01-04 17:39] LABS: HEMOGLOBIN A1c 6.4 %
== END ==
LOC: M PLALAB 10:35
PROVIDERS: ATTEND Physician Assistant
DX: E11.29 Type 2 diabetes mellitus with other diabetic kidney complication (principal)

== ENCOUNTER → 2022-02-14 | Outpatient (REF) | payer MEDICARE, MEDICAID ==
[2022-02-14 11:11] LABS: HEMATOCRIT 37.5 % (36.0-47.0); MEAN CORPUSCULAR HEMOGLOBIN 32.7 pg (27.0-33.0); MEAN CORPUSCULAR VOLUME 102.2 fl (80.0-96.0); PLATELET COUNT, AUTOMATED 200 10^3/uL (150-450); RED BLOOD COUNT 3.67 10^6/uL (4.00-5.40); WHITE BLOOD COUNT 8.4 10^3/uL (4.0-10.0)
[2022-02-14 11:33] LABS: ERYTHROCYTE SEDIMENTATION RATE 60 mm/hr (0-30)
[2022-02-14 11:47] LABS: ALBUMIN 3.4 GM/DL (3.2-5.2); BILIRUBIN,TOTAL 0.4 MG/DL (0.2-1.0); CALCIUM LEVEL 7.7 MG/DL (8.8-10.2); CREATININE FOR GFR 2.16 MG/DL (0.55-1.30); FREE T4 0.91 NG/DL (0.76-1.46); GLOMERULAR FILTRATION RATE 23.4 (>32); POTASSIUM SERUM 5.6 MEQ/L (3.5-5.1); THYROID STIMULATING HORMONE 3.84 uIU/ML (0.358-3.740)
== END ==
PROVIDERS: ATTEND Physician Assistant
DX: R63.4 Abnormal weight loss (principal); G47.09 Other insomnia

== ENCOUNTER → 2022-03-21 | Outpatient (REF) | payer MEDICARE, MEDICAID ==
[~2022-03-21] MED LIST changes: +NYST-13 TOP; -NYST10CR TOP
[2022-03-21 11:59] LABS: BASO # 0.1 10^3/uL (0.0-0.2); BASO % 0.9 % (0.0-1.0); EOS # 0.4 10^3/uL (0.0-0.5); EOS % 3.7 % (0.0-3.0); HEMATOCRIT 34.1 % (36.0-47.0); HEMOGLOBIN 11.2 g/dl (12.0-15.5); LYMPH # 1.1 10^3/uL (1.5-5.0); LYMPH % 10.9 % (24.0-44.0); MEAN CORPUSCULAR HEMOGLOBIN 32.6 pg (27.0-33.0); MEAN CORPUSCULAR HGB CONC 32.8 g/dl (32.0-36.5); MEAN CORPUSCULAR VOLUME 99.1 fl (80.0-96.0); MONO # 1.3 10^3/uL (0.0-0.8); MONO % 12.9 % (2.0-8.0); NEUTROPHILS # 7.3 10^3/uL (1.5-8.5); PLATELET COUNT, AUTOMATED 245 10^3/uL (150-450); RED BLOOD COUNT 3.44 10^6/uL (4.00-5.40); WHITE BLOOD COUNT 10.3 10^3/uL (4.0-10.0)
[2022-03-21 14:35] LABS: ALBUMIN 3.2 GM/DL (3.2-5.2); CALCIUM LEVEL 7.8 MG/DL (8.8-10.2); CREATININE FOR GFR 2.25 MG/DL (0.55-1.30); GLOMERULAR FILTRATION RATE 22.3 (>32); PHOSPHORUS LEVEL 3.4 MG/DL (2.5-4.9); POTASSIUM SERUM 4.5 MEQ/L (3.5-5.1)
[2022-03-21 16:07] LABS: PTH INTACT 269.8 PG/ML (18.5-88.0)
== END ==
PROVIDERS: ATTEND Nurse Practitioner Family
DX: N18.4 Chronic kidney disease, stage 4 (severe) (principal); D63.1 Anemia in chronic kidney disease; N25.81 Secondary hyperparathyroidism of renal origin; E79.0 Hyperuricemia without signs of inflammatory arthritis and tophaceous disease

== ENCOUNTER → 2022-03-22 | Outpatient (REF) | payer MEDICARE, MEDICAID ==
[2022-03-22 11:28] LABS: APPEARANCE, URINE CLEAR (CLEAR)
[2022-03-22 11:29] LABS: BILIRUBIN, URINE AUTO NEGATIVE (NEGATIVE); BLOOD, URINE BLOOD NEGATIVE (NEGATIVE); COLOR, URINE YELLOW (YELLOW); GLUCOSE, URINE (UA) AUTO NEGATIVE (NEGATIVE); KETONE, URINE AUTO TRACE mg/dL (NEGATIVE); LEUKOCYTE ESTERASE, URINE AUTO TRACE (NEGATIVE); NITRITE, URINE AUTO NEGATIVE (NEGATIVE); PROTEIN, URINE AUTO NEGATIVE (NEGATIVE); SPECIFIC GRAVITY URINE AUTO 1.011 (1.002-1.035); UROBILINOGEN, URINE AUTO 0.2 mg/dL (0.0-2.0); WBC, URINE AUTO 1 /HPF (0-3)
[2022-03-22 11:30] LABS: BACTERIA, URINE AUTO NEGATIVE (NEGATIVE); RBC, URINE AUTO 0 /HPF (0-3)
[2022-03-22 11:31] LABS: SQUAMOUS EPITHELIAL CELL UR AU 1 /HPF (0-6)
== END ==
PROVIDERS: ATTEND Nurse Practitioner Family
DX: N18.4 Chronic kidney disease, stage 4 (severe) (principal); D63.1 Anemia in chronic kidney disease; N25.81 Secondary hyperparathyroidism of renal origin; E79.0 Hyperuricemia without signs of inflammatory arthritis and tophaceous disease

== ENCOUNTER → 2022-04-02 | Outpatient (REF) | payer MEDICARE, MEDICAID ==
[2022-04-02 10:52] LABS: BASO # 0.1 10^3/uL (0.0-0.2); BASO % 0.8 % (0.0-1.0); EOS # 0.3 10^3/uL (0.0-0.5); EOS % 3.2 % (0.0-3.0); HEMATOCRIT 32.2 % (36.0-47.0); HEMOGLOBIN 10.5 g/dl (12.0-15.5); LYMPH # 1.2 10^3/uL (1.5-5.0); LYMPH % 12.2 % (24.0-44.0); MEAN CORPUSCULAR HEMOGLOBIN 32.6 pg (27.0-33.0); MEAN CORPUSCULAR HGB CONC 32.6 g/dl (32.0-36.5); MONO % 10.6 % (2.0-8.0); NEUTROPHILS # 6.9 10^3/uL (1.5-8.5); NEUTROPHILS % 72.8 % (36.0-66.0); PLATELET COUNT, AUTOMATED 244 10^3/uL (150-450); RED BLOOD COUNT 3.22 10^6/uL (4.00-5.40); WHITE BLOOD COUNT 9.4 10^3/uL (4.0-10.0)
[2022-04-02 11:17] LABS: PERCENT SATURATION 25.8 % (13.2-45.0)
== END ==
PROVIDERS: ATTEND Nurse Practitioner Family
DX: D50.9 Iron deficiency anemia, unspecified (principal)

== ENCOUNTER → 2022-05-14 | Outpatient (REF) | payer MEDICARE, MEDICAID ==
[2022-05-14 10:54] LABS: HEMATOCRIT 34.3 % (36.0-47.0); HEMOGLOBIN 10.9 g/dl (12.0-15.5); MEAN CORPUSCULAR HEMOGLOBIN 31.7 pg (27.0-33.0); MEAN CORPUSCULAR HGB CONC 31.8 g/dl (32.0-36.5); MEAN CORPUSCULAR VOLUME 99.7 fl (80.0-96.0); PLATELET COUNT, AUTOMATED 238 10^3/uL (150-450); RED BLOOD COUNT 3.44 10^6/uL (4.00-5.40)
[2022-05-14 11:45] LABS: ALBUMIN 3.4 GM/DL (3.2-5.2); BILIRUBIN,TOTAL 0.6 MG/DL (0.2-1.0); C REACTIVE PROTEIN QUANTITATIV 0.4 MG/DL (0.00-0.30); CALCIUM LEVEL 8.6 MG/DL (8.8-10.2); CREATININE FOR GFR 2.35 MG/DL (0.55-1.30); GLOMERULAR FILTRATION RATE 21.2 (>32); POTASSIUM SERUM 3.9 MEQ/L (3.5-5.1); TOTAL PROTEIN 7.3 GM/DL (6.4-8.2)
[2022-05-14 11:48] LABS: ERYTHROCYTE SEDIMENTATION RATE 70 mm/hr (0-30)
== END ==
PROVIDERS: ATTEND Physician Assistant
DX: R19.7 Diarrhea, unspecified (principal); M25.50 Pain in unspecified joint

== ENCOUNTER → 2022-05-16 | Outpatient (REF) | payer MEDICARE, MEDICAID ==
[2022-05-16 10:57] LABS: PERCENT SATURATION 23.5 % (13.2-45.0)
== END ==
PROVIDERS: ATTEND Physician Assistant
DX: N18.9 Chronic kidney disease, unspecified (principal); D63.1 Anemia in chronic kidney disease

== ENCOUNTER → 2022-05-25 | Outpatient (CLI) | payer MEDICARE, MEDICAID | LOC: M PLAIMG 10:40 | PROVIDERS: ATTEND Physician Assistant | DX: M51.36 Other intervertebral disc degeneration, lumbar region (principal) ==

== ENCOUNTER → 2022-05-28 | Outpatient (REF) | payer MEDICARE, MEDICAID ==
[2022-05-28 10:23] LABS: BASO # 0.1 10^3/uL (0.0-0.2); BASO % 0.9 % (0.0-1.0); EOS # 0.3 10^3/uL (0.0-0.5); HEMATOCRIT 37.2 % (36.0-47.0); HEMOGLOBIN 11.4 g/dl (12.0-15.5); LYMPH # 1.1 10^3/uL (1.5-5.0); LYMPH % 13.8 % (24.0-44.0); MEAN CORPUSCULAR HEMOGLOBIN 31.6 pg (27.0-33.0); MEAN CORPUSCULAR HGB CONC 30.6 g/dl (32.0-36.5); MONO # 0.8 10^3/uL (0.0-0.8); MONO % 10.4 % (2.0-8.0); NEUTROPHILS # 5.7 10^3/uL (1.5-8.5); NEUTROPHILS % 70.4 % (36.0-66.0); PLATELET COUNT, AUTOMATED 207 10^3/uL (150-450); RED BLOOD COUNT 3.61 10^6/uL (4.00-5.40); WHITE BLOOD COUNT 8.1 10^3/uL (4.0-10.0)
[2022-05-28 11:06] LABS: ALBUMIN 3.4 GM/DL (3.2-5.2); CALCIUM LEVEL 8.5 MG/DL (8.8-10.2); CREATININE FOR GFR 2.94 MG/DL (0.55-1.30); GLOMERULAR FILTRATION RATE 16.4 (>32); PERCENT SATURATION 27.9 % (13.2-45.0); PHOSPHORUS LEVEL 4.7 MG/DL (2.5-4.9); POTASSIUM SERUM 4.8 MEQ/L (3.5-5.1); URIC ACID 4.6 MG/DL (2.6-6.0)
[2022-05-28 11:33] LABS: PTH INTACT 169.6 PG/ML (18.5-88.0)
== END ==
PROVIDERS: ATTEND Nurse Practitioner Family
DX: D50.9 Iron deficiency anemia, unspecified (principal)

== ENCOUNTER → 2022-06-18 | Outpatient (CLI) | payer MEDICARE, MEDICAID | LOC: M PLAIMG 09:53 | PROVIDERS: ATTEND Physician Assistant | DX: M51.36 Other intervertebral disc degeneration, lumbar region (principal); M47.892 Other spondylosis, cervical region ==

== ENCOUNTER → 2022-07-18 | Outpatient (REF) | payer MEDICARE, MEDICAID ==
[2022-07-18 12:06] LABS: BASO % 0.3 % (0.0-1.0); EOS # 0.2 10^3/uL (0.0-0.5); EOS % 1.1 % (0.0-3.0); HEMATOCRIT 36.9 % (36.0-47.0); HEMOGLOBIN 11.7 g/dl (12.0-15.5); LYMPH # 1.8 10^3/uL (1.5-5.0); LYMPH % 13.2 % (24.0-44.0); MEAN CORPUSCULAR HEMOGLOBIN 31.6 pg (27.0-33.0); MEAN CORPUSCULAR HGB CONC 31.7 g/dl (32.0-36.5); MEAN CORPUSCULAR VOLUME 99.7 fl (80.0-96.0); MONO # 1.2 10^3/uL (0.0-0.8); MONO % 8.8 % (2.0-8.0); NEUTROPHILS # 10.1 10^3/uL (1.5-8.5); NEUTROPHILS % 76.1 % (36.0-66.0); PLATELET COUNT, AUTOMATED 238 10^3/uL (150-450); WHITE BLOOD COUNT 13.2 10^3/uL (4.0-10.0)
[2022-07-18 12:54] LABS: URIC ACID 4.6 MG/DL (3.1-7.8)
[2022-07-18 12:57] LABS: ALBUMIN 3.2 G/DL (3.2-5.2); CALCIUM LEVEL 7.2 MG/DL (8.3-10.6); CREATININE FOR GFR 2.69 MG/DL (0.55-1.30); GLOMERULAR FILTRATION RATE 18.1 (>32); PHOSPHORUS LEVEL 3.7 MG/DL (2.4-5.1); POTASSIUM SERUM 3.7 MMOL/L (3.5-5.1); PTH INTACT 183.4 PG/ML (18.5-88.0)
== END ==
PROVIDERS: ATTEND Nurse Practitioner Family
DX: N18.9 Chronic kidney disease, unspecified (principal); E21.3 Hyperparathyroidism, unspecified; I12.9 Hypertensive chronic kidney disease with stage 1 through stage 4 chronic kidney disease, or unspecified chronic kidney disease; D63.1 Anemia in chronic kidney disease

== ENCOUNTER → 2022-09-05 | Outpatient (REF) | payer MEDICARE, MEDICAID ==
[~2022-09-05] MED LIST changes: -POTA10CA32 PO; +POTA10CA33 PO
[2022-09-05 11:15] LABS: BASO # 0.1 10^3/uL (0.0-0.2); BASO % 0.9 % (0.0-1.0); EOS # 0.5 10^3/uL (0.0-0.5); EOS % 5.9 % (0.0-3.0); HEMOGLOBIN 10.8 g/dl (12.0-15.5); LYMPH # 1.5 10^3/uL (1.5-5.0); LYMPH % 16.7 % (24.0-44.0); MEAN CORPUSCULAR HEMOGLOBIN 32.3 pg (27.0-33.0); MEAN CORPUSCULAR HGB CONC 30.9 g/dl (32.0-36.5); MEAN CORPUSCULAR VOLUME 104.8 fl (80.0-96.0); MONO # 1.1 10^3/uL (0.0-0.8); NEUTROPHILS # 5.9 10^3/uL (1.5-8.5); NEUTROPHILS % 64.1 % (36.0-66.0); PLATELET COUNT, AUTOMATED 184 10^3/uL (150-450); RED BLOOD COUNT 3.34 10^6/uL (4.00-5.40); WHITE BLOOD COUNT 9.2 10^3/uL (4.0-10.0)
[2022-09-05 11:29] LABS: ALBUMIN 3.2 G/DL (3.2-5.2); CALCIUM LEVEL 7.8 MG/DL (8.3-10.6); CREATININE FOR GFR 2.87 MG/DL (0.55-1.30); GLOMERULAR FILTRATION RATE 16.8 (>32); PHOSPHORUS LEVEL 5.4 MG/DL (2.4-5.1); POTASSIUM SERUM 5.5 MMOL/L (3.5-5.1); PTH INTACT 154.2 PG/ML (18.5-88.0)
== END ==
PROVIDERS: ATTEND Nurse Practitioner Family
DX: N18.4 Chronic kidney disease, stage 4 (severe) (principal); D89.1 Cryoglobulinemia; N25.81 Secondary hyperparathyroidism of renal origin

== ENCOUNTER → 2022-10-08 | Outpatient (REF) | payer MEDICARE, MEDICAID ==
[2022-10-08 10:30] LABS: BASO # 0.1 10^3/uL (0.0-0.2); BASO % 1.1 % (0.0-1.0); EOS # 0.5 10^3/uL (0.0-0.5); EOS % 5.5 % (0.0-3.0); HEMATOCRIT 31.3 % (36.0-47.0); HEMOGLOBIN 9.9 g/dl (12.0-15.5); LYMPH # 1.3 10^3/uL (1.5-5.0); LYMPH % 16.3 % (24.0-44.0); MEAN CORPUSCULAR HEMOGLOBIN 32.9 pg (27.0-33.0); MEAN CORPUSCULAR HGB CONC 31.6 g/dl (32.0-36.5); MONO # 1.1 10^3/uL (0.0-0.8); MONO % 12.9 % (2.0-8.0); NEUTROPHILS # 5.2 10^3/uL (1.5-8.5); NEUTROPHILS % 63.7 % (36.0-66.0); PLATELET COUNT, AUTOMATED 187 10^3/uL (150-450); RED BLOOD COUNT 3.01 10^6/uL (4.00-5.40); WHITE BLOOD COUNT 8.2 10^3/uL (4.0-10.0)
[2022-10-08 11:04] LABS: URIC ACID 6.2 MG/DL (3.1-7.8)
[2022-10-08 11:06] LABS: CALCIUM LEVEL 8.6 MG/DL (8.3-10.6); CREATININE FOR GFR 2.52 MG/DL (0.55-1.30); GLOMERULAR FILTRATION RATE 19.5 (>32); MAGNESIUM LEVEL 1.7 MG/DL (1.8-2.4); PHOSPHORUS LEVEL 4.6 MG/DL (2.4-5.1); POTASSIUM SERUM 4.8 MMOL/L (3.5-5.1); PTH INTACT 34.4 PG/ML (18.5-88.0)
[2022-10-08 11:07] LABS: PERCENT SATURATION 18.3 % (13.2-45.0)
== END ==
PROVIDERS: ATTEND Nurse Practitioner Family
DX: N18.4 Chronic kidney disease, stage 4 (severe) (principal); D50.9 Iron deficiency anemia, unspecified; N25.81 Secondary hyperparathyroidism of renal origin; E83.42 Hypomagnesemia; E79.0 Hyperuricemia without signs of inflammatory arthritis and tophaceous disease

== ENCOUNTER 2022-10-19 12:42 | Inpatient (IN) | payer MEDICARE, MEDICAID ==
[~2022-10-19] VITALS: Ht 160 cm; Wt 83.2 kg
[2022-10-19] MEDS ORDERED: SPIR-10 PO (13:58)
[2022-10-19] MEDS ORDERED: FEBU40TA4 PO (13:58)
[2022-10-19] MEDS ORDERED: METO50TA7 PO (13:58)
[2022-10-19] MEDS ORDERED: PROA1AER2 INH (13:58)
[2022-10-19] MEDS ORDERED: MAGN400T2 PO (13:58)
[2022-10-19] MEDS ORDERED: ASPE4PAD2 TOP (13:58)
[2022-10-19] MEDS ORDERED: ELIQ2.5T PO (13:58)
[2022-10-19] MEDS ORDERED: METO5TAB2 PO (13:58)
[2022-10-19] MEDS ORDERED: ACID100C PO (13:58)
[2022-10-19] MEDS ORDERED: RENV2TAB PO (13:58)
[2022-10-19] MEDS ORDERED: NYST-13 TOP (13:58)
[2022-10-19] MEDS ORDERED: BASA100I SC (13:58)
[2022-10-19] MEDS ORDERED: TRAZ1TAB12 PO (13:58)
[2022-10-19] MEDS ORDERED: PROP15DR3 OU (13:58)
[2022-10-19] MEDS ORDERED: LORA-674 PO (13:58)
[2022-10-19] MEDS ORDERED: TRAM50TA2 PO (13:58)
[2022-10-19] MEDS ORDERED: ROPI3TAB3 PO (13:58)
[2022-10-19] MEDS ORDERED: BUME1TAB3 PO ×2 (13:58)
[2022-10-19] MEDS ORDERED: DICL1GEL3 TOP (13:58)
[2022-10-19] MEDS ORDERED: METO100T5 PO (13:58)
[2022-10-19] MEDS ORDERED: BISA5TAB15 PO (13:58)
[2022-10-19] MEDS ORDERED: CALC1CAP31 PO (13:58)
[2022-10-19 14:04] LABS: BASO # 0.1 10^3/uL (0.0-0.2); BASO % 0.9 % (0.0-1.0); EOS # 0.5 10^3/uL (0.0-0.5); EOS % 4.7 % (0.0-3.0); HEMATOCRIT 33.1 % (36.0-47.0); HEMOGLOBIN 10.6 g/dl (12.0-15.5); LYMPH # 1.2 10^3/uL (1.5-5.0); LYMPH % 11.5 % (24.0-44.0); MEAN CORPUSCULAR HEMOGLOBIN 32.5 pg (27.0-33.0); MEAN CORPUSCULAR VOLUME 101.5 fl (80.0-96.0); MONO # 1.2 10^3/uL (0.0-0.8); MONO % 11.7 % (2.0-8.0); NEUTROPHILS # 7.3 10^3/uL (1.5-8.5); NEUTROPHILS % 70.9 % (36.0-66.0); PLATELET COUNT, AUTOMATED 198 10^3/uL (150-450); RED BLOOD COUNT 3.26 10^6/uL (4.00-5.40); WHITE BLOOD COUNT 10.2 10^3/uL (4.0-10.0)
[2022-10-19] MEDS ORDERED: APAP325T4 PO (14:06)
[2022-10-19] MEDS ORDERED: HOME MED LIST COMPLETE! XX SCH (14:10)
[2022-10-19 14:32] LABS: CK-MB VALUE MASS < 1.0 NG/ML (<3.6); CPK CREATINE PHOSPHOKINASE 27 U/L (34-145)
[2022-10-19 14:33] LABS: ALBUMIN 3.1 G/DL (3.2-5.2); ALKALINE PHOSPHATASE 132 U/L (46-116); ALT/SGPT 13 U/L (7.0-40); AST/SGOT 15 U/L (<34); BILIRUBIN,DIRECT 0.3 MG/DL (<0.4); BILIRUBIN,TOTAL 0.5 MG/DL (0.3-1.2); BLOOD UREA NITROGEN 52 MG/DL (9-23); CALCIUM LEVEL 8.3 MG/DL (8.3-10.6); CARBON DIOXIDE LEVEL 33 MMOL/L (20-31); CHLORIDE LEVEL 105 MMOL/L (98-107); CREATININE FOR GFR 2.47 MG/DL (0.55-1.30); GLUCOSE, FASTING 94 MG/DL (74-106); SODIUM LEVEL 143 MMOL/L (136-145); TOTAL PROTEIN 6.7 G/DL (5.7-8.2)
[2022-10-19 14:36] LABS: THYROID STIMULATING HORMONE 3.067 uIU/ML (0.55-4.78)
[2022-10-19 14:43] LABS: RSV AMPLIFICATION NEGATIVE (NEGATIVE)
[2022-10-19 15:01] LABS: MAGNESIUM LEVEL 1.5 MG/DL (1.8-2.4)
[2022-10-19] MEDS ORDERED: MAG SULF 1GM/100ML (MAG RUN) 1 GM in IV 1 EA IV ONE (15:25)
[2022-10-19] MEDS: INSULIN LISPRO (NovoLOG) PER UNIT SC SCH (17:30)
[2022-10-19] MEDS ORDERED: ACETAMINOPHEN TAB 650MG DOSE (2X325MG) PO PRN ×2 (17:45→17:55)
[2022-10-19] MEDS ORDERED: traMADol 50 MG TAB PO PRN (17:55)
[2022-10-19] MEDS: (RENVELA) SEVELAMER **CARBONate** 800 MG TAB PO SCH (18:00)
[2022-10-19] MEDS ORDERED: GLUCOSE 4GM CHEW TABLET PO PRN (18:05)
[2022-10-19] MEDS ORDERED: DEXTROSE 50% 50ML SYRINGE IV PRN (18:05)
[2022-10-19] MEDS ORDERED: GLUCAGON INJ 1MG VIAL SC PRN (18:05)
[2022-10-19] MEDS: levETIRAcetam 250MG TABLET (KEPPRA) PO SCH ×2 (18:48→21:18)
[2022-10-19] MEDS: NS 1,000 ML IV SCH (18:48)
[2022-10-19] MEDS ORDERED: ALBUTEROL 90 MCG/ACT 8GM HFA INHALER INH PRN (18:55)
[2022-10-19 19:15] VITALS: BP 135/81
[2022-10-19 19:59] LABS: HEMOGLOBIN A1c 5.4 % (4.0-6.0)
[2022-10-19] MEDS ORDERED: INSULIN LISPRO (NovoLOG) PER UNIT SC SCH (21:00)
[2022-10-19] MEDS: SINEMET 25-100 MG TAB PO SCH (21:18)
[2022-10-19] MEDS: rOPINIRole 1MG TAB PO SCH (21:18)
[2022-10-19] MEDS: FERROUS SULFATE 325MG TAB PO SCH (21:18)
[2022-10-19] MEDS: ATORVASTATIN 20 MG TAB PO SCH (21:18)
[2022-10-19] MEDS: APIXABAN 2.5 MG TAB (ELIQUIS) PO SCH (21:18)
[2022-10-19] MEDS: METOPROLOL TARTRATE 100MG TAB PO SCH (21:18)
[2022-10-19] MEDS: FLUTICASONE PROP 0.05% NASAL SPRAY 16 GM (FLONASE) NARES SCH (21:47)
[2022-10-19] MEDS: NYSTATIN 100,000 UNITS/GM TOPICAL PWD 15GM TOP PRN (21:47)
[2022-10-20 05:53] LABS: BASO # 0.1 10^3/uL (0.0-0.2); BASO % 0.7 % (0.0-1.0); EOS # 0.5 10^3/uL (0.0-0.5); HEMATOCRIT 30.6 % (36.0-47.0); HEMOGLOBIN 9.8 g/dl (12.0-15.5); LYMPH # 1.1 10^3/uL (1.5-5.0); LYMPH % 12.2 % (24.0-44.0); MEAN CORPUSCULAR HEMOGLOBIN 32.3 pg (27.0-33.0); MONO # 1.1 10^3/uL (0.0-0.8); MONO % 12.1 % (2.0-8.0); NEUTROPHILS # 6.3 10^3/uL (1.5-8.5); NEUTROPHILS % 69.7 % (36.0-66.0); PLATELET COUNT, AUTOMATED 174 10^3/uL (150-450); RED BLOOD COUNT 3.03 10^6/uL (4.00-5.40)
[2022-10-20 06:00] VITALS: BP 138/69
[2022-10-20 06:20] VITALS: BP_SYST 137; BP_DIAS 69; BP_DIAS 70
[2022-10-20 06:26] LABS: CALCIUM LEVEL 8.2 MG/DL (8.3-10.6); CREATININE FOR GFR 2.29 MG/DL (0.55-1.30); GLOMERULAR FILTRATION RATE 21.8 (>32); MAGNESIUM LEVEL 1.6 MG/DL (1.8-2.4); POTASSIUM SERUM 5.1 MMOL/L (3.5-5.1)
[2022-10-20] MEDS: INSULIN LISPRO (NovoLOG) PER UNIT SC SCH (07:30)
[2022-10-20] MEDS: FEBUXOSTAT 40 MG TABLET (ULORIC) PO SCH (08:32)
[2022-10-20] MEDS: (RENVELA) SEVELAMER **CARBONate** 800 MG TAB PO SCH ×3 (08:32→18:21)
[2022-10-20] MEDS: FLUTICASONE PROP 0.05% NASAL SPRAY 16 GM (FLONASE) NARES SCH ×2 (08:32→19:58)
[2022-10-20] MEDS: MAG SULF 1GM/100ML (MAG RUN) 1 GM in IV 1 EA IV SCH ×2 (08:32→09:51)
[2022-10-20] MEDS: MAGNESIUM OXIDE 400MG TAB (MAG-OX) PO SCH (08:33)
[2022-10-20] MEDS: LORATADINE 10 MG TAB PO SCH (08:33)
[2022-10-20] MEDS: APIXABAN 2.5 MG TAB (ELIQUIS) PO SCH ×2 (08:33→19:57)
[2022-10-20] MEDS: METOPROLOL TART 50 MG TAB PO SCH (08:33)
[2022-10-20] MEDS: OMEPRAZOLE 20MG CAP PO SCH (08:33)
[2022-10-20] MEDS: SPIRONOLACTONE 25 MG TAB PO SCH (08:33)
[2022-10-20] MEDS: NS 1,000 ML IV SCH (10:21)
[2022-10-20] MEDS: rOPINIRole 1MG TAB PO SCH ×2 (12:28→19:57)
[2022-10-20 14:00] VITALS: BP 133/74
[2022-10-20] MEDS: levETIRAcetam 250MG TABLET (KEPPRA) PO SCH ×2 (18:21→19:58)
[2022-10-20] MEDS: SINEMET 25-100 MG TAB PO SCH (18:21)
[2022-10-20] MEDS: traZODone 50 MG TAB PO SCH (19:56)
[2022-10-20] MEDS: FERROUS SULFATE 325MG TAB PO SCH (19:57)
[2022-10-20] MEDS: ATORVASTATIN 20 MG TAB PO SCH (19:57)
[2022-10-20] MEDS: METOPROLOL TARTRATE 100MG TAB PO SCH (19:57)
[2022-10-20 21:45] VITALS: BP 133/75
[2022-10-21] MEDS: NS 1,000 ML IV SCH (04:24)
[2022-10-21 06:00] VITALS: BP 131/71
[2022-10-21 06:16] LABS: BASO # 0.1 10^3/uL (0.0-0.2); BASO % 0.6 % (0.0-1.0); EOS # 0.4 10^3/uL (0.0-0.5); EOS % 4.5 % (0.0-3.0); HEMATOCRIT 30.5 % (36.0-47.0); HEMOGLOBIN 9.5 g/dl (12.0-15.5); LYMPH # 1.3 10^3/uL (1.5-5.0); LYMPH % 14.7 % (24.0-44.0); MEAN CORPUSCULAR HEMOGLOBIN 31.9 pg (27.0-33.0); MEAN CORPUSCULAR HGB CONC 31.1 g/dl (32.0-36.5); MEAN CORPUSCULAR VOLUME 102.3 fl (80.0-96.0); MONO # 1.3 10^3/uL (0.0-0.8); MONO % 15.1 % (2.0-8.0); NEUTROPHILS # 5.7 10^3/uL (1.5-8.5); NEUTROPHILS % 64.8 % (36.0-66.0); PLATELET COUNT, AUTOMATED 178 10^3/uL (150-450); RED BLOOD COUNT 2.98 10^6/uL (4.00-5.40); WHITE BLOOD COUNT 8.8 10^3/uL (4.0-10.0)
[2022-10-21 06:40] LABS: CALCIUM LEVEL 8.5 MG/DL (8.3-10.6); CREATININE FOR GFR 2.31 MG/DL (0.55-1.30); GLOMERULAR FILTRATION RATE 21.6 (>32); MAGNESIUM LEVEL 1.9 MG/DL (1.8-2.4)
[2022-10-21] MEDS: NYSTATIN 100,000 UNITS/GM TOPICAL PWD 15GM TOP PRN ×2 (08:15→20:02)
[2022-10-21] MEDS: (RENVELA) SEVELAMER **CARBONate** 800 MG TAB PO SCH ×3 (08:15→18:11)
[2022-10-21] MEDS: LORATADINE 10 MG TAB PO SCH (08:16)
[2022-10-21] MEDS: FLUTICASONE PROP 0.05% NASAL SPRAY 16 GM (FLONASE) NARES SCH ×2 (08:16→20:02)
[2022-10-21] MEDS: OMEPRAZOLE 20MG CAP PO SCH (08:16)
[2022-10-21] MEDS: METOPROLOL TART 50 MG TAB PO SCH (08:16)
[2022-10-21] MEDS: SPIRONOLACTONE 25 MG TAB PO SCH (08:16)
[2022-10-21] MEDS: MAGNESIUM OXIDE 400MG TAB (MAG-OX) PO SCH (08:16)
[2022-10-21] MEDS: APIXABAN 2.5 MG TAB (ELIQUIS) PO SCH ×2 (08:16→20:01)
[2022-10-21] MEDS: FEBUXOSTAT 40 MG TABLET (ULORIC) PO SCH (08:18)
[2022-10-21] MEDS: BUMETANIDE 1 MG TAB PO SCH (11:01)
[2022-10-21] MEDS: rOPINIRole 1MG TAB PO SCH ×2 (11:03→20:01)
[2022-10-21 14:00] VITALS: BP 140/87
[2022-10-21] MEDS: SINEMET 25-100 MG TAB PO SCH (18:11)
[2022-10-21] MEDS: levETIRAcetam 250MG TABLET (KEPPRA) PO SCH ×2 (18:11→20:02)
[2022-10-21] MEDS: FERROUS SULFATE 325MG TAB PO SCH (20:01)
[2022-10-21] MEDS: traZODone 50 MG TAB PO SCH (20:01)
[2022-10-21] MEDS: ATORVASTATIN 20 MG TAB PO SCH (20:02)
[2022-10-21] MEDS: METOPROLOL TARTRATE 100MG TAB PO SCH (20:11)
[2022-10-21] MEDS ORDERED: QUEtiapine FUMARATE 12.5 MG HALF-TAB PO SCH (21:00)
[2022-10-21 22:00] VITALS: BP 143/88
[2022-10-22 06:00] VITALS: BP 142/84
[2022-10-22 06:45] LABS: BASO # 0.1 10^3/uL (0.0-0.2); BASO % 0.5 % (0.0-1.0); EOS # 0.5 10^3/uL (0.0-0.5); EOS % 4.9 % (0.0-3.0); HEMATOCRIT 29.7 % (36.0-47.0); HEMOGLOBIN 9.4 g/dl (12.0-15.5); LYMPH # 1.2 10^3/uL (1.5-5.0); MEAN CORPUSCULAR HEMOGLOBIN 32.4 pg (27.0-33.0); MEAN CORPUSCULAR HGB CONC 31.6 g/dl (32.0-36.5); MEAN CORPUSCULAR VOLUME 102.4 fl (80.0-96.0); MONO # 1.5 10^3/uL (0.0-0.8); NEUTROPHILS # 6.9 10^3/uL (1.5-8.5); NEUTROPHILS % 67.2 % (36.0-66.0); PLATELET COUNT, AUTOMATED 178 10^3/uL (150-450); WHITE BLOOD COUNT 10.2 10^3/uL (4.0-10.0)
[2022-10-22 07:13] LABS: CALCIUM LEVEL 8.6 MG/DL (8.3-10.6); CREATININE FOR GFR 2.27 MG/DL (0.55-1.30); MAGNESIUM LEVEL 1.8 MG/DL (1.8-2.4); POTASSIUM SERUM 4.8 MMOL/L (3.5-5.1)
[2022-10-22] MEDS: FEBUXOSTAT 40 MG TABLET (ULORIC) PO SCH (08:21)
[2022-10-22] MEDS: OMEPRAZOLE 20MG CAP PO SCH (08:21)
[2022-10-22] MEDS: LORATADINE 10 MG TAB PO SCH (08:21)
[2022-10-22] MEDS: CALCITRIOL 0.25 MCG CAP (S0169) PO SCH (08:21)
[2022-10-22] MEDS: SPIRONOLACTONE 25 MG TAB PO SCH (08:21)
[2022-10-22] MEDS: BUMETANIDE 1 MG TAB PO SCH (08:21)
[2022-10-22] MEDS: MAGNESIUM OXIDE 400MG TAB (MAG-OX) PO SCH (08:21)
[2022-10-22] MEDS: (RENVELA) SEVELAMER **CARBONate** 800 MG TAB PO SCH ×3 (08:21→18:37)
[2022-10-22] MEDS: APIXABAN 2.5 MG TAB (ELIQUIS) PO SCH ×2 (08:21→20:36)
[2022-10-22] MEDS: FLUTICASONE PROP 0.05% NASAL SPRAY 16 GM (FLONASE) NARES SCH ×2 (08:22→20:37)
[2022-10-22] MEDS: METOPROLOL TART 50 MG TAB PO SCH (08:22)
[2022-10-22] MEDS: rOPINIRole 1MG TAB PO SCH ×2 (13:12→20:35)
[2022-10-22 14:00] VITALS: BP 144/83
[2022-10-22] MEDS: SINEMET 25-100 MG TAB PO SCH (18:37)
[2022-10-22] MEDS: levETIRAcetam 250MG TABLET (KEPPRA) PO SCH ×2 (18:38→20:36)
[2022-10-22] MEDS: traZODone 50 MG TAB PO SCH (20:35)
[2022-10-22] MEDS: FERROUS SULFATE 325MG TAB PO SCH (20:35)
[2022-10-22] MEDS: ATORVASTATIN 20 MG TAB PO SCH (20:36)
[2022-10-22] MEDS: METOPROLOL TARTRATE 100MG TAB PO SCH (20:36)
[2022-10-22] MEDS: NYSTATIN 100,000 UNITS/GM TOPICAL PWD 15GM TOP PRN (20:38)
[2022-10-22] MEDS ORDERED: QUEtiapine FUMARATE 25 MG TAB PO SCH (21:00)
[2022-10-22 22:00] VITALS: BP 139/77
[2022-10-23 06:00] VITALS: BP 141/79
[2022-10-23 06:07] LABS: BASO % 0.4 % (0.0-1.0); EOS # 0.5 10^3/uL (0.0-0.5); EOS % 5.2 % (0.0-3.0); HEMATOCRIT 28.2 % (36.0-47.0); HEMOGLOBIN 9.3 g/dl (12.0-15.5); LYMPH # 1.4 10^3/uL (1.5-5.0); LYMPH % 15.4 % (24.0-44.0); MONO # 1.3 10^3/uL (0.0-0.8); MONO % 14.7 % (2.0-8.0); NEUTROPHILS # 5.8 10^3/uL (1.5-8.5); PLATELET COUNT, AUTOMATED 174 10^3/uL (150-450); RED BLOOD COUNT 2.82 10^6/uL (4.00-5.40)
[2022-10-23 06:28] LABS: CALCIUM LEVEL 8.6 MG/DL (8.3-10.6); CREATININE FOR GFR 2.24 MG/DL (0.55-1.30); GLOMERULAR FILTRATION RATE 22.3 (>32); MAGNESIUM LEVEL 1.7 MG/DL (1.8-2.4); POTASSIUM SERUM 4.6 MMOL/L (3.5-5.1)
[2022-10-23] MEDS ORDERED: MAG SULF 1GM/100ML (MAG RUN) 1 GM in IV 1 EA IV ONE (09:00)
[2022-10-23] MEDS: MAGNESIUM OXIDE 400MG TAB (MAG-OX) PO SCH (09:03)
[2022-10-23] MEDS: (RENVELA) SEVELAMER **CARBONate** 800 MG TAB PO SCH ×2 (09:03→12:56)
[2022-10-23] MEDS: FEBUXOSTAT 40 MG TABLET (ULORIC) PO SCH (09:03)
[2022-10-23 09:04] VITALS: BP 141/79
[2022-10-23] MEDS: OMEPRAZOLE 20MG CAP PO SCH (09:04)
[2022-10-23] MEDS: METOPROLOL TART 50 MG TAB PO SCH (09:04)
[2022-10-23] MEDS: BUMETANIDE 1 MG TAB PO SCH (09:04)
[2022-10-23] MEDS: LORATADINE 10 MG TAB PO SCH (09:04)
[2022-10-23] MEDS: APIXABAN 2.5 MG TAB (ELIQUIS) PO SCH (09:04)
[2022-10-23] MEDS: CALCITRIOL 0.25 MCG CAP (S0169) PO SCH (09:05)
[2022-10-23] MEDS: SPIRONOLACTONE 25 MG TAB PO SCH (09:05)
[2022-10-23] MEDS: FLUTICASONE PROP 0.05% NASAL SPRAY 16 GM (FLONASE) NARES SCH (09:05)
[2022-10-23] MEDS ORDERED: MAGNESIUM CITRATE 300ML BTL PO ONE (10:00)
[2022-10-23] MEDS ORDERED: MAGNESIUM OXIDE 400MG TAB (MAG-OX) PO ONE (10:00)
[2022-10-23] MEDS ORDERED: QUET1TAB17 PO (11:07)
[2022-10-23] MEDS: rOPINIRole 1MG TAB PO SCH (12:56)
[2022-10-23 14:00] VITALS: BP 137/70
== END 2022-10-23 15:48 | DRG 884 ==
LOC: M ED 12:42 → EDBD 12:42 → M ED INP 17:48 → M MSPAV 19:10
PROVIDERS: ADMIT Internal Medicine; ATTEND Internal Medicine
DX: R54 Age-related physical debility (principal); I50.32 Chronic diastolic (congestive) heart failure; I48.20 Chronic atrial fibrillation, unspecified; I13.0 Hypertensive heart and chronic kidney disease with heart failure and stage 1 through stage 4 chronic kidney disease, or unspecified chronic kidney disease; N18.4 Chronic kidney disease, stage 4 (severe); Z66 Do not resuscitate; I27.20 Pulmonary hypertension, unspecified; I36.1 Nonrheumatic tricuspid (valve) insufficiency; E78.5 Hyperlipidemia, unspecified; K21.9 Gastro-esophageal reflux disease without esophagitis; E11.22 Type 2 diabetes mellitus with diabetic chronic kidney disease; D63.1 Anemia in chronic kidney disease; M10.9 Gout, unspecified; G47.33 Obstructive sleep apnea (adult) (pediatric); E11.42 Type 2 diabetes mellitus with diabetic polyneuropathy; G25.81 Restless legs syndrome; G40.909 Epilepsy, unspecified, not intractable, without status epilepticus; G20 Parkinson's disease; M54.9 Dorsalgia, unspecified; E83.42 Hypomagnesemia; G89.29 Other chronic pain; M19.90 Unspecified osteoarthritis, unspecified site; J45.909 Unspecified asthma, uncomplicated; F41.8 Other specified anxiety disorders; Z86.16 Personal history of COVID-19; Z20.822 Contact with and (suspected) exposure to COVID-19; Z96.642 Presence of left artificial hip joint; Z90.79 Acquired absence of other genital organ(s); Z98.41 Cataract extraction status, right eye; Z98.42 Cataract extraction status, left eye; Z79.01 Long term (current) use of anticoagulants; Z87.891 Personal history of nicotine dependence; Z79.4 Long term (current) use of insulin; Z79.899 Other long term (current) drug therapy

== ENCOUNTER → 2022-11-07 | Outpatient (REF) ==
[~2022-11-07] MED LIST changes: +ACID100C PO; +APAP325T4 PO; +ASPE4PAD2 TOP; +BASA100I SC; +BISA5TAB15 PO; +DICL1GEL3 TOP; +FEBU40TA4 PO; +LORA-674 PO; +MAGN400T2 PO; +METO50TA7 PO; +METO5TAB2 PO; +PROA1AER2 INH; +PROP15DR3 OU; +QUET1TAB17 PO; +RENV2TAB PO; +ROPI3TAB3 PO; +SPIR-10 PO; +TRAZ1TAB12 PO
[2022-11-07 11:12] LABS: BASO # 0.1 10^3/uL (0.0-0.2); BASO % 1.2 % (0.0-1.0); EOS # 0.4 10^3/uL (0.0-0.5); EOS % 4.9 % (0.0-3.0); HEMATOCRIT 35.5 % (36.0-47.0); HEMOGLOBIN 11.2 g/dl (12.0-15.5); LYMPH # 1.6 10^3/uL (1.5-5.0); LYMPH % 19.3 % (24.0-44.0); MEAN CORPUSCULAR HEMOGLOBIN 31.6 pg (27.0-33.0); MEAN CORPUSCULAR HGB CONC 31.5 g/dl (32.0-36.5); MEAN CORPUSCULAR VOLUME 100.3 fl (80.0-96.0); MONO # 0.8 10^3/uL (0.0-0.8); MONO % 10.3 % (2.0-8.0); NEUTROPHILS # 5.2 10^3/uL (1.5-8.5); NEUTROPHILS % 63.9 % (36.0-66.0); PLATELET COUNT, AUTOMATED 310 10^3/uL (150-450); RED BLOOD COUNT 3.54 10^6/uL (4.00-5.40); WHITE BLOOD COUNT 8.2 10^3/uL (4.0-10.0)
[2022-11-07 11:38] LABS: URIC ACID 8.4 MG/DL (3.1-7.8)
[2022-11-07 11:41] LABS: PERCENT SATURATION 27.1 % (13.2-45.0)
[2022-11-07 11:42] LABS: MAGNESIUM LEVEL 2.1 MG/DL (1.8-2.4); PTH INTACT 138.1 PG/ML (18.5-88.0)
[2022-11-07 14:07] LABS: APPEARANCE, URINE CLEAR (CLEAR); BACTERIA, URINE AUTO NEGATIVE (NEGATIVE); BILIRUBIN, URINE AUTO NEGATIVE (NEGATIVE); BLOOD, URINE BLOOD NEGATIVE (NEGATIVE); COLOR, URINE YELLOW (YELLOW); GLUCOSE, URINE (UA) AUTO NEGATIVE (NEGATIVE); KETONE, URINE AUTO NEGATIVE (NEGATIVE); LEUKOCYTE ESTERASE, URINE AUTO TRACE (NEGATIVE); NITRITE, URINE AUTO NEGATIVE (NEGATIVE); PROTEIN, URINE AUTO NEGATIVE (NEGATIVE); RBC, URINE AUTO 0 /HPF (0-3); SPECIFIC GRAVITY URINE AUTO 1.012 (1.002-1.035); SQUAMOUS EPITHELIAL CELL UR AU 1 /HPF (0-6); UROBILINOGEN, URINE AUTO 0.2 mg/dL (0.0-2.0); WBC, URINE AUTO 3 /HPF (0-3)
== END ==
PROVIDERS: ATTEND Physician Assistant
DX: N18.9 Chronic kidney disease, unspecified (principal)

== ENCOUNTER → 2022-12-12 | Outpatient (REF) | payer MEDICARE, MEDICAID, BC, OTHER ==
[2022-12-12 11:02] LABS: BASO # 0.1 10^3/uL (0.0-0.2); BASO % 0.8 % (0.0-1.0); EOS # 0.3 10^3/uL (0.0-0.5); HEMATOCRIT 32.2 % (36.0-47.0); HEMOGLOBIN 9.8 g/dl (12.0-15.5); LYMPH # 1.1 10^3/uL (1.5-5.0); LYMPH % 17.6 % (24.0-44.0); MEAN CORPUSCULAR HEMOGLOBIN 31.6 pg (27.0-33.0); MEAN CORPUSCULAR HGB CONC 30.4 g/dl (32.0-36.5); MEAN CORPUSCULAR VOLUME 103.9 fl (80.0-96.0); MONO # 0.6 10^3/uL (0.0-0.8); MONO % 9.5 % (2.0-8.0); NEUTROPHILS # 4.3 10^3/uL (1.5-8.5); NEUTROPHILS % 67.6 % (36.0-66.0); PLATELET COUNT, AUTOMATED 212 10^3/uL (150-450); WHITE BLOOD COUNT 6.3 10^3/uL (4.0-10.0)
[2022-12-12 11:35] LABS: ALBUMIN 2.9 G/DL (3.2-5.2); CALCIUM LEVEL 8.4 MG/DL (8.3-10.6); CREATININE FOR GFR 2.42 MG/DL (0.55-1.30); GLOMERULAR FILTRATION RATE 20.4 (>32); MAGNESIUM LEVEL 1.4 MG/DL (1.8-2.4); PHOSPHORUS LEVEL 4.5 MG/DL (2.4-5.1); POTASSIUM SERUM 4.5 MMOL/L (3.5-5.1); PTH INTACT 87.3 PG/ML (18.5-88.0)
== END ==
PROVIDERS: ATTEND Nurse Practitioner Family
DX: N18.4 Chronic kidney disease, stage 4 (severe) (principal)

== ENCOUNTER → 2022-12-20 | Outpatient (CLI) | payer MEDICARE, MEDICAID | LOC: M RAD 12:45 | PROVIDERS: ATTEND Physician Assistant | DX: M48.061 Spinal stenosis, lumbar region without neurogenic claudication (principal) ==

== ENCOUNTER → 2023-02-05 | Outpatient (CLI) | payer MEDICARE, MEDICAID ==
[~2023-02-05] MED LIST changes: -K-TA10TA2 PO; +POTA-165 PO; -POTA10CA33 PO; +POTA10CA60 PO
== END ==
LOC: M PAIN 13:00
PROVIDERS: ATTEND Nurse Practitioner Family
DX: M79.10 Myalgia, unspecified site (principal); I48.91 Unspecified atrial fibrillation; I12.9 Hypertensive chronic kidney disease with stage 1 through stage 4 chronic kidney disease, or unspecified chronic kidney disease; E11.22 Type 2 diabetes mellitus with diabetic chronic kidney disease; E78.5 Hyperlipidemia, unspecified; N18.4 Chronic kidney disease, stage 4 (severe); D50.9 Iron deficiency anemia, unspecified; D63.8 Anemia in other chronic diseases classified elsewhere; F32.A Depression, unspecified; F41.9 Anxiety disorder, unspecified; G47.00 Insomnia, unspecified; G25.81 Restless legs syndrome; M81.0 Age-related osteoporosis without current pathological fracture; M54.50 Low back pain, unspecified; G89.29 Other chronic pain; Z87.891 Personal history of nicotine dependence; Z79.01 Long term (current) use of anticoagulants; Z79.899 Other long term (current) drug therapy

== ENCOUNTER → 2023-02-13 | Outpatient (CLI) | payer MEDICARE, MEDICAID ==
[2023-02-13 18:36] LABS: THYROID STIMULATING HORMONE 1.647 uIU/ML (0.55-4.78); TOTAL 25(OH) VITAMIN D 33.9 NG/ML (20.0-100.0)
[2023-02-13 18:39] LABS: BASO # 0.1 10^3/uL (0.0-0.2); BASO % 0.7 % (0.0-1.0); EOS # 0.4 10^3/uL (0.0-0.5); EOS % 4.2 % (0.0-3.0); FREE T4 0.87 NG/DL (0.89-1.76); HEMATOCRIT 33.9 % (36.0-47.0); HEMOGLOBIN 10.8 g/dl (12.0-15.5); LYMPH # 1.4 10^3/uL (1.5-5.0); LYMPH % 14.3 % (24.0-44.0); MEAN CORPUSCULAR HGB CONC 31.9 g/dl (32.0-36.5); MEAN CORPUSCULAR VOLUME 100.6 fl (80.0-96.0); MONO # 0.9 10^3/uL (0.0-0.8); NEUTROPHILS % 71.4 % (36.0-66.0); PLATELET COUNT, AUTOMATED 186 10^3/uL (150-450); RED BLOOD COUNT 3.37 10^6/uL (4.00-5.40); WHITE BLOOD COUNT 9.7 10^3/uL (4.0-10.0)
[2023-02-13 19:45] LABS: HEMOGLOBIN A1c 5.2 % (4.0-6.0)
== END ==
LOC: M PLALAB 14:47
PROVIDERS: ATTEND Physician Assistant
DX: R53.83 Other fatigue (principal); E11.9 Type 2 diabetes mellitus without complications; Z79.899 Other long term (current) drug therapy

== ENCOUNTER → 2023-02-22 | Outpatient (REF) | payer MEDICARE, MEDICAID ==
[~2023-02-22] MED LIST changes: -ROPI2TAB3 PO; +ROPI2TAB46 PO; +ROPI3TAB18 PO; -ROPI3TAB3 PO
[2023-02-22 07:36] LABS: BASO # 0.1 10^3/uL (0.0-0.2); BASO % 0.9 % (0.0-1.0); EOS # 0.4 10^3/uL (0.0-0.5); EOS % 4.8 % (0.0-3.0); HEMATOCRIT 31.5 % (36.0-47.0); HEMOGLOBIN 10.1 g/dl (12.0-15.5); LYMPH # 1.7 10^3/uL (1.5-5.0); LYMPH % 18.6 % (24.0-44.0); MEAN CORPUSCULAR HEMOGLOBIN 32.2 pg (27.0-33.0); MEAN CORPUSCULAR HGB CONC 32.1 g/dl (32.0-36.5); MEAN CORPUSCULAR VOLUME 100.3 fl (80.0-96.0); MONO # 1.1 10^3/uL (0.0-0.8); MONO % 12.3 % (2.0-8.0); NEUTROPHILS # 5.6 10^3/uL (1.5-8.5); NEUTROPHILS % 62.9 % (36.0-66.0); PLATELET COUNT, AUTOMATED 172 10^3/uL (150-450); RED BLOOD COUNT 3.14 10^6/uL (4.00-5.40); WHITE BLOOD COUNT 8.9 10^3/uL (4.0-10.0)
[2023-02-22 08:06] LABS: URIC ACID 5.8 MG/DL (3.1-7.8)
[2023-02-22 08:09] LABS: ALBUMIN 3.3 G/DL (3.2-5.2); CALCIUM LEVEL 7.7 MG/DL (8.3-10.6); CREATININE FOR GFR 3.22 MG/DL (0.55-1.30); GLOMERULAR FILTRATION RATE 14.7 (>32); PHOSPHORUS LEVEL 5.7 MG/DL (2.4-5.1); POTASSIUM SERUM 5.8 MMOL/L (3.5-5.1)
[2023-02-22 09:44] LABS: PTH INTACT 74.6 PG/ML (18.5-88.0)
== END ==
PROVIDERS: ATTEND Nurse Practitioner Family
DX: N18.4 Chronic kidney disease, stage 4 (severe) (principal); N25.81 Secondary hyperparathyroidism of renal origin; E79.0 Hyperuricemia without signs of inflammatory arthritis and tophaceous disease

== ENCOUNTER → 2023-03-04 | Outpatient (REF) | payer MEDICARE, MEDICAID ==
[2023-03-04 09:50] LABS: CALCIUM LEVEL 8.6 MG/DL (8.3-10.6); CREATININE FOR GFR 2.4 MG/DL (0.55-1.30); GLOMERULAR FILTRATION RATE 20.6 (>32); MAGNESIUM LEVEL 1.3 MG/DL (1.8-2.4); PHOSPHORUS LEVEL 4.7 MG/DL (2.4-5.1); POTASSIUM SERUM 4.4 MMOL/L (3.5-5.1)
== END ==
PROVIDERS: ATTEND Nurse Practitioner Family
DX: N18.4 Chronic kidney disease, stage 4 (severe) (principal)

== ENCOUNTER → 2023-03-26 | Outpatient (REF) | payer MEDICARE, MEDICAID ==
[~2023-03-26] MED LIST changes: +DICL100G10 TOP; -DICL1GEL3 TOP
[2023-03-26 16:05] LABS: APPEARANCE, URINE CLEAR (CLEAR); BACTERIA, URINE AUTO NEGATIVE (NEGATIVE); BILIRUBIN, URINE AUTO NEGATIVE (NEGATIVE); BLOOD, URINE BLOOD NEGATIVE (NEGATIVE); COLOR, URINE YELLOW (YELLOW); GLUCOSE, URINE (UA) AUTO NEGATIVE (NEGATIVE); KETONE, URINE AUTO NEGATIVE (NEGATIVE); LEUKOCYTE ESTERASE, URINE AUTO 1+ (NEGATIVE); MUCUS, URINE SMALL (NEGATIVE); NITRITE, URINE AUTO NEGATIVE (NEGATIVE); PROTEIN, URINE AUTO NEGATIVE (NEGATIVE); RBC, URINE AUTO 0 /HPF (0-3); SPECIFIC GRAVITY URINE AUTO 1.014 (1.002-1.035); SQUAMOUS EPITHELIAL CELL UR AU 1 /HPF (0-6); UROBILINOGEN, URINE AUTO 0.2 mg/dL (0.0-2.0); WBC, URINE AUTO 12 /HPF (0-3)
== END ==
PROVIDERS: ATTEND Nurse Practitioner Family
DX: N18.4 Chronic kidney disease, stage 4 (severe) (principal)

== ENCOUNTER → 2023-03-27 | Outpatient (REF) | payer MEDICARE, MEDICAID ==
[2023-03-27 10:23] LABS: BASO # 0.1 10^3/uL (0.0-0.2); BASO % 0.8 % (0.0-1.0); EOS # 0.4 10^3/uL (0.0-0.5); EOS % 4.7 % (0.0-3.0); HEMATOCRIT 28.4 % (36.0-47.0); HEMOGLOBIN 8.7 g/dl (12.0-15.5); LYMPH # 0.9 10^3/uL (1.5-5.0); LYMPH % 11.4 % (24.0-44.0); MEAN CORPUSCULAR HEMOGLOBIN 32.3 pg (27.0-33.0); MEAN CORPUSCULAR HGB CONC 30.6 g/dl (32.0-36.5); MEAN CORPUSCULAR VOLUME 105.6 fl (80.0-96.0); MONO # 0.8 10^3/uL (0.0-0.8); MONO % 10.5 % (2.0-8.0); NEUTROPHILS # 5.7 10^3/uL (1.5-8.5); NEUTROPHILS % 72.1 % (36.0-66.0); PLATELET COUNT, AUTOMATED 191 10^3/uL (150-450); RED BLOOD COUNT 2.69 10^6/uL (4.00-5.40); WHITE BLOOD COUNT 7.9 10^3/uL (4.0-10.0)
[2023-03-27 11:49] LABS: ALBUMIN 3.1 G/DL (3.2-5.2); CALCIUM LEVEL 8.3 MG/DL (8.3-10.6); CREATININE FOR GFR 2.3 MG/DL (0.55-1.30); GLOMERULAR FILTRATION RATE 21.7 (>32); MAGNESIUM LEVEL 1.7 MG/DL (1.8-2.4); PHOSPHORUS LEVEL 4.2 MG/DL (2.4-5.1); POTASSIUM SERUM 4.4 MMOL/L (3.5-5.1); PTH INTACT 113.1 PG/ML (18.5-88.0)
[2023-03-29 13:00] LABS: PERCENT SATURATION 17.6 % (13.2-45.0)
[2023-03-29 13:03] LABS: FERRITIN 492.6 NG/ML (7.3-270.7)
== END ==
PROVIDERS: ATTEND Internal Medicine Nephrology
DX: N18.4 Chronic kidney disease, stage 4 (severe) (principal); D63.1 Anemia in chronic kidney disease; N25.81 Secondary hyperparathyroidism of renal origin; E83.42 Hypomagnesemia; M1A.30X0 Chronic gout due to renal impairment, unspecified site, without tophus (tophi)

== ENCOUNTER → 2023-03-27 | Outpatient (REF) | payer MEDICARE, MEDICAID | PROVIDERS: ATTEND Nurse Practitioner Family | DX: N18.4 Chronic kidney disease, stage 4 (severe) (principal); E83.42 Hypomagnesemia; Z53.8 Procedure and treatment not carried out for other reasons ==

== ENCOUNTER → 2023-04-05 | Outpatient (REF) | payer MEDICARE, MEDICAID ==
[2023-04-05 08:24] LABS: ALBUMIN 3.1 G/DL (3.2-5.2); CALCIUM LEVEL 8.4 MG/DL (8.3-10.6); CREATININE FOR GFR 2.56 MG/DL (0.55-1.30); GLOMERULAR FILTRATION RATE 19.1 (>32); PHOSPHORUS LEVEL 5.2 MG/DL (2.4-5.1); POTASSIUM SERUM 4.5 MMOL/L (3.5-5.1)
== END ==
PROVIDERS: ATTEND Nurse Practitioner Family
DX: I12.9 Hypertensive chronic kidney disease with stage 1 through stage 4 chronic kidney disease, or unspecified chronic kidney disease (principal); N18.30 Chronic kidney disease, stage 3 unspecified

== ENCOUNTER → 2023-04-10 | Outpatient (REF) | payer MEDICARE, MEDICAID ==
[2023-04-10 08:21] LABS: BASO # 0.1 10^3/uL (0.0-0.2); BASO % 0.7 % (0.0-1.0); EOS # 0.5 10^3/uL (0.0-0.5); EOS % 6.4 % (0.0-3.0); HEMATOCRIT 30.5 % (36.0-47.0); HEMOGLOBIN 9.2 g/dl (12.0-15.5); LYMPH # 1.2 10^3/uL (1.5-5.0); LYMPH % 14.5 % (24.0-44.0); MEAN CORPUSCULAR HEMOGLOBIN 31.6 pg (27.0-33.0); MEAN CORPUSCULAR HGB CONC 30.2 g/dl (32.0-36.5); MEAN CORPUSCULAR VOLUME 104.8 fl (80.0-96.0); MONO # 0.9 10^3/uL (0.0-0.8); MONO % 11.6 % (2.0-8.0); NEUTROPHILS # 5.4 10^3/uL (1.5-8.5); NEUTROPHILS % 66.4 % (36.0-66.0); PLATELET COUNT, AUTOMATED 200 10^3/uL (150-450); RED BLOOD COUNT 2.91 10^6/uL (4.00-5.40); WHITE BLOOD COUNT 8.1 10^3/uL (4.0-10.0)
[2023-04-10 08:48] LABS: ALBUMIN 3.3 G/DL (3.2-5.2); CALCIUM LEVEL 8.7 MG/DL (8.3-10.6); CREATININE FOR GFR 2.91 MG/DL (0.55-1.30); GLOMERULAR FILTRATION RATE 16.5 (>32); MAGNESIUM LEVEL 1.9 MG/DL (1.8-2.4); PHOSPHORUS LEVEL 5.8 MG/DL (2.4-5.1); POTASSIUM SERUM 4.7 MMOL/L (3.5-5.1)
== END ==
PROVIDERS: ATTEND Nurse Practitioner Family
DX: N18.4 Chronic kidney disease, stage 4 (severe) (principal); E83.42 Hypomagnesemia

== ENCOUNTER → 2023-04-12 | Outpatient (CLI) | payer MEDICARE, MEDICAID | LOC: M WHC 14:40 | PROVIDERS: ATTEND Nurse Practitioner Family | DX: R33.9 Retention of urine, unspecified (principal) ==

== ENCOUNTER → 2023-04-17 | Outpatient (REF) | payer MEDICARE, MEDICAID ==
[~2023-04-17] MED LIST changes: +ASPE4PAD TOP; +LORA-1041 PO; -LORA-674 PO; +MENT120C TP; +OXYC-517 PO; +PANT40TA29 PO; +SENN-186 PO; +SILV1CRE60 TOP; +TORS100T PO; +TRES1INJ2 SC; +TRIA1OI TOP
[2023-04-17 09:21] LABS: BASO # 0.1 10^3/uL (0.0-0.2); BASO % 1.1 % (0.0-1.0); EOS # 0.5 10^3/uL (0.0-0.5); EOS % 8.3 % (0.0-3.0); HEMATOCRIT 26.3 % (36.0-47.0); HEMOGLOBIN 8.3 g/dl (12.0-15.5); LYMPH # 1.1 10^3/uL (1.5-5.0); LYMPH % 16.8 % (24.0-44.0); MEAN CORPUSCULAR HEMOGLOBIN 32.3 pg (27.0-33.0); MEAN CORPUSCULAR HGB CONC 31.6 g/dl (32.0-36.5); MEAN CORPUSCULAR VOLUME 102.3 fl (80.0-96.0); MONO # 0.8 10^3/uL (0.0-0.8); MONO % 12.3 % (2.0-8.0); NEUTROPHILS # 3.9 10^3/uL (1.5-8.5); NEUTROPHILS % 61.2 % (36.0-66.0); PLATELET COUNT, AUTOMATED 160 10^3/uL (150-450); RED BLOOD COUNT 2.57 10^6/uL (4.00-5.40); WHITE BLOOD COUNT 6.4 10^3/uL (4.0-10.0)
[2023-04-17 11:19] LABS: ALBUMIN 3.1 G/DL (3.2-5.2); CALCIUM LEVEL 8.4 MG/DL (8.3-10.6); CREATININE FOR GFR 3.51 MG/DL (0.55-1.30); GLOMERULAR FILTRATION RATE 13.3 (>32); PHOSPHORUS LEVEL 5.8 MG/DL (2.4-5.1)
== END ==
PROVIDERS: ATTEND Nurse Practitioner Family
DX: E55.9 Vitamin D deficiency, unspecified (principal); D63.1 Anemia in chronic kidney disease; R53.81 Other malaise; N18.30 Chronic kidney disease, stage 3 unspecified

== ENCOUNTER → 2023-05-22 | Outpatient (REF) ==
[~2023-05-22] MED LIST changes: +INSUHUMDS SC; +METO1TAB87 PO; +PRED10TA2 PO
[2023-05-22 10:39] LABS: HEMATOCRIT 33.9 % (36.0-47.0); HEMOGLOBIN 10.7 g/dl (12.0-15.5); MEAN CORPUSCULAR HEMOGLOBIN 30.7 pg (27.0-33.0); MEAN CORPUSCULAR HGB CONC 31.6 g/dl (32.0-36.5); MEAN CORPUSCULAR VOLUME 97.1 fl (80.0-96.0); PLATELET COUNT, AUTOMATED 194 10^3/uL (150-450); RED BLOOD COUNT 3.49 10^6/uL (4.00-5.40); WHITE BLOOD COUNT 7.7 10^3/uL (4.0-10.0)
[2023-05-22 11:08] LABS: CALCIUM LEVEL 9.2 MG/DL (8.3-10.6); CREATININE FOR GFR 1.99 MG/DL (0.55-1.30); GLOMERULAR FILTRATION RATE 25.6 (>32)
== END ==
PROVIDERS: ATTEND Internal Medicine
DX: N18.6 End stage renal disease (principal)

== ENCOUNTER → 2023-06-28 | Outpatient (CLI) | payer MEDICARE, MEDICAID, BC, OTHER | LOC: M SOG 08:07 | PROVIDERS: ATTEND Orthopaedic Surgery | DX: S72.492D Other fracture of lower end of left femur, subsequent encounter for closed fracture with routine healing (principal); W18.30XD Fall on same level, unspecified, subsequent encounter ==

== ENCOUNTER → 2023-07-19 | Outpatient (CLI) | payer MEDICARE, MEDICAID | LOC: M SOG 07:52 | PROVIDERS: ATTEND Orthopaedic Surgery | DX: S72.492A Other fracture of lower end of left femur, initial encounter for closed fracture (principal); Y93.9 Activity, unspecified; Y92.9 Unspecified place or not applicable ==

== ENCOUNTER → 2023-07-22 | Outpatient (CLI) | payer MEDICARE, MEDICAID | LOC: M RAD 09:43 | PROVIDERS: ATTEND Surgery Vascular Surgery | DX: N18.6 End stage renal disease (principal) ==

== ENCOUNTER → 2023-08-30 | Outpatient (CLI) | payer MEDICARE, MEDICAID, BC, OTHER | LOC: M SOG 08:01 | PROVIDERS: ATTEND Orthopaedic Surgery | DX: S72.492 Other fracture of lower end of left femur (principal); Y93.9 Activity, unspecified; Y92.9 Unspecified place or not applicable ==

== ENCOUNTER → 2023-09-30 | Outpatient (REF) | payer MEDICARE, MEDICAID, BC, OTHER ==
[~2023-09-30] MED LIST changes: +PROP15DR15 OU; -PROP15DR3 OU
[2023-09-30 11:58] LABS: ALBUMIN 3.1 G/DL (3.2-5.2); BILIRUBIN,TOTAL 0.5 MG/DL (0.3-1.2); CALCIUM LEVEL 9.9 MG/DL (8.3-10.6); CHOLESTEROL RISK RATIO 2.67 (<5); CREATININE FOR GFR 3.04 MG/DL (0.55-1.30); GLOMERULAR FILTRATION RATE 15.7 (>32); HDL CHOLESTEROL 47.4 MG/DL (>40); LDL CHOLESTEROL 63.8 MG/DL (<100); NON-HDL-C 79.6 MG/DL; POTASSIUM SERUM 4.8 MMOL/L (3.5-5.1)
[2023-09-30 12:09] LABS: HEMOGLOBIN A1c 5.2 % (4.0-6.0)
== END ==
PROVIDERS: ATTEND Family Medicine
DX: E11.9 Type 2 diabetes mellitus without complications (principal)

== ENCOUNTER → 2023-10-11 | Outpatient (CLI) | payer MEDICARE, MEDICAID | LOC: M SOG 09:27 | PROVIDERS: ATTEND Orthopaedic Surgery | DX: M25.562 Pain in left knee (principal) ==

== ENCOUNTER → 2023-12-18 | Outpatient (REF) | payer MEDICARE, MEDICAID ==
[~2023-12-18] MED LIST changes: -POTA10CA60 PO; +POTA10CA70 PO
== END ==
PROVIDERS: ATTEND Family Medicine
DX: E11.29 Type 2 diabetes mellitus with other diabetic kidney complication (principal)

== ENCOUNTER → 2024-01-15 | Outpatient (CLI) | payer MEDICARE, MEDICAID | LOC: M SOG 08:01 | PROVIDERS: ATTEND Orthopaedic Surgery | DX: S72.492 Other fracture of lower end of left femur (principal); M17.12 Unilateral primary osteoarthritis, left knee ==

== ENCOUNTER → 2024-01-20 | Outpatient (REF) | payer MEDICARE, MEDICAID ==
[2024-01-21 10:38] LABS: APPEARANCE, URINE TURBID (CLEAR); BACTERIA, URINE AUTO 3+ (NEGATIVE); BILIRUBIN, URINE AUTO NEGATIVE (NEGATIVE); BLOOD, URINE BLOOD 1+ (NEGATIVE); COLOR, URINE YELLOW (YELLOW); GLUCOSE, URINE (UA) AUTO NEGATIVE (NEGATIVE); KETONE, URINE AUTO NEGATIVE (NEGATIVE); LEUKOCYTE ESTERASE, URINE AUTO 3+ (NEGATIVE); NITRITE, URINE AUTO NEGATIVE (NEGATIVE); PROTEIN, URINE AUTO 1+ mg/dL (NEGATIVE); RBC, URINE AUTO 5 /HPF (0-3); SPECIFIC GRAVITY URINE AUTO 1.014 (1.002-1.035); SQUAMOUS EPITHELIAL CELL UR AU 2 /HPF (0-6); UROBILINOGEN, URINE AUTO 0.2 mg/dL (0.0-2.0); WBC, URINE AUTO TNTC /HPF (0-3)
== END ==
LOC: M SFHCPLAZ 09:46
PROVIDERS: ATTEND Family Medicine
DX: N30.00 Acute cystitis without hematuria (principal)

== ENCOUNTER → 2024-02-14 | Outpatient (CLI) | payer MEDICAID, MEDICARE | LOC: M PLAIMG 14:04 | PROVIDERS: ATTEND Physician Assistant | DX: S22.20XA Unspecified fracture of sternum, initial encounter for closed fracture (principal); Y92.9 Unspecified place or not applicable; Y93.9 Activity, unspecified; Y99.9 Unspecified external cause status; X58.XXXA Exposure to other specified factors, initial encounter ==

== ENCOUNTER 2024-02-19 17:15 | Inpatient (IN) | payer MEDICARE, MEDICAID ==
[~2024-02-19] VITALS: Ht 160 cm; Wt 82.1 kg
[2024-02-19 17:57] LABS: VENOUS BASE EXCESS 2.9 (-2.0-2.0); VENOUS HCO3 28.1 MMOL/L (23.0-27.0); VENOUS O2 SATURATION 92.7 % (60.0-80.0); VENOUS PARTIAL PRESSURE CO2 45.4 mmHg (38.0-50.0); VENOUS PARTIAL PRESSURE O2 71.7 mmHg (30.0-50.0); VENOUS PH 7.409 UNITS (7.330-7.430); VENOUS STANDARD HCO3 26.9 MMOL/L; VENOUS TOTAL CO2 29.5 MMOL/L (24.0-28.0)
[2024-02-19 18:03] LABS: BASO # 0.1 10^3/uL (0.0-0.2); BASO % 0.9 % (0.0-1.0); EOS # 0.2 10^3/uL (0.0-0.5); EOS % 2.7 % (0.0-3.0); HEMATOCRIT 33.6 % (36.0-47.0); LYMPH # 0.7 10^3/uL (1.5-5.0); LYMPH % 12.3 % (24.0-44.0); MEAN CORPUSCULAR HEMOGLOBIN 31.8 pg (27.0-33.0); MEAN CORPUSCULAR HGB CONC 32.7 g/dl (32.0-36.5); MEAN CORPUSCULAR VOLUME 97.1 fl (80.0-96.0); MONO # 0.9 10^3/uL (0.0-0.8); NEUTROPHILS % 67.8 % (36.0-66.0); PLATELET COUNT, AUTOMATED 141 10^3/uL (150-450); RED BLOOD COUNT 3.46 10^6/uL (4.00-5.40); WHITE BLOOD COUNT 5.9 10^3/uL (4.0-10.0)
[2024-02-19 18:47] LABS: ALBUMIN 3.1 G/DL (3.2-5.2); ALKALINE PHOSPHATASE 194 U/L (46-116); ALT/SGPT < 9 U/L (7.0-40); AST/SGOT 20 U/L (<34); BILIRUBIN,DIRECT 0.4 MG/DL (<0.4); BILIRUBIN,TOTAL 0.8 MG/DL (0.3-1.2); BLOOD UREA NITROGEN 42 MG/DL (9-23); CALCIUM LEVEL 9.9 MG/DL (8.3-10.6); CARBON DIOXIDE LEVEL 28 MMOL/L (20-31); CHLORIDE LEVEL 98 MMOL/L (98-107); CREATININE FOR GFR 3.95 MG/DL (0.55-1.30); GLOMERULAR FILTRATION RATE 11.6 (>32); GLUCOSE, FASTING 176 MG/DL (74-106); POTASSIUM SERUM 4.1 MMOL/L (3.5-5.1); SODIUM LEVEL 136 MMOL/L (136-145); TOTAL PROTEIN 6.9 G/DL (5.7-8.2)
[2024-02-19 18:49] LABS: THYROID STIMULATING HORMONE 4.364 uIU/ML (0.55-4.78)
[2024-02-19] MEDS: cefTRIAXone SOD 1 GM in D5W MINI-BAG PLUS 50 ML IV ONE (21:18)
[2024-02-19 22:15] VITALS: BP 132/74; TEMP 97.3; O2SAT 98
[2024-02-19] MEDS: NS 1,000 ML IV SCH (22:52)
[2024-02-20] MEDS ORDERED: QUET1TAB17 PO (00:02)
[2024-02-20] MEDS ORDERED: CARB25TA9 PO (00:02)
[2024-02-20] MEDS ORDERED: RENV2TAB PO (00:02)
[2024-02-20] MEDS ORDERED: SENN8.6T58 PO (00:02)
[2024-02-20] MEDS ORDERED: MIRA33506 PO (00:02)
[2024-02-20] MEDS ORDERED: ALBU8.5H INH (00:02)
[2024-02-20] MEDS ORDERED: METH85CR12 TOP (00:02)
[2024-02-20] MEDS ORDERED: HUMA100I3 SC (00:02)
[2024-02-20] MEDS ORDERED: OXYC-517 PO (00:02)
[2024-02-20] MEDS ORDERED: AQUAOIN12 TOP (00:02)
[2024-02-20] MEDS ORDERED: MICO85PO6 TOP (00:02)
[2024-02-20] MEDS ORDERED: METO1TAB87 PO (00:02)
[2024-02-20] MEDS ORDERED: BELS1TAB4 PO (00:02)
[2024-02-20] MEDS ORDERED: PHEN26CR PR (00:02)
[2024-02-20] MEDS ORDERED: NEPR1LIQ2 PO (00:02)
[2024-02-20] MEDS ORDERED: META58.6 PO (00:02)
[2024-02-20] MEDS ORDERED: HOME MED LIST COMPLETE! XX SCH (00:05)
[2024-02-20 04:00] VITALS: BP 124/66; TEMP 97.7; O2SAT 93
[2024-02-20 07:10] LABS: HEMOGLOBIN 10.5 g/dl (12.0-15.5); MEAN CORPUSCULAR HEMOGLOBIN 31.9 pg (27.0-33.0); MEAN CORPUSCULAR HGB CONC 32.8 g/dl (32.0-36.5); MEAN CORPUSCULAR VOLUME 97.3 fl (80.0-96.0); PLATELET COUNT, AUTOMATED 141 10^3/uL (150-450); RED BLOOD COUNT 3.29 10^6/uL (4.00-5.40); WHITE BLOOD COUNT 6.8 10^3/uL (4.0-10.0)
[2024-02-20 07:33] LABS: ALKALINE PHOSPHATASE 182 U/L (46-116); ALT/SGPT < 9 U/L (7.0-40); AST/SGOT 17 U/L (<34); BILIRUBIN,TOTAL 0.8 MG/DL (0.3-1.2); BLOOD UREA NITROGEN 47 MG/DL (9-23); CALCIUM LEVEL 9.8 MG/DL (8.3-10.6); CARBON DIOXIDE LEVEL 26 MMOL/L (20-31); CHLORIDE LEVEL 100 MMOL/L (98-107); GLOMERULAR FILTRATION RATE 10.5 (>32); GLUCOSE, FASTING 125 MG/DL (74-106); POTASSIUM SERUM 4.5 MMOL/L (3.5-5.1); SODIUM LEVEL 137 MMOL/L (136-145); TOTAL PROTEIN 6.6 G/DL (5.7-8.2)
[2024-02-20] MEDS: DOCUSATE SODIUM 100MG CAPSULE PO SCH (09:00)
[2024-02-20] MEDS ORDERED: NYSTATIN CREAM 15GM TOP SCH (09:00)
[2024-02-20] MEDS: MIRALAX *UNIT DOSE* 17GM PACKET PO SCH (09:00)
[2024-02-20] MEDS: SINEMET 25-100 MG TAB PO SCH ×2 (09:14→21:04)
[2024-02-20] MEDS: FLUTICASONE PROP 0.05% NASAL SPRAY 16 GM (FLONASE) NARES SCH (09:14)
[2024-02-20] MEDS: rOPINIRole 1MG TAB PO SCH (09:14)
[2024-02-20] MEDS: MICONAZOLE 2 % POWDER (DESENEX) TOP SCH (09:15)
[2024-02-20] MEDS: APIXABAN 2.5 MG TAB (ELIQUIS) PO SCH (09:15)
[2024-02-20] MEDS: (RENVELA) SEVELAMER **CARBONate** 800 MG TAB PO SCH (09:15)
[2024-02-20] MEDS: PANTOPRAZOLE 40MG TAB (PROTONIX) PO SCH (09:15)
[2024-02-20] MEDS: METOPROLOL TART 25 MG TABLET PO SCH (09:16)
[2024-02-20] MEDS ORDERED: SODIUM CHLORIDE 0.9% 1000ML IV PRN (11:05)
[2024-02-20] MEDS ORDERED: HEPARIN 1,000UNITS/ML 10ML VIAL (FOR RADIOLOGY & DIALYSIS ONLY) IV PRN (11:05)
[2024-02-20] MEDS ORDERED: HEPARIN 1,000UNITS/ML 10ML VIAL (FOR RADIOLOGY & DIALYSIS ONLY) XX SCH (11:05)
[2024-02-20 12:00] VITALS: BP 135/65; TEMP 97.7; O2SAT 95
[2024-02-20] MEDS: ATORVASTATIN 20 MG TAB PO SCH (17:57)
[2024-02-20] MEDS: levETIRAcetam 250MG TABLET (KEPPRA) PO SCH ×2 (17:57→21:04)
[2024-02-20] MEDS: QUEtiapine FUMARATE 25 MG TAB PO SCH (17:57)
[2024-02-20 20:04] VITALS: BP 137/64; TEMP 97.5; O2SAT 96
[2024-02-20] MEDS: cefTRIAXone SOD 1 GM in D5W MINI-BAG PLUS 50 ML IV SCH (21:05)
[2024-02-20] MEDS: ACETAMINOPHEN 500 MG TAB PO PRN (21:16)
[2024-02-21 04:35] VITALS: BP 144/65; TEMP 97.7; O2SAT 96
[2024-02-21] MEDS ORDERED: SODIUM CHLORIDE 0.9% 1000ML IV PRN (06:00)
[2024-02-21] MEDS ORDERED: HEPARIN 1,000UNITS/ML 10ML VIAL (FOR RADIOLOGY & DIALYSIS ONLY) IV PRN (06:00)
[2024-02-21 06:21] LABS: CALCIUM LEVEL 9.4 MG/DL (8.3-10.6); CREATININE FOR GFR 4.67 MG/DL (0.55-1.30); GLOMERULAR FILTRATION RATE 9.5 (>32); POTASSIUM SERUM 4.2 MMOL/L (3.5-5.1)
[2024-02-21] MEDS: HEPARIN 1,000UNITS/ML 10ML VIAL (FOR RADIOLOGY & DIALYSIS ONLY) XX SCH (11:19)
[2024-02-21 12:00] VITALS: BP 133/60; TEMP 97.3; O2SAT 98
[2024-02-21] MEDS: oxyCODONE 5MG TAB PO PRN (15:35)
[2024-02-21 20:00] VITALS: BP 128/59; TEMP 97.7; O2SAT 99
[2024-02-22 04:29] VITALS: BP 128/62; TEMP 97.9; O2SAT 98
[2024-02-22] MEDS ORDERED: PILL CUTTER 1 EACH XX ONE (08:31)
[2024-02-22] MEDS: oxyCODONE 5MG TAB PO PRN (08:33)
[2024-02-22 10:12] LABS: BASO # 0.1 10^3/uL (0.0-0.2); EOS # 0.4 10^3/uL (0.0-0.5); EOS % 6.1 % (0.0-3.0); HEMATOCRIT 28.8 % (36.0-47.0); HEMOGLOBIN 9.5 g/dl (12.0-15.5); LYMPH # 0.9 10^3/uL (1.5-5.0); LYMPH % 13.9 % (24.0-44.0); MEAN CORPUSCULAR HEMOGLOBIN 32.5 pg (27.0-33.0); MEAN CORPUSCULAR VOLUME 98.6 fl (80.0-96.0); MONO # 0.9 10^3/uL (0.0-0.8); MONO % 15.2 % (2.0-8.0); NEUTROPHILS # 3.9 10^3/uL (1.5-8.5); NEUTROPHILS % 63.5 % (36.0-66.0); PLATELET COUNT, AUTOMATED 149 10^3/uL (150-450); RED BLOOD COUNT 2.92 10^6/uL (4.00-5.40); WHITE BLOOD COUNT 6.2 10^3/uL (4.0-10.0)
[2024-02-22] MEDS ORDERED: HEPARIN 1,000UNITS/ML 10ML VIAL (FOR RADIOLOGY & DIALYSIS ONLY) XX SCH (10:35)
[2024-02-22] MEDS ORDERED: SODIUM CHLORIDE 0.9% 1000ML IV PRN (10:35)
[2024-02-22] MEDS ORDERED: LIDOCAINE 1% SDV 5ML VIAL SC PRN (10:35)
[2024-02-22] MEDS: HEPARIN 1,000UNITS/ML 10ML VIAL (FOR RADIOLOGY & DIALYSIS ONLY) IV PRN (14:11)
[2024-02-22] MEDS: LevoFLOXacin 750 MG TABLET PO ONE (15:17)
[2024-02-22 20:00] VITALS: BP 124/63; TEMP 97.2; O2SAT 97
[2024-02-23 04:00] VITALS: BP 112/83; TEMP 97.5; O2SAT 96
[2024-02-23] MEDS: LevoFLOXacin 250 MG TABLET PO SCH (05:36)
[2024-02-23 12:00] VITALS: BP 112/56; TEMP 97.9; O2SAT 97
[2024-02-23 20:53] VITALS: BP 115/83; TEMP 97.5; O2SAT 98
[2024-02-23] MEDS: LIDOCAINE 5% (LIDODERM) PATCH TD SCH (22:34)
[2024-02-23] MEDS: methocarbamoL 500 MG TAB PO ONE (23:14)
[2024-02-24] MEDS ORDERED: LIDOCAINE 5% (LIDODERM) PATCH TD ONE (01:00)
[2024-02-24] MEDS: LIDOCAINE 5% (LIDODERM) PATCH TD ONE (04:56)
[2024-02-24] MEDS: ACETAMINOPHEN *IV* 1,000 MG in IV 1 EA IV ONE (04:57)
[2024-02-24 05:05] VITALS: BP 129/62; TEMP 97.2; O2SAT 98
[2024-02-24 06:31] LABS: BASO # 0.1 10^3/uL (0.0-0.2); BASO % 1.1 % (0.0-1.0); EOS # 0.3 10^3/uL (0.0-0.5); EOS % 5.8 % (0.0-3.0); HEMATOCRIT 28.1 % (36.0-47.0); HEMOGLOBIN 9.3 g/dl (12.0-15.5); LYMPH # 0.9 10^3/uL (1.5-5.0); LYMPH % 15.3 % (24.0-44.0); MEAN CORPUSCULAR HEMOGLOBIN 31.6 pg (27.0-33.0); MEAN CORPUSCULAR HGB CONC 33.1 g/dl (32.0-36.5); MEAN CORPUSCULAR VOLUME 95.6 fl (80.0-96.0); MONO # 0.8 10^3/uL (0.0-0.8); MONO % 13.7 % (2.0-8.0); NEUTROPHILS # 3.6 10^3/uL (1.5-8.5); NEUTROPHILS % 63.7 % (36.0-66.0); PLATELET COUNT, AUTOMATED 166 10^3/uL (150-450); RED BLOOD COUNT 2.94 10^6/uL (4.00-5.40); WHITE BLOOD COUNT 5.6 10^3/uL (4.0-10.0)
[2024-02-24 06:52] LABS: URIC ACID 3.3 MG/DL (3.1-7.8)
[2024-02-24 06:55] LABS: CREATININE FOR GFR 3.3 MG/DL (0.55-1.30); GLOMERULAR FILTRATION RATE 14.2 (>32); MAGNESIUM LEVEL 1.6 MG/DL (1.8-2.4); POTASSIUM SERUM 4.2 MMOL/L (3.5-5.1)
[2024-02-24] MEDS: MAG SULF 1GM/100ML (MAG RUN) 1 GM in IV 1 EA IV SCH (08:31)
[2024-02-24 12:18] LABS: ALBUMIN 2.6 G/DL (3.2-5.2); ALKALINE PHOSPHATASE 183 U/L (46-116); ALT/SGPT < 9 U/L (7.0-40); AST/SGOT 22 U/L (<34); BILIRUBIN,TOTAL 0.5 MG/DL (0.3-1.2); BLOOD UREA NITROGEN 30 MG/DL (9-23); CARBON DIOXIDE LEVEL 25 MMOL/L (20-31); CHLORIDE LEVEL 93 MMOL/L (98-107); CREATININE FOR GFR 3.45 MG/DL (0.55-1.30); GLOMERULAR FILTRATION RATE 13.5 (>32); GLUCOSE, FASTING 121 MG/DL (74-106); POTASSIUM SERUM 3.9 MMOL/L (3.5-5.1); SODIUM LEVEL 125 MMOL/L (136-145)
[2024-02-24] MEDS ORDERED: SODIUM CHLORIDE 0.9% 1000ML IV PRN (13:20)
[2024-02-24] MEDS ORDERED: LIDOCAINE 1% SDV 5ML VIAL SC PRN (13:20)
[2024-02-24] MEDS ORDERED: HEPARIN 1,000UNITS/ML 10ML VIAL (FOR RADIOLOGY & DIALYSIS ONLY) IV PRN (13:20)
[2024-02-24] MEDS: HEPARIN 1,000UNITS/ML 10ML VIAL (FOR RADIOLOGY & DIALYSIS ONLY) XX SCH (15:28)
[2024-02-24 20:01] VITALS: BP 116/56; TEMP 97.5; O2SAT 95
[2024-02-25] MEDS: ACETAMINOPHEN TAB 650MG DOSE (2X325MG) PO PRN (03:20)
[2024-02-25 04:00] VITALS: BP 116/61; TEMP 97.7; O2SAT 94
[2024-02-25] MEDS ORDERED: LIDOCAINE 1% SDV 5ML VIAL SC PRN ×2 (06:00)
[2024-02-25] MEDS ORDERED: HEPARIN 1,000UNITS/ML 10ML VIAL (FOR RADIOLOGY & DIALYSIS ONLY) XX SCH (06:00)
[2024-02-25] MEDS ORDERED: SODIUM CHLORIDE 0.9% 1000ML IV PRN ×2 (06:00)
[2024-02-25] MEDS ORDERED: HEPARIN 1,000UNITS/ML 10ML VIAL (FOR RADIOLOGY & DIALYSIS ONLY) IV PRN ×2 (06:00)
[2024-02-25 06:20] LABS: BASO # 0.1 10^3/uL (0.0-0.2); BASO % 1.1 % (0.0-1.0); EOS # 0.3 10^3/uL (0.0-0.5); EOS % 5.7 % (0.0-3.0); HEMATOCRIT 28.2 % (36.0-47.0); HEMOGLOBIN 9.5 g/dl (12.0-15.5); LYMPH # 0.8 10^3/uL (1.5-5.0); LYMPH % 14.4 % (24.0-44.0); MEAN CORPUSCULAR HEMOGLOBIN 32.3 pg (27.0-33.0); MEAN CORPUSCULAR HGB CONC 33.7 g/dl (32.0-36.5); MEAN CORPUSCULAR VOLUME 95.9 fl (80.0-96.0); MONO # 0.7 10^3/uL (0.0-0.8); MONO % 13.5 % (2.0-8.0); NEUTROPHILS # 3.6 10^3/uL (1.5-8.5); NEUTROPHILS % 65.1 % (36.0-66.0); PLATELET COUNT, AUTOMATED 141 10^3/uL (150-450); RED BLOOD COUNT 2.94 10^6/uL (4.00-5.40); WHITE BLOOD COUNT 5.5 10^3/uL (4.0-10.0)
[2024-02-25] MEDS: MOM 30ML SUSPENSION UDC PO PRN (06:29)
[2024-02-25 06:47] LABS: ALBUMIN 2.5 G/DL (3.2-5.2); ALKALINE PHOSPHATASE 189 U/L (46-116); ALT/SGPT < 9 U/L (7.0-40); AST/SGOT 21 U/L (<34); BILIRUBIN,TOTAL 0.5 MG/DL (0.3-1.2); BLOOD UREA NITROGEN 21 MG/DL (9-23); CARBON DIOXIDE LEVEL 26 MMOL/L (20-31); CHLORIDE LEVEL 96 MMOL/L (98-107); CREATININE FOR GFR 2.83 MG/DL (0.55-1.30); GLUCOSE, FASTING 101 MG/DL (74-106); POTASSIUM SERUM 3.9 MMOL/L (3.5-5.1); SODIUM LEVEL 129 MMOL/L (136-145); TOTAL PROTEIN 5.8 G/DL (5.7-8.2)
[2024-02-25] MEDS: HEPARIN 1,000UNITS/ML 10ML VIAL (FOR RADIOLOGY & DIALYSIS ONLY) XX SCH (10:45)
[2024-02-25 11:35] LABS: HEPATITIS B SURFACE ANTIGEN NEGATIVE (NEGATIVE)
[2024-02-25 12:00] VITALS: BP 121/60; TEMP 97.3; O2SAT 97
[2024-02-25 20:35] VITALS: BP 102/51; TEMP 97; O2SAT 97
[2024-02-26 03:58] VITALS: BP 103/51; TEMP 97.3; O2SAT 98
[2024-02-26 08:39] VITALS: BP 108/52
== END 2024-02-26 10:20 | DRG 689 ==
LOC: M ED 17:15 → EDBD 17:15 → M ED INP 21:23 → M MSPAV 22:14
PROVIDERS: ADMIT Family Medicine; ATTEND Preventive Medicine Undersea and Hyperbaric Medicine
PROC: 5A1D70Z Performance of Urinary Filtration, Intermittent, Less than 6 Hours Per Day (ICD-10-PCS; principal; 2024-02-21)
DX: N39.0 Urinary tract infection, site not specified (principal); G93.41 Metabolic encephalopathy; N18.6 End stage renal disease; I50.32 Chronic diastolic (congestive) heart failure; N17.9 Acute kidney failure, unspecified; E87.1 Hypo-osmolality and hyponatremia; I13.2 Hypertensive heart and chronic kidney disease with heart failure and with stage 5 chronic kidney disease, or end stage renal disease; Z66 Do not resuscitate; G20.C Parkinsonism, unspecified; I48.0 Paroxysmal atrial fibrillation; I27.20 Pulmonary hypertension, unspecified; I36.1 Nonrheumatic tricuspid (valve) insufficiency; E78.5 Hyperlipidemia, unspecified; K21.9 Gastro-esophageal reflux disease without esophagitis; D63.1 Anemia in chronic kidney disease; M10.9 Gout, unspecified; G25.81 Restless legs syndrome; G40.909 Epilepsy, unspecified, not intractable, without status epilepticus; E11.22 Type 2 diabetes mellitus with diabetic chronic kidney disease; G47.00 Insomnia, unspecified; M54.9 Dorsalgia, unspecified; G89.29 Other chronic pain; M19.90 Unspecified osteoarthritis, unspecified site; J45.909 Unspecified asthma, uncomplicated; F32.A Depression, unspecified; F41.9 Anxiety disorder, unspecified; Z96.642 Presence of left artificial hip joint; Z90.79 Acquired absence of other genital organ(s); Z98.41 Cataract extraction status, right eye; Z98.42 Cataract extraction status, left eye; Z87.891 Personal history of nicotine dependence; Z79.01 Long term (current) use of anticoagulants; Z79.4 Long term (current) use of insulin; Z79.52 Long term (current) use of systemic steroids; Z79.899 Other long term (current) drug therapy; Z99.2 Dependence on renal dialysis; Z99.3 Dependence on wheelchair

== ENCOUNTER → 2024-02-28 | Outpatient (REF) ==
[~2024-02-28] MED LIST changes: +ALBU8.5H INH; +AQUAOIN12 TOP; +BELS1TAB4 PO; +HUMA100I3 SC; +META58.6 PO; +METH85CR12 TOP; +MICO85PO6 TOP; +MIRA33506 PO; +NEPR1LIQ2 PO; +PHEN26CR PR; +SENN8.6T58 PO
[2024-02-28 10:47] LABS: HEMATOCRIT 30.4 % (36.0-47.0); HEMOGLOBIN 9.9 g/dl (12.0-15.5); MEAN CORPUSCULAR HEMOGLOBIN 31.7 pg (27.0-33.0); MEAN CORPUSCULAR HGB CONC 32.6 g/dl (32.0-36.5); MEAN CORPUSCULAR VOLUME 97.4 fl (80.0-96.0); PLATELET COUNT, AUTOMATED 169 10^3/uL (150-450); RED BLOOD COUNT 3.12 10^6/uL (4.00-5.40); WHITE BLOOD COUNT 6.7 10^3/uL (4.0-10.0)
[2024-02-28 11:10] LABS: CALCIUM LEVEL 9.4 MG/DL (8.3-10.6); CREATININE FOR GFR 2.61 MG/DL (0.55-1.30); GLOMERULAR FILTRATION RATE 18.7 (>32); POTASSIUM SERUM 3.7 MMOL/L (3.5-5.1)
== END ==
PROVIDERS: ATTEND Internal Medicine
DX: I10 Essential (primary) hypertension (principal)

== ENCOUNTER → 2024-03-04 | Outpatient (REF) ==
[2024-03-04 11:36] LABS: HEMATOCRIT 31.6 % (36.0-47.0); HEMOGLOBIN 10.1 g/dl (12.0-15.5); MEAN CORPUSCULAR HEMOGLOBIN 31.8 pg (27.0-33.0); MEAN CORPUSCULAR VOLUME 99.4 fl (80.0-96.0); PLATELET COUNT, AUTOMATED 151 10^3/uL (150-450); RED BLOOD COUNT 3.18 10^6/uL (4.00-5.40); WHITE BLOOD COUNT 5.6 10^3/uL (4.0-10.0)
[2024-03-04 12:13] LABS: CALCIUM LEVEL 9.3 MG/DL (8.3-10.6); CREATININE FOR GFR 2.89 MG/DL (0.55-1.30); GLOMERULAR FILTRATION RATE 16.6 (>32); POTASSIUM SERUM 3.8 MMOL/L (3.5-5.1)
== END ==
PROVIDERS: ATTEND Internal Medicine
DX: I10 Essential (primary) hypertension (principal)

== ENCOUNTER → 2024-03-06 | Outpatient (REF) ==
[2024-03-06 12:09] LABS: HEMATOCRIT 33.2 % (36.0-47.0); HEMOGLOBIN 10.5 g/dl (12.0-15.5); MEAN CORPUSCULAR HEMOGLOBIN 31.8 pg (27.0-33.0); MEAN CORPUSCULAR HGB CONC 31.6 g/dl (32.0-36.5); MEAN CORPUSCULAR VOLUME 100.6 fl (80.0-96.0); PLATELET COUNT, AUTOMATED 152 10^3/uL (150-450); WHITE BLOOD COUNT 6.1 10^3/uL (4.0-10.0)
[2024-03-06 12:16] LABS: CALCIUM LEVEL 9.8 MG/DL (8.3-10.6); CREATININE FOR GFR 2.64 MG/DL (0.55-1.30); GLOMERULAR FILTRATION RATE 18.4 (>32); POTASSIUM SERUM 4.7 MMOL/L (3.5-5.1)
== END ==
PROVIDERS: ATTEND Internal Medicine
DX: R52 Pain, unspecified (principal)

== ENCOUNTER → 2024-03-11 | Outpatient (REF) ==
[~2024-03-11] MED LIST changes: +BISA10SU59 PR; +FLEEENE12 PR; +GLUC1KIT IM; +LIDO76.52 TOP; +MIDO5TA PO
== END ==
PROVIDERS: ATTEND Internal Medicine
DX: I10 Essential (primary) hypertension (principal)

== ENCOUNTER 2024-03-16 22:47 | Inpatient (IN) | payer MEDICARE, OTHER, MEDICAID ==
[~2024-03-16] VITALS: Ht 162.6 cm; Wt 87.1 kg
[~2024-03-16 22:47] MED LIST changes: -BISA10SU59 PR; -FLEEENE12 PR; -GLUC1KIT IM; -LEVO25TA5 PO; -LIDO76.52 TOP; -MIDO5TA PO
[2024-03-17 00:51] LABS: BASO % 0.3 % (0.0-1.0); EOS # 0.2 10^3/uL (0.0-0.5); EOS % 3.3 % (0.0-3.0); HEMATOCRIT 31.2 % (36.0-47.0); LYMPH # 0.7 10^3/uL (1.5-5.0); LYMPH % 11.1 % (24.0-44.0); MEAN CORPUSCULAR HEMOGLOBIN 32.6 pg (27.0-33.0); MEAN CORPUSCULAR HGB CONC 32.1 g/dl (32.0-36.5); MEAN CORPUSCULAR VOLUME 101.6 fl (80.0-96.0); MONO # 0.6 10^3/uL (0.0-0.8); MONO % 9.8 % (2.0-8.0); NEUTROPHILS # 4.6 10^3/uL (1.5-8.5); NEUTROPHILS % 75.2 % (36.0-66.0); PLATELET COUNT, AUTOMATED 103 10^3/uL (150-450); RED BLOOD COUNT 3.07 10^6/uL (4.00-5.40); WHITE BLOOD COUNT 6.2 10^3/uL (4.0-10.0)
[2024-03-17 00:53] LABS: ABG BASE EXCESS -1.9 (-2.0-2.0); ABG HCO3 23.4 MMOL/L (22.0-26.0); ABG O2 SATURATION 96.8 % (95.0-99.0); ABG PARTIAL PRESSURE O2 91.5 mmHg (75.0-100.0); ABG STANDARD HCO3 22.9 MMOL/L. (22.0-26.0); ABG TOTAL CO2 24.7 MMOL/L (23.0-31.0); ABG pH (ARTERIAL) 7.364 UNITS (7.350-7.450)
[2024-03-17 01:13] LABS: ETHYL ALCOHOL (ETHANOL) < 0.003 % (0.000-0.010)
[2024-03-17 01:15] LABS: CPK CREATINE PHOSPHOKINASE 22 U/L (34-145); MB/CK RELATIVE INDEX 13.63 (< OR =4); SALICYLATE LEVEL < 3.0 MG/DL (<30)
[2024-03-17 01:17] LABS: THYROID STIMULATING HORMONE 7.591 uIU/ML (0.55-4.78)
[2024-03-17 01:21] LABS: ALBUMIN 2.8 G/DL (3.2-5.2); ALKALINE PHOSPHATASE 218 U/L (46-116); ALT/SGPT < 9 U/L (7.0-40); AST/SGOT 17 U/L (<34); BILIRUBIN,DIRECT 0.2 MG/DL (<0.4); BILIRUBIN,TOTAL 0.4 MG/DL (0.3-1.2); BLOOD UREA NITROGEN 28 MG/DL (9-23); CALCIUM LEVEL 9.4 MG/DL (8.3-10.6); CARBON DIOXIDE LEVEL 29 MMOL/L (20-31); CHLORIDE LEVEL 101 MMOL/L (98-107); CREATININE FOR GFR 3.55 MG/DL (0.55-1.30); GLOMERULAR FILTRATION RATE 13.1 (>32); GLUCOSE, FASTING 114 MG/DL (74-106); POTASSIUM SERUM 5.4 MMOL/L (3.5-5.1); SODIUM LEVEL 133 MMOL/L (136-145); TOTAL PROTEIN 6.4 G/DL (5.7-8.2)
[2024-03-17 01:23] LABS: AMPHETAMINES LEVEL URINE NEGATIVE (NEGATIVE); BARBITURATES URINE NEGATIVE (NEGATIVE); COCAINE METABOLITE URINE NEGATIVE (NEGATIVE); METHADONE URINE NEGATIVE (NEGATIVE)
[2024-03-17 01:24] LABS: BENZODIAZEPINES URINE NEGATIVE (NEGATIVE); CANNABINOIDS URINE NEGATIVE (NEGATIVE); PHENCYCLIDINE URINE NEGATIVE (NEGATIVE)
[2024-03-17 01:25] LABS: OPIATES URINE POSITIVE (NEGATIVE)
[2024-03-17 01:56] LABS: FREE T4 0.61 NG/DL (0.89-1.76)
[2024-03-17] MEDS: LACTULOSE 20GM/30ML SYRUP UDC PO ONE (05:25)
[2024-03-17] MEDS ORDERED: GLUCOSE 4 GM CHEW PO PRN (05:35)
[2024-03-17] MEDS ORDERED: GLUCAGON INJ 1MG VIAL SC PRN (05:35)
[2024-03-17] MEDS: LEVOTHYROXINE 12.5MCG PER 1/2 TAB (0.0125MG) PO SCH (06:00)
[2024-03-17] MEDS ORDERED: OXYC-517 PO (06:09)
[2024-03-17] MEDS ORDERED: MIDO5TA PO (06:09)
[2024-03-17] MEDS ORDERED: GLUC1KIT IM (06:09)
[2024-03-17] MEDS ORDERED: FLEEENE12 PR (06:09)
[2024-03-17] MEDS ORDERED: BISA10SU59 PR (06:09)
[2024-03-17] MEDS ORDERED: LIDO76.52 TOP (06:09)
[2024-03-17] MEDS ORDERED: HOME MED LIST COMPLETE! XX SCH (06:15)
[2024-03-17] MEDS ORDERED: ALBUTEROL SULFATE 2.5MG/0.5ML INH NEB SOLN NEB PRN (07:10)
[2024-03-17] MEDS: INSULIN LISPRO (NovoLOG) PER UNIT SC SCH ×2 (07:30→18:00)
[2024-03-17 08:06] LABS: CALCIUM LEVEL 9.8 MG/DL (8.3-10.6); CREATININE FOR GFR 3.63 MG/DL (0.55-1.30); GLOMERULAR FILTRATION RATE 12.8 (>32); MAGNESIUM LEVEL 2.1 MG/DL (1.8-2.4); POTASSIUM SERUM 5.8 MMOL/L (3.5-5.1)
[2024-03-17] MEDS: APIXABAN 2.5 MG TAB (ELIQUIS) PO SCH (09:00)
[2024-03-17] MEDS: DOCUSATE SODIUM 100MG CAPSULE PO SCH (09:00)
[2024-03-17] MEDS ORDERED: HumuLIN R (REGULAR) INSULIN (NovoLIN R) **100U/ML** PER UNIT IV STA (09:06)
[2024-03-17] MEDS ORDERED: DEXTROSE 50% 50ML SYRINGE IV STA (09:06)
[2024-03-17] MEDS ORDERED: ALBUTEROL SULFATE 2.5MG/0.5ML INH NEB SOLN NEB ONE (09:10)
[2024-03-17] MEDS ORDERED: HEPARIN 1,000UNITS/ML 10ML VIAL (FOR RADIOLOGY & DIALYSIS ONLY) IV PRN (09:55)
[2024-03-17] MEDS ORDERED: SODIUM CHLORIDE 0.9% 1000ML IV PRN (09:55)
[2024-03-17] MEDS: DEXTROSE 50% 50ML SYRINGE IV PRN (10:35)
[2024-03-17] MEDS: HEPARIN 1,000UNITS/ML 10ML VIAL (FOR RADIOLOGY & DIALYSIS ONLY) XX SCH (11:31)
[2024-03-17] MEDS: MIDODRINE 5 MG TAB PO SCH (12:00)
[2024-03-17 15:06] VITALS: BP 118/60; TEMP 97; O2SAT 98
[2024-03-17] MEDS ORDERED: BISACODYL 10MG SUPP PR SCH (15:50)
[2024-03-17] MEDS: LACTULOSE 20GM/30ML SYRUP UDC PR STA (15:59)
[2024-03-17 16:00] VITALS: BP 112/63; TEMP 97.3; O2SAT 98
[2024-03-17] MEDS: D5W/0.9% SODIUM CHLORIDE 1,000 ML IV SCH (16:21)
[2024-03-17 19:44] VITALS: BP 118/60; TEMP 97; O2SAT 100
[2024-03-17 21:00] VITALS: BP 118/60; TEMP 97; O2SAT 98
[2024-03-17] MEDS ORDERED: INSULIN LISPRO (NovoLOG) PER UNIT SC SCH (21:00)
[2024-03-17] MEDS: LACTULOSE 20GM/30ML SYRUP UDC PR ONE (21:44)
[2024-03-18 00:25] VITALS: O2SAT 97
[2024-03-18 04:00] VITALS: BP 122/59; TEMP 97.2; O2SAT 97
[2024-03-18] MEDS ORDERED: SODIUM CHLORIDE 0.9% 1000ML IV PRN (05:55)
[2024-03-18] MEDS ORDERED: HEPARIN 1,000UNITS/ML 10ML VIAL (FOR RADIOLOGY & DIALYSIS ONLY) XX SCH (05:55)
[2024-03-18 06:26] LABS: BASO % 0.2 % (0.0-1.0); EOS # 0.1 10^3/uL (0.0-0.5); EOS % 1.6 % (0.0-3.0); HEMATOCRIT 30.4 % (36.0-47.0); HEMOGLOBIN 9.8 g/dl (12.0-15.5); LYMPH # 0.6 10^3/uL (1.5-5.0); LYMPH % 12.9 % (24.0-44.0); MEAN CORPUSCULAR HEMOGLOBIN 32.6 pg (27.0-33.0); MEAN CORPUSCULAR HGB CONC 32.2 g/dl (32.0-36.5); MONO # 0.6 10^3/uL (0.0-0.8); MONO % 12.3 % (2.0-8.0); NEUTROPHILS # 3.6 10^3/uL (1.5-8.5); NEUTROPHILS % 72.8 % (36.0-66.0); RED BLOOD COUNT 3.01 10^6/uL (4.00-5.40)
[2024-03-18 06:36] LABS: CALCIUM LEVEL 9.5 MG/DL (8.3-10.6); CREATININE FOR GFR 2.57 MG/DL (0.55-1.30); MAGNESIUM LEVEL 1.9 MG/DL (1.8-2.4); POTASSIUM SERUM 4.5 MMOL/L (3.5-5.1)
[2024-03-18 06:58] LABS: PLATELET COUNT, AUTOMATED 97 10^3/uL (150-450)
[2024-03-18] MEDS: BISACODYL 10MG SUPP PR SCH (08:27)
[2024-03-18] MEDS: HEPARIN 1,000UNITS/ML 10ML VIAL (FOR RADIOLOGY & DIALYSIS ONLY) IV PRN (08:37)
[2024-03-18 12:40] VITALS: BP 125/60; TEMP 97.3; O2SAT 93
[2024-03-18] MEDS: ACETAMINOPHEN *IV* 1,000 MG in IV 1 EA IV ONE (16:12)
[2024-03-18 20:18] VITALS: BP 117/44; TEMP 97.2; O2SAT 95
[2024-03-19 04:00] VITALS: BP 118/50; TEMP 97.3; O2SAT 94
[2024-03-19] MEDS ORDERED: BISACODYL 10MG SUPP PR PRN (07:05)
[2024-03-19] MEDS ORDERED: HEPARIN 1,000UNITS/ML 10ML VIAL (FOR RADIOLOGY & DIALYSIS ONLY) IV PRN (07:20)
[2024-03-19] MEDS ORDERED: SODIUM CHLORIDE 0.9% 1000ML IV PRN (07:20)
[2024-03-19 08:10] LABS: CALCIUM LEVEL 9.6 MG/DL (8.3-10.6); CREATININE FOR GFR 2.18 MG/DL (0.55-1.30); MAGNESIUM LEVEL 1.9 MG/DL (1.8-2.4); POTASSIUM SERUM 3.9 MMOL/L (3.5-5.1)
[2024-03-19] MEDS: HEPARIN 1,000UNITS/ML 10ML VIAL (FOR RADIOLOGY & DIALYSIS ONLY) XX SCH (10:59)
[2024-03-19 12:00] VITALS: BP 149/75; TEMP 97.3; O2SAT 90
[2024-03-19] MEDS: INSULIN LISPRO (NovoLOG) PER UNIT SC SCH ×2 (17:30→21:00)
[2024-03-19 20:00] VITALS: BP 127/74; TEMP 97.2; O2SAT 93
[2024-03-19] MEDS: rOPINIRole 1MG TAB PO SCH (21:53)
[2024-03-19] MEDS: ACETAMINOPHEN TAB 650MG DOSE (2X325MG) PO PRN (22:21)
[2024-03-19] MEDS: SINEMET 25-100 MG TAB PO SCH (22:22)
[2024-03-20 04:24] VITALS: BP 156/83; TEMP 97.7; O2SAT 94
[2024-03-20 06:47] LABS: CALCIUM LEVEL 10.2 MG/DL (8.3-10.6); CREATININE FOR GFR 2.09 MG/DL (0.55-1.30); GLOMERULAR FILTRATION RATE 24.1 (>32); POTASSIUM SERUM 4.2 MMOL/L (3.5-5.1)
[2024-03-20] MEDS: FEBUXOSTAT 40 MG TABLET (ULORIC) PO SCH (08:54)
[2024-03-20] MEDS: (RENVELA) SEVELAMER **CARBONate** 800 MG TAB PO SCH (08:54)
[2024-03-20] MEDS: BUMETANIDE 1 MG TAB PO SCH (08:54)
[2024-03-20] MEDS: SINEMET 25-100 MG TAB PO SCH (08:55)
[2024-03-20] MEDS: FLUTICASONE PROP 0.05% NASAL SPRAY 16 GM (FLONASE) NARES SCH (08:55)
[2024-03-20 12:00] VITALS: BP 148/75; TEMP 97.7; O2SAT 94
[2024-03-20] MEDS: MICONAZOLE 2 % POWDER (DESENEX) TOP SCH (21:00)
[2024-03-20 21:24] VITALS: BP 143/70; TEMP 97.2; O2SAT 92
[2024-03-20] MEDS: ATORVASTATIN 20 MG TAB PO SCH (21:31)
[2024-03-21 04:00] VITALS: BP 125/62; TEMP 97.7; O2SAT 92
[2024-03-21] MEDS ORDERED: SODIUM CHLORIDE 0.9% 1000ML IV PRN (06:00)
[2024-03-21] MEDS ORDERED: HEPARIN 1,000UNITS/ML 10ML VIAL (FOR RADIOLOGY & DIALYSIS ONLY) XX SCH (06:00)
[2024-03-21] MEDS ORDERED: LIDOCAINE 1% SDV 5ML VIAL SC PRN (06:00)
[2024-03-21 06:32] LABS: BASO % 0.7 % (0.0-1.0); EOS # 0.4 10^3/uL (0.0-0.5); EOS % 6.4 % (0.0-3.0); HEMOGLOBIN 9.6 g/dl (12.0-15.5); LYMPH % 16.6 % (24.0-44.0); MEAN CORPUSCULAR HEMOGLOBIN 32.1 pg (27.0-33.0); MEAN CORPUSCULAR VOLUME 100.3 fl (80.0-96.0); MONO # 0.9 10^3/uL (0.0-0.8); MONO % 15.7 % (2.0-8.0); NEUTROPHILS # 3.5 10^3/uL (1.5-8.5); NEUTROPHILS % 60.4 % (36.0-66.0); PLATELET COUNT, AUTOMATED 102 10^3/uL (150-450); RED BLOOD COUNT 2.99 10^6/uL (4.00-5.40); WHITE BLOOD COUNT 5.8 10^3/uL (4.0-10.0)
[2024-03-21 07:05] LABS: CALCIUM LEVEL 9.5 MG/DL (8.3-10.6); CREATININE FOR GFR 2.89 MG/DL (0.55-1.30); GLOMERULAR FILTRATION RATE 16.6 (>32); MAGNESIUM LEVEL 1.9 MG/DL (1.8-2.4)
[2024-03-21] MEDS: HEPARIN 1,000UNITS/ML 10ML VIAL (FOR RADIOLOGY & DIALYSIS ONLY) IV PRN (13:36)
[2024-03-21 15:30] VITALS: BP 129/71; TEMP 97.5; O2SAT 95
[2024-03-21 19:37] VITALS: BP 128/69; TEMP 97.5; O2SAT 94
[2024-03-22 04:00] VITALS: BP 126/67; TEMP 97.9; O2SAT 91
[2024-03-22 06:40] LABS: CALCIUM LEVEL 8.9 MG/DL (8.3-10.6); CREATININE FOR GFR 2.1 MG/DL (0.55-1.30); MAGNESIUM LEVEL 1.8 MG/DL (1.8-2.4); POTASSIUM SERUM 3.5 MMOL/L (3.5-5.1)
[2024-03-22 07:30] VITALS: BP 129/66; TEMP 97.5; O2SAT 90
[2024-03-22] MEDS: ONDANSETRON 4MG 2ML VIAL IV PRN (08:36)
[2024-03-22 12:00] VITALS: BP 123/67; TEMP 97.5; O2SAT 91
[2024-03-22 19:20] VITALS: BP 131/61; TEMP 97.5; O2SAT 98
[2024-03-23 03:10] VITALS: BP 129/61; TEMP 97.5; O2SAT 94
[2024-03-23 05:45] VITALS: O2SAT 93
[2024-03-23 06:14] LABS: CALCIUM LEVEL 8.9 MG/DL (8.3-10.6); CREATININE FOR GFR 2.95 MG/DL (0.55-1.30); GLOMERULAR FILTRATION RATE 16.2 (>32); MAGNESIUM LEVEL 1.8 MG/DL (1.8-2.4); POTASSIUM SERUM 4.2 MMOL/L (3.5-5.1)
[2024-03-23 09:07] VITALS: BP 129/60
[2024-03-23] MEDS ORDERED: ROPI3TAB18 PO (11:01)
[2024-03-23] MEDS ORDERED: BELS1TAB4 PO (11:01)
[2024-03-23] MEDS ORDERED: LEVO25TA5 PO (11:01)
[2024-03-23 12:00] VITALS: BP 128/62
[2024-03-24] MEDS ORDERED: LIDOCAINE 1% SDV 5ML VIAL SC PRN (06:00)
[2024-03-24] MEDS ORDERED: HEPARIN 1,000UNITS/ML 10ML VIAL (FOR RADIOLOGY & DIALYSIS ONLY) XX SCH (06:00)
[2024-03-24] MEDS ORDERED: SODIUM CHLORIDE 0.9% 1000ML IV PRN (06:00)
[2024-03-24] MEDS ORDERED: HEPARIN 1,000UNITS/ML 10ML VIAL (FOR RADIOLOGY & DIALYSIS ONLY) IV PRN (06:00)
== END 2024-03-23 12:15 | DRG 91 ==
LOC: M ED 22:47 → M ED INP 03-17 05:13 → M MSPAV 03-17 15:09
PROVIDERS: ADMIT Internal Medicine; ATTEND Student in an Organized Health Care Education/Training Program
PROC: 5A1D70Z Performance of Urinary Filtration, Intermittent, Less than 6 Hours Per Day (ICD-10-PCS; principal; 2024-03-17)
DX: G92.8 Other toxic encephalopathy (principal); N18.6 End stage renal disease; I48.20 Chronic atrial fibrillation, unspecified; I13.2 Hypertensive heart and chronic kidney disease with heart failure and with stage 5 chronic kidney disease, or end stage renal disease; I50.32 Chronic diastolic (congestive) heart failure; E72.20 Disorder of urea cycle metabolism, unspecified; I27.20 Pulmonary hypertension, unspecified; I36.1 Nonrheumatic tricuspid (valve) insufficiency; E78.5 Hyperlipidemia, unspecified; K21.9 Gastro-esophageal reflux disease without esophagitis; D50.9 Iron deficiency anemia, unspecified; D63.1 Anemia in chronic kidney disease; M10.9 Gout, unspecified; G25.81 Restless legs syndrome; G40.909 Epilepsy, unspecified, not intractable, without status epilepticus; G20.C Parkinsonism, unspecified; G89.29 Other chronic pain; Z66 Do not resuscitate; E87.5 Hyperkalemia; M54.9 Dorsalgia, unspecified; E11.22 Type 2 diabetes mellitus with diabetic chronic kidney disease; T50.905A Adverse effect of unspecified drugs, medicaments and biological substances, initial encounter; J45.909 Unspecified asthma, uncomplicated; I95.3 Hypotension of hemodialysis; J47.9 Bronchiectasis, uncomplicated; F32.A Depression, unspecified; K59.00 Constipation, unspecified; F41.9 Anxiety disorder, unspecified; Z96.642 Presence of left artificial hip joint; Z98.41 Cataract extraction status, right eye; Z98.42 Cataract extraction status, left eye; Z96.1 Presence of intraocular lens; Z87.891 Personal history of nicotine dependence; Z79.4 Long term (current) use of insulin; Z79.01 Long term (current) use of anticoagulants; Z99.2 Dependence on renal dialysis

== ENCOUNTER → 2024-03-16 | Outpatient (REF) | payer MEDICARE, MEDICAID, BC, OTHER ==
[~2024-03-16] MED LIST changes: +LEVO25TA5 PO
[2024-03-16 12:18] LABS: BASO % 0.5 % (0.0-1.0); EOS # 0.2 10^3/uL (0.0-0.5); EOS % 3.9 % (0.0-3.0); HEMATOCRIT 29.7 % (36.0-47.0); HEMOGLOBIN 9.5 g/dl (12.0-15.5); LYMPH # 0.8 10^3/uL (1.5-5.0); LYMPH % 18.2 % (24.0-44.0); MEAN CORPUSCULAR HEMOGLOBIN 32.6 pg (27.0-33.0); MEAN CORPUSCULAR VOLUME 102.1 fl (80.0-96.0); MONO # 0.5 10^3/uL (0.0-0.8); MONO % 10.4 % (2.0-8.0); NEUTROPHILS # 2.9 10^3/uL (1.5-8.5); NEUTROPHILS % 66.8 % (36.0-66.0); PLATELET COUNT, AUTOMATED 102 10^3/uL (150-450); RED BLOOD COUNT 2.91 10^6/uL (4.00-5.40); WHITE BLOOD COUNT 4.3 10^3/uL (4.0-10.0)
[2024-03-16 12:50] LABS: ALBUMIN 2.7 G/DL (3.2-5.2); ALKALINE PHOSPHATASE 201 U/L (46-116); ALT/SGPT < 9 U/L (7.0-40); AST/SGOT 15 U/L (<34); BILIRUBIN,DIRECT 0.3 MG/DL (<0.4); BILIRUBIN,TOTAL 0.5 MG/DL (0.3-1.2); BLOOD UREA NITROGEN 26 MG/DL (9-23); CALCIUM LEVEL 9.4 MG/DL (8.3-10.6); CARBON DIOXIDE LEVEL 27 MMOL/L (20-31); CHLORIDE LEVEL 102 MMOL/L (98-107); CREATININE FOR GFR 3.16 MG/DL (0.55-1.30); GLUCOSE, FASTING 116 MG/DL (74-106); POTASSIUM SERUM 5.3 MMOL/L (3.5-5.1); SODIUM LEVEL 134 MMOL/L (136-145)
[2024-03-16 12:54] LABS: THYROID STIMULATING HORMONE 6.992 uIU/ML (0.55-4.78); THYROXINE (T4) 3.9 UG/DL (4.5-10.9)
== END ==
PROVIDERS: ATTEND Internal Medicine
DX: E86.0 Dehydration (principal); Z79.899 Other long term (current) drug therapy

== ENCOUNTER → 2024-03-25 | Outpatient (REF) ==
[~2024-03-25] MED LIST changes: +BISA10SU59 PR; +FLEEENE12 PR; +GLUC1KIT IM; +LEVO25TA5 PO; +LIDO76.52 TOP; +MIDO5TA PO
[2024-03-25 10:41] LABS: HEMATOCRIT 29.3 % (36.0-47.0); HEMOGLOBIN 9.2 g/dl (12.0-15.5); MEAN CORPUSCULAR HEMOGLOBIN 32.3 pg (27.0-33.0); MEAN CORPUSCULAR HGB CONC 31.4 g/dl (32.0-36.5); MEAN CORPUSCULAR VOLUME 102.8 fl (80.0-96.0); PLATELET COUNT, AUTOMATED 135 10^3/uL (150-450); RED BLOOD COUNT 2.85 10^6/uL (4.00-5.40); WHITE BLOOD COUNT 7.7 10^3/uL (4.0-10.0)
[2024-03-25 11:13] LABS: CALCIUM LEVEL 9.2 MG/DL (8.3-10.6); CREATININE FOR GFR 2.7 MG/DL (0.55-1.30); POTASSIUM SERUM 4.2 MMOL/L (3.5-5.1)
== END ==
PROVIDERS: ATTEND Internal Medicine
DX: Z79.899 Other long term (current) drug therapy (principal)

== ENCOUNTER → 2024-03-25 | Outpatient (REF) | payer MEDICAID, MEDICARE, OTHER | PROVIDERS: ATTEND Internal Medicine | DX: Z79.899 Other long term (current) drug therapy (principal); Z53.8 Procedure and treatment not carried out for other reasons ==

== ENCOUNTER → 2024-03-27 | Outpatient (REF) | PROVIDERS: ATTEND Internal Medicine | DX: M18.9 Osteoarthritis of first carpometacarpal joint, unspecified (principal) ==

== ENCOUNTER → 2024-04-01 | Outpatient (REF) ==
[2024-04-01 09:11] LABS: HEMATOCRIT 28.6 % (36.0-47.0); HEMOGLOBIN 8.8 g/dl (12.0-15.5); MEAN CORPUSCULAR HEMOGLOBIN 31.9 pg (27.0-33.0); MEAN CORPUSCULAR HGB CONC 30.8 g/dl (32.0-36.5); MEAN CORPUSCULAR VOLUME 103.6 fl (80.0-96.0); PLATELET COUNT, AUTOMATED 205 10^3/uL (150-450); RED BLOOD COUNT 2.76 10^6/uL (4.00-5.40); WHITE BLOOD COUNT 5.2 10^3/uL (4.0-10.0)
[2024-04-01 09:39] LABS: CALCIUM LEVEL 9.4 MG/DL (8.3-10.6); CREATININE FOR GFR 2.45 MG/DL (0.55-1.30); GLOMERULAR FILTRATION RATE 20.1 (>32)
== END ==
PROVIDERS: ATTEND Internal Medicine
DX: Z79.899 Other long term (current) drug therapy (principal)

== ENCOUNTER → 2024-04-13 | Outpatient (REF) | payer BC, MEDICAID, MEDICARE, OTHER ==
[~2024-04-13] MED LIST changes: +GABA-1490 PO; -GABA600T4 PO
[2024-04-13 12:33] LABS: HEMATOCRIT 29.8 % (36.0-47.0); HEMOGLOBIN 9.2 g/dl (12.0-15.5); MEAN CORPUSCULAR HEMOGLOBIN 31.6 pg (27.0-33.0); MEAN CORPUSCULAR HGB CONC 30.9 g/dl (32.0-36.5); MEAN CORPUSCULAR VOLUME 102.4 fl (80.0-96.0); PLATELET COUNT, AUTOMATED 238 10^3/uL (150-450); RED BLOOD COUNT 2.91 10^6/uL (4.00-5.40); WHITE BLOOD COUNT 5.3 10^3/uL (4.0-10.0)
[2024-04-13 12:57] LABS: CALCIUM LEVEL 9.8 MG/DL (8.3-10.6); CREATININE FOR GFR 3.26 MG/DL (0.55-1.30); GLOMERULAR FILTRATION RATE 14.4 (>32); POTASSIUM SERUM 4.2 MMOL/L (3.5-5.1); THYROID STIMULATING HORMONE 0.367 uIU/ML (0.55-4.78)
== END ==
PROVIDERS: ATTEND Internal Medicine
DX: Z79.899 Other long term (current) drug therapy (principal)

== ENCOUNTER → 2024-04-15 | Outpatient (CLI) | payer MEDICARE, OTHER, MEDICAID ==
[~2024-04-15] MED LIST changes: -GABA-1490 PO; +GABA600T4 PO
== END ==
LOC: M SOG 08:06
PROVIDERS: ATTEND Orthopaedic Surgery
DX: S72.492 Other fracture of lower end of left femur (principal); M17.12 Unilateral primary osteoarthritis, left knee; Y93.9 Activity, unspecified; Y92.9 Unspecified place or not applicable

== ENCOUNTER → 2024-04-27 | Outpatient (REF) ==
[~2024-04-27] MED LIST changes: +GABA-1490 PO; -GABA600T4 PO
[2024-04-27 08:42] LABS: HEMATOCRIT 30.5 % (36.0-47.0); HEMOGLOBIN 9.1 g/dl (12.0-15.5); MEAN CORPUSCULAR HEMOGLOBIN 30.7 pg (27.0-33.0); MEAN CORPUSCULAR HGB CONC 29.8 g/dl (32.0-36.5); PLATELET COUNT, AUTOMATED 144 10^3/uL (150-450); RED BLOOD COUNT 2.96 10^6/uL (4.00-5.40)
[2024-04-27 09:15] LABS: THYROID STIMULATING HORMONE 0.121 uIU/ML (0.55-4.78)
[2024-04-27 09:18] LABS: CALCIUM LEVEL 9.8 MG/DL (8.3-10.6); CREATININE FOR GFR 3.08 MG/DL (0.55-1.30); GLOMERULAR FILTRATION RATE 15.4 (>32); POTASSIUM SERUM 4.3 MMOL/L (3.5-5.1)
== END ==
PROVIDERS: ATTEND Internal Medicine
DX: E03.9 Hypothyroidism, unspecified (principal)

== ENCOUNTER → 2024-05-06 | Outpatient (REF) | payer MEDICARE, OTHER, MEDICAID ==
[2024-05-06 10:50] LABS: HEMOGLOBIN 9.3 g/dl (12.0-15.5); MEAN CORPUSCULAR HEMOGLOBIN 30.9 pg (27.0-33.0); MEAN CORPUSCULAR VOLUME 99.7 fl (80.0-96.0); PLATELET COUNT, AUTOMATED 139 10^3/uL (150-450); RED BLOOD COUNT 3.01 10^6/uL (4.00-5.40); WHITE BLOOD COUNT 4.8 10^3/uL (4.0-10.0)
[2024-05-06 11:02] LABS: HEMOGLOBIN A1c 5.4 % (4.0-6.0)
[2024-05-06 11:23] LABS: CALCIUM LEVEL 9.6 MG/DL (8.3-10.6); CREATININE FOR GFR 2.91 MG/DL (0.55-1.30); GLOMERULAR FILTRATION RATE 16.5 (>32); POTASSIUM SERUM 3.5 MMOL/L (3.5-5.1); THYROID STIMULATING HORMONE 0.068 uIU/ML (0.55-4.78); THYROXINE (T4) 11.8 UG/DL (4.5-10.9)
== END ==
PROVIDERS: ATTEND Internal Medicine
DX: N18.9 Chronic kidney disease, unspecified (principal); Z79.899 Other long term (current) drug therapy

== ENCOUNTER → 2024-05-29 | Outpatient (REF) | payer MEDICARE ==
[~2024-05-29] MED LIST changes: +GABA-1172 PO; -GABA-282 PO
== END ==
LOC: M LAB REF 16:07
PROVIDERS: ATTEND Nurse Practitioner Family
DX: L03.114 Cellulitis of left upper limb (principal)

== ENCOUNTER → 2024-06-14 | Day surgery (SDC) | payer MEDICARE ==
[~2024-06-14] VITALS: Ht 160 cm; Wt 77.3 kg
[~2024-06-14] MED LIST changes: +BUME2TAB3 PO; +HOME MED LIST COMPLETE! XX SCH; +KEPP1TAB PO; +LIDOCAINE 2% 100MG/5ML SDV (FOR ANES.) As Ordered ONE; +LR 1,000 ML IV SCH; +ONDANSETRON 4MG 2ML VIAL As Ordered ONE; +ONDANSETRON 4MG 2ML VIAL IV PRN; +ROCURONIUM BROMIDE 50MG/5ML VIAL As Ordered ONE; +SUCCINYLCHOLINE 100MG/5ML SYRINGE As Ordered ONE; +ePHEDrine SULFATE 25 MG/5 ML(5MG/ML) SYRINGE As Ordered ONE; +fentaNYL 100 MCG/2 ML INJECTION As Ordered ONE; +propofoL 200 MG/20 ML VIAL As Ordered ONE
[2024-06-14 13:41] LABS: HEMATOCRIT 36.8 % (36.0-47.0); HEMOGLOBIN 11.6 g/dl (12.0-15.5); MEAN CORPUSCULAR HEMOGLOBIN 30.6 pg (27.0-33.0); MEAN CORPUSCULAR HGB CONC 31.5 g/dl (32.0-36.5); MEAN CORPUSCULAR VOLUME 97.1 fl (80.0-96.0); PLATELET COUNT, AUTOMATED 118 10^3/uL (150-450); RED BLOOD COUNT 3.79 10^6/uL (4.00-5.40)
[2024-06-14] MEDS: GLUCAGON INJ 1MG VIAL IV STA (13:42)
[2024-06-14 14:05] LABS: CALCIUM LEVEL 10.1 MG/DL (8.3-10.6); CREATININE FOR GFR 2.9 MG/DL (0.55-1.30); GLOMERULAR FILTRATION RATE 16.5 (>32); POTASSIUM SERUM 3.5 MMOL/L (3.5-5.1)
[2024-06-14 19:20] VITALS: BP 143/63; TEMP 97.7; O2SAT 96
== END | disposition home or self-care (01) ==
LOC: EDUNIT# 12:17 → EDBD 12:33 → M ED 12:33 → M SDC 17:07
PROVIDERS: ATTEND Surgery
DX: T18.128A Food in esophagus causing other injury, initial encounter (principal); Y92.010 Kitchen of single-family (private) house as the place of occurrence of the external cause; K20.90 Esophagitis, unspecified without bleeding; K31.7 Polyp of stomach and duodenum; I48.91 Unspecified atrial fibrillation; I11.0 Hypertensive heart disease with heart failure; E78.5 Hyperlipidemia, unspecified; R56.9 Unspecified convulsions; N18.6 End stage renal disease; Z99.2 Dependence on renal dialysis; M85.80 Other specified disorders of bone density and structure, unspecified site; J47.9 Bronchiectasis, uncomplicated; Z87.19 Personal history of other diseases of the digestive system; Z98.41 Cataract extraction status, right eye; Z98.42 Cataract extraction status, left eye; Z90.711 Acquired absence of uterus with remaining cervical stump; Z79.899 Other long term (current) drug therapy; Z79.01 Long term (current) use of anticoagulants
CPT/HCPCS: 43247; 80048; 85027; 96374; 99285; J0330; J1100; J1610; J2405; J3010

== ENCOUNTER → 2024-06-17 | Outpatient (REF) | payer MEDICARE, OTHER, MEDICAID ==
[~2024-06-17] MED LIST changes: -HOME MED LIST COMPLETE! XX SCH; +KETO2CR TOP; -LIDOCAINE 2% 100MG/5ML SDV (FOR ANES.) As Ordered ONE; -LR 1,000 ML IV SCH; -ONDANSETRON 4MG 2ML VIAL As Ordered ONE; -ONDANSETRON 4MG 2ML VIAL IV PRN; +PANT-23 PO; -ROCURONIUM BROMIDE 50MG/5ML VIAL As Ordered ONE; -SUCCINYLCHOLINE 100MG/5ML SYRINGE As Ordered ONE; -ePHEDrine SULFATE 25 MG/5 ML(5MG/ML) SYRINGE As Ordered ONE; -fentaNYL 100 MCG/2 ML INJECTION As Ordered ONE; -propofoL 200 MG/20 ML VIAL As Ordered ONE
[2024-06-17 10:33] LABS: THYROXINE (T4) 4.3 UG/DL (4.5-10.9)
[2024-06-17 10:34] LABS: THYROID STIMULATING HORMONE 5.262 uIU/ML (0.55-4.78)
== END ==
PROVIDERS: ATTEND Physician Assistant
DX: E03.9 Hypothyroidism, unspecified (principal)

== ENCOUNTER 2024-07-15 15:20 | Inpatient (IN) | payer MEDICARE, MEDICAID ==
[~2024-07-15] VITALS: Ht 160 cm; Wt 79.2 kg
[~2024-07-15 15:20] MED LIST changes: -KETO2CR TOP; -PANT-23 PO
[2024-07-15 16:18] LABS: BASO % 0.2 % (0.0-1.0); EOS % 0.2 % (0.0-3.0); HEMATOCRIT 37.7 % (36.0-47.0); HEMOGLOBIN 11.9 g/dl (12.0-15.5); LYMPH # 0.5 10^3/uL (1.5-5.0); LYMPH % 2.7 % (24.0-44.0); MEAN CORPUSCULAR HEMOGLOBIN 30.3 pg (27.0-33.0); MEAN CORPUSCULAR HGB CONC 31.6 g/dl (32.0-36.5); MEAN CORPUSCULAR VOLUME 95.9 fl (80.0-96.0); MONO # 1.2 10^3/uL (0.0-0.8); MONO % 6.5 % (2.0-8.0); NEUTROPHILS # 16.6 10^3/uL (1.5-8.5); NEUTROPHILS % 89.6 % (36.0-66.0); PLATELET COUNT, AUTOMATED 111 10^3/uL (150-450); RED BLOOD COUNT 3.93 10^6/uL (4.00-5.40); WHITE BLOOD COUNT 18.5 10^3/uL (4.0-10.0)
[2024-07-15] MEDS: PROPARACAINE 0.5% OPHTH SOL 15ML XX ONE (16:26)
[2024-07-15 16:49] LABS: ALBUMIN 2.7 G/DL (3.2-5.2); BILIRUBIN,DIRECT 0.8 MG/DL (<0.4); BILIRUBIN,TOTAL 1.4 MG/DL (0.3-1.2); CALCIUM LEVEL 9.4 MG/DL (8.3-10.6); CREATININE FOR GFR 3.37 MG/DL (0.55-1.30); GLOMERULAR FILTRATION RATE 13.9 (>32); POTASSIUM SERUM 4.5 MMOL/L (3.5-5.1); TOTAL PROTEIN 6.6 G/DL (5.7-8.2)
[2024-07-15] MEDS ORDERED: BUME1TAB3 PO (17:22)
[2024-07-15] MEDS ORDERED: KETO2CR TOP (17:22)
[2024-07-15] MEDS ORDERED: PANT-23 PO (17:22)
[2024-07-15] MEDS ORDERED: HOME MED LIST COMPLETE! XX SCH (17:25)
[2024-07-15] MEDS ORDERED: ISOVUE-370 76% 100ML VIAL As Ordered ONE (17:56)
[2024-07-15] MEDS ORDERED: METAMUCIL (PSYLLIUM) PACKET PO PRN (18:00)
[2024-07-15] MEDS ORDERED: SENNA 8.6 MG TAB (SENOKOT) PO PRN (18:00)
[2024-07-15] MEDS: (RENVELA) SEVELAMER **CARBONate** 800 MG TAB PO SCH (18:00)
[2024-07-15] MEDS: LevoFLOXacin IV 750 MG in IV 1 EA IV ONE (18:24)
[2024-07-15] MEDS ORDERED: DEXTROSE 50% 50ML SYRINGE IV PRN (18:30)
[2024-07-15] MEDS ORDERED: GLUCAGON INJ 1MG VIAL SC PRN (18:30)
[2024-07-15] MEDS ORDERED: GLUCOSE 4 GM CHEW PO PRN (18:30)
[2024-07-15 20:19] VITALS: BP 101/55; TEMP 97.9; O2SAT 97
[2024-07-15] MEDS ORDERED: MICONAZOLE 2 % POWDER (DESENEX) TOP PRN (21:00)
[2024-07-15] MEDS ORDERED: KETOCONAZOLE 2% CREAM TOP PRN (21:00)
[2024-07-15] MEDS: INSULIN LISPRO (NovoLOG) PER UNIT SC SCH (21:00)
[2024-07-15] MEDS: BUMETANIDE 1 MG TAB PO SCH (21:00)
[2024-07-15] MEDS: APIXABAN 2.5 MG TAB (ELIQUIS) PO SCH (21:15)
[2024-07-15] MEDS: ATORVASTATIN 20 MG TAB PO SCH (21:16)
[2024-07-15] MEDS: SINEMET 25-100 MG TAB PO SCH (21:16)
[2024-07-15] MEDS: levETIRAcetam 250MG TABLET (KEPPRA) PO SCH (21:16)
[2024-07-15] MEDS: rOPINIRole 1MG TAB PO SCH (21:16)
[2024-07-15] MEDS: PANTOPRAZOLE 40MG TAB (PROTONIX) PO SCH (21:16)
[2024-07-16] VITALS (78 sets, daily range): BP systolic 68–135; BP diastolic 35–59; TEMP 92.8–99.1; O2SAT 85–100
[2024-07-16] MEDS: NS 500 ML IV ONE (00:29)
[2024-07-16] MEDS: MIDODRINE 5 MG TAB PO STA (01:57)
[2024-07-16] MEDS: MIDODRINE 5 MG TAB PO ONE (03:57)
[2024-07-16] MEDS ORDERED: NOREPINEPHRINE BITARTRATE 16 MG in D5W 484 ML IV SCH (06:00)
[2024-07-16 07:09] LABS: HEMATOCRIT 34.1 % (36.0-47.0); HEMOGLOBIN 10.5 g/dl (12.0-15.5); MEAN CORPUSCULAR HEMOGLOBIN 29.5 pg (27.0-33.0); MEAN CORPUSCULAR HGB CONC 30.8 g/dl (32.0-36.5); MEAN CORPUSCULAR VOLUME 95.8 fl (80.0-96.0); PLATELET COUNT, AUTOMATED 100 10^3/uL (150-450); RED BLOOD COUNT 3.56 10^6/uL (4.00-5.40); WHITE BLOOD COUNT 15.9 10^3/uL (4.0-10.0)
[2024-07-16 07:17] LABS: C REACTIVE PROTEIN QUANTITATIV 12.4 MG/DL (<1.0)
[2024-07-16 07:27] LABS: ALBUMIN 2.3 G/DL (3.2-5.2); ALKALINE PHOSPHATASE 184 U/L (35-104); ALT/SGPT < 9 U/L (7.0-40); AST/SGOT 17 U/L (<34); BILIRUBIN,TOTAL 1.2 MG/DL (0.3-1.2); BLOOD UREA NITROGEN 27 MG/DL (9-23); CALCIUM LEVEL 8.5 MG/DL (8.3-10.6); CARBON DIOXIDE LEVEL 28 MMOL/L (20-31); CHLORIDE LEVEL 100 MMOL/L (98-107); GLOMERULAR FILTRATION RATE 12.1 (>32); GLUCOSE, FASTING 84 MG/DL (74-106); MAGNESIUM LEVEL 1.4 MG/DL (1.8-2.4); POTASSIUM SERUM 4.9 MMOL/L (3.5-5.1); SODIUM LEVEL 133 MMOL/L (136-145); TOTAL PROTEIN 5.5 G/DL (5.7-8.2)
[2024-07-16 07:30] LABS: PROCALCITONIN 2.07 ng/ml
[2024-07-16] MEDS: INSULIN LISPRO (NovoLOG) PER UNIT SC SCH (07:30)
[2024-07-16] MEDS ORDERED: PIPERACILLIN/TAZOBACTAM SOD 4.5 GM in DEXTROSE 5% (D5W) ADV/MINI-BAG 50 ML IV SCH (08:40)
[2024-07-16] MEDS ORDERED: VANCOMYCIN/WATER FOR INJ 750 MG in IV 1 EA IV SCH (08:40)
[2024-07-16 08:50] LABS: ERYTHROCYTE SEDIMENTATION RATE 49 mm/hr (0-30)
[2024-07-16] MEDS: METOPROLOL TART 25 MG TABLET PO SCH (09:00)
[2024-07-16] MEDS: SINEMET 25-100 MG TAB PO SCH (09:00)
[2024-07-16] MEDS: FEBUXOSTAT 40 MG TABLET (ULORIC) PO SCH (09:00)
[2024-07-16] MEDS: GABAPENTIN 100 MG CAP PO SCH (09:00)
[2024-07-16] MEDS ORDERED: FERROUS SULFATE 325MG TAB PO SCH (09:00)
[2024-07-16] MEDS: MIRALAX *UNIT DOSE* 17GM PACKET PO SCH (09:00)
[2024-07-16 09:11] LABS: PHOSPHORUS LEVEL 3.5 MG/DL (2.4-5.1)
[2024-07-16] MEDS: PIPERACILLIN/TAZOBACTAM SOD 4.5 GM in DEXTROSE 5% (D5W) ADV/MINI-BAG 50 ML IV SCH ×2 (09:33→16:56)
[2024-07-16] MEDS: MAG SULF 1GM/100ML (MAG RUN) 1 GM in IV 1 EA IV SCH ×2 (09:33→13:59)
[2024-07-16] MEDS: FUROSEMIDE 100MG/10ML VIAL IV SCH (09:34)
[2024-07-16 10:03] LABS: IONIZED CALCIUM 4.4 MG/DL (4.5-5.3)
[2024-07-16 10:12] LABS: HEMATOCRIT 33.7 % (36.0-47.0); HEMOGLOBIN 10.8 g/dl (12.0-15.5); MEAN CORPUSCULAR HEMOGLOBIN 30.6 pg (27.0-33.0); MEAN CORPUSCULAR VOLUME 95.5 fl (80.0-96.0); PLATELET COUNT, AUTOMATED 109 10^3/uL (150-450); RED BLOOD COUNT 3.53 10^6/uL (4.00-5.40); WHITE BLOOD COUNT 15.6 10^3/uL (4.0-10.0)
[2024-07-16 10:24] LABS: INR 2.44; PARTIAL THROMBOPLASTIN TIME 52.5 SECONDS (24.8-34.2); PROTHROMBIN TIME 26.6 SECONDS (12.5-14.5)
[2024-07-16] MEDS: VANCOMYCIN 1,250 MG/250 ML IV BAG *LOAD IV ONE (10:41)
[2024-07-16] MEDS: levETIRAcetam INJection 500 MG in DEXTROSE 5% (D5W) MINI-BAG PLU 100 ML IV SCH (11:09)
[2024-07-16] MEDS: PANTOPRAZOLE 40MG VIAL IV SCH (11:09)
[2024-07-16] MEDS: HEPARIN 1,000UNITS/ML 10ML VIAL (FOR RADIOLOGY & DIALYSIS ONLY) CRRT PRN (11:11)
[2024-07-16] MEDS ORDERED: VANCOMYCIN INTERMITTENT/PULSE DOSING BY CLINICAL PHARMACIST PER DOSING PROTOCOL XX SCH (11:15)
[2024-07-16 12:01] LABS: CALCIUM LEVEL 8.5 MG/DL (8.3-10.6); GLOMERULAR FILTRATION RATE 11.4 (>32); MAGNESIUM LEVEL 1.5 MG/DL (1.8-2.4); POTASSIUM SERUM 4.9 MMOL/L (3.5-5.1)
[2024-07-16] MEDS: CALCIUM GLUCONATE 1,000 MG in DEXTROSE 5% (D5W) MINI-BAG PLU 100 ML IV SCH (12:38)
[2024-07-16] MEDS: HYDROCORTISONE 100MG/2ML VIAL IV STA (12:54)
[2024-07-16] MEDS: NOREPINEPHRINE 4MG IN D5 250ML 4 MG in IV 1 EA IV SCH (15:42)
[2024-07-16] MEDS: VASOPRESSIN IN 0.9 % NACL 20 UNIT in IV 1 EA IV SCH (16:55)
[2024-07-16] MEDS ORDERED: LevoFLOXacin IV 250 MG in IV 1 EA IV SCH (18:00)
[2024-07-16 18:29] LABS: HEMATOCRIT 38.5 % (36.0-47.0); HEMOGLOBIN 11.9 g/dl (12.0-15.5); MEAN CORPUSCULAR HEMOGLOBIN 30.4 pg (27.0-33.0); MEAN CORPUSCULAR HGB CONC 30.9 g/dl (32.0-36.5); MEAN CORPUSCULAR VOLUME 98.2 fl (80.0-96.0); PLATELET COUNT, AUTOMATED 110 10^3/uL (150-450); RED BLOOD COUNT 3.92 10^6/uL (4.00-5.40); WHITE BLOOD COUNT 15.8 10^3/uL (4.0-10.0)
[2024-07-16] MEDS: HYDROCORTISONE 100MG/2ML VIAL IV SCH (18:49)
[2024-07-16 18:57] LABS: CREATININE FOR GFR 2.42 MG/DL (0.55-1.30); GLOMERULAR FILTRATION RATE 20.4 (>32); MAGNESIUM LEVEL 2.4 MG/DL (1.8-2.4); PHOSPHORUS LEVEL 4.4 MG/DL (2.4-5.1); POTASSIUM SERUM 4.4 MMOL/L (3.5-5.1)
[2024-07-16] MEDS: VANCOMYCIN 750MG/150 ML IV BAG IV SCH (21:22)
[2024-07-17] VITALS (96 sets, daily range): BP systolic 11–139; BP diastolic 36–70; TEMP 94.9–98.4; O2SAT 76–100
[2024-07-17 01:38] LABS: CALCIUM LEVEL 9.3 MG/DL (8.3-10.6); CREATININE FOR GFR 2.18 MG/DL (0.55-1.30); MAGNESIUM LEVEL 2.2 MG/DL (1.8-2.4); POTASSIUM SERUM 4.6 MMOL/L (3.5-5.1)
[2024-07-17] MEDS: HEPARIN 1,000UNITS/ML 10ML VIAL (FOR RADIOLOGY & DIALYSIS ONLY) CRRT PRN (01:55)
[2024-07-17 05:20] LABS: IONIZED CALCIUM 4.7 MG/DL (4.5-5.3)
[2024-07-17 05:30] LABS: BASO % 0.2 % (0.0-1.0); HEMATOCRIT 38.3 % (36.0-47.0); HEMOGLOBIN 11.6 g/dl (12.0-15.5); LYMPH # 0.3 10^3/uL (1.5-5.0); LYMPH % 2.2 % (24.0-44.0); MEAN CORPUSCULAR HEMOGLOBIN 29.8 pg (27.0-33.0); MEAN CORPUSCULAR HGB CONC 30.3 g/dl (32.0-36.5); MEAN CORPUSCULAR VOLUME 98.5 fl (80.0-96.0); MONO # 0.6 10^3/uL (0.0-0.8); MONO % 3.7 % (2.0-8.0); NEUTROPHILS # 14.1 10^3/uL (1.5-8.5); NEUTROPHILS % 93.6 % (36.0-66.0); PLATELET COUNT, AUTOMATED 129 10^3/uL (150-450); RED BLOOD COUNT 3.89 10^6/uL (4.00-5.40)
[2024-07-17 05:44] LABS: INR 1.89; PARTIAL THROMBOPLASTIN TIME 41.1 SECONDS (24.8-34.2); PROTHROMBIN TIME 21.9 SECONDS (12.5-14.5)
[2024-07-17 05:49] LABS: CALCIUM LEVEL 8.9 MG/DL (8.3-10.6); CREATININE FOR GFR 1.75 MG/DL (0.55-1.30); GLOMERULAR FILTRATION RATE 29.6 (>32); POTASSIUM SERUM 4.4 MMOL/L (3.5-5.1)
[2024-07-17 05:59] LABS: MAGNESIUM LEVEL 2.2 MG/DL (1.8-2.4); PHOSPHORUS LEVEL 4.4 MG/DL (2.4-5.1)
[2024-07-17] MEDS: MORPHINE 2 MG/ML 1ML VIAL IV ONE ×2 (10:28→10:31)
[2024-07-17 12:16] LABS: IONIZED CALCIUM 4.2 MG/DL (4.5-5.3)
[2024-07-17 12:51] LABS: CREATININE FOR GFR 1.57 MG/DL (0.55-1.30); GLOMERULAR FILTRATION RATE 33.6 (>32); MAGNESIUM LEVEL 2.1 MG/DL (1.8-2.4); PHOSPHORUS LEVEL 4.3 MG/DL (2.4-5.1)
[2024-07-17] MEDS: CALCIUM GLUCONATE 1,000 MG in NS MINI-BAG PLUS 100 ML IV SCH (14:07)
[2024-07-17] MEDS: HYDROCORTISONE 100MG/2ML VIAL IV SCH (14:08)
[2024-07-17 16:46] LABS: ABG HCO3 21.6 MMOL/L (22.0-26.0); ABG O2 SATURATION 97.3 % (95.0-99.0); ABG PARTIAL PRESSURE CO2 51.3 mmHg (35.0-45.0); ABG STANDARD HCO3 19.6 MMOL/L. (22.0-26.0); ABG TOTAL CO2 23.2 MMOL/L (23.0-31.0)
[2024-07-17 16:49] LABS: ABG pH (ARTERIAL) 7.242 UNITS (7.350-7.450)
[2024-07-17] MEDS: NYSTATIN 100,000 UNITS/GM TOPICAL PWD 15GM TOP PRN (18:17)
[2024-07-17 18:24] LABS: HEMATOCRIT 36.6 % (36.0-47.0); HEMOGLOBIN 11.2 g/dl (12.0-15.5); MEAN CORPUSCULAR HGB CONC 30.6 g/dl (32.0-36.5); MEAN CORPUSCULAR VOLUME 98.1 fl (80.0-96.0); PLATELET COUNT, AUTOMATED 135 10^3/uL (150-450); RED BLOOD COUNT 3.73 10^6/uL (4.00-5.40); WHITE BLOOD COUNT 15.5 10^3/uL (4.0-10.0)
[2024-07-17 18:54] LABS: CALCIUM LEVEL 9.7 MG/DL (8.3-10.6); CREATININE FOR GFR 1.24 MG/DL (0.55-1.30); GLOMERULAR FILTRATION RATE 44.1 (>32); MAGNESIUM LEVEL 2.2 MG/DL (1.8-2.4); PHOSPHORUS LEVEL 4.3 MG/DL (2.4-5.1); POTASSIUM SERUM 4.4 MMOL/L (3.5-5.1)
[2024-07-17] MEDS: VANCOMYCIN 1,000MG/200 ML IV BAG IV SCH (22:25)
[2024-07-18] VITALS (103 sets, daily range): BP systolic 85–149; BP diastolic 39–74; TEMP 95.8–99.7; O2SAT 91–98
[2024-07-18 00:32] LABS: HEMATOCRIT 35.5 % (36.0-47.0); HEMOGLOBIN 10.9 g/dl (12.0-15.5); MEAN CORPUSCULAR HGB CONC 30.7 g/dl (32.0-36.5); MEAN CORPUSCULAR VOLUME 97.8 fl (80.0-96.0); PLATELET COUNT, AUTOMATED 134 10^3/uL (150-450); RED BLOOD COUNT 3.63 10^6/uL (4.00-5.40); WHITE BLOOD COUNT 14.9 10^3/uL (4.0-10.0)
[2024-07-18 00:42] LABS: CALCIUM LEVEL 9.3 MG/DL (8.3-10.6); CREATININE FOR GFR 1.05 MG/DL (0.55-1.30); GLOMERULAR FILTRATION RATE 53.4 (>32); MAGNESIUM LEVEL 2.2 MG/DL (1.8-2.4); PHOSPHORUS LEVEL 3.9 MG/DL (2.4-5.1); POTASSIUM SERUM 4.3 MMOL/L (3.5-5.1)
[2024-07-18 05:59] LABS: IONIZED CALCIUM 4.9 MG/DL (4.5-5.3)
[2024-07-18 06:08] LABS: BASO % 0.1 % (0.0-1.0); HEMOGLOBIN 10.9 g/dl (12.0-15.5); LYMPH # 0.6 10^3/uL (1.5-5.0); LYMPH % 4.2 % (24.0-44.0); MEAN CORPUSCULAR HEMOGLOBIN 29.9 pg (27.0-33.0); MEAN CORPUSCULAR HGB CONC 31.1 g/dl (32.0-36.5); MEAN CORPUSCULAR VOLUME 95.9 fl (80.0-96.0); MONO # 0.6 10^3/uL (0.0-0.8); MONO % 4.4 % (2.0-8.0); PLATELET COUNT, AUTOMATED 147 10^3/uL (150-450); RED BLOOD COUNT 3.65 10^6/uL (4.00-5.40); WHITE BLOOD COUNT 13.2 10^3/uL (4.0-10.0)
[2024-07-18 06:46] LABS: ALBUMIN 2.4 G/DL (3.2-5.2); BLOOD UREA NITROGEN 12 MG/DL (9-23); CALCIUM LEVEL 9.6 MG/DL (8.3-10.6); CARBON DIOXIDE LEVEL 23 MMOL/L (20-31); CHLORIDE LEVEL 106 MMOL/L (98-107); CREATININE FOR GFR 0.94 MG/DL (0.55-1.30); GLOMERULAR FILTRATION RATE > 60.0 (>32); GLUCOSE, FASTING 117 MG/DL (74-106); MAGNESIUM LEVEL 2.2 MG/DL (1.8-2.4); PHOSPHORUS LEVEL 3.6 MG/DL (2.4-5.1); POTASSIUM SERUM 4.3 MMOL/L (3.5-5.1); SODIUM LEVEL 136 MMOL/L (136-145)
[2024-07-18] MEDS: HEPARIN SOD (PORCINE) 5000UNITS/ML 1ML VIAL/SYRINGE SQ SCH (16:20)
[2024-07-18 20:39] LABS: CALCIUM LEVEL 9.5 MG/DL (8.3-10.6); CREATININE FOR GFR 1.53 MG/DL (0.55-1.30); GLOMERULAR FILTRATION RATE 34.6 (>32); MAGNESIUM LEVEL 2.3 MG/DL (1.8-2.4); PHOSPHORUS LEVEL 3.7 MG/DL (2.4-5.1); POTASSIUM SERUM 4.4 MMOL/L (3.5-5.1)
[2024-07-18] MEDS: VANCOMYCIN 750MG/150 ML IV BAG IV SCH (21:00)
[2024-07-19] VITALS (59 sets, daily range): BP systolic 95–135; BP diastolic 43–58; TEMP 97.3–99.9; O2SAT 89–97
[2024-07-19 04:28] LABS: BASO % 0.1 % (0.0-1.0); HEMATOCRIT 31.3 % (36.0-47.0); HEMOGLOBIN 9.9 g/dl (12.0-15.5); LYMPH # 0.6 10^3/uL (1.5-5.0); LYMPH % 5.7 % (24.0-44.0); MEAN CORPUSCULAR HEMOGLOBIN 30.7 pg (27.0-33.0); MEAN CORPUSCULAR HGB CONC 31.6 g/dl (32.0-36.5); MEAN CORPUSCULAR VOLUME 96.9 fl (80.0-96.0); MONO # 0.5 10^3/uL (0.0-0.8); MONO % 5.3 % (2.0-8.0); NEUTROPHILS # 8.9 10^3/uL (1.5-8.5); NEUTROPHILS % 88.5 % (36.0-66.0); PLATELET COUNT, AUTOMATED 102 10^3/uL (150-450); RED BLOOD COUNT 3.23 10^6/uL (4.00-5.40); WHITE BLOOD COUNT 10.1 10^3/uL (4.0-10.0)
[2024-07-19 04:57] LABS: ALBUMIN 2.3 G/DL (3.2-5.2); CALCIUM LEVEL 9.4 MG/DL (8.3-10.6); CREATININE FOR GFR 1.91 MG/DL (0.55-1.30); GLOMERULAR FILTRATION RATE 26.8 (>32); MAGNESIUM LEVEL 2.4 MG/DL (1.8-2.4); PHOSPHORUS LEVEL 3.9 MG/DL (2.4-5.1); POTASSIUM SERUM 4.5 MMOL/L (3.5-5.1)
[2024-07-19] MEDS ORDERED: CEFTAROLINE FOSAMIL 400 MG in DEXTROSE 5% (D5W) ADV/MINI-BAG 50 ML IV SCH (12:20)
[2024-07-19] MEDS: CEFTAROLINE FOSAMIL 300 MG in D5W 50 ML IV SCH (16:10)
[2024-07-20] VITALS (13 sets, daily range): BP systolic 99–119; BP diastolic 50–58; TEMP 97–98.5; O2SAT 91–98
[2024-07-20 04:39] LABS: BASO % 0.1 % (0.0-1.0); EOS % 0.1 % (0.0-3.0); HEMATOCRIT 30.7 % (36.0-47.0); HEMOGLOBIN 9.9 g/dl (12.0-15.5); LYMPH # 0.6 10^3/uL (1.5-5.0); LYMPH % 6.4 % (24.0-44.0); MEAN CORPUSCULAR HEMOGLOBIN 30.6 pg (27.0-33.0); MEAN CORPUSCULAR HGB CONC 32.2 g/dl (32.0-36.5); MEAN CORPUSCULAR VOLUME 94.8 fl (80.0-96.0); MONO # 0.6 10^3/uL (0.0-0.8); MONO % 6.4 % (2.0-8.0); NEUTROPHILS # 7.8 10^3/uL (1.5-8.5); NEUTROPHILS % 86.6 % (36.0-66.0); RED BLOOD COUNT 3.24 10^6/uL (4.00-5.40)
[2024-07-20 04:51] LABS: ALBUMIN 2.4 G/DL (3.2-5.2); ALKALINE PHOSPHATASE 155 U/L (35-104); ALT/SGPT < 9 U/L (7.0-40); AST/SGOT 21 U/L (<34); BLOOD UREA NITROGEN 47 MG/DL (9-23); CALCIUM LEVEL 9.6 MG/DL (8.3-10.6); CARBON DIOXIDE LEVEL 22 MMOL/L (20-31); CHLORIDE LEVEL 104 MMOL/L (98-107); CREATININE FOR GFR 2.79 MG/DL (0.55-1.30); GLOMERULAR FILTRATION RATE 17.3 (>32); GLUCOSE, FASTING 136 MG/DL (74-106); MAGNESIUM LEVEL 2.5 MG/DL (1.8-2.4); PHOSPHORUS LEVEL 4.1 MG/DL (2.4-5.1); POTASSIUM SERUM 4.5 MMOL/L (3.5-5.1); SODIUM LEVEL 137 MMOL/L (136-145); TOTAL PROTEIN 5.7 G/DL (5.7-8.2)
[2024-07-20 05:23] LABS: PLATELET COUNT, AUTOMATED 82 10^3/uL (150-450)
[2024-07-20 11:24] LABS: VANCOMYCIN RANDOM 34.2 UG/ML
[2024-07-20] MEDS: HYDROCORTISONE 100MG/2ML VIAL IV SCH (19:26)
[2024-07-21] VITALS (8 sets, daily range): BP systolic 90–125; BP diastolic 52–66; TEMP 96.8–98.2; O2SAT 92–98
[2024-07-21 04:09] LABS: BASO % 0.1 % (0.0-1.0); HEMATOCRIT 31.9 % (36.0-47.0); LYMPH # 0.6 10^3/uL (1.5-5.0); LYMPH % 7.4 % (24.0-44.0); MEAN CORPUSCULAR HEMOGLOBIN 30.3 pg (27.0-33.0); MEAN CORPUSCULAR HGB CONC 31.3 g/dl (32.0-36.5); MEAN CORPUSCULAR VOLUME 96.7 fl (80.0-96.0); MONO # 0.6 10^3/uL (0.0-0.8); NEUTROPHILS % 84.8 % (36.0-66.0); WHITE BLOOD COUNT 8.2 10^3/uL (4.0-10.0)
[2024-07-21 04:20] LABS: PLATELET COUNT, AUTOMATED 73 10^3/uL (150-450)
[2024-07-21 04:32] LABS: C REACTIVE PROTEIN QUANTITATIV 3.8 MG/DL (<1.0)
[2024-07-21 04:34] LABS: ALBUMIN 2.4 G/DL (3.2-5.2); BILIRUBIN,TOTAL 0.9 MG/DL (0.3-1.2); CALCIUM LEVEL 9.2 MG/DL (8.3-10.6); CREATININE FOR GFR 3.67 MG/DL (0.55-1.30); GLOMERULAR FILTRATION RATE 12.6 (>32); MAGNESIUM LEVEL 2.5 MG/DL (1.8-2.4); POTASSIUM SERUM 4.8 MMOL/L (3.5-5.1); TOTAL PROTEIN 5.7 G/DL (5.7-8.2)
[2024-07-21] MEDS ORDERED: SODIUM CHLORIDE 0.9% 1000 ML IV PRN (06:00)
[2024-07-21] MEDS ORDERED: HEPARIN 1,000UNITS/ML 10ML VIAL (FOR RADIOLOGY & DIALYSIS ONLY) IV PRN (06:00)
[2024-07-21] MEDS: HEPARIN 1,000UNITS/ML 10ML VIAL (FOR RADIOLOGY & DIALYSIS ONLY) XX SCH (09:54)
[2024-07-21] MEDS ORDERED: VANCOMYCIN/WATER FOR INJ 1,000 MG in IV 1 EA IV SCH (16:00)
[2024-07-22] VITALS (7 sets, daily range): BP systolic 95–142; BP diastolic 51–62; TEMP 97.3–98.3; O2SAT 89–96
[2024-07-22 06:29] LABS: BASO % 0.1 % (0.0-1.0); HEMATOCRIT 32.3 % (36.0-47.0); HEMOGLOBIN 10.1 g/dl (12.0-15.5); LYMPH # 0.6 10^3/uL (1.5-5.0); LYMPH % 8.8 % (24.0-44.0); MEAN CORPUSCULAR HEMOGLOBIN 29.4 pg (27.0-33.0); MEAN CORPUSCULAR HGB CONC 31.3 g/dl (32.0-36.5); MEAN CORPUSCULAR VOLUME 94.2 fl (80.0-96.0); MONO # 0.6 10^3/uL (0.0-0.8); MONO % 8.1 % (2.0-8.0); NEUTROPHILS # 5.9 10^3/uL (1.5-8.5); RED BLOOD COUNT 3.43 10^6/uL (4.00-5.40); WHITE BLOOD COUNT 7.2 10^3/uL (4.0-10.0)
[2024-07-22 06:30] LABS: PLATELET COUNT, AUTOMATED 67 10^3/uL (150-450)
[2024-07-22 06:48] LABS: C REACTIVE PROTEIN QUANTITATIV 2.5 MG/DL (<1.0)
[2024-07-22 06:49] LABS: ALBUMIN 2.5 G/DL (3.2-5.2); BILIRUBIN,TOTAL 1.2 MG/DL (0.3-1.2); CALCIUM LEVEL 9.4 MG/DL (8.3-10.6); CREATININE FOR GFR 2.64 MG/DL (0.55-1.30); GLOMERULAR FILTRATION RATE 18.4 (>32); MAGNESIUM LEVEL 2.1 MG/DL (1.8-2.4); TOTAL PROTEIN 5.7 G/DL (5.7-8.2)
[2024-07-22] MEDS: NS 1,000 ML IV SCH ×2 (10:41→21:30)
[2024-07-22 10:45] LABS: ABG BASE EXCESS -5.8 (-2.0-2.0); ABG HCO3 19.6 MMOL/L (22.0-26.0); ABG O2 SATURATION 89.3 % (95.0-99.0); ABG PARTIAL PRESSURE CO2 37.7 mmHg (35.0-45.0); ABG PARTIAL PRESSURE O2 61.1 mmHg (75.0-100.0); ABG STANDARD HCO3 19.6 MMOL/L. (22.0-26.0); ABG TOTAL CO2 20.7 MMOL/L (23.0-31.0); ABG pH (ARTERIAL) 7.333 UNITS (7.350-7.450)
[2024-07-22] MEDS: ceFAZolin 2 GM/D5W 50 ML IV BAG As Ordered ONE (20:56)
[2024-07-22] MEDS ORDERED: fentaNYL 100 MCG/2 ML INJECTION IV PRN (21:30)
[2024-07-22] MEDS ORDERED: ONDANSETRON 4MG 2ML VIAL IV PRN (21:30)
[2024-07-23] VITALS (17 sets, daily range): BP systolic 110–142; BP diastolic 58–76; TEMP 97.3–97.9; O2SAT 82–98
[2024-07-23 05:06] LABS: BASO % 0.1 % (0.0-1.0); HEMATOCRIT 34.6 % (36.0-47.0); LYMPH # 0.7 10^3/uL (1.5-5.0); LYMPH % 7.1 % (24.0-44.0); MEAN CORPUSCULAR HEMOGLOBIN 29.9 pg (27.0-33.0); MEAN CORPUSCULAR HGB CONC 31.8 g/dl (32.0-36.5); MONO # 0.9 10^3/uL (0.0-0.8); MONO % 9.6 % (2.0-8.0); NEUTROPHILS # 7.5 10^3/uL (1.5-8.5); NEUTROPHILS % 81.3 % (36.0-66.0); RED BLOOD COUNT 3.68 10^6/uL (4.00-5.40); WHITE BLOOD COUNT 9.2 10^3/uL (4.0-10.0)
[2024-07-23 05:07] LABS: PLATELET COUNT, AUTOMATED 67 10^3/uL (150-450)
[2024-07-23 05:25] LABS: C REACTIVE PROTEIN QUANTITATIV 2.05 MG/DL (<1.0)
[2024-07-23 05:26] LABS: ALBUMIN 2.5 G/DL (3.2-5.2); BILIRUBIN,TOTAL 1.1 MG/DL (0.3-1.2); CALCIUM LEVEL 9.4 MG/DL (8.3-10.6); CREATININE FOR GFR 3.46 MG/DL (0.55-1.30); GLOMERULAR FILTRATION RATE 13.5 (>32); MAGNESIUM LEVEL 2.1 MG/DL (1.8-2.4); POTASSIUM SERUM 4.2 MMOL/L (3.5-5.1); TOTAL PROTEIN 5.8 G/DL (5.7-8.2)
[2024-07-23] MEDS ORDERED: SODIUM CHLORIDE 0.9% 1000 ML IV PRN (06:00)
[2024-07-23] MEDS ORDERED: HEPARIN 1,000UNITS/ML 10ML VIAL (FOR RADIOLOGY & DIALYSIS ONLY) XX SCH (06:00)
[2024-07-23 11:56] LABS: ABG BASE EXCESS -8.1 (-2.0-2.0); ABG HCO3 19.6 MMOL/L (22.0-26.0); ABG O2 SATURATION 83.4 % (95.0-99.0); ABG PARTIAL PRESSURE CO2 49.7 mmHg (35.0-45.0); ABG PARTIAL PRESSURE O2 55.7 mmHg (75.0-100.0); ABG STANDARD HCO3 17.6 MMOL/L. (22.0-26.0); ABG TOTAL CO2 21.1 MMOL/L (23.0-31.0)
[2024-07-23 12:01] LABS: ABG pH (ARTERIAL) 7.214 UNITS (7.350-7.450)
[2024-07-23] MEDS: HEPARIN 1,000UNITS/ML 10ML VIAL (FOR RADIOLOGY & DIALYSIS ONLY) IV PRN (14:07)
[2024-07-23 14:08] LABS: ABG BASE EXCESS -8.2 (-2.0-2.0); ABG HCO3 19.9 MMOL/L (22.0-26.0); ABG O2 SATURATION 95.8 % (95.0-99.0); ABG STANDARD HCO3 17.8 MMOL/L. (22.0-26.0); ABG TOTAL CO2 21.5 MMOL/L (23.0-31.0)
[2024-07-23 17:57] LABS: FOLATE 4.6 NG/ML (>5.4); TOTAL 25(OH) VITAMIN D 28.8 NG/ML (20.0-100.0)
[2024-07-23 18:06] LABS: ABG BASE EXCESS -5.5 (-2.0-2.0); ABG HCO3 20.5 MMOL/L (22.0-26.0); ABG O2 SATURATION 85.8 % (95.0-99.0); ABG PARTIAL PRESSURE CO2 41.9 mmHg (35.0-45.0); ABG PARTIAL PRESSURE O2 55.7 mmHg (75.0-100.0); ABG STANDARD HCO3 19.7 MMOL/L. (22.0-26.0); ABG TOTAL CO2 21.8 MMOL/L (23.0-31.0); ABG pH (ARTERIAL) 7.307 UNITS (7.350-7.450)
[2024-07-23 20:29] LABS: HEMATOCRIT 33.5 % (36.0-47.0); HEMOGLOBIN 10.7 g/dl (12.0-15.5); MEAN CORPUSCULAR HEMOGLOBIN 30.1 pg (27.0-33.0); MEAN CORPUSCULAR HGB CONC 31.9 g/dl (32.0-36.5); MEAN CORPUSCULAR VOLUME 94.4 fl (80.0-96.0); RED BLOOD COUNT 3.55 10^6/uL (4.00-5.40)
[2024-07-23 20:35] LABS: PLATELET COUNT, AUTOMATED 75 10^3/uL (150-450)
[2024-07-23 20:42] LABS: INR 1.28; PARTIAL THROMBOPLASTIN TIME 28.8 SECONDS (24.8-34.2); PROTHROMBIN TIME 16.2 SECONDS (12.5-14.5)
[2024-07-24] VITALS (12 sets, daily range): BP systolic 110–130; BP diastolic 50–60; TEMP 97.4; O2SAT 90–98
[2024-07-24 04:23] LABS: BASO % 0.1 % (0.0-1.0); HEMATOCRIT 32.5 % (36.0-47.0); HEMOGLOBIN 10.3 g/dl (12.0-15.5); LYMPH # 0.5 10^3/uL (1.5-5.0); MEAN CORPUSCULAR HEMOGLOBIN 30.1 pg (27.0-33.0); MEAN CORPUSCULAR HGB CONC 31.7 g/dl (32.0-36.5); MONO # 0.5 10^3/uL (0.0-0.8); MONO % 5.9 % (2.0-8.0); NEUTROPHILS # 6.6 10^3/uL (1.5-8.5); NEUTROPHILS % 85.8 % (36.0-66.0); RED BLOOD COUNT 3.42 10^6/uL (4.00-5.40); WHITE BLOOD COUNT 7.7 10^3/uL (4.0-10.0)
[2024-07-24 04:25] LABS: PLATELET COUNT, AUTOMATED 84 10^3/uL (150-450)
[2024-07-24 04:32] LABS: ALBUMIN 2.4 G/DL (3.2-5.2); BILIRUBIN,TOTAL 1.2 MG/DL (0.3-1.2); C REACTIVE PROTEIN QUANTITATIV 2.73 MG/DL (<1.0); CALCIUM LEVEL 9.3 MG/DL (8.3-10.6); CREATININE FOR GFR 2.67 MG/DL (0.55-1.30); GLOMERULAR FILTRATION RATE 18.2 (>32); POTASSIUM SERUM 3.9 MMOL/L (3.5-5.1); TOTAL PROTEIN 5.6 G/DL (5.7-8.2)
[2024-07-24] MEDS: MORPHINE 2 MG/ML 1ML VIAL IV PRN (09:40)
[2024-07-24] MEDS ORDERED: MORPHINE 10MG/0.5ML ORAL CONCENTRATE SOLUTION U/D SL PRN (10:40)
[2024-07-24] MEDS ORDERED: ACETAMINOPHEN 650MG SUPP PR PRN (10:40)
[2024-07-24] MEDS ORDERED: BISACODYL 10MG SUPP PR PRN (10:40)
[2024-07-24] MEDS ORDERED: SCOPOLAMINE 1MG TRANSDERMAL PATCH TOP PRN (10:40)
[2024-07-24] MEDS ORDERED: HYOSCYAMINE SULFATE 0.125 MG SUBL TABLET PO PRN (10:40)
[2024-07-24] MEDS: MORPHINE 10MG/0.5ML ORAL CONCENTRATE SOLUTION U/D SL PRN (14:20)
[2024-07-28 19:22] LABS: COPPER PLASMA 98 mcg/dL (70-175)
== END 2024-07-25 04:35 | disposition expired | DRG 314 ==
LOC: M ED 15:20 → EDBD 15:20 → M ED INP 17:37 → M PCU 20:10 → M ICU 07-16 07:53 → OBSVTOIN 07-16 13:13 → M PCU 07-21 18:49
PROVIDERS: ADMIT Internal Medicine; ATTEND Student in an Organized Health Care Education/Training Program
PROC: 5A1D90Z Performance of Urinary Filtration, Continuous, Greater than 18 hours Per Day (ICD-10-PCS; principal; 2024-07-16)
PROC: 02PY33Z Removal of Infusion Device from Great Vessel, Percutaneous Approach (ICD-10-PCS; 2024-07-17)
PROC: B246ZZZ Ultrasonography of Right and Left Heart (ICD-10-PCS; 2024-07-18)
PROC: 0DH68UZ Insertion of Feeding Device into Stomach, Via Natural or Artificial Opening Endoscopic (ICD-10-PCS; 2024-07-22)
DX: T80.218A Other infection due to central venous catheter, initial encounter (principal); N18.6 End stage renal disease; A41.02 Sepsis due to Methicillin resistant Staphylococcus aureus; R65.21 Severe sepsis with septic shock; G93.41 Metabolic encephalopathy; J96.01 Acute respiratory failure with hypoxia; J96.02 Acute respiratory failure with hypercapnia; I50.33 Acute on chronic diastolic (congestive) heart failure; I50.32 Chronic diastolic (congestive) heart failure; I13.2 Hypertensive heart and chronic kidney disease with heart failure and with stage 5 chronic kidney disease, or end stage renal disease; I48.20 Chronic atrial fibrillation, unspecified; E27.40 Unspecified adrenocortical insufficiency; N39.0 Urinary tract infection, site not specified; E87.1 Hypo-osmolality and hyponatremia; E87.20 Acidosis, unspecified; Z51.5 Encounter for palliative care; Z66 Do not resuscitate; E87.70 Fluid overload, unspecified; R51.9 Headache, unspecified; J32.9 Chronic sinusitis, unspecified; I27.20 Pulmonary hypertension, unspecified; I36.1 Nonrheumatic tricuspid (valve) insufficiency; E78.5 Hyperlipidemia, unspecified; K21.00 Gastro-esophageal reflux disease with esophagitis, without bleeding; D50.9 Iron deficiency anemia, unspecified; D63.8 Anemia in other chronic diseases classified elsewhere; M10.9 Gout, unspecified; G25.81 Restless legs syndrome; G40.909 Epilepsy, unspecified, not intractable, without status epilepticus; G20.C Parkinsonism, unspecified; G89.29 Other chronic pain; M54.9 Dorsalgia, unspecified; M19.90 Unspecified osteoarthritis, unspecified site; J45.909 Unspecified asthma, uncomplicated; M25.512 Pain in left shoulder; I27.23 Pulmonary hypertension due to lung diseases and hypoxia; E11.22 Type 2 diabetes mellitus with diabetic chronic kidney disease; B95.62 Methicillin resistant Staphylococcus aureus infection as the cause of diseases classified elsewhere; R13.10 Dysphagia, unspecified; J47.9 Bronchiectasis, uncomplicated; D69.6 Thrombocytopenia, unspecified; F32.A Depression, unspecified; E11.42 Type 2 diabetes mellitus with diabetic polyneuropathy; F41.9 Anxiety disorder, unspecified; Y83.1 Surgical operation with implant of artificial internal device as the cause of abnormal reaction of the patient, or of later complication, without mention of misadventure at the time of the procedure; R68.0 Hypothermia, not associated with low environmental temperature; Z96.1 Presence of intraocular lens; Z96.642 Presence of left artificial hip joint; Z98.41 Cataract extraction status, right eye; Z98.42 Cataract extraction status, left eye; Z99.2 Dependence on renal dialysis; Z79.01 Long term (current) use of anticoagulants; Z79.4 Long term (current) use of insulin; Z79.899 Other long term (current) drug therapy